=== PATIENT | male | born 1935 | race Caucasian/White ===

== ENCOUNTER → 2017-11-15 09:34 | Outpatient (CLI) | payer MEDICARE, OTHER, SELFPAY ==
[2017-11-15 11:20] LABS: AST(SGOT) 17 U/L (15-37); Alanine Aminotransfer ALT/SGPT 19 U/L (16-61); Albumin, Serum 3.8 g/dL (3.2-5.0); Alkaline Phosphatase 92 U/L (45-117); Bilirubin, Direct 0.09 mg/dL (0.00-0.30); Cholesterol 230 mg/dL (200); Globulin 4.2 g/dL (2.2-4.2); High Density Lipoprotein 32 mg/dL; Triglycerides 219 mg/dL; Very Low Density Lipoprotein 44 mg/dL (5-40)
== END ==
PROVIDERS: Internal Medicine Cardiovascular Disease; Family Provider Internal Medicine; PCP Internal Medicine
DX: E78.5 Hyperlipidemia, unspecified (principal); Z79.899 Other long term (current) drug therapy
CPT/HCPCS: 36415; 80061; 80076

== ENCOUNTER → 2018-01-17 09:25 | Outpatient (CLI) | payer MEDICARE, OTHER, SELFPAY ==
[2018-01-17 10:46] LABS: AST(SGOT) 16 U/L (15-37); Alanine Aminotransfer ALT/SGPT 20 U/L (16-61); Albumin, Serum 3.4 g/dL (3.2-5.0); Alkaline Phosphatase 83 U/L (45-117); Bilirubin, Direct 0.11 mg/dL (0.00-0.30); Cholesterol 197 mg/dL (200); Globulin 3.7 g/dL (2.2-4.2); High Density Lipoprotein 26 mg/dL; Protein, Total 7.1 g/dL (6.4-8.2); Triglycerides 246 mg/dL; Very Low Density Lipoprotein 49 mg/dL (5-40)
== END ==
PROVIDERS: Nurse Practitioner Family; Family Provider Internal Medicine; PCP Internal Medicine; Visit Provider Internal Medicine Cardiovascular Disease
DX: E78.5 Hyperlipidemia, unspecified (principal); Z79.899 Other long term (current) drug therapy
CPT/HCPCS: 36415; 80061; 80076

== ENCOUNTER → 2018-07-04 12:15 | Outpatient (CLI) | payer MEDICARE, OTHER, SELFPAY ==
--- NOTE | 2018-07-04 12:17 | CDU_ITS ---
Reason For Study: Bilateral carotid bruit Rt. Velocities/BP Lt. Velocities/BP Prox CCA 79.2/9.97 cm/sec. Prox CCA 87.4/12.9 cm/sec. Mid CCA 75.6/12.3 cm/sec. Mid CCA 90.3/15.2 cm/sec. Dist CCA 69.2/13.5 cm/sec. Dist CCA 86.2/15.8 cm/sec. Bulb 299/40.9 cm/sec. Prox ICA 79.2/15.2 cm/sec. Prox ICA 158/18.3 cm/sec. Mid ICA 85.6/21.7 cm/sec. Mid ICA 124/19.6 cm/sec. Dist ICA 99.1/24.6 cm/sec. Dist ICA 82.1/21.1 cm/sec. Lt. ICA/CCA = 1.13. Rt. ICA/CCA = 2.09. Prox ECA 70.4/7.04 cm/sec. Prox ECA 125/7.86 cm/sec. Lt. Vert. 49.5/10.2 cm/sec. Rt. Vert. 34.3/14.3 cm/sec. Right Extracranial There is intimal thickening but no significant atherosclerotic plaque noted in the right common carotid artery. There is heterogeneous, irregular atherosclerotic plaque noted in the right internal carotid artery. There is intimal thickening but no significant atherosclerotic plaque noted in the right external carotid artery. Antegrade flow is noted in the right vertebral artery. There is heterogeneous, irregular atherosclerotic plaque noted in the right bulb. Left Extracranial There is heterogeneous, smooth atherosclerotic plaque noted in the left common carotid artery. There is heterogeneous, irregular atherosclerotic plaque noted in the left internal carotid artery. There is intimal thickening but no significant atherosclerotic plaque noted in the left external carotid artery. Antegrade flow is noted in the left vertebral artery. Procedure Carotid Duplex [id number]. Exam performed in department. Interpretation Summary Moderate (50-69%) stenosis right extracranial internal carotid. Mild (<50%) stenosis left extracranial internal carotid. Flow within the vertebral arteries is antegrade bilaterally. Ordering Physician: Kareen Stearns Referring Physician: Marcus Espana M.D. Performed By: Enriqueta Go RVT and Student
== END ==
PROVIDERS: Family Provider Internal Medicine; PCP Internal Medicine; Referring Provider Physician Assistant Medical; Visit Provider Physician Assistant Medical
DX: R09.89 Other specified symptoms and signs involving the circulatory and respiratory systems (principal)
CPT/HCPCS: 93880

== ENCOUNTER → 2019-02-09 | Outpatient (CLI) | payer MEDICARE, OTHER, SELFPAY ==
[2019-01-19 14:15] VITALS: BMI 24.7
[2019-02-09 10:21] LABS: AST(SGOT) 20 U/L (15-37); Alanine Aminotransfer ALT/SGPT 20 U/L (16-61); Albumin, Serum 3.7 g/dL (3.2-5.0); Alkaline Phosphatase 87 U/L (45-117); Bilirubin, Direct 0.14 mg/dL (0.00-0.30); Cholesterol 209 mg/dL (200); Globulin 4.1 g/dL (2.2-4.2); High Density Lipoprotein 29 mg/dL; Protein, Total 7.8 g/dL (6.4-8.2); Triglycerides 302 mg/dL; Very Low Density Lipoprotein 60 mg/dL (5-40)
== END | disposition home or self-care (01) ==
LOC: LAB 09:40
PROVIDERS: Family Provider Internal Medicine; PCP Internal Medicine; Referring Provider Internal Medicine Cardiovascular Disease; Visit Provider Internal Medicine Cardiovascular Disease
DX: E78.00 Pure hypercholesterolemia, unspecified (principal)
CPT/HCPCS: 36415; 80061; 80076

== ENCOUNTER 2019-06-03 16:54 | Emergency (ER) | payer MEDICARE, OTHER, SELFPAY ==
[2019-01-19 14:15] VITALS: BMI 24.7
[2019-06-03 16:55] VITALS: BP 134/98; PULSE 77; RESP 16; TEMP 36.6; O2SAT 97; BMI 24.5
--- NOTE | 2019-06-03 17:09 | RAD_ITS ---
STUDY: X-RAY - UNILATERAL RIBS ( RIGHT ) WITH CHEST REASON FOR EXAM: Male, 83 years old. Posterior and axillary rib pain after falling. TECHNIQUE - RIBS: 4 view(s) of the ribs. TECHNIQUE - CHEST: 1 view COMPARISON: None. FINDINGS - RIBS: Normal visualized ribs without a demonstrated fracture. FINDINGS - CHEST: The lungs are clear and expanded. Numerous scattered calcified granuloma. Normal size heart. Status post prior midline sternotomy. Normal visualized pulmonary arteries. There is atherosclerotic calcification of the aortic arch with tortuosity. There is no demonstrated abnormality of the visualized soft tissue structures of the upper abdomen. RAD/Ribs Uni Min 3V w/PA Chest IMPRESSION: RIBS: Normal x-ray examination of the ribs. CHEST: No acute cardiopulmonary findings. Negative for pneumothorax, pleural effusion or major consolidation. Status post prior midline sternotomy. Stigmata of old granulomatous disease. Electronically Signed: Rabia Meza MD at 17:35 EDT , Service support ,
--- NOTE | 2019-06-03 17:10 | ED.VISSUMM ---
- ER Visit Summary Date of Service: 06/03/19 Chief Complaint: Fall History of Present Illness: The patient is a 83 M presents with a fall that occurred earlier today. Patient states he missed a step and fell on his right side. Patient states the pain started approximately 3 hours after the fall. Patient states the pain is over the right lower rib area. Patient states the pain is sharp. Patient states pain is worse with movement. Patient denies any anesthesias or weakness. Patient states he did hit his head but denies any loss of consciousness. Patient denies any paresthesias or weakness. Physical Examination: Vital signs are stable. Patient is afebrile. Patient is in no acute distress. Oral mucosa is pink and moist. Neck is supple. Trachea is midline. There is no JVD noted. Heart was regular rate and rhythm. Lungs are clear and equal bilaterally. There is reproducible tenderness over the posterior right lower ribs. There is no edema or ecchymosis. There is no bony crepitance or step-off. Abdomen is soft. Bowel sounds are normal. There is no tenderness. Cranial nerves II through XII are intact. There are no focal motor or sensory deficits noted. Test Results: X-rays of the right ribs were obtained. There is no acute fracture. There is no effusion. There is no acute cardiopulmonary process. These were interpreted by the radiologist and myself. Emergency Department Course and Treatment: Patient was instructed to use ice to his right ribs. Patient was instructed to take 10-15 deep breaths every hour while awake to prevent atelectasis and pneumonia. Patient was instructed to use Tylenol or ibuprofen as needed for pain. Patient was instructed to follow-up with his primary care physician in 5 to 7 days. Patient understood and was agreeable with the plan. All questions were answered. Disposition: Discharge home Impression: Right chest wall contusion This note was generated with [employer] dictation software. It may contain incorrect words, spelling, and punctuation that were not noted in review of the chart prior to signing ED Disposition - Plan for ED Patient: Disposition: Home or Assisted Living Diagnosis: Chest wall contusion Instructions: Fall Prevention, Chest Wall Contusion Referrals: Marcus Espana MD [Primary Care Provider] - 5-7 Days Additional Instructions: Take 10-15 deep breaths every hour while you are awake to prevent pneumonia.
== END 2019-06-03 17:56 | disposition home or self-care (01) ==
PROVIDERS: Emergency Provider Emergency Medicine; Family Provider Internal Medicine; PCP Internal Medicine
DX: S20.211A Contusion of right front wall of thorax, initial encounter (principal); W17.89XA Other fall from one level to another, initial encounter; Y93.01 Activity, walking, marching and hiking; Y92.89 Other specified places as the place of occurrence of the external cause; Y99.8 Other external cause status; I25.10 Atherosclerotic heart disease of native coronary artery without angina pectoris; J44.9 Chronic obstructive pulmonary disease, unspecified; E78.00 Pure hypercholesterolemia, unspecified; Z72.0 Tobacco use; Z79.51 Long term (current) use of inhaled steroids; Z79.899 Other long term (current) drug therapy; Z79.82 Long term (current) use of aspirin
CPT/HCPCS: 71101; 99282

== ENCOUNTER → 2019-07-17 | Outpatient (CLI) | payer MEDICARE, OTHER, SELFPAY ==
--- NOTE | 2019-07-17 14:00 | RAD_ITS ---
STUDY: X-RAY CHEST REASON FOR EXAM: Male, 83 years old. Left arm swelling, history of smoking TECHNIQUE: Two view of the chest were performed COMPARISON: None. FINDINGS: There is no pneumothorax, pulmonary edema, pneumonia or pleural effusions. There are multiple well defined small, less than 5 cm, dense bilateral pulmonary nodules probably representing granulomata and dense hilar nodules presumably representing calcified lymph nodes. Sternotomy wires are in place and coronary artery bypass clips. Cardiac size is normal. There is likely tortuosity of the aorta in the lower descending thoracic segment with acute angulation. Exact aortic size cannot be discerned on plain films. Osseous structures are unremarkable. RAD/Chest PA and Lateral IMPRESSION: 1. No acute cardiorespiratory disease. [ 2. Presumed pulmonary and hilar granulomatous dystrophic calcifications. 3. Prior coronary bypass. ] Electronically Signed: You Carroll, at 18:33 EST Tel , Service support ,
== END | disposition home or self-care (01) ==
LOC: MTRAD 13:59
PROVIDERS: Family Provider Family Medicine; PCP Family Medicine; Referring Provider Family Medicine; Visit Provider Family Medicine
DX: M79.89 Other specified soft tissue disorders (principal); F17.200 Nicotine dependence, unspecified, uncomplicated
CPT/HCPCS: 71046

== ENCOUNTER → 2019-07-19 | Outpatient (CLI) | payer MEDICARE, OTHER, SELFPAY ==
--- NOTE | 2019-07-19 13:53 | VDUE_ITS ---
Reason For Study: EDEMA Right Proximal Left Proximal Right subclavian vein is spontaneous, widely Left jugular vein is spontaneous, widely patent, phasic, with no intraluminal patent, phasic, with no intraluminal echogenicity noted. echogenicity noted. Left subclavian vein is spontaneous, widely patent, phasic, with no intraluminal echogenicity noted. Left Arm Left axillary vein is spontaneous, patent, phasic, competent, compressible and demonstrates augmentation. Left brachial vein is compressible. Left cephalic vein is compressible. Left basilic vein is compressible. Left Lower Arm Left radial vein is compressible. Left ulnar vein is compressible. Interpretation Summary No evidence for acute deep venous thrombosis[left] upper extremity with patent and compressible cephalic and basilic veins. Patent, compressible right subclavian vein Ordering Physician: Nathan Suresh Referring Physician: Nathan Suresh Performed By: Milagro Espinoza, ALCIDES, RVT ?
== END | disposition home or self-care (01) ==
LOC: CVS 13:50
PROVIDERS: Family Provider Family Medicine; PCP Family Medicine; Referring Provider Family Medicine; Visit Provider Family Medicine
DX: M79.89 Other specified soft tissue disorders (principal)
CPT/HCPCS: 93971

== ENCOUNTER → 2019-07-20 | Outpatient (CLI) | payer MEDICARE, OTHER, SELFPAY ==
[2019-07-20 14:20] VITALS: BMI 24.5
[2019-07-20 17:28] LABS: AST(SGOT) 14 U/L (15-37); Alanine Aminotransfer ALT/SGPT 23 U/L (16-61); Albumin, Serum 4.1 g/dL (3.2-5.0); Alkaline Phosphatase 99 U/L (45-117); Bilirubin, Direct 0.07 mg/dL (0.00-0.30); Cholesterol 204 mg/dL (200); Globulin 4.3 g/dL (2.2-4.2); High Density Lipoprotein 31 mg/dL; Protein, Total 8.4 g/dL (6.4-8.2); Triglycerides 336 mg/dL; Very Low Density Lipoprotein 67 mg/dL (5-40)
== END | disposition home or self-care (01) ==
LOC: LAB 15:25
PROVIDERS: Family Provider Family Medicine; PCP Family Medicine; Referring Provider Physician Assistant Medical; Visit Provider Physician Assistant Medical
DX: E78.00 Pure hypercholesterolemia, unspecified (principal)
CPT/HCPCS: 36415; 80061; 80076

== ENCOUNTER 2019-08-07 20:36 | Inpatient (IN) | payer MEDICARE, OTHER, SELFPAY ==
[2019-07-20 14:20] VITALS: BMI 24.5
[2019-08-07 20:37] VITALS: BP 155/77; PULSE 76; RESP 18; TEMP 36.3; O2SAT 98; BMI 25.7
--- NOTE | 2019-08-07 20:42 | ED.RN ---
RN CALLED FOR EKG, PULLED OLD EKGS FOR
[2019-08-07 21:09] VITALS: BP 124/93; PULSE 71; RESP 19; O2SAT 99
--- NOTE | 2019-08-07 21:14 | EKG12_ITS ---
Test Reason : CP Blood Pressure : / mmHG Vent. Rate : 071 BPM Atrial Rate : 071 BPM P-R Int : 164 ms QRS Dur : 098 ms QT Int : 370 ms P-R-T Axes : 046 054 156 degrees QTc Int : 402 ms Normal sinus rhythm Possible Left atrial enlargement ST & T wave abnormality, consider anterolateral ischemia Abnormal ECG Confirmed by DOUGLAS JERRY, SEN ([id number]), writer editor CORRINE GIL ([id number]) on 08/09/2019 11:18:40 AM Referred By: Sen Cole Confirmed By:SEN COLE MD
[2019-08-07 21:16] VITALS: O2SAT 97
--- NOTE | 2019-08-07 21:21 | RAD_ITS ---
STUDY: X-RAY CHEST REASON FOR EXAM: Male, 83 years old. Chest pain x3 days TECHNIQUE: Single AP portable view of the chest. COMPARISON: 07/17/2019 FINDINGS: The lungs are clear and expanded. There is no demonstrated pleural abnormality. Sternal cerclage wires are present from a prior sternotomy. Mild cardiomegaly. Normal mediastinum and queta. Normal visualized pulmonary arteries. Normal visualized aortic arch and descending thoracic aorta. Stable calcified granulomas throughout the lungs Normal visualized thoracic spine. Normal visualized ribs, clavicles, and shoulders. There is no demonstrated abnormality of the visualized soft tissue structures of the upper abdomen. RAD/Chest 1 View (Portable) IMPRESSION: No acute findings Electronically Signed: Beck Munoz DO at 21:44 EST Tel , Service support ,
[2019-08-07 21:30] LABS: Absolute Lymphocyte Count 2.41 X10^3/uL (0.83-4.51); Absolute Neutrophil Count 5.2 X10^3/uL (2.0-7.7); Basophil# 0.03 X10^3/uL; Basophil% 0.3 % (0-1); Eosinophil# 0.31 X10^3/uL; Eosinophils% 3.6 % (0-5); Hematocrit 40.8 % (40-54); Hemoglobin 14.2 g/dL (13.0-16.5); Lymphocyte # 2.41 X10^3/ul (4.0); Mean Corp Hgb Conc 34.8 g/dL (32-36); Mean Corpuscular Hgb 33.9 pg (27.0-32.0); Mean Corpuscular Volume 97.4 fL (80-94); Mean Platelet Vol. 10.1 fl (6.2-12.0); Monocyte# 0.65 X10^3/uL; Monocyte% 7.5 % (0-10); NRBC Flagged by Analyzer 0 % (0-5); Neutrophil % 60.4 % (47-70); Platelet Count 172 K/mm3 (150-450); RBC Distribution Width CV 12.1 % (11.6-14.6); RBC Distribution Width SD 43.5 fl (35.1-43.9); Red Blood Count 4.19 M/mm3 (4.6-6.2); White Blood Count 8.6 K/mm3 (4.4-11.0)
[2019-08-07] MEDS: Aspirin 81 MG TAB.CHEW 162 MG PO (21:35)
[2019-08-07] MEDS: 0.9% Normal Saline 1,000 ML 150 ML IV (21:36)
[2019-08-07 21:53] LABS: Anion Gap 8 (5-15); BUN 27 mg/dL (7-18); BUN/Creat Ratio 15.2 RATIO (10-20); Calcium,Total 8.8 mg/dL (8.5-10.1); Chloride 105 mmol/L (98-107); Creatinine, Serum 1.78 mg/dL (0.70-1.30); EST Glomerular Filtration Rate 39 mL/min (>60); Est Glom Filt Rate - Afr Amer 47 mL/min (>60); Estimated Creatinine Clearance 27.88 ml/min; Glucose 138 mg/dL (74-106); Potassium 4.2 mmol/L (3.5-5.1); Sodium Level 138 mmol/L (136-145)
--- NOTE | 2019-08-07 22:16 | ED.DCSUM_ITS ---
- ER Visit Summary Date of Service: 08/07/19 Chief Complaint: [Chest pain] History of Present Illness: The patient is a 83 M [presents to the emergency department with complaint of chest pain that started 3 or 4 days ago. Patient had intermittent discomfort. Patient states that typically worse with activity or exertion. Patient describes kind of aching in the left side of his chest without any radiation. Patient did feel short of breath with it. Patient took 2 of his nitro at home that he states were and did not have much resolution in his pain today however his son lent him 1 of his nitroglycerin tablets and his pain mostly resolved and at this time patient has no discomfort. She has history of COPD, peripheral vascular disease, hypertension, coronary artery disease. Patient has history of three-vessel CABG. Patient has a stent in his left leg. Patient denies recent travel or surgery. He denies any fever.] Physical Examination: [HEENT-PERRLA, EOMI. Cranial nerves II through XII grossly intact. TMs clear. Mucous membranes moist. No adenopathy. Cardiovascular-regular rate and rhythm without murmur or ectopy Lungs-clear to auscultation, chest wall stable without crepitus or subcu emphysema Abdomen-normoactive bowel sounds, soft, nontender, no rebound or rigidity, no peritoneal signs. Extremities-intact ?4, normal range of motion, normal pulses, atraumatic] Test Results: [EKG obtained on arrival showed a sinus rhythm with a ventricular rate of [address] changes noted. CBC with differential shows a white count of 8.6, hemoglobin 14, hematocrit 41, platelets 172. Chemistries unremarkable. BUN was 27 creatinine 1.78. Troponin was less than 0.015. Chest x-ray showed nothing acute.] Emergency Department Course and Treatment: [On arrival to the emergency department patient received baby aspirin. Placed on a personnel monitor.] Treatment Plan: [Admit for further work-up and evaluation of his chest pain.] Disposition: [Admit] Impression: [Chest pain-rule out acute coronary syndrome] This note was generated with [employer] dictation software. It may contain incorrect words, spelling, and punctuation that were not noted in review of the chart prior to signing ED Disposition - Plan for ED Patient: Referrals: Nathan Suresh MD [Primary Care Provider] -
--- NOTE | 2019-08-07 22:18 | HP.PCM_ITS ---
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 Comment: CABG X3: CONDON to LAD, SVG to DX, and SVG to RCA 1983 (4) Essential (primary) hypertension Status: Chronic (5) H/O coronary artery bypass surgery Status: Chronic Comment: CABG X3: CONDON to LAD, SVG to DX, and SVG to RCA 1983 (6) Hyperlipidemia Status: Chronic Qualifiers: Hyperlipidemia type: pure hypercholesterolemia Qualified Code(s): E78.00 - Pure hypercholesterolemia, unspecified (7) Lipoprotein deficiencies Status: Chronic (8) Peripheral vascular disease Status: Chronic (9) Tobacco abuse Status: Chronic History of Present Illness Date of Admission: 08/08/19 Chief Complaint: left upper quadrant pain The patient is a 83 year old M with a significant history of CAD status post triple vessel CABG; PAD status post stent who presented to emergency department with left upper quadrant abdominal pain that started on the same day of presentation. Associated with symptoms is nausea; and lightheadedness.. Further patient reports left arm pain which has worsened in the last 3 to 4 days. In the past he has been evaluated with x-ray and ultrasound of his left. These images were unremarkable. Also he reports left shoulder pain and left upper back pain. He reports that his symptoms are reminiscent of his previous chest pain. At home he took nitroglycerin x2. This nitroglycerin did not really help his pain because apparently the nitroglycerin was old and it might have . However his son gave him 1 of his (son's) nitroglycerin and it helped with his patient's chest pain. His chest pain worsens when he bend over. Past Medical History Past Medical History (Chronic Problems): Chronic Problems (Last Reviewed 08/08/19 @ 02:47 by Amando Castaneda MD) Atherosclerosis of coronary artery bypass graft of [place] heart with angina pectoris (Chronic) CABG X3: CONDON to LAD, SVG to DX, and SVG to RCA 1983 H/O coronary artery bypass surgery (Chronic 1983) CABG X3: CONDON to LAD, SVG to DX, and SVG to RCA 1983 Essential (primary) hypertension (Chronic) Lipoprotein deficiencies (Chronic) AAA (abdominal aortic aneurysm) (Chronic) Tobacco abuse (Chronic) Hyperlipidemia (Chronic) Peripheral vascular disease (Chronic) Medical History: Medical History (Last Reviewed 08/08/19 @ 07:13 by Amando Castaneda MD) Essential (primary) hypertension (Chronic) I10 Lipoprotein deficiencies (Chronic) E78.6 AAA (abdominal aortic aneurysm) (Chronic) I71.4 Tobacco abuse (Chronic) Z72.0 Hyperlipidemia (Chronic) E78.5 Peripheral vascular disease (Chronic) I73.9 Carotid artery stenosis I65.29 right Carotid bruit R09.89 Hypothyroidism E03.9 Stage 1 mild COPD by GOLD classification J44.9 MCGINNIS (dyspnea on exertion) (Resolved) R06.09 Chest pain R07.9 Family history of sudden cardiac Z82.41 Allergies atorvastatin calcium [From Lipitor] Allergy (Verified 08/07/19 21:14) Other celecoxib [From Celebrex] Allergy (Verified 08/07/19 21:14) Unknown lincomycin HCl [From Lincocin] Allergy (Verified 08/07/19 21:14) Unknown rosuvastatin calcium [From Crestor] Allergy (Verified 08/07/19 21:14) Other budesonide [From Symbicort] Adverse Reaction (Verified 08/07/19 21:14) headache, nausea formoterol [From Symbicort] Adverse Reaction (Verified 08/07/19 21:14) headache, nausea Home Medications: Ambulatory Orders Medication Instructions Recorded ALPRAZolam [Xanax] 0.5 mg PO BID PRN PRN 04/20/14 Albuterol Inhaler [Ventolin Hfa] 2 puff INHALATION Q4H PRN PRN 04/20/14 Aspirin [Aspirin, Baby] 162 mg PO DAILY@0800 04/20/14 Nortriptyline HCl [Pamelor] 25 mg PO QHS 04/20/14 Omeprazole [Prilosec] 20 mg PO DAILY 04/20/14 Nitroglycerin (INPATIENT USE) 0.4 mg SUBLINGUAL Q5M PRN 05/03/14 [Nitrostat] amlodipine 5 mg tablet 5 mg PO QDAY 11/17/17 levothyroxine 25 mcg tablet 25 mcg PO .COMPLEX tab 12/24/17 metoprolol tartrate 25 mg tablet 25 mg PO BID tab 06/23/18 ranolazine ER 500 mg 500 mg PO BID #180 tab 05/19/19 tablet,extended release,12 hr isosorbide mononitrate ER 60 mg 60 mg PO DAILY #90 tab 07/19/19 tablet,extended release 24 hr pravastatin 80 mg tablet 40 mg PO QHS tab 07/20/19 Co Q-10 1 tab PO DAILY 08/07/19 Surgical History: Surgical History (Last Reviewed 08/08/19 @ 07:13 by Amando Castaneda MD) H/O coronary artery bypass surgery (Chronic) Onset Date: 1983 Z95.1 CABG X3: CONDON to LAD, SVG to DX, and SVG to RCA 1983 History of left heart catheterization Onset Date: 2010 Z98.890 In 2010 he had a heart catheterization which demonstrated a totally occluded RCA, circumflex artery with proximal 60-70% stenosis, LAD was complex with severe disease involving the diagonal branch. SVG to the RCA was totally occluded. CONDON to the LAD was patent and the diagonal appears to be occluded. Surgical History: coronary bypass surgery Psychiatric History: Anxiety Smoking Status: Current every day smoker Tobacco Use: Cigarettes - *Family History Paternal Family History: Family History (Last Reviewed 08/08/19 @ 07:13 by Amando Castaneda MD) Brother Aortic aneurysm CAD (coronary artery disease) Father CAD (coronary artery disease) Mother CAD (coronary artery disease) Sister CAD (coronary artery disease) CVA (cerebral vascular accident) Other Family history of sudden cardiac Review of Systems Constitutional: Denies: Chills, Fever, Weight Change HEENT: Denies: Head Aches, Sinus Congestion, Sinus Drainage Cardiovascular: Reports: Chest Pain. Denies: Palpitations Respiratory: Reports: Shortness of Breath. Denies: Cough, Sputum production Gastrointestinal: Denies: Abdominal Pain, Nausea, Vomiting Genitourinary: Denies: Dysuria Musculoskeletal: Reports: Arm Pain, Back Pain, Shoulder Pain. Denies: Joint Pain, Joint Tenderness Skin: Denies: Rash, Wounds Neurological: Denies: Numbness, Tingling, Focal weakness Psychiatric: Reports: Anxiety, Depression. Denies: Homicidal Ideations, Suicidal Ideations Hematologic/ Lymphatic: Denies: Easy Bruising, Easy Bleeding VTE Information - Inpt Only VTE Present on Admission: No VTE Mechan Device Prophylaxis: SCD's VTE Pharm Prophylaxis ordered?: No Patient Problems: Active and Suspected Problems (Last Reviewed 08/08/19 @ 02:47 by Amando calix MD) Anginal equivalent (Acute) - Physical Exam Vitals/I&O's: Vital Signs Temp Pulse Resp BP Pulse Ox 97.3 F L 71 19 H 124/93 H 97 08/07/19 20:37 08/07/19 21:09 08/07/19 21:09 08/07/19 21:09 08/07/19 21:16 Oxygen Delivery Method Room Air Weight: 72.2 kg Body Mass Index (BMI) 25.7 General: Alert, Oriented x3, Cooperative HEENT: Atraumatic, PERRLA, EOMI, Normocephalic Neck: Supple, No JVD, Negative Carotid Bruits Lungs: Clear to auscultation, Normal air movement, No rhonchi, No wheeze, No rales Cardiovascular: Regular rate, Normal S1, Normal S2, No murmurs Abdomen: Bowel Sounds Present, Soft, Non Tender Extremities: No edema, Capillary Refill Less than 3 Seconds Skin: No rashes, No breakdown Musculoskeletal: No Tenderness to Palpation of Joints or Extremities Neurological: Cranial nerves II-XII grossly intact Psych/Mental Status: Normal Affect, Appropriate Laboratory Results 08/07/19 21:22: WBC 8.6, RBC 4.19 L, Hgb 14.2, Hct 40.8, MCV 97.4 H, MCH 33.9 H, MCHC 34.8, RDW Std Deviation 43.5, RDW Coeff of Gustavo 12.1, Plt Count 172, MPV 10.1, Immature Gran % (Auto) 0.200, Neut % (Auto) 60.4, Lymph % (Auto) 28.0, [place] % (Auto) 7.5, Eos % (Auto) 3.6, Baso % (Auto) 0.3, Absolute Neuts (auto) 5 .2, Absolute Lymphs (auto) 2.41, Nucleated RBC % 0 08/07/19 21:22: Sodium 138, Potassium 4.2, Chloride 105, Carbon Dioxide 25.0, Anion Gap 8, BUN 27 H, Creatinine 1.78 H, Estim Creat Clear Calc 27.88, Est GFR (MDRD) Af Amer 47 L, Est GFR (MDRD) Non-Af 39 L, BUN/Creatinine Ratio 15.2, Glucose 138 H, Calcium 8.8, Troponin I < 0.015 Current Medications Sodium Chloride () 1,000 mls @ 150 mls/hr IV .Q6H40M [facility] Last Admin: 08/07/19 21:36 Dose: 150 mls/hr Documented by: Assessment/Plan All Active Problems (Last Reviewed 08/08/19 @ 02:47 by Amando Castaneda MD) Anginal equivalent (Acute) MCGINNIS (dyspnea on exertion) (Resolved) The patient is a 83 year old M with a significant history of CAD status post triple vessel CABG; PAD status post stent who presented to emergency department with left upper quadrant abdominal pain; nausea; and lightheadedness consistent with angina equivalent. Anginal equivalent His heart score is a 6; moderate score (moderately suspicious history; nonspecific repolarization disturbance; age more than 65 years; >= 3 risk factors or history of atherosclerotic disease). We will consult cardiology for further management. Place on a monitored bed at PCU CXR independently reviewed confirms no acute cardiopulmonary process. EKG independently reviewed confirms nonspecific abnormalities; unchanged from previous. Alistair is on aspirin 162 mg at home; continued. ASA 81 mg p.o. daily Involved and ranolazine continued. PRN nitroglycerin ordered. Metoprolol continued. Statin: Home pravastatin continued Serial cardiac enzymes Stat EKG as needed for chest pain Hypertension On presentation his blood pressure was not within goal Metoprolol and Imdur continued Trend blood pressure and adjust blood pressure medications. Chronic Kidney stage III On presentation his creatinine is stable Tobacco abuse counseled Declined nicotine patch. DVT prophylaxis SCD while planning for cardiac work up for chest pain Code Visit OBSV E&M: [id number] Initial observation care L3
[2019-08-07 22:28] VITALS: BP 150/79; PULSE 66; RESP 14; O2SAT 96
[2019-08-07 23:24] VITALS: BP 154/74; PULSE 71; RESP 20; O2SAT 94
[2019-08-08] VITALS (14 sets, daily range): BP systolic 111–155; BP diastolic 53–72; PULSE 61–78; RESP 16–18; TEMP 36.4–36.9; O2SAT 91–97; BMI 24.3
--- NOTE | 2019-08-08 00:02 | EKG12_ITS ---
Test Reason : CP ADMIT Blood Pressure : / mmHG Vent. Rate : 068 BPM Atrial Rate : 068 BPM P-R Int : 146 ms QRS Dur : 090 ms QT Int : 432 ms P-R-T Axes : 064 046 051 degrees QTc Int : 459 ms Normal sinus rhythm ST & T wave abnormality, consider anterior ischemia Abnormal ECG When compared with ECG of 07-AUG-2019 20:43, MANUAL COMPARISON REQUIRED, DATA IS UNCONFIRMED Confirmed by MAMIE DENISE ([id number]), news editor ELLIE MCWILLIAMS ([id number]) on 08/11/2019 11:58:38 AM Referred By: Sen Antonio Confirmed By:MAMIE DENISE
[2019-08-08] MEDS: 0.9% Normal Saline 1,000 ML 50 ML IV (01:11)
[2019-08-08] MEDS: Levothyroxine 25 MCG TABLET PO (05:52)
[2019-08-08] MEDS: Aspirin 81 MG TAB.CHEW 162 MG PO (07:24)
[2019-08-08 07:37] LABS: Absolute Lymphocyte Count 2.61 X10^3/uL (0.83-4.51); Absolute Neutrophil Count 5.1 X10^3/uL (2.0-7.7); Basophil# 0.04 X10^3/uL; Basophil% 0.5 % (0-1); Eosinophil# 0.33 X10^3/uL; Eosinophils% 3.7 % (0-5); Hematocrit 39.8 % (40-54); Hemoglobin 13.5 g/dL (13.0-16.5); Lymphocyte # 2.61 X10^3/ul (4.0); Lymphocyte % 29.6 % (19-41); Mean Corp Hgb Conc 33.9 g/dL (32-36); Mean Corpuscular Hgb 33.2 pg (27.0-32.0); Mean Corpuscular Volume 97.8 fL (80-94); Mean Platelet Vol. 10.2 fl (6.2-12.0); Monocyte# 0.77 X10^3/uL; Monocyte% 8.7 % (0-10); NRBC Flagged by Analyzer 0 % (0-5); Neutrophil # 5.07 X10^3/uL (2.7-7.7); Neutrophil % 57.4 % (47-70); Platelet Count 166 K/mm3 (150-450); RBC Distribution Width CV 12.2 % (11.6-14.6); RBC Distribution Width SD 43.8 fl (35.1-43.9); Red Blood Count 4.07 M/mm3 (4.6-6.2); White Blood Count 8.8 K/mm3 (4.4-11.0)
[2019-08-08 07:55] LABS: International Normalized Ratio 1.1; Prothrombin Time (Protime)PT. 13.8 SECONDS (11.7-14.9)
[2019-08-08 07:56] LABS: Partial Thromboplast Time 33.3 Seconds (24.1-36.2)
[2019-08-08 07:59] LABS: Anion Gap 6 (5-15); BUN 22 mg/dL (7-18); BUN/Creat Ratio 13.8 RATIO (10-20); Calcium,Total 8.6 mg/dL (8.5-10.1); Chloride 110 mmol/L (98-107); Creatinine, Serum 1.59 mg/dL (0.70-1.30); EST Glomerular Filtration Rate 44 mL/min (>60); Est Glom Filt Rate - Afr Amer 54 mL/min (>60); Estimated Creatinine Clearance 32.33 ml/min; Glucose 109 mg/dL (74-106); Potassium 3.8 mmol/L (3.5-5.1); Sodium Level 141 mmol/L (136-145)
--- NOTE | 2019-08-08 08:24 | ECHOCS_ITS ---
Reason For Study: S/P CABG Procedure This was a 2D Doppler, Color Flow transthoracic echocardiogram. The study was technically difficult. Contrast injection was performed. Exam performed in department. Left Ventricle Normal LV size. The estimated ejection fraction is 60 %. Mild segmental systolic dysfunction (see wall motion). Stage 1 diastolic dysfunction. Infero-Basal: Akinetic. Right Ventricle Normal RV size. Normal systolic function. Atria Normal left atrium. Normal right atrium. Mitral Valve Normal mitral valve. Trivial eccentric mitral valve insufficiency. Tricuspid Valve Normal tricuspid valve. Mild (1+) tricuspid valve insufficiency. Pulmonary artery systolic pressure is 44 mmHg. Aortic Valve Trisinus/trileaflet aortic valve. Mild (1+) eccentric aortic valve insufficiency. Pulmonic Valve The pulmonic valve is not well visualized. Great Vessels Normal aortic root. The pulmonary artery is normal size. Normal inferior vena cava. Pericardium/Pleural No pericardial effusion. Medication Diluted definity 4ml given slow IV push to enhance endocardial definition. MMode/2D Measurements & Calculations LVIDd: 5.2 cm IVSd: 0.99 cm Ao root diam: 3.5 cm LVIDs: 4.3 cm LVPWd: 0.82 cm LA dimension: 4.0 cm RVDd: 3.8 cm FS: 18.1 % LAV(MOD-bp): 51.9 ml LA A4 area: 18.7 cm2 RA A4 area: 16.6 cm2 LAV(MOD-bp) Indexed: 28.7 ml/m2 LAV(MOD-sp2): 51.4 ml LAV(MOD-sp4): 50.8 ml Time Measurements MV dec time: 0.16 sec Doppler Measurements & Calculations MV E max avel: 76.0 cm/sec Lat Peak E' Avel: 9.8 cm/sec Med Peak E' Avel: 5.4 cm/sec MV A max avel: 117.0 cm/sec E/E' lat: 7.8 E/E' med: 14.2 MV E/A: 0.65 MV V2 max: 124.2 cm/sec MV P1/2t max avel: 93.4 cm/sec Ao V2 max: 139.1 cm/sec MV max P.2 mmHg MV P1/2t: 107.0 msec Ao max P.7 mmHg MV V2 mean: 70.3 cm/sec MV dec slope: 255.8 cm/sec2 MV mean P.3 mmHg MV V2 VTI: 29.8 cm MVA(P1/2t): 2.1 cm2 AI max avel: 402.2 cm/sec LV V1 max: 98.4 cm/sec PA V2 max: 84.7 cm/sec AI max P.7 mmHg LV V1 max P.9 mmHg AI dec slope: 378.1 cm/sec2 AI P1/2t: 311.5 msec TR max avel: 312.2 cm/sec TR max P.0 mmHg Interpretation Summary Normal LV size. The estimated ejection fraction is 60 %. Mild segmental systolic dysfunction (see wall motion). Stage 1 diastolic dysfunction. Mild (1+) eccentric aortic valve insufficiency. Ordering Physician: Sen Antonio Referring Physician: Nathan Suresh Performed By: Chava Molina RCS
--- NOTE | 2019-08-08 08:33 | CON.PCM_ITS ---
Reason for Consult Date of Consultation: 08/08/19 Reason for Consultation: Left-sided abdominal discomfort and chest pain History of Present Illness: The patient is a 83 year old M with a previous medical history significant for coronary artery disease status post coronary bypass surgery 1983 with a left internal mammary artery to the left anterior descending artery, saphenous vein graft to the diagonal branch and saphenous vein graft to the posterior descending artery. He also has carotid disease. He presented to the emergency room with a complaint of left-sided abdominal pain and occasional radiation to the left shoulder. He says that this has been going on for a few days. In the emergency room he was admitted because of his previous cardiac history. He currently is pain-free he has had no dizziness or diaphoresis no near syncope or syncope is been compliant with his medications but he has not been compliant with his social habits he continues to smoke. He does have a history of hypertension and hyperlipidemia and peripheral vascular disease. [] Past Medical History Allergies/Adverse Reactions: Allergies atorvastatin calcium [From Lipitor] Allergy (Verified 08/07/19 21:14) Other celecoxib [From Celebrex] Allergy (Verified 08/07/19 21:14) Unknown lincomycin HCl [From Lincocin] Allergy (Verified 08/07/19 21:14) Unknown rosuvastatin calcium [From Crestor] Allergy (Verified 08/07/19 21:14) Other budesonide [From Symbicort] Adverse Reaction (Verified 08/07/19 21:14) headache, nausea formoterol [From Symbicort] Adverse Reaction (Verified 08/07/19 21:14) headache, nausea Home Medications: Ambulatory Orders Medication Instructions Recorded ALPRAZolam [Xanax] 0.5 mg PO BID PRN PRN 04/20/14 Albuterol Inhaler [Ventolin Hfa] 2 puff INHALATION Q4H PRN PRN 04/20/14 Aspirin [Aspirin, Baby] 162 mg PO DAILY@0800 04/20/14 Nortriptyline HCl [Pamelor] 25 mg PO QHS 04/20/14 Omeprazole [Prilosec] 20 mg PO DAILY 04/20/14 Nitroglycerin (INPATIENT USE) 0.4 mg SUBLINGUAL Q5M PRN 05/03/14 [Nitrostat] amlodipine 5 mg tablet 5 mg PO QDAY 11/17/17 levothyroxine 25 mcg tablet 25 mcg PO .COMPLEX tab 12/24/17 metoprolol tartrate 25 mg tablet 25 mg PO BID tab 06/23/18 ranolazine ER 500 mg 500 mg PO BID #180 tab 05/19/19 tablet,extended release,12 hr isosorbide mononitrate ER 60 mg 60 mg PO DAILY #90 tab 07/19/19 tablet,extended release 24 hr pravastatin 80 mg tablet 40 mg PO QHS tab 07/20/19 Co Q-10 1 tab PO DAILY 08/07/19 Past Medical History (Chronic Problems): Chronic Problems (Last Reviewed 08/08/19 @ 07:13 by Amando Castaneda MD) Atherosclerosis of coronary artery bypass graft of [place] heart with angina pectoris (Chronic) CABG X3: CONDON to LAD, SVG to DX, and SVG to RCA 1983 H/O coronary artery bypass surgery (Chronic 1983) CABG X3: CONDON to LAD, SVG to DX, and SVG to RCA 1983 Essential (primary) hypertension (Chronic) Lipoprotein deficiencies (Chronic) AAA (abdominal aortic aneurysm) (Chronic) Tobacco abuse (Chronic) Hyperlipidemia (Chronic) Peripheral vascular disease (Chronic) Surgical History: coronary bypass surgery Psychiatric History: Anxiety - *Family History Paternal Family History: Family History (Last Reviewed 08/08/19 @ 07:13 by Amando Castaneda MD) Brother Aortic aneurysm CAD (coronary artery disease) Father CAD (coronary artery disease) Mother CAD (coronary artery disease) Sister CAD (coronary artery disease) CVA (cerebral vascular accident) Other Family history of sudden cardiac History Items: Unknown Smoking Status: Current every day smoker Tobacco Use: Cigarettes Alcohol: None Drugs: None Review of Systems - Review of Systems General: Denies: Fever, Night Sweats, Fatigue HEENT: Denies: Vision Change Cardiovascular: Reports: Chest Discomfort. Denies: Shortness of Breath, Orthopnea, PND, Peripheral Edema, Palpitations, Lightheadedness, Dizziness, Near Syncope, Syncope Respiratory: Denies: Cough, Sputum Production, Hemoptysis Gastrointestinal: Reports: Abdominal Discomfort. Denies: Hematemesis, H ematochezia, Melena Genitourinary: Denies: Dysuria, Hematuria Skin: Denies: Rash Neurological: Denies: Dizziness Psychiatric: Denies: Anxiety Endocrine: Denies: Heat Intolerance Hematologic/ Lymphatic: Denies: Lymph Node Enlargement Objective: Vital Signs Temp Pulse Resp BP Pulse Ox 98.2 F 66 16 152/63 H 91 08/08/19 05:55 08/08/19 06:47 08/08/19 05:55 08/08/19 05:55 08/08/19 08:00 Oxygen Delivery Method Room Air Weight: 154 lb 15.759 oz Body Mass Index (BMI) 24.3 Intake and Output for Last 24 Hours 08/06/19 08/07/19 08/08/19 23:59 23:59 23:59 Intake Total 565 / 565 Balance 565 / 565 08/07/19 21:22: WBC 8.6, RBC 4.19 L, Hgb 14.2, Hct 40.8, MCV 97.4 H, MCH 33.9 H, MCHC 34.8, Plt Count 172, MPV 10.1, Immature Gran % (Auto) 0.200, Neut % (Auto) 60.4, Lymph % (Auto) 28.0, [place] % (Auto) 7.5, Eos % (Auto) 3.6, Baso % (Auto) 0.3, Absolute Neuts (auto) 5.2, Nucleated RBC % 0 08/07/19 21:22: Sodium 138, Potassium 4.2, Chloride 105, Carbon Dioxide 25.0, Anion Gap 8, BUN 27 H, Creatinine 1.78 H, Est GFR (MDRD) Af Amer 47 L, Est GFR (MDRD) Non-Af 39 L, BUN/Creatinine Ratio 15.2, Glucose 138 H, Calcium 8.8, Troponin I < 0.015 08/08/19 00:40: Troponin I < 0.015 08/08/19 03:40: Troponin I < 0.015 08/08/19 07:25: WBC 8.8, RBC 4.07 L, Hgb 13.5, Hct 39.8 L, MCV 97.8 H, MCH 33.2 H, MCHC 33.9, Plt Count 166, MPV 10.2, Immature Gran % (Auto) 0.100, Neut % (Auto) 57.4, Lymph % (Auto) 29.6, [place] % (Auto) 8.7, Eos % (Auto) 3.7, Baso % (Auto) 0.5, Absolute Neuts (auto) 5.1, Nucleated RBC % 0 08/08/19 07:25: PT 13.8, INR 1.1, APTT 33.3 08/08/19 07:25: Sodium 141, Potassium 3.8, Chloride 110 H, Carbon Dioxide 25.0, Anion Gap 6, BUN 22 H, Creatinine 1.59 H, Est GFR (MDRD) Af Amer 54 L, Est GFR (MDRD) Non-Af 44 L, BUN/Creatinine Ratio 13.8, Glucose 109 H, Calcium 8.6 Rhythm: EKG: ECHO: Stress Test: Cardiac Cath: PCI: CT Surgery: Holter monitor: EPS: PPM: CXR: Chest CT Scan: Assessment/Plan 1. Chest pain * Patient presents with atypical chest findings but a known history of coronary artery disease and old bypass graft. * My recommendation at this particular time would be for him to undergo a pharmacologic myocardial perfusion stress test and depending on those findings further recommendations will be made. * In the meantime I would recommend that we maximize his medical therapy by increasing his beta-mirna, increasing his calcium channel mirna, and adding his nitrates. * He will also continue on his current dose of statin. * 2. Hypertension * His blood pressure appears to be elevated and we will continue maximizing his medical therapy. * 3. Peripheral vascular disease * We will continue with aggressive risk factor modification * 4. Hyperlipidemia * We will continue with aggressive risk factor modification
[2019-08-08] MEDS: amLODIPine 5 MG Tablet PO (08:41)
[2019-08-08] MEDS: Isosorbide Mononitrate 60 MG Tablet PO (12:03)
[2019-08-08] MEDS: Pantoprazole Sodium 20 MG Tablet PO (12:03)
[2019-08-08] MEDS: Ranolazine 500 MG Tablet PO ×2 (12:03→21:07)
[2019-08-08] MEDS: Metoprolol Tartrate 50 MG Tablet PO ×2 (12:07→21:07)
[2019-08-08] MEDS: 0.9% Saline Lock 10 ML Syringe IV (12:07)
--- NOTE | 2019-08-08 12:24 | STRESSREP ---
Stress Test Report Pharmacologic myocardial perfusion stress test. 83-year-old male with a history of chest pain. Stress protocol: Resting EKG demonstrates normal sinus rhythm with a rate of 70 bpm normal intervals are noted. Resting blood pressures 142/70 mmHg. T wave inversion is noted in lead V2 through V4. 0.4 mg of regadenoson was infused per usual protocol followed by rapid intravenous saline flush injection continuous EKG monitoring was performed. The patient maintained sinus rhythm throughout the recording. There appeared to be accentuation of the T wave inversions as well as downsloping ST depression noted in lead V2 through V6 during adenosine infusion. The above is suggestive of ischemia. The maximum heart rate was 88 bpm which was 64% maximum predicted heart rate the maximum workload was 1 metabolic equivalent. The resting blood pressure was 130/68 mmHg. Myocardial perfusion protocol. 12.0 mCi of technetium 99m sestamibi was injected at rest. 0.4 mg of regadenoson was infused per usual protocol peak infusion 36.0 mCi of technetium 99m sestamibi was injected stress images were obtained stress and rest images are reconstructed in comparing the short axis vertical and horizontal long axis. Gated images were also obtained PACS Perfusion SPECT analysis: Review of the stress images demonstrate normal cardiac silhouette size. The septum anterior wall and lateral wall appear to be well perfused. There is a defect noted involving the basal to mid inferior wall on the stress and resting images. The distal inferior septal area on the stress images also has a small defect which appears to normalize on resting. The above is suggestive of a distal inferoseptal towards apical ischemic zone. Previous basal inferior infarct is noted. Gated SPECT analysis: The gated ejection fraction is noted to be 65%. Conclusion: Abnormal pharmacologic myocardial perfusion stress test with EKG changes suggestive of abnormal flow reserve. Distal inferior apical ischemia. Basal inferior infarct
--- NOTE | 2019-08-08 14:23 | PN_ITS ---
<Prabha James - Last Filed: 08/08/19 14:34> Patient Problems: Active and Suspected Problems (Last Reviewed 08/08/19 @ 07:13 by Amando Castaneda MD) Anginal equivalent (Acute) Subjective: Patient seen and examined. Denies further chest pain. Stress test reported to be abnormal. Plan for heart cath in a.m. - Physical Exam Vitals/I&O's: Vital Signs Temp Pulse Resp BP Pulse Ox 97.9 F 78 16 124/58 H 96 08/08/19 11:55 08/08/19 12:07 08/08/19 11:55 08/08/19 12:07 08/08/19 11:55 Oxygen Delivery Method Room Air Weight: 159 lb 2.78 oz Body Mass Index (BMI) 24.3 Intake and Output for Last 24 Hours 08/06/19 08/07/19 08/08/19 23:59 23:59 23:59 Intake Total 950.83 / 950.83 Balance 950.83 / 950.83 General: Alert, Oriented x3, Cooperative HEENT: Atraumatic, PERRLA, EOMI, Normocephalic Neck: Supple, No JVD, Negative Carotid Bruits Lungs: Clear to auscultation, Normal air movement Cardiovascular: Regular rate, No murmurs Abdomen: Bowel Sounds Present, Soft, Non Tender, Non-Distended Extremities: No clubbing, No cyanosis, No edema, Capillary Refill Less than 3 Seconds Skin: No rashes, No breakdown Musculoskeletal: No Tenderness to Palpation of Joints or Extremities Neurological: Cranial nerves II-XII grossly intact, Neuro grossly intact Psych/Mental Status: Normal Affect, Appropriate Laboratory Results 08/07/19 21:22: WBC 8.6, RBC 4.19 L, Hgb 14.2, Hct 40.8, MCV 97.4 H, MCH 33.9 H, MCHC 34.8, RDW Std Deviation 43.5, RDW Coeff of Gustavo 12.1, Plt Count 172, MPV 10.1, Immature Gran % (Auto) 0.200, Neut % (Auto) 60.4, Lymph % (Auto) 28.0, [place] % (Auto) 7.5, Eos % (Auto) 3.6, Baso % (Auto) 0.3, Absolute Neuts (auto) 5.2, Absolute Lymphs (auto) 2.41, Nucleated RBC % 0 08/07/19 21:22: Sodium 138, Potassium 4.2, Chloride 105, Carbon Dioxide 25.0, Anion Gap 8, BUN 27 H, Creatinine 1.78 H, Estim Creat Clear Calc 27.88, Est GFR (MDRD) Af Amer 47 L, Est GFR (MDRD) Non-Af 39 L, BUN/Creatinine Ratio 15.2, Glucose 138 H, Calcium 8.8, Troponin I < 0.015 08/08/19 00:40: Troponin I < 0.015 08/08/19 03:40: Troponin I < 0.015 08/08/19 07:25: WBC 8.8, RBC 4.07 L, Hgb 13.5, Hct 39.8 L, MCV 97.8 H, MCH 33.2 H, MCHC 33.9, RDW Std Deviation 43.8, RDW Coeff of Gustavo 12.2, Plt Count 166, MPV 10.2, Immature Gran % (Auto) 0.100, Neut % (Auto) 57.4, Lymph % (Auto) 29.6, [place] % (Auto) 8.7, Eos % (Auto) 3.7, Baso % (Auto) 0.5, Absolute Neuts (auto) 5.1, Absolute Lymphs (auto) 2.61, Nucleated RBC % 0 08/08/19 07:25: PT 13.8, INR 1.1, APTT 33.3 08/08/19 07:25: Sodium 141, Potassium 3.8, Chloride 110 H, Carbon Dioxide 25.0, Anion Gap 6, BUN 22 H, Creatinine 1.59 H, Estim Creat Clear Calc 32.33, Est GFR (MDRD) Af Amer 54 L, Est GFR (MDRD) Non-Af 44 L, BUN/Creatinine Ratio 13.8, Glucose 109 H, Calcium 8.6 Current Medications Acetaminophen (Tylenol) 650 mg PO Q6H PRN PRN PRN Reason: Pain Score 1-3/Temp > 100.7 F Albuterol Sulfate (Ventolin Aerosols) 2.5 mg INHALATION Q2H PRN PRN PRN Reason: sob/wheezing Alprazolam (Xanax) 0.5 mg PO BID PRN PRN PRN Reason: ANXIETY Amlodipine Besylate (Norvasc) 10 mg PO DAILY [facility] Aspirin (Aspirin, Baby) 162 mg PO DAILY@0800 [facility] Last Admin: 08/08/19 07:24 Dose: 162 mg Documented by: Aspirin (Aspirin, Baby) 81 mg PO X1 ONE Stop: 08/08/19 14:03 Aspirin (Aspirin, Baby) 81 mg PO DAILY@0800 [facility] Clopidogrel Bisulfate (Plavix) 75 mg PO DAILY [facility] Dextrose (D50w Syringe) 0 gm IV X1 PRN; Protocol PRN Reason: Hypoglycemia Glucagon () 1 mg IM .X1 PRN PRN Reason: Hypoglycemia Isosorbide Mononitrate (Imdur) 60 mg PO DAILY [facility] Last Admin: 08/08/19 12:03 Dose: 60 mg Documented by: Levothyroxine Sodium (Synthroid) 25 mcg PO MoTuWeThFrSa@0600 [facility] Last Admin: 08/08/19 05:52 Dose: 25 mcg Documented by: Levothyroxine Sodium (Synthroid) 50 mcg PO Banerjee@0600 [facility] Metoprolol Tartrate (Lopressor (Beta Akila)) 50 mg PO BID [facility] Last Admin: 08/08/19 12:07 Dose: 50 mg Documented by: Nitroglycerin (Nitrostat) 0.4 mg SUBLINGUAL Q5M PRN PRN Reason: CARDIAC/CHEST PAIN Nortriptyline HCl (Pamelor) 25 mg PO QHS [facility] Ondansetron HCl (Zofran) 4 mg IV Q8H PRN PRN PRN Reason: NAUSEA/VOMITING Pantoprazole Sodium (Protonix) 20 mg PO DAILY [facility] Last Admin: 08/08/19 12:03 Dose: 20 mg Documented by: Pravastatin Sodium (Pravachol) 40 mg PO QHS [facility] Ranolazine (Ranexa) 500 mg PO BID [facility] Last Admin: 08/08/19 12:03 Dose: 500 mg Documented by: Sodium Chloride () 10 - 40 ml IV UD PRN PRN Reason: SALINE FLUSH Last Admin: 08/08/19 12:07 Dose: 10 ml Documented by: Medical Necessity - Tobacco Use Smoking Status: Current every day smoker Tobacco Use: Cigarettes Assessment/Plan All Active Problems (Last Reviewed 08/08/19 @ 07:13 by Amando Castaneda MD) Anginal equivalent (Acute) MCGINNIS (dyspnea on exertion) (Resolved) 1. Chest pain, abnormal stress test-cardiology following. Stress test demonstrated distal inferior apical ischemia. Plan for heart cath in a.m. Continue aspirin, statin, Plavix, beta-akila. 2. CAD with history of triple-vessel CABG-continue aspirin, statin, beta- akila, isosorbide, Ranexa. Follows with Dr. Antonio. 3. PAD status post stent-continue aspirin, statin. 4. Hypertension-stable, continue amlodipine, isosorbide, metoprolol regimen. 5. Hyperlipidemia-continue statin. 6. Chronic kidney disease stage III- at baseline. 7. Tobacco dependence-encouraged cessation. DVT prophylaxis- SCDs This patient was seen by DEJA Hinkle under the supervision of Dr. Adrian. <Hayley Anguiano - Last Filed: 08/08/19 17:22> - Physical Exam Vitals/I&O's: Vital Signs Temp Pulse Resp BP Pulse Ox 98.5 F 63 16 123/53 H 94 08/08/19 15:14 08/08/19 15:14 08/08/19 15:14 08/08/19 15:14 08/08/19 15:14 Oxygen Delivery Method Room Air Weight: 72.2 kg Body Mass Index (BMI) 24.3 Intake and Output for Last 24 Hours 08/06/19 08/07/19 08/08/19 23:59 23:59 23:59 Intake Total 950.83 / 950.83 Balance 950.83 / 950.83 Laboratory Results 08/07/19 21:22: WBC 8.6, RBC 4.19 L, Hgb 14.2, Hct 40.8, MCV 97.4 H, MCH 33.9 H, MCHC 34.8, RDW Std Deviation 43.5, RDW Coeff of Gustavo 12.1, Plt Count 172, MPV 10.1, Immature Gran % (Auto) 0.200, Neut % (Auto) 60.4, Lymph % (Auto) 28.0, [place] % (Auto) 7.5, Eos % (Auto) 3.6, Baso % (Auto) 0.3, Absolute Neuts (auto) 5.2, Absolute Lymphs (auto) 2.41, Nucleated RBC % 0 08/07/19 21:22: Sodium 138, Potassium 4.2, Chloride 105, Carbon Dioxide 25.0, Anion Gap 8, BUN 27 H, Creatinine 1.78 H, Estim Creat Clear Calc 27.88, Est GFR (MDRD) Af Amer 47 L, Est GFR (MDRD) Non-Af 39 L, BUN/Creatinine Ratio 15.2, Glucose 138 H, Calcium 8.8, Troponin I < 0.015 08/08/19 00:40: Troponin I < 0.015 08/08/19 03:40: Troponin I < 0.015 08/08/19 07:25: WBC 8.8, RBC 4.07 L, Hgb 13.5, Hct 39.8 L, MCV 97.8 H, MCH 33.2 H, MCHC 33.9, RDW Std Deviation 43.8, RDW Coeff of Gustavo 12.2, Plt Count 166, MPV 10.2, Immature Gran % (Auto) 0.100, Neut % (Auto) 57.4, Lymph % (Auto) 29.6, [place] % (Auto) 8.7, Eos % (Auto) 3.7, Baso % (Auto) 0.5, Absolute Neuts (auto) 5.1, Absolute Lymphs (auto) 2.61, Nucleated RBC % 0 08/08/19 07:25: PT 13.8, INR 1.1, APTT 33.3 08/08/19 07:25: Sodium 141, Potassium 3.8, Chloride 110 H, Carbon Dioxide 25.0, Anion Gap 6, BUN 22 H, Creatinine 1.59 H, Estim Creat Clear Calc 32.33, Est GFR (MDRD) Af Amer 54 L, Est GFR (MDRD) Non-Af 44 L, BUN/Creatinine Ratio 13.8, Glucose 109 H, Calcium 8.6 Current Medications Acetaminophen (Tylenol) 650 mg PO Q6H PRN PRN PRN Reason: Pain Score 1-3/Temp > 100.7 F Albuterol Sulfate (Ventolin Aerosols) 2.5 mg INHALATION Q2H PRN PRN PRN Reason: sob/wheezing Alprazolam (Xanax) 0.5 mg PO BID PRN PRN PRN Reason: ANXIETY Amlodipine Besylate (Norvasc) 10 mg PO DAILY [facility] Aspirin (Aspirin, Baby) 81 mg PO DAILY@0800 [facility] Clopidogrel Bisulfate (Plavix) 75 mg PO DAILY [facility] Dextrose (D50w Syringe) 0 gm IV X1 PRN; Protocol PRN Reason: Hypoglycemia Glucagon () 1 mg IM .X1 PRN PRN Reason: Hypoglycemia Isosorbide Mononitrate (Imdur) 60 mg PO DAILY [facility] Last Admin: 08/08/19 12:03 Dose: 60 mg Documented by: Levothyroxine Sodium (Synthroid) 25 mcg PO MoTuWeThFrSa@0600 [facility] Last Admin: 08/08/19 05:52 Dose: 25 mcg Documented by: Levothyroxine Sodium (Synthroid) 50 mcg PO Banerjee@0600 [facility] Metoprolol Tartrate (Lopressor (Beta Akila)) 50 mg PO BID [facility] Last Admin: 08/08/19 12:07 Dose: 50 mg Documented by: Nitroglycerin (Nitrostat) 0.4 mg SUBLINGUAL Q5M PRN PRN Reason: CARDIAC/CHEST PAIN Nortriptyline HCl (Pamelor) 25 mg PO QHS [facility] Ondansetron HCl (Zofran) 4 mg IV Q8H PRN PRN PRN Reason: NAUSEA/VOMITING Pantoprazole Sodium (Protonix) 20 mg PO DAILY [facility] Last Admin: 08/08/19 12:03 Dose: 20 mg Documented by: Pravastatin Sodium (Pravachol) 40 mg PO QHS [facility] Ranolazine (Ranexa) 500 mg PO BID [facility] Last Admin: 08/08/19 12:03 Dose: 500 mg Documented by: Sodium Chloride () 10 - 40 ml IV UD PRN PRN Reason: SALINE FLUSH Last Admin: 08/08/19 12:07 Dose: 10 ml Documented by: Assessment/Plan This patient was seen in conjunction with Prabha James NP. I have independently interviewed and examined the patient and reviewed pertinent historical, laboratory, and other data. Please refer to her note for patient's presentation, findings, and recommendations. Patient was seen and examined. He denied any chest pain. He had a stress test that showed distal in inferior apical ischemia. Cardiology has been consulted, cardiac cath in a.m. No acute events overnight. Vitals were reviewed -stable Physical Exam: Gen: Comfortable, not pale, not jaundiced, alert oriented x3 CVS:HS I +II, regular, no murmurs RESP: CTA GI: BS present and normal, nontender, no palpable organs EXT:No edema Labs reviewed: ASSESSMENT: 1. Chest pain, atypical, abnormal stress test 2. CAD status post CABG 3. PAD status post stent 4. Hypertension 5. Hyperlipidemia 6. CKD stage III 7. Nicotine dependence 8. Hypothyroidism Meds reviewed Plan: Continue on aspirin, statin, Plavix, beta-akila Follow-up with cardiology recommendations in a.m. Code Visit Inpatient E&M: 04846 Subs Hosp L2
[2019-08-08] MEDS: Clopidogrel Bisulfate 300 MG Tablet PO (15:22)
[2019-08-08] MEDS: Nortriptyline 25 MG Capsule PO (21:06)
[2019-08-08] MEDS: Pravastatin 40 MG Tablet PO (21:06)
[2019-08-08] MEDS: MELATONIN 3 MG TABLET PO (21:10)
[2019-08-09] VITALS (15 sets, daily range): BP systolic 105–123; BP diastolic 47–58; PULSE 54–62; RESP 16–18; TEMP 36.7–36.8; O2SAT 91–98
--- NOTE | 2019-08-09 05:55 | EKG12_ITS ---
Test Reason : AM EKG Blood Pressure : / mmHG Vent. Rate : 059 BPM Atrial Rate : 059 BPM P-R Int : 150 ms QRS Dur : 092 ms QT Int : 452 ms P-R-T Axes : 035 054 096 degrees QTc Int : 447 ms Sinus bradycardia with occasional Premature ventricular complexes T wave abnormality, consider anterolateral ischemia Abnormal ECG Confirmed by MAMIE DENISE ([id number]), graphic editor ELLIE MCWILLIAMS ([id number]) on 08/11/2019 11:59:49 AM Referred By: DEJUAN Confirmed By:MAMIE DENISE
[2019-08-09] MEDS: Levothyroxine 25 MCG TABLET PO (06:12)
[2019-08-09] MEDS: Isosorbide Mononitrate 60 MG Tablet PO (06:12)
[2019-08-09] MEDS: Aspirin 81 MG TAB.CHEW PO (06:12)
--- NOTE | 2019-08-09 06:12 | PCM.PN.HOSP ---
Patient Problems: Active and Suspected Problems (Last Reviewed 08/08/19 @ 07:13 by Amando Castaneda MD) Anginal equivalent (Acute) Vitals/I&O's: Vital Signs Temp Pulse Resp BP Pulse Ox 98.0 F 62 16 114/58 L 94 08/09/19 06:10 08/09/19 06:10 08/09/19 06:10 08/09/19 06:10 08/09/19 06:10 Oxygen Flow Rate (L/min) 2 Oxygen Delivery Method Room Air Weight: 72.2 kg Body Mass Index (BMI) 24.3 Intake and Output for Last 24 Hours 08/07/19 08/08/19 08/09/19 23:59 23:59 23:59 Intake Total / Balance / Laboratory Results 08/08/19 07:25: WBC 8.8, RBC 4.07 L, Hgb 13.5, Hct 39.8 L, MCV 97.8 H, MCH 33.2 H, MCHC 33.9, RDW Std Deviation 43.8, RDW Coeff of Gustavo 12.2, Plt Count 166, MPV 10.2, Immature Gran % (Auto) 0.100, Neut % (Auto) 57.4, Lymph % (Auto) 29.6, [place] % (Auto) 8.7, Eos % (Auto) 3.7, Baso % (Auto) 0.5, Absolute Neuts (auto) 5.1, Absolute Lymphs (auto) 2.61, Nucleated RBC % 0 08/08/19 07:25: PT 13.8, INR 1.1, APTT 33.3 08/08/19 07:25: Sodium 141, Potassium 3.8, Chloride 110 H, Carbon Dioxide 25.0, Anion Gap 6, BUN 22 H, Creatinine 1.59 H, Estim Creat Clear Calc 32.33, Est GFR (MDRD) Af Amer 54 L, Est GFR (MDRD) Non-Af 44 L, BUN/Creatinine Ratio 13.8, Glucose 109 H, Calcium 8.6 Current Medications Acetaminophen (Tylenol) 650 mg PO Q6H PRN PRN PRN Reason: Pain Score 1-3/Temp > 100.7 F Albuterol Sulfate (Ventolin Aerosols) 2.5 mg INHALATION Q2H PRN PRN PRN Reason: sob/wheezing Alprazolam (Xanax) 0.5 mg PO BID PRN PRN PRN Reason: ANXIETY Amlodipine Besylate (Norvasc) 10 mg PO DAILY [facility] Aspirin (Aspirin, Baby) 81 mg PO DAILY@0800 [facility] Clopidogrel Bisulfate (Plavix) 75 mg PO DAILY [facility] Dextrose (D50w Syringe) 0 gm IV X1 PRN; Protocol PRN Reason: Hypoglycemia Glucagon () 1 mg IM .X1 PRN PRN Reason: Hypoglycemia Isosorbide Mononitrate (Imdur) 60 mg PO DAILY [facility] Last Admin: 08/08/19 12:03 Dose: 60 mg Documented by: Levothyroxine Sodium (Synthroid) 25 mcg PO MoTuWeThFrSa@0600 [facility] Last Admin: 08/08/19 05:52 Dose: 25 mcg Documented by: Levothyroxine Sodium (Synthroid) 50 mcg PO Banerjee@0600 [facility] Melatonin (Melatonin) 3 mg PO QHS PRN PRN Reason: SLEEP Last Admin: 08/08/19 21:10 Dose: 3 mg Documented by: Metoprolol Tartrate (Lopressor (Beta Akila)) 50 mg PO BID [facility] Last Admin: 08/08/19 21:07 Dose: 50 mg Documented by: Nitroglycerin (Nitrostat) 0.4 mg SUBLINGUAL Q5M PRN PRN Reason: CARDIAC/CHEST PAIN Nortriptyline HCl (Pamelor) 25 mg PO QHS [facility] Last Admin: 08/08/19 21:06 Dose: 25 mg Documented by: Ondansetron HCl (Zofran) 4 mg IV Q8H PRN PRN PRN Reason: NAUSEA/VOMITING Pantoprazole Sodium (Protonix) 20 mg PO DAILY [facility] Last Admin: 08/08/19 12:03 Dose: 20 mg Documented by: Pravastatin Sodium (Pravachol) 40 mg PO QHS [facility] Last Admin: 08/08/19 21:06 Dose: 40 mg Documented by: Ranolazine (Ranexa) 500 mg PO BID [facility] Last Admin: 08/08/19 21:07 Dose: 500 mg Documented by: Sodium Chloride () 10 - 40 ml IV UD PRN PRN Reason: SALINE FLUSH Last Admin: 08/08/19 12:07 Dose: 10 ml Documented by: STROKE Vital Signs/Narrative: Vital Signs Temp Pulse Resp BP Pulse Ox 08/09/19 06:10 98.0 F 62 16 114/58 L 94 08/09/19 02:59 54 L 08/09/19 02:28 97 08/09/19 02:25 98.1 F 60 18 107/56 L 96 Medical Necessity - Tobacco Use Smoking Status: Current every day smoker Tobacco Use: Cigarettes Assessment/Plan All Active Problems (Last Reviewed 08/08/19 @ 07:13 by Amando Castaneda MD) Anginal equivalent (Acute) MCGINNIS (dyspnea on exertion) (Resolved)
[2019-08-09] MEDS: Metoprolol Tartrate 50 MG Tablet PO (06:13)
[2019-08-09] MEDS: Clopidogrel Bisulfate 75 MG Tablet PO (06:13)
[2019-08-09] MEDS: amLODIPine 10 MG Tablet PO (06:13)
[2019-08-09] MEDS: Pantoprazole Sodium 20 MG Tablet PO (06:13)
[2019-08-09] MEDS: Ranolazine 500 MG Tablet PO (06:14)
[2019-08-09] MEDS: 0.9% Saline Lock 10 ML Syringe IV (06:15)
--- NOTE | 2019-08-09 09:09 | PN.CARD_ITS ---
Subjectve: Patient seen and evaluated. Underwent cardiac catheterization this morning. Objective: Vital Signs Temp Pulse Resp BP Pulse Ox 98.0 F 58 L 16 114/58 L 96 08/09/19 06:10 08/09/19 06:45 08/09/19 06:10 08/09/19 06:13 08/09/19 07:51 Oxygen Flow Rate (L/min) 2 Oxygen Delivery Method Room Air Weight: 159 lb 2.78 oz Body Mass Index (BMI) 24.3 Intake and Output for Last 24 Hours 08/07/19 08/08/19 08/09/19 23:59 23:59 23:59 Intake Total 2044. / 2044. Balance / General: Awake, Alert, Oriented x 3 HEENT: PERRL, EOMI, Sclera Non Icteric Neck: Supple, Good ROM, No Lymph Node Enlargement Lungs: Clear to auscultation Cardiovascular: Regular Rhythm, Normal S1, Normal S2, No Murmurs, No Rubs, No Gallops Vascular: No Carotid Bruits, Normal Femoral Pulses, Normal Radial Pulses, Normal Dorsalis Pedal Pulse, Normal Posterior Tibial Pulses Abdomen: Bowel Sounds Present, Soft, Non Tender, No HSM, No Organomegaly Extremities: No Cyanosis, No Clubbing, No edema Musculoskeletal: No Erythema Skin: No Rashes Lymphatic: No Lymph Node Enlargement Neurological: No Focal Motor or Sensory Deficit Rhythm: EKG: ECHO: Stress Test: Cardiac Cath: PCI: CT Surgery: Holter monitor: EPS: PPM: CXR: Chest CT Scan: Medical Necessity - Tobacco Use Smoking Status: Current every day smoker Tobacco Use: Cigarettes Assessment/Plan 1. Chest pain * Patient presents with atypical chest findings but a known history of coronary artery disease and old bypass graft. * His cardiac catheterization demonstrated the following: Left main coronary artery with distal calcification and a complex plaque with approximately 50% distal stenosis, Left anterior descending artery with proximal high-grade 90% stenosis and then mid LAD is totally occluded Left circumflex with calcified plaque and complex 80% proximal stenosis. Right coronary artery was previously noted to be totally occluded. Saphenous vein graft to right coronary artery was previously known to be totally occluded. Left internal mammary artery to the left anterior descending artery was noted to be patent. Left to right distal collaterals filling the distal right coronary artery. Left ventriculogram demonstrates basal inferior akinetic zone with hypokinesis of the inferior wall. Based on the stress test demonstrating evidence of distal inferior apical ischemia with a basal inferior infarct at zone I would recommend that we continue medical therapy. He also has a very tortuous and mildly aneurysmal aorta. 2. Hypertension * His blood pressure appears to be elevated and we will continue maximizing his medical therapy. * 3. Peripheral vascular disease * We will continue with aggressive risk factor modification * 4. Hyperlipidemia * We will continue with aggressive risk factor modification
--- NOTE | 2019-08-09 09:24 | CL.D_ITS ---
Patient Name: LUIS ALFREDO PRICE Study Date: 08/09/2019 Performing: Sen Antonio MD Ht: 66.92 inches 170 cm : 1935 Wt: 158.73 lbs 72 kg Age: 83 Gender: male BSA: 1.83 PROCEDURE(S) PERFORMED LO72-CQV/COR/LV/CABG CLINICAL PROFILE AND INDICATIONS Indications: Suspected CAD Heart Failure: None Stress/Imaging Date: 08/08/2019Stress Test with SPECT MPI: Positive Intermediate Risk CAD Presentations: Stable angina. CONCLUSIONS Coronary artery disease involving a totally occluded left anterior descending artery, mid left circum flex artery occlusion and a total right coronary artery occlusion. Homocollaterals are noted in the circumflex artery distribution, a CONDON is patent to the left anterior descending artery, preserved ej ection fraction is noted with basal inferior akinesis present. RECOMMENDATIONS Medical therapy DESCRIPTION OF PROCEDURE The patient arrived to the procedure lab. The risks and benefits of the procedure as well as a full d escription of our services here and current unavailability of surgical backup were fully explained to the patient and/or their significant other prior to the catheterization. The Timeout was completed, verifying the correct patient and procedure. The patient's procedural site was prepped and draped in the usual fashion. Local anesthetic was given subcutaneously to right groin region with Lidocaine 2%. Using a modified Seldinger technique, arterial access was obtained via the right femoral artery, a 5 Fr sheath was inserted. Left Coronary Artery selective angiography was performed in multiple views u sing a 5 Fr. JL4 catheter. Left internal mammary artery graft to the LAD selective angiography was pe rformed in multiple views using a 4 Fr. JR4 catheter. Left Ventriculography was performed in CURTIS proj ection using a 5 Fr. Pigtail catheter. LV to AO pullback pressures were then recorded.The arterial sheath was pulled and manual compression applied until hemostasis is achieved. CORONARY ANGIOGRAPHY DOMINANCE: Right Dominant LEFT HEART ASSESSMENT Left Ventricular Ejection Fraction: by LV Gram 55 % Inferior Basal Akinesis Depressed Left Ventricular systolic function LEFT MAIN: Moderate calcification LEFT ANTERIOR DESCENDING ARTERY: MID LAD: is occluded CIRCUMFLEX ARTERY: PROX CIRC: High-grade proximal circumflex artery occlusion after the first obtuse marginal branch. T here appeared to be homocollaterals between the proximal and mid to distal circumflex artery with col laterals to the distal right coronary artery. RIGHT CORONARY ARTERY: Previously totally occluded GRAFTS: CONDON graft to the Mid LAD is patent Saphenous Vein graft to the RCA is totally occluded COMPLICATIONS No Complications PROCEDURE MEDICATIONS Fentanyl 50 mcg IV Versed 1 mg IV Oxygen: 2 L/min via nasal cannula IV Bolus: .9 NaCl ml total 08/09/2019 08:43:45 SUMMARY OF HEMODYNAMIC DATA Time AIR REST ECG 08:28:01 AO 94/37 (57) SA 08:45:23 AO 97/49 (69) 08:54:39 LV 122/10, 18 09:03:03 LV 111/9, 18 09:03:48 LVp 116/7, 16 09:03:55 AOp 117/43 (70) 09:04:00 Signed By Sen Antonio MD On 08/09/2019 09:23:59 Sen Antonio MD
--- NOTE | 2019-08-09 10:43 | CDU_ITS ---
Reason For Study: syncope Rt. Velocities/BP Lt. Velocities/BP Prox CCA 78.6/10.8 cm/sec. Prox CCA 104.7/21.2 cm/sec. Mid CCA 64.3/10.8 cm/sec. Mid CCA 66.6/13.9 cm/sec. Dist CCA 83.9/12.1 cm/sec. Dist CCA 59.3/12.6 cm/sec. Prox ICA 330.7/79.6 cm/sec. Prox ICA 92.4/31.1 cm/sec. Mid ICA 210.6/29.3 cm/sec. Mid ICA 98.6/36.0 cm/sec. Dist ICA 143.2/37.0 cm/sec. Dist ICA 104.7/36.0 cm/sec. Rt. ICA/CCA = 5.1. Lt. ICA/CCA = 1.6. Prox ECA 112.6 cm/sec. Prox ECA 63.0 cm/sec. Rt. Vert. 53.2/18.8 cm/sec. Lt. Vert. 58.1/13.9 cm/sec. Right Extracranial There is homogeneous, smooth atherosclerotic plaque noted in the right common carotid artery. There is heterogeneous, irregular atherosclerotic plaque noted in the right internal carotid artery. There is homogeneous, smooth atherosclerotic plaque noted in the right external carotid artery. Antegrade flow is noted in the right vertebral artery. Left Extracranial There is heterogeneous, irregular atherosclerotic plaque noted in the left common carotid artery. There is heterogeneous, irregular atherosclerotic plaque noted in the left internal carotid artery. There is intimal thickening but no significant atherosclerotic plaque noted in the left external carotid artery. Antegrade flow is noted in the left vertebral artery. Procedure Carotid Duplex [id number]. The exam was diagnostic. Prelim called to Annie at Dr. Tovar's office. Exam performed portable in patient room. Interpretation Summary Heterogenous irregular absent chronic plaque at the proximal right internal carotid artery. >70% stenosis right internal carotid <50% stenosis right external carotid Irregular plague proximal left internal carotid <50% stenosis left external carotid Patent, antegrade, <50% stenosis bilateral vertebrals Refer to the previous examination of 07/04/18 where very abnormal velocities on the right were noted at that time. Ordering Physician: Hayley Anguiano Performed By: Dennis Fernando RVT
--- NOTE | 2019-08-09 10:45 | DCINST_ITS ---
- Discharge Diagnoses Current Active Problems: Current Active and Chronic Problems (Last Reviewed 08/08/19 @ 07:13 by Amando Castaneda MD) Anginal equivalent (Acute) Reason(s) for Visit for Discharge Instructions: Chest pain You will use the following diet at home:: Cardiac Your food should be the consistency of: Regular Your liquids should be the consistency of: Regular/Thin Discharge Activity: Return to Normal Activity Additional Instructions: Continue to take all your medications as prescribed. Continue to follow a low-fat low-salt diet. Continue to remain active. Follow- up with Dr. Antonio in 2 weeks. Allergies/Adverse Reactions: Allergies atorvastatin calcium [From Lipitor] Allergy (Verified 08/07/19 21:14) Other celecoxib [From Celebrex] Allergy (Verified 08/07/19 21:14) Unknown lincomycin HCl [From Lincocin] Allergy (Verified 08/07/19 21:14) Unknown rosuvastatin calcium [From Crestor] Allergy (Verified 08/07/19 21:14) Other budesonide [From Symbicort] Adverse Reaction (Verified 08/07/19 21:14) headache, nausea formoterol [From Symbicort] Adverse Reaction (Verified 08/07/19 21:14) headache, nausea Medications to take at Discharge ALPRAZolam [Xanax] 0.5 mg PO BID PRN PRN 04/20/14 Albuterol Inhaler [Ventolin Hfa] 2 puff INHALATION Q4H PRN PRN 04/20/14 Aspirin [Aspirin, Baby] 162 mg PO DAILY@0800 04/20/14 Nortriptyline HCl [Pamelor] 25 mg PO QHS 04/20/14 Omeprazole [Prilosec] 20 mg PO DAILY 04/20/14 Nitroglycerin (INPATIENT USE) [Nitrostat] 0.4 mg SUBLINGUAL Q5M PRN 05/03/14 levothyroxine 25 mcg tablet 25 mcg PO .COMPLEX tab 12/24/17 ranolazine ER 500 mg tablet,extended release,12 hr 500 mg PO BID #180 tab 05/19/19 isosorbide mononitrate ER 60 mg tablet,extended release 24 hr 60 mg PO DAILY #90 tab 07/19/19 pravastatin 80 mg tablet 40 mg PO QHS tab 07/20/19 Co Q-10 1 tab PO DAILY 08/07/19 Acetaminophen [Tylenol Tablet] 650 mg PO Q6H PRN PRN tab 08/09/19 Amlodipine [Norvasc] 10 mg PO DAILY #30 tab 08/09/19 Clopidogrel Bisulfate [Plavix] 75 mg PO DAILY #30 tab 08/09/19 Metoprolol Tartrate [Lopressor (beta mirna)] 50 mg PO BID #60 tab 08/09/19 The following prescriptions were given: Metoprolol Tartrate [Lopressor (beta mirna)] 50 mg PO BID #60 tab Transmission Status: Received by [facility]30 Amlodipine [Norvasc] 10 mg PO DAILY #30 tab Transmission Status: Received by [facility] #30 Clopidogrel Bisulfate [Plavix] 75 mg PO DAILY #30 tab Transmission Status: Received by [facility]30 Primary Care Physician: Nathan Suresh MD [Primary Care Provider] - Please follow up with your Primary Care Physician in: within 1-2 weeks of discharge Test Results: Test results from this visit will be discussed in further detail at your follow- up appointment, if applicable. Please Follow Up With: Sen Antonio MD When: in 2 weeks Proposed Discharge Date: 08/09/19
--- NOTE | 2019-08-09 10:55 | CASEMGMT ---
RN [facility] CM to room to meet with patient for initial transition planning/care coordination assessment. RHONDA MELCHOR introduced self and role at [facility]. Pt voices understanding and consents to assessment at this time. Pt resting in bed in no distress at this time. Pt is A/O at this time and answers all questions appropriately. Care providers, pharmacy, and demographics verified/updated at this time. PCP: Kerwin Specialists: Marisela--lens marker Preferred Pharmacy: [facility] Insurance: [facility], [facility] Prescription Benefit: Yes Living Will/HPOA: Has both LW and HCPOA, who is his daughter, Jonna LNOK: Son, Marcus. Daughter, Jonna Living Arrangements: Lives with his son, Marcus. States is independent w/ADL's and he does home mgmt tasks and manages his own meds. States his son is able to help if needed. Transportation: Pt states drives self and states no transportation concerns at this time. Son also drives DME: States has the following DME: rails/grab bars, nebulizer, cane. Has a walker available but does not use. Pt states no need for further DME at this time. HHC/SNF: No history of either. Denies needs and no needs identified. Pt wishes to return home and states has no concerns with going home at time of discharge. CM to follow for any discharge planning/needs. Pt voices no further concerns/needs at this time. Advised pt to ask for CM if any further questions/concerns/needs arise. Voices understanding. Pt Plan: Home Plan: Home Kae MARES RN, CM
--- NOTE | 2019-08-09 11:04 | PCM.DC.SUM ---
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) CABG X3: CONDON to LAD, SVG to DX, and SVG to RCA 1983 H/O coronary artery bypass surgery (Chronic 1983) CABG X3: CONDON to LAD, SVG to DX, and SVG to RCA 1983 Essential (primary) hypertension (Chronic) Lipoprotein deficiencies (Chronic) AAA (abdominal aortic aneurysm) (Chronic) Tobacco abuse (Chronic) Hyperlipidemia (Chronic) Peripheral vascular disease (Chronic) Hospital Course and Treatment Imaging Results: Clinical Impression(s) from Imaging Studies Chest X-Ray 08/07/19 21:21 IMPRESSION: No acute findings Electronically Signed: Beck Munoz DO at 21:44 EST Tel , Service support , None Operations: None Procedures: None Summary of Care Provided: The patient is a 83 year old M with past medical history of CAD status post CABG, PAD status post stents, hypertension, hyperlipidemia who presented with left upper abdominal pain which radiated to the left arm. Patient had said that his chest pain was similar to when he had his previous chest pain. Admitting EKG showed no acute ST-T changes. Troponins were negative. Patient underwent nuclear stress test which showed distal inferior apical ischemia, basal inferior infarct. He subsequently was seen by cardiology underwent cardiac cath on 08/09/19. Findings showed a totally occluded LAD, mid left circumflex artery, totally occluded right coronary artery. Collaterals were noted in the left circumflex artery distribution. CONDON was patent to the LAD. Medical therapy was recommended. He will follow-up with his primary care doctor and cardiology in the outpatient. He was strongly advised to quit smoking. Patient Problems: Active and Suspected Problems (Last Reviewed 08/08/19 @ 07:13 by Amando Castaneda MD) Anginal equivalent (Acute) Subjective: On the day of discharge, patient was seen and examined. He denied any new complaints. No acute events overnight. Objective: Physical exam: General: Alert, Oriented x3, Cooperative HEENT: Atraumatic, PERRLA, EOMI, Normocephalic Neck: Supple, No JVD, Negative Carotid Bruits Lungs: Clear to auscultation, Normal air movement Cardiovascular: Regular rate, No murmurs Abdomen: Bowel Sounds Present, Soft, Non Tender, Non-Distended Extremities: No clubbing, No cyanosis, No edema, Capillary Refill Less than 3 Seconds Skin: No rashes, No breakdown Musculoskeletal: No Tenderness to Palpation of Joints or Extremities Neurological: Cranial nerves II-XII grossly intact, Neuro grossly intact Psych/Mental Status: Normal Affect, Appropriate - Physical Exam Vitals/I&O's: Vital Signs Temp Pulse Resp BP Pulse Ox 98.0 F 62 18 123/50 H 91 08/09/19 10:45 08/09/19 10:45 08/09/19 10:45 08/09/19 10:45 08/09/19 10:45 Oxygen Flow Rate (L/min) 2 Oxygen Delivery Method Room Air Weight: 72.2 kg Body Mass Index (BMI) 24.3 Intake and Output for Last 24 Hours 08/07/19 08/08/19 08/09/19 23:59 23:59 23:59 Intake Total 5.00 / 5.00 Balance 2044. / 2044.00 Current Medications Acetaminophen (Tylenol) 650 mg PO Q6H PRN PRN PRN Reason: Pain Score 1-3/Temp > 100.7 F Albuterol Sulfate (Ventolin Aerosols) 2.5 mg INHALATION Q2H PRN PRN PRN Reason: sob/wheezing Alprazolam (Xanax) 0.5 mg PO BID PRN PRN PRN Reason: ANXIETY Amlodipine Besylate (Norvasc) 10 mg PO DAILY [facility] Last Admin: 08/09/19 06:13 Dose: 10 mg Documented by: Aspirin (Aspirin, Baby) 81 mg PO DAILY@0800 [facility] Last Admin: 08/09/19 06:12 Dose: 81 mg Documented by: Clopidogrel Bisulfate (Plavix) 75 mg PO DAILY [facility] Last Admin: 08/09/19 06:13 Dose: 75 mg Documented by: Dextrose (D50w Syringe) 0 gm IV X1 PRN; Protocol PRN Reason: Hypoglycemia Glucagon () 1 mg IM .X1 PRN PRN Reason: Hypoglycemia Heparin Sodium (Beef Lung) (Heparin 500 Unit/5 Ml (100/Ml)) 500 unit IV UD PRN PRN Reason: HEPARIN FLUSH Isosorbide Mononitrate (Imdur) 60 mg PO DAILY [facility] Last Admin: 08/09/19 06:12 Dose: 60 mg Documented by: Labetalol HCl (Trandate) 5 mg IV X1 PRN PRN Reason: SBP > 160 prior to sheath pull Stop: 08/11/19 09:12 Levothyroxine Sodium (Synthroid) 25 mcg PO MoTuWeThFrSa@0600 [facility] Last Admin: 08/09/19 06:12 Dose: 25 mcg Documented by: Levothyroxine Sodium (Synthroid) 50 mcg PO Banerjee@0600 [facility] Melatonin (Melatonin) 3 mg PO QHS PRN PRN Reason: SLEEP Last Admin: 08/08/19 21:10 Dose: 3 mg Documented by: Metoprolol Tartrate (Lopressor (Beta Akila)) 50 mg PO BID [facility] Last Admin: 08/09/19 06:13 Dose: 50 mg Documented by: Nitroglycerin (Nitrostat) 0.4 mg SUBLINGUAL Q5M PRN PRN Reason: CARDIAC/CHEST PAIN Nortriptyline HCl (Pamelor) 25 mg PO QHS [facility] Last Admin: 08/08/19 21:06 Dose: 25 mg Documented by: Ondansetron HCl (Zofran) 4 mg IV Q8H PRN PRN PRN Reason: NAUSEA/VOMITING Pantoprazole Sodium (Protonix) 20 mg PO DAILY [facility] Last Admin: 08/09/19 06:13 Dose: 20 mg Documented by: Pravastatin Sodium (Pravachol) 40 mg PO QHS [facility] Last Admin: 08/08/19 21:06 Dose: 40 mg Documented by: Ranolazine (Ranexa) 500 mg PO BID [facility] Last Admin: 08/09/19 06:14 Dose: 500 mg Documented by: Sodium Chloride () 10 - 40 ml IV UD PRN PRN Reason: SALINE FLUSH Last Admin: 08/09/19 06:15 Dose: 10 ml Documented by: Discharge Diet: Low fat/ Low Cholesterol, 2000 mg Sodium Diet Discharge Activity: Return to Normal Activity Home Medications: Medications to take at Discharge ALPRAZolam [Xanax] 0.5 mg PO BID PRN PRN 04/20/14 Albuterol Inhaler [Ventolin Hfa] 2 puff INHALATION Q4H PRN PRN 04/20/14 Aspirin [Aspirin, Baby] 162 mg PO DAILY@0800 04/20/14 Nortriptyline HCl [Pamelor] 25 mg PO QHS 04/20/14 Omeprazole [Prilosec] 20 mg PO DAILY 04/20/14 Nitroglycerin (INPATIENT USE) [Nitrostat] 0.4 mg SUBLINGUAL Q5M PRN 05/03/14 levothyroxine 25 mcg tablet 25 mcg PO .COMPLEX tab 12/24/17 ranolazine ER 500 mg tablet,extended release,12 hr 500 mg PO BID #180 tab 05/19/19 isosorbide mononitrate ER 60 mg tablet,extended release 24 hr 60 mg PO DAILY #90 tab 07/19/19 pravastatin 80 mg tablet 40 mg PO QHS tab 07/20/19 Co Q-10 1 tab PO DAILY 08/07/19 Acetaminophen [Tylenol Tablet] 650 mg PO Q6H PRN PRN tab 08/09/19 Amlodipine [Norvasc] 10 mg PO DAILY #30 tab 08/09/19 Clopidogrel Bisulfate [Plavix] 75 mg PO DAILY #30 tab 08/09/19 Metoprolol Tartrate [Lopressor (beta akila)] 50 mg PO BID #60 tab 08/09/19 Following Prescrptions Were Given to Patient: Metoprolol Tartrate [Lopressor (beta akila)] 50 mg PO BID #60 tab Transmission Status: Received by [facility]30 Amlodipine [Norvasc] 10 mg PO DAILY #30 tab Transmission Status: Received by [facility] [place] #30 Clopidogrel Bisulfate [Plavix] 75 mg PO DAILY #30 tab Transmission Status: Received by [facility] [place] #[facility] Primary Care Physician: Nathan Suresh MD [Primary Care Provider] - Please follow up with your Primary Care Physician in: within 1-2 weeks of discharge Please Follow Up With: Sen Antonio MD When: in 2 weeks Disposition: Home Minutes spent on discharge:: 40 Patient Condition:: Stable Medical Necessity - Tobacco Use Smoking Status: Current every day smoker Tobacco Use: Cigarettes Meaningful Use Info Meaningful Use Diagnoses (Choose all that apply): None applicable Code Visit Inpatient E&M: 35113 Subs Hosp L2
--- NOTE | 2019-08-09 14:09 | NURSING ---
This RN walked pt in the cook, no signs or symptoms of hematoma, bleeding or any complications to right groin
--- NOTE | 2019-08-11 14:08 | CASEMGMT ---
RHONDA CM DC PHONE CALL DC DATE: 08/09/19 DC Disposition: Home Diagnosis on Discharge: Chest pain LACE/STRATA: 06/15 Attempted call, no answer and message set up with name identifier. Tres MARES RN ACM
== END 2019-08-09 15:11 | disposition home or self-care (01) | DRG 287 ==
LOC: ED 21:36 → PCU 23:19
PROVIDERS: Admitting Provider Hospitalist; Emergency Provider Emergency Medicine; Family Provider Family Medicine; PCP Family Medicine; Visit Provider Internal Medicine
DX: I25.118 Atherosclerotic heart disease of native coronary artery with other forms of angina pectoris (principal); R94.39 Abnormal result of other cardiovascular function study; I25.708 Atherosclerosis of coronary artery bypass graft(s), unspecified, with other forms of angina pectoris; J44.9 Chronic obstructive pulmonary disease, unspecified; I73.9 Peripheral vascular disease, unspecified; Z95.1 Presence of aortocoronary bypass graft; I71.4 Abdominal aortic aneurysm, without rupture; E78.5 Hyperlipidemia, unspecified; E78.6 Lipoprotein deficiency; E03.9 Hypothyroidism, unspecified; I65.21 Occlusion and stenosis of right carotid artery; Z79.51 Long term (current) use of inhaled steroids; Z79.82 Long term (current) use of aspirin; Z79.899 Other long term (current) drug therapy; F41.9 Anxiety disorder, unspecified; F17.210 Nicotine dependence, cigarettes, uncomplicated; N18.3 Chronic kidney disease, stage 3 (moderate); I12.9 Hypertensive chronic kidney disease with stage 1 through stage 4 chronic kidney disease, or unspecified chronic kidney disease
CPT/HCPCS: 36415; 71045; 78452; 80048; 84484; 85025; 85610; 85730; 93005; 93017; 93306; 93459; 93880; 97802; 99152; 99153; 99285; 99406; A9500; J7030; J7040; Q9957; Q9967; A4216; C1769; C8929; J2785

== ENCOUNTER 2019-09-15 21:45 | Inpatient (IN) | payer MEDICARE, OTHER, SELFPAY ==
[2019-09-05 08:43] VITALS: BMI 24.5
[2019-09-15 21:49] VITALS: BP 126/61; PULSE 74; RESP 18; TEMP 36.6; O2SAT 95; BMI 25.0
--- NOTE | 2019-09-15 21:59 | EKG12_ITS ---
Test Reason : CP Blood Pressure : / mmHG Vent. Rate : 071 BPM Atrial Rate : 071 BPM P-R Int : 154 ms QRS Dur : 098 ms QT Int : 410 ms P-R-T Axes : 059 048 130 degrees QTc Int : 445 ms Normal sinus rhythm ST & T wave abnormality, consider anterolateral ischemia Abnormal ECG Confirmed by DOUGLAS JERRY, MONALISA ([id number]), mapping editor ASHLEY BROWER ([id number]) on 09/18/2019 1:01:21 PM Referred By: Confirmed By:MONALISA COLE MD
--- NOTE | 2019-09-15 22:40 | RAD_ITS ---
STUDY: X-RAY CHEST REASON FOR EXAM: Male, 83 years old. SOB WITH DIZZINESS TECHNIQUE: PA and lateral chest. COMPARISON: 08/07/2019. FINDINGS: No pleural effusion. No vascular congestion or acute pulmonary inflammatory change. Multiple calcified granulomata bilaterally. Normal size heart. Sternotomy wires and surgical clips compatible with prior CABG. Normal mediastinum and queta. Atherosclerotic calcification of the aorta. Soft tissues and bony structures are unremarkable. RAD/Chest PA and Lateral IMPRESSION: 1. No acute findings. 2. Old granulomatous disease. Electronically Signed: Tianna Ko MD at 23:18 EST Tel , Service support ,
[2019-09-15 22:50] LABS: Absolute Lymphocyte Count 2.07 X10^3/uL (0.83-4.51); Absolute Neutrophil Count 8.1 X10^3/uL (2.0-7.7); Basophil# 0.06 X10^3/uL; Basophil% 0.5 % (0-1); Eosinophil# 0.58 X10^3/uL; Eosinophils% 4.9 % (0-5); Hematocrit 38.1 % (40-54); Hemoglobin 12.8 g/dL (13.0-16.5); Lymphocyte # 2.07 X10^3/ul (4.0); Lymphocyte % 17.6 % (19-41); Mean Corp Hgb Conc 33.6 g/dL (32-36); Mean Corpuscular Hgb 32.6 pg (27.0-32.0); Mean Corpuscular Volume 96.9 fL (80-94); Mean Platelet Vol. 10.5 fl (6.2-12.0); Monocyte# 0.95 X10^3/uL; Monocyte% 8.1 % (0-10); NRBC Flagged by Analyzer 0 % (0-5); Neutrophil # 8.09 X10^3/uL (2.7-7.7); Neutrophil % 68.6 % (47-70); Platelet Count 188 K/mm3 (150-450); RBC Distribution Width CV 12.7 % (11.6-14.6); Red Blood Count 3.93 M/mm3 (4.6-6.2); White Blood Count 11.8 K/mm3 (4.4-11.0)
[2019-09-15 22:59] LABS: International Normalized Ratio 1.1; Prothrombin Time (Protime)PT. 13.5 SECONDS (11.7-14.9)
[2019-09-15 23:00] LABS: Partial Thromboplast Time 33.7 Seconds (24.1-36.2)
[2019-09-15 23:05] LABS: Anion Gap 7 (5-15); BUN 37 mg/dL (7-18); BUN/Creat Ratio 15.2 RATIO (10-20); Calcium,Total 8.8 mg/dL (8.5-10.1); Chloride 110 mmol/L (98-107); Creatinine, Serum 2.43 mg/dL (0.70-1.30); EST Glomerular Filtration Rate 27 mL/min (>60); Est Glom Filt Rate - Afr Amer 33 mL/min (>60); Estimated Creatinine Clearance 21.16 ml/min; Glucose 153 mg/dL (74-106); Sodium Level 140 mmol/L (136-145)
[2019-09-16] VITALS (16 sets, daily range): BP systolic 126–153; BP diastolic 61–76; PULSE 61–77; RESP 15–31; TEMP 36–36.8; O2SAT 85–95; BMI 24.7
--- NOTE | 2019-09-16 00:10 | PCM.HP.STD ---
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 Comment: CABG X3: CONDON to LAD, SVG to DX, and SVG to RCA 1983 (5) H/O coronary artery bypass surgery Status: Chronic Comment: CABG X3: CONDON to LAD, SVG to DX, and SVG to RCA 1983 (6) Essential (primary) hypertension Status: Chronic (7) Lipoprotein deficiencies Status: Chronic (8) AAA (abdominal aortic aneurysm) Status: Chronic (9) Tobacco abuse Status: Chronic (10) Hyperlipidemia Status: Chronic Qualifiers: Hyperlipidemia type: pure hypercholesterolemia Qualified Code(s): E78.00 - Pure hypercholesterolemia, unspecified (11) Peripheral vascular disease Status: Chronic History of Present Illness Date of Admission: 09/16/19 Chief Complaint: Vertigo The patient is a 83 year old M with a significant history of hypertension; hypothyroidism; COPD and tobacco abuse who presents at the emergency department with a Vertigo on the same day of presentation. Because of his vertigo he could not stand up and walk. He denies any nausea or vomiting. Reportedly he was treated for URI about 3 weeks ago. At the emergency department his creatinine was found to be severely elevated at 2.43. Past Medical History Past Medical History (Chronic Problems): Chronic Problems (Last Reviewed 09/05/19 @ 11:38 by Sen Antonio MD) Atherosclerosis of coronary artery bypass graft of [place] heart with angina pectoris (Chronic) CABG X3: CONDON to LAD, SVG to DX, and SVG to RCA 1983 H/O coronary artery bypass surgery (Chronic 1983) CABG X3: CONDON to LAD, SVG to DX, and SVG to RCA 1983 Essential (primary) hypertension (Chronic) Lipoprotein deficiencies (Chronic) AAA (abdominal aortic aneurysm) (Chronic) Tobacco abuse (Chronic) Hyperlipidemia (Chronic) Peripheral vascular disease (Chronic) Medical History: Medical History (Last Reviewed 09/16/19 @ 08:20 by Amando Castaneda MD) Essential (primary) hypertension (Chronic) I10 Lipoprotein deficiencies (Chronic) E78.6 AAA (abdominal aortic aneurysm) (Chronic) I71.4 Tobacco abuse (Chronic) Z72.0 Hyperlipidemia (Chronic) E78.5 Peripheral vascular disease (Chronic) I73.9 Carotid artery stenosis I65.29 right Carotid bruit R09.89 Hypothyroidism E03.9 Stage 1 mild COPD by GOLD classification J44.9 MCGINNIS (dyspnea on exertion) (Resolved) R06.09 Chest pain R07.9 Family history of sudden cardiac Z82.41 Allergies atorvastatin calcium [From Lipitor] Allergy (Verified 09/15/19 21:52) Other celecoxib [From Celebrex] Allergy (Verified 09/15/19 21:52) Unknown lincomycin HCl [From Lincocin] Allergy (Verified 09/15/19 21:52) Unknown rosuvastatin calcium [From Crestor] Allergy (Verified 09/15/19 21:52) Other budesonide [From Symbicort] Adverse Reaction (Verified 09/15/19 21:52) headache, nausea formoterol [From Symbicort] Adverse Reaction (Verified 09/15/19 21:52) headache, nausea Home Medications: Ambulatory Orders Medication Instructions Recorded ALPRAZolam [Xanax] 0.5 mg PO BID PRN PRN 04/20/14 Albuterol Inhaler [Ventolin Hfa] 2 puff INHALATION Q4H PRN PRN 04/20/14 Aspirin [Aspirin, Baby] 162 mg PO DAILY@0800 04/20/14 Nortriptyline HCl [Pamelor] 25 mg PO QHS 04/20/14 Omeprazole [Prilosec] 20 mg PO DAILY 04/20/14 levothyroxine 25 mcg tablet 25 mcg PO .COMPLEX tab 12/24/17 pravastatin 80 mg tablet 40 mg PO QHS tab 07/20/19 Co Q-10 1 tab PO DAILY 08/07/19 Acetaminophen [Tylenol Tablet] 650 mg PO Q6H PRN PRN tab 08/09/19 nitroglycerin 0.4 mg sublingual 0.4 mg SUBLINGUAL Q5M PRN #30 tab 09/05/19 tablet Amlodipine Besylate [Norvasc] 10 mg PO DAILY 09/16/19 Clopidogrel Bisulfate [Clopidogrel] 75 mg PO DAILY 09/16/19 Isosorbide Mononitrate [Isosorbide 60 mg PO DAILY 09/16/19 Mononitrate ER] Metoprolol Tartrate [Lopressor 50 mg PO BID 09/16/19 (beta mirna)] Ranolazine [Ranolazine ER] 500 mg PO BID 09/16/19 Surgical History: Surgical History (Last Reviewed 09/16/19 @ 08:17 by Amando Castaneda MD) H/O coronary artery bypass surgery (Chronic) Onset Date: 1983 Z95.1 CABG X3: CONDON to LAD, SVG to DX, and SVG to RCA 1983 History of left heart catheterization Onset Date: 08/09/19 Z98.890 2010 Surgical History: coronary bypass surgery Psychiatric History: Anxiety Smoking Status: Current every day smoker Tobacco Use: Cigarettes - *Family History Paternal Family History: Family History (Last Reviewed 09/16/19 @ 08:17 by Amando Castaneda MD) Brother Aortic aneurysm CAD (coronary artery disease) Father CAD (coronary artery disease) Mother CAD (coronary artery disease) Sister CAD (coronary artery disease) CVA (cerebral vascular accident) Other Family history of sudden cardiac History Items: Unknown Review of Systems Constitutional: Denies: Chills, Fever, Weight Change HEENT: Denies: Head Aches, Sinus Congestion, Sinus Drainage Cardiovascular: Denies: Chest Pain, Palpitations Respiratory: Denies: Cough, Shortness of breath at rest, Sputum production Gastrointestinal: Denies: Abdominal Pain, Nausea, Vomiting Genitourinary: Denies: Dysuria Musculoskeletal: Denies: Joint Pain, Joint Tenderness Skin: Denies: Rash, Wounds Neurological: Denies: Numbness, Tingling, Focal weakness Psychiatric: Reports: Anxiety. Denies: Depression, Homicidal Ideations, Suicidal Ideations Hematologic/ Lymphatic: Denies: Easy Bruising, Easy Bleeding VTE Information - Inpt Only VTE Present on Admission: No VTE Mechan Device Prophylaxis: None VTE Pharm Prophylaxis ordered?: Yes Patient Problems: Active and Suspected Problems (Last Reviewed 09/05/19 @ 11:38 by Sen Antonio MD) OSEAS (acute kidney injury) (Acute) Vertigo (Acute) - Physical Exam Vitals/I&O's: Vital Signs Temp Pulse Resp BP Pulse Ox 97.8 F 74 18 126/61 H 95 09/15/19 21:49 09/15/19 21:49 09/15/19 21:49 09/15/19 21:49 09/15/19 21:49 Oxygen Delivery Method Room Air Weight: 72.575 kg Body Mass Index (BMI) 25.0 General: Alert, Oriented x3, Cooperative HEENT: Atraumatic, PERRLA, EOMI, Normocephalic Neck: Supple, No JVD, Negative Carotid Bruits Lungs: Clear to auscultation, Normal air movement Cardiovascular: Regular rate, Normal S1, Normal S2, No murmurs Abdomen: Bowel Sounds Present, Soft, Non Tender Extremities: No edema, Capillary Refill Less than 3 Seconds Skin: No rashes, No breakdown Musculoskeletal: No Tenderness to Palpation of Joints or Extremities Neurological: Cranial nerves II-XII grossly intact, - - Kinsey-Hallpike maneuver was negative. Psych/Mental Status: Normal Affect, Appropriate Laboratory Results 09/15/19 22:37: WBC 11.8 H, RBC 3.93 L, Hgb 12.8 L, Hct 38.1 L, MCV 96.9 H, MCH 32.6 H, MCHC 33.6, RDW Std Deviation 45.0 H, RDW Coeff of Gustavo 12.7, Plt Count 188, MPV 10.5, Immature Gran % (Auto) 0.300, Neut % (Auto) 68.6, Lymph % (Auto) 17.6 L, [place] % (Auto) 8.1, Eos % (Auto) 4.9, Baso % (Auto) 0.5, Absolute Neuts (auto) 8.1 H, Absolute Lymphs (auto) 2.07, Nucleated RBC % 0 09/15/19 22:37: PT 13.5, INR 1.1, APTT 33.7 09/15/19 22:37: Sodium 140, Potassium 5.0, Chloride 110 H, Carbon Dioxide 23.0, Anion Gap 7, BUN 37 H, Creatinine 2.43 H, Estim Creat Clear Calc 21.16, Est GFR (MDRD) Af Amer 33 L, Est GFR (MDRD) Non-Af 27 L, BUN/Creatinine Ratio 15.2, Glucose 153 H, Calcium 8.8 Current Medications Sodium Chloride () 1,000 mls @ 50 mls/hr IV .Q20H [facility] Sodium Chloride () 1,000 mls @ 999 mls/hr IV .Q1H1M ONE Stop: 09/16/19 00:47 Sodium Chloride () 1,000 mls @ 100 mls/hr IV .Q10H [facility] Assessment/Plan All Active Problems (Last Reviewed 09/05/19 @ 11:38 by Sen Antonio MD) OSEAS (acute kidney injury) (Acute) Vertigo (Acute) MCGINNIS (dyspnea on exertion) (Resolved) The patient is a 83 year old M with a significant history of hypertension; hypothyroidism; COPD and tobacco abuse who presents at the emergency department with a Vertigo and also has severe elevated creatinine above his baseline consistent with OSEAS Vertigo CT of the head without contrast was ordered. However patient refused because had cancer found from CT. Schedule meclizine 3 times daily PRN Patient recent diagnosis of URI is concerning for peripheral vertigo. If stable consider outpatient referral for vestibular rehab/ENT. OSEAS on chronic kidney disease stage IIIB Baseline creatinine of 1.8 Creatinine on admission was 2.43 Urine electrolytes ordered Ultrasound of bladder and kidneys ordered Hypertension On presentation blood pressure was acceptable in regard to his age Imdur; metoprolol and amlodipine continued Trend blood pressure and adjust blood pressure medications. CAD status post CABG Aspirin, Plavix; Imdur; metoprolol; pravastatin with CoQ10 continued. Ranolazine continued Anxiety disorder Xanax continued Hypothyroidism Synthroid continued Tobacco abuse Counseled Declined nicotine patch. DVT prophylaxis Subcutaneous Lovenox ordered Code Visit OBSV E&M: 45783 Initial observation care L2
[2019-09-16] MEDS: 0.9% Normal Saline 1,000 ML 999 ML IV (00:18)
--- NOTE | 2019-09-16 00:18 | ED.VIS.GEN ---
History of Present Illness Chief Complaint: General Illness Narrative: Patient presenting for evaluation secondary to lightheadedness. Patient had a recent hospital admission in July for a cardiac work-up. Patient states that he was feeling fine, no recent illnesses, and then today in the afternoon and evening he had an onset of lightheadedness on standing. He reports that this was a lightheadedness and not a vertiginous type feeling and was worse with standing with ambulating and caused him to need to hold onto things when he was walking around. He denies ever having any chest pain or palpitations associated with this. Again he denies any recent nausea vomiting diarrhea dysuria change in urinary habits fevers or any other associated symptoms. Review of systems otherwise negative. Past Medical History - Allergies and Home Meds Allergies/Adverse Reactions: Allergies atorvastatin calcium [From Lipitor] Allergy (Verified 09/15/19 21:52) Other celecoxib [From Celebrex] Allergy (Verified 09/15/19 21:52) Unknown lincomycin HCl [From Lincocin] Allergy (Verified 09/15/19 21:52) Unknown rosuvastatin calcium [From Crestor] Allergy (Verified 09/15/19 21:52) Other budesonide [From Symbicort] Adverse Reaction (Verified 09/15/19 21:52) headache, nausea formoterol [From Symbicort] Adverse Reaction (Verified 09/15/19 21:52) headache, nausea Past Medical History: - - Hypertension, hyperlipidemia, recent cardiac stenting Surgical History: coronary bypass surgery Smoking Status: Current every day smoker - Family History Paternal Family History: Family History (Last Reviewed 09/05/19 @ 11:38 by Sen Antonio MD) Brother Aortic aneurysm CAD (coronary artery disease) Father CAD (coronary artery disease) Mother CAD (coronary artery disease) Sister CAD (coronary artery disease) CVA (cerebral vascular accident) Other Family history of sudden cardiac Family History: Reports: Unknown Review of Systems All systems negative except as indicated General: Reports: - - Lightheadedness Eyes: Denies: Visual changes - bilaterally, Diplopia ENT: Denies: Rhinorrhea, Sore throat Cardiovascular: Denies: Chest pain, Palpitations Respiratory: Denies: Dyspnea, Cough, Dyspnea on exertion Gastrointestinal: Denies: Abdominal pain, Nausea, Vomiting, Diarrhea, Melena, Hematochezia Genitourinary: Denies: Dysuria, Hematuria, Frequency Musculoskeletal: Denies: Back pain, Extremity Pain Skin: Denies: Rash, Wounds Neurological: Denies: Headache, Weakness, Numbness Physical Exam Vital Signs/Narrative: Vital Signs Temp Pulse Resp BP Pulse Ox 09/15/19 21:49 97.8 F 74 18 126/61 H 95 Inital Vital Signs reviewed: Yes General: Well nourished, Well developed, No Acute Distress Head: Normocephalic, Atraumatic Eyes: Perrl, EOMI ENT: Moist mucous membranes, No rhinorrhea Neck: Supple, Nontender Cardiovascular: Regular rate, Regular rhythm, No murmurs Respiratory: No distress, CTA bilaterally, Chest nontender Abdomen: Soft, Nontender, Nondistended, Normal bowel sounds Back: Nontender, Normal Inspection Extremities: Nontender, No edema Skin: Normal color, No rash Neurological: Alert, Oriented x3, Cranial nerves II-XII grossly intact, Normal Strength, Normal Sensation Psychological: Normal affect, Normal Mood Diagnostic/Tx/Re-eval Chest X-Ray - ED: 2 View, Read by ED Physician, Read by Radiologist, No Acute Disease - EKG Initial EKG Interpretation: - - Sinus rhythm of [address] depression and T wave inversions anteriorly which are consistent from prior EKG in July of last year. No evidence of acute ischemic changes. - Medical Decision Making Patient presented secondary to lightheadedness. His EKG shows no acute changes. CBC does demonstrate evidence of a mild leukocytosis at 11.8. Kidney function was found to be decreased as the patient's creatinine went from 1.5-2.4. Patient was given some fluid resuscitation. I believe that likely is the cause of the patient's symptomatology at this point. Patient will be admitted for lightheadedness and acute kidney injury. ED Disposition - Plan for ED Patient: Disposition: Acute Care Hospital [facility] Diagnosis: OSEAS (acute kidney injury)
[2019-09-16] MEDS: 0.9% Normal Saline 1,000 ML 100 ML IV ×3 (01:14→08:25)
--- NOTE | 2019-09-16 04:20 | NURSING ---
ADMISSION COMPLETED. REVIEWED ORDERS AND TESTING WITH PATIENT. PATIENT DOES NOT WANT TO HAVE THE CT HEAD TEST. PT REPORTS HE IS GOING TO BE 84 YRS OLD THIS MONTH AND DOES NOT WANT TO KNOW IF THERE IS ANYTHING WRONG. ALSO REPORTS THAT HIS HAD A CT OF THE HEAD AND WAS DIAGNOSED WITH BRAIN CA. DR SILVER AND CT NOTIFIED.
[2019-09-16 06:55] LABS: Absolute Lymphocyte Count 2.36 X10^3/uL (0.83-4.51); Absolute Neutrophil Count 5.8 X10^3/uL (2.0-7.7); Basophil# 0.04 X10^3/uL; Basophil% 0.4 % (0-1); Eosinophil# 0.47 X10^3/uL; Eosinophils% 4.9 % (0-5); Hematocrit 36.2 % (40-54); Lymphocyte # 2.36 X10^3/ul (4.0); Lymphocyte % 24.8 % (19-41); Mean Corp Hgb Conc 33.1 g/dL (32-36); Mean Corpuscular Hgb 32.3 pg (27.0-32.0); Mean Corpuscular Volume 97.3 fL (80-94); Mean Platelet Vol. 10.6 fl (6.2-12.0); Monocyte# 0.83 X10^3/uL; Monocyte% 8.7 % (0-10); NRBC Flagged by Analyzer 0 % (0-5); Platelet Count 159 K/mm3 (150-450); RBC Distribution Width SD 46.3 fl (35.1-43.9); Red Blood Count 3.72 M/mm3 (4.6-6.2); White Blood Count 9.5 K/mm3 (4.4-11.0)
[2019-09-16 07:42] LABS: Anion Gap 6 (5-15); BUN 32 mg/dL (7-18); BUN/Creat Ratio 15.1 RATIO (10-20); Calcium,Total 8.1 mg/dL (8.5-10.1); Chloride 113 mmol/L (98-107); Creatinine, Serum 2.12 mg/dL (0.70-1.30); EST Glomerular Filtration Rate 32 mL/min (>60); Est Glom Filt Rate - Afr Amer 38 mL/min (>60); Estimated Creatinine Clearance 24.25 ml/min; Glucose 109 mg/dL (74-106); Sodium Level 142 mmol/L (136-145)
[2019-09-16] MEDS: Ranolazine 500 MG Tablet PO ×2 (10:34→21:02)
[2019-09-16] MEDS: Clopidogrel Bisulfate 75 MG Tablet PO (10:35)
[2019-09-16] MEDS: Metoprolol Tartrate 50 MG Tablet PO ×2 (10:35→21:02)
[2019-09-16] MEDS: Pantoprazole Sodium 20 MG Tablet PO (10:35)
[2019-09-16] MEDS: amLODIPine 10 MG Tablet PO (10:35)
[2019-09-16] MEDS: Enoxaparin 30 MG/0.3 ML Syringe SC (10:36)
[2019-09-16] MEDS: Isosorbide Mononitrate 60 MG Tablet PO (10:37)
[2019-09-16] MEDS: Aspirin 81 MG TAB.CHEW 162 MG PO (10:41)
[2019-09-16 14:31] LABS: Urine Sodium 82 mmol/L (Not Establ.)
[2019-09-16] MEDS: 0.9% Normal Saline 1,000 ML 125 ML IV (17:16)
--- NOTE | 2019-09-16 19:08 | PCM.HOSP.N ---
Hospitalist Note Patient was seen and examined today, I talked briefly with his daughter who was in the room at the time of my examination. Patient's creatinine has improved today with fluid administration, he is not feeling dizzy and he does not want to undergo a CT of the head. I have increased patient's fluids slightly, he has required low-flow oxygen throughout the day due to a slightly low pulse ox. Labs will be repeated tomorrow and I will reevaluate the patient tomorrow.
[2019-09-16] MEDS: Nortriptyline 25 MG Capsule PO (21:02)
[2019-09-16] MEDS: Pravastatin 40 MG Tablet PO (21:02)
--- NOTE | 2019-09-16 23:10 | RAD_ITS ---
STUDY: X-RAY CHEST REASON FOR EXAM: Male, 83 years old. SOB TECHNIQUE: Single frontal view of the chest. COMPARISON: September 15, 2019 FINDINGS: Sternotomy wires and mediastinal clips. Bilateral scattered granulomata. Lungs otherwise clear. There is no demonstrated pleural abnormality. Normal size heart. Normal mediastinum and queta. Normal visualized pulmonary arteries. Normal visualized aortic arch and descending thoracic aorta. Normal visualized thoracic spine. Normal visualized ribs, clavicles, and shoulders. There is no demonstrated abnormality of the visualized soft tissue structures of the upper abdomen. RAD/Chest 1 View (Portable) IMPRESSION: No acute disease Electronically Signed: Pacheco Zapien MD at 0:02 EST , Service support ,
--- NOTE | 2019-09-16 23:10 | EKG12_ITS ---
Test Reason : DYSRHYTHMIA Blood Pressure : / mmHG Vent. Rate : 075 BPM Atrial Rate : 075 BPM P-R Int : 134 ms QRS Dur : 090 ms QT Int : 450 ms P-R-T Axes : -19 033 093 degrees QTc Int : 502 ms Normal sinus rhythm Low voltage QRS (limb leads) Nonspecific ST and T wave abnormality Abnormal ECG Confirmed by ISAÍAS JERRY, AMANDA ([id number]), restaurant expeditor ELLIE MCWILLIAMS ([id number]) on 09/20/2019 11:39:09 AM Referred By: DEJUAN Confirmed By:AMANDA METZ MD
[2019-09-16] MEDS: Albuterol 2.5 MG/3 ML VIAL.NEB. INHALATION (23:14)
--- NOTE | 2019-09-16 23:34 | PCM.PN.BLA ---
Progress Note Nurse reports that patient has respiratory distress and crackles at bases. Patient is being treated for OESAS with IVF. IVF stopped. Stat CXR ordered. Patient was examined at bed side lung sounds are decreased. Advised nurse to give breathing treatment. Chest Xray appeared to me as some mild opacity bilaterally. Will give Lasix 20mg IVP x 1. Check BMP in am. STROKE Vital Signs/Narrative: Vital Signs Temp Pulse Resp BP Pulse Ox 09/16/19 22:55 98.3 F 77 26 H 142/64 H 94 09/16/19 21:02 68 140/72 H 09/16/19 21:00 98.2 F 68 17 140/72 H 93 09/16/19 19:47 98.1 F 69 20 H 136/76 H 92
[2019-09-17] VITALS (11 sets, daily range): BP systolic 124–137; BP diastolic 56–75; PULSE 65–74; RESP 18–24; TEMP 36.8–37; O2SAT 84–96
[2019-09-17] MEDS: 0.9% Saline Lock 10 ML Syringe IV (00:11)
[2019-09-17] MEDS: Furosemide 20 MG/2 ML VIAL IV (00:11)
[2019-09-17] MEDS: Levothyroxine 50 MCG Tablet PO (05:06)
[2019-09-17 06:42] LABS: Anion Gap 7 (5-15); BUN 26 mg/dL (7-18); BUN/Creat Ratio 13.3 RATIO (10-20); Calcium,Total 7.8 mg/dL (8.5-10.1); Chloride 113 mmol/L (98-107); Creatinine, Serum 1.96 mg/dL (0.70-1.30); EST Glomerular Filtration Rate 35 mL/min (>60); Est Glom Filt Rate - Afr Amer 42 mL/min (>60); Estimated Creatinine Clearance 26.23 ml/min; Glucose 117 mg/dL (74-106); Potassium 3.9 mmol/L (3.5-5.1); Sodium Level 142 mmol/L (136-145)
[2019-09-17] MEDS: Enoxaparin 30 MG/0.3 ML Syringe SC (09:48)
[2019-09-17] MEDS: Aspirin 81 MG TAB.CHEW 162 MG PO (09:49)
[2019-09-17] MEDS: Metoprolol Tartrate 50 MG Tablet PO ×2 (09:49→21:09)
[2019-09-17] MEDS: amLODIPine 10 MG Tablet PO (09:49)
[2019-09-17] MEDS: Isosorbide Mononitrate 60 MG Tablet PO (09:49)
[2019-09-17] MEDS: Clopidogrel Bisulfate 75 MG Tablet PO (09:49)
[2019-09-17] MEDS: Ranolazine 500 MG Tablet PO ×2 (09:49→21:09)
[2019-09-17] MEDS: Pantoprazole Sodium 20 MG Tablet PO (09:49)
[2019-09-17] MEDS: ALPRAZolam 0.5 MG Tablet PO (09:49)
--- NOTE | 2019-09-17 17:35 | PN_ITS ---
Patient Problems: Active and Suspected Problems (Last Reviewed 09/16/19 @ 08:20 by Amando Castaneda MD) OSEAS (acute kidney injury) (Acute) Vertigo (Acute) Subjective: Patient was seen and examined today, I was unable to wean him from O2 today. Patient currently smokes at home. Patient's creatinine today was 1.96, I have elected to keep the patient off fluids for now. Pulse ox will be monitored. - Physical Exam Vitals/I&O's: Vital Signs Temp Pulse Resp BP Pulse Ox 98.5 F 65 18 131/58 H 95 09/17/19 15:45 09/17/19 15:45 09/17/19 15:45 09/17/19 15:45 09/17/19 15:45 Oxygen Flow Rate (L/min) [ 3 AMBULATION with Oxygen] Oxygen Flow Rate (L/min) 2.5 Oxygen Delivery Method Nasal Cannula Weight: 71.5 kg Body Mass Index (BMI) 24.7 Finger Stick Blood Glucose 153 Intake and Output for Last 24 Hours 09/15/19 09/16/19 09/17/19 23:59 23:59 23:59 Intake Total 4405.84 / 4405.84 600 / 600 Output Total 150 / 150 1200 / 1200 Balance 4255.84 / 4255.84 -600 / -600 General: Alert, Oriented x3, Cooperative, No apparent distress, Well developed HEENT: Atraumatic, PERRLA, EOMI, Normocephalic Oral: Moist Mucosa Neck: Supple, Trachea Midline, Thyroid Normal Size and Texture Lungs: Clear to auscultation, Diminished Cardiovascular: Regular rate, Regular Rhythm, Normal S1, Normal S2, No murmurs, PMI Normal, No rub noted Abdomen: Bowel Sounds Present, Soft, Non Tender, Non-Distended Extremities: No clubbing, No cyanosis, No edema, Capillary Refill Less than 3 Seconds Skin: No rashes, No breakdown Musculoskeletal: No Tenderness to Palpation of Joints or Extremities Neurological: Cranial nerves II-XII grossly intact, Neuro grossly intact, Sensory exam intact to light touch and pain Psych/Mental Status: Normal Affect, Appropriate, Alert and oriented to time, place, person, mood and affect Microbiology Past 72 Hours 09/16/19 00:30 Mucosa - Nasopharyngeal Influenza Types A,B Direct FA (BENITO) - Final Laboratory Results 09/17/19 05:25: Sodium 142, Potassium 3.9, Chloride 113 H, Carbon Dioxide 22.0, Anion Gap 7, BUN 26 H, Creatinine 1.96 H, Estim Creat Clear Calc 26.23, Est GFR (MDRD) Af Amer 42 L, Est GFR (MDRD) Non-Af 35 L, BUN/Creatinine Ratio 13.3, Glucose 117 H, Calcium 7.8 L Current Medications Albuterol Sulfate (Ventolin Aerosols) 2.5 mg INHALATION Q2H PRN PRN PRN Reason: sob/wheezing Last Admin: 09/16/19 23:14 Dose: 2.5 mg Documented by: Alprazolam (Xanax) 0.5 mg PO BID PRN PRN PRN Reason: ANXIETY Last Admin: 09/17/19 09:49 Dose: 0.5 mg Documented by: Amlodipine Besylate (Norvasc) 10 mg PO DAILY [facility] Last Admin: 09/17/19 09:49 Dose: 10 mg Documented by: Aspirin (Aspirin, Baby) 162 mg PO DAILY@0800 [facility] Last Admin: 09/17/19 09:49 Dose: 162 mg Documented by: Clopidogrel Bisulfate (Plavix) 75 mg PO DAILY [facility] Last Admin: 09/17/19 09:49 Dose: 75 mg Documented by: Enoxaparin Sodium (Lovenox) 30 mg SC DAILY [facility] Last Admin: 09/17/19 09:48 Dose: 30 mg Documented by: Glucagon () 1 mg IM .X1 PRN PRN Reason: Hypoglycemia Isosorbide Mononitrate (Imdur) 60 mg PO DAILY [facility] Last Admin: 09/17/19 09:49 Dose: 60 mg Documented by: Levothyroxine Sodium (Synthroid) 25 mcg PO MoTuWeThFrSa@0600 [facility] Levothyroxine Sodium (Synthroid) 50 mcg PO Banerjee@0600 [facility] Last Admin: 09/17/19 05:06 Dose: 50 mcg Documented by: Meclizine HCl (Antivert) 12.5 mg PO TID PRN PRN PRN Reason: Vertigo Melatonin (Melatonin) 3 mg PO QHS PRN PRN PRN Reason: INSOMNIA Metoprolol Tartrate (Lopressor (Beta Akila)) 50 mg PO BID [facility] Last Admin: 09/17/19 09:49 Dose: 50 mg Documented by: Non-Formulary Medication (Co Q-10) 1 tab PO DAILY [facility] Last Admin: 09/17/19 09:50 Dose: Not Given Documented by: Nortriptyline HCl (Pamelor) 25 mg PO QHS [facility] Last Admin: 09/16/19 21:02 Dose: 25 mg Documented by: Ondansetron HCl (Zofran) 4 mg IV Q8H PRN PRN PRN Reason: NAUSEA/VOMITING Pantoprazole Sodium (Protonix) 20 mg PO DAILY [facility] Last Admin: 09/17/19 09:49 Dose: 20 mg Documented by: Pravastatin Sodium (Pravachol) 40 mg PO QHS [facility] Last Admin: 09/16/19 21:02 Dose: 40 mg Documented by: Ranolazine (Ranexa) 500 mg PO BID [facility] Last Admin: 09/17/19 09:49 Dose: 500 mg Documented by: Sodium Chloride () 10 - 40 ml IV UD PRN PRN Reason: SALINE FLUSH Last Admin: 09/17/19 00:11 Dose: 10 ml Documented by: Medical Necessity - Tobacco Use Smoking Status: Current every day smoker Tobacco Use: Cigarettes Assessment/Plan All Active Problems (Last Reviewed 09/16/19 @ 08:20 by Amando Castaneda MD) OSEAS (acute kidney injury) (Acute) Vertigo (Acute) MCGINNIS (dyspnea on exertion) (Resolved) #1 acute kidney injury-patient's creatinine has improved during his hospitalization, repeat BMP tomorrow #2 hypoxia-I think this is probably related to underlying undiagnosed COPD, I will order a VQ scan tomorrow-patient's creatinine is high and I would rather not risk doing a CTA of the chest. Wean oxygen if possible #3 essential hypertension #4 coronary artery disease #5 hyperlipidemia #6 chronic kidney disease stage III-patient's creatinine has been elevated for quite some time, it is probable he has chronic kidney disease stage III Code Visit Inpatient E&M: 02451 Subs Hosp L2
[2019-09-17] MEDS: Pravastatin 40 MG Tablet PO (21:09)
[2019-09-17] MEDS: Nortriptyline 25 MG Capsule PO (21:09)
[2019-09-18] VITALS (9 sets, daily range): BP systolic 120–141; BP diastolic 51–96; PULSE 63–73; RESP 18–20; TEMP 36.7–36.8; O2SAT 86–96
[2019-09-18] MEDS: Levothyroxine 25 MCG TABLET PO (05:11)
--- NOTE | 2019-09-18 05:55 | NM_ITS ---
CLINICAL: Male, 83 years old. EXACERBATION OF SHORTNESS OF BREATH -- SMOKER NUCLEAR VENTILATION/PERFUSION - LUNG TECHNIQUE: The patient was administered 5.6 mCi of Tc MAA followed by a perfusion lung scan. The patient was administered 50 mCi of Tc DTPA aerosol followed by a ventilation lung scan. Comparison made to prior chest radiograph dated . COMPARISON STUDIES : Comparison is made with prior chest radiograph dated September 16, 2019. FINDINGS: The pulmonary perfusion study demonstrates uniform perfusion throughout both lung hoover. There are no demonstrated segmental or subsegmental perfusion defects The ventilation study demonstrates focal areas of the central clumping of the radiopharmaceutical suggestive of airway disease. NM/Quant Lung Vent/Perf Scan IMPRESSION: Low probability of pulmonary embolism. Findings suggestive of airway disease. Electronically Signed: Dillon Lopez, at 10:29 EST , Service support ,
[2019-09-18 06:11] LABS: Anion Gap 5 (5-15); BUN 30 mg/dL (7-18); BUN/Creat Ratio 13.7 RATIO (10-20); Calcium,Total 7.9 mg/dL (8.5-10.1); Chloride 111 mmol/L (98-107); Creatinine, Serum 2.19 mg/dL (0.70-1.30); EST Glomerular Filtration Rate 31 mL/min (>60); Est Glom Filt Rate - Afr Amer 37 mL/min (>60); Estimated Creatinine Clearance 23.48 ml/min; Glucose 106 mg/dL (74-106); Sodium Level 140 mmol/L (136-145)
[2019-09-18] MEDS: Metoprolol Tartrate 50 MG Tablet PO ×2 (08:53→21:20)
[2019-09-18] MEDS: Pantoprazole Sodium 20 MG Tablet PO (08:53)
[2019-09-18] MEDS: amLODIPine 10 MG Tablet PO (08:53)
[2019-09-18] MEDS: Isosorbide Mononitrate 60 MG Tablet PO (08:54)
[2019-09-18] MEDS: Ranolazine 500 MG Tablet PO ×2 (08:54→21:20)
[2019-09-18] MEDS: Enoxaparin 30 MG/0.3 ML Syringe SC (08:54)
[2019-09-18] MEDS: Clopidogrel Bisulfate 75 MG Tablet PO (08:54)
[2019-09-18] MEDS: Aspirin 81 MG TAB.CHEW 162 MG PO (08:57)
--- NOTE | 2019-09-18 09:22 | NURSING ---
This RN called and spoke with Christian in Pharmacy in regards to Co Q 10 medication order. Per Christian, order needs to be discontinued per policy.
--- NOTE | 2019-09-18 11:18 | CASEMGMT ---
RHONDA MELCHOR assessment: Face to Face with patient for initial transition planning/care coordination assessment. RHONDA MELCHOR introduced self and role at [facility], pt voices understanding and consents to assessment at this time. Pt is sitting up in bed in no distress at this time. Pt is A/Ox4 at this time and answers all questions appropriately at this time. Care providers, pharmacy, and demographics verified/updated at this time. Presentation: C/o weakness, cough, increased SOB, and dizziness. Pt had a heart cath one month ago via Dr. Antonio Admitting dx: OSEAS PCP: Kerwin Specialists: chang Antonio Pharmacy: [facility] Insurance: [facility] A/B, [facility] Prescription Benefit: Yes Living Will/HPOA: Pt states has LW/HPOA and is aware that they are on file at [facility] at this time. Pt states that his daughter, Jonna, is HPOA. LNOK: Jonna Lovett, daughter/HPOA; Marcus Goldberg, son Living Arrangements: Pt states lives with son in mobile home with a 'few' steps in and states no concerns at home at this time. Pt states is normally independent with ADL's. Pt states that son has 'been sick for the last 3 years' and not able to assist pt with much at their home. Transportation: Pt states drives self and states no transportation concerns at this time. DME/HHC: Pt states has the following DME: cane, walker, grab bars, and nebulizer. Pt states no need for any further DME at this time but pt does qualify for home oxygen at this time. CM to follow for home oxygen need. Pt states no preference for DME company at this time. Pt states no hx of HHC or SNF in the past. Pt states no concerns with going home at time of discharge. Pt is retired. Pt states smokes 1/2pk/day and does not drink ETOH. Pt states no further concerns/needs at this time. CM to follow for further home oxygen testing, PT/OT recommendations, and any further discharge planning/needs. Advised pt to ask for CM if any further questions/concerns/needs arise, voices understanding. Pt Goal: Home Plan: Home, pending further home oxygen testing. [place]en RHONDA MELCHOR
--- NOTE | 2019-09-18 11:54 | PCM.PN.HOSP ---
Patient Problems: Active and Suspected Problems (Last Reviewed 09/16/19 @ 08:20 by Amando Castaneda MD) OSEAS (acute kidney injury) (Acute) Vertigo (Acute) Subjective: Patient seen and examined. He was admitted through the ED on 09/16/2019 with a complaint of vertigo leading to him being unable to stand and walk. He had been treated for an upper respiratory infection about 3 weeks prior to admission. On admission creatinine was elevated at 2.43. He was admitted and managed for vertigo and OSEAS on CKD. Seen and examined. He remains on oxygen about 2-1/2 L. He denies any chest pain, shortness of breath, palpitations or dizziness, chest pain, diarrhea vomiting. Review of systems otherwise negative. Labs and vitals reviewed. Vitals/I&O's: Vital Signs Temp Pulse Resp BP Pulse Ox 98.2 F 73 20 H 141/70 H 86 09/18/19 08:45 09/18/19 08:53 09/18/19 08:45 09/18/19 08:45 09/18/19 10:47 Oxygen Flow Rate (L/min) [ 2 AMBULATION with Oxygen] Oxygen Flow Rate (L/min) 2.5 Oxygen Delivery Method Nasal Cannula Weight: 157 lb 10.088 oz Body Mass Index (BMI) 24.7 Finger Stick Blood Glucose 153 Intake and Output for Last 24 Hours 09/16/19 09/17/19 09/18/19 23:59 23:59 23:59 Intake Total 4405.84 / 4405.84 1340 / 1340 250 / 250 Output Total 150 / 150 1400 / 1400 Balance 4255.84 / 4255.84 -60 / -60 250 / 250 General: Alert, Oriented x3, Cooperative, Disoriented HEENT: Atraumatic, PERRLA, EOMI, Normocephalic Oral: Dry Mucosa Neck: Supple, No JVD, Negative Carotid Bruits Lungs: Clear to auscultation, Normal air movement, No rhonchi, No wheeze, No rales, - - on 2.5L of oxygen Cardiovascular: Regular rate, Regular Rhythm, Normal S1, Normal S2, No murmurs Abdomen: Bowel Sounds Present, Soft, Non Tender, Non-Distended, No Hepato-splenomegaly Extremities: No clubbing, No cyanosis, No edema, Capillary Refill Less than 3 Seconds Skin: No rashes, No breakdown Musculoskeletal: No Tenderness to Palpation of Joints or Extremities Lymphatic: No Cervical, Supraclavicular, or Inguinal Adenopathy Neurological: Cranial nerves II-XII grossly intact, Neuro grossly intact, Motor Exam 5/5 strength throughout Psych/Mental Status: Normal Affect, Appropriate Microbiology Past 72 Hours 09/16/19 00:30 Mucosa - Nasopharyngeal Influenza Types A,B Direct FA ([facility]) - Final Laboratory Results 09/18/19 05:20: Sodium 140, Potassium 4.0, Chloride 111 H, Carbon Dioxide 24.0, Anion Gap 5, BUN 30 H, Creatinine 2.19 H, Estim Creat Clear Calc 23.48, Est GFR (MDRD) Af Amer 37 L, Est GFR (MDRD) Non-Af 31 L, BUN/Creatinine Ratio 13.7, Glucose 106, Calcium 7.9 L Diagnostic Data Chest X-Ray 09/16/19 23:10 IMPRESSION: No acute disease Electronically Signed: Pacheco Zapien MD at 0:02 EST , Service support , Lung Scan-VQ MO 09/18/19 05:55 IMPRESSION: Low probability of pulmonary embolism. Findings suggestive of airway disease. Electronically Signed: Dillon Lopez at 10:29 EST , Service support , Current Medications Albuterol Sulfate (Ventolin Aerosols) 2.5 mg INHALATION Q2H PRN PRN PRN Reason: sob/wheezing Last Admin: 09/16/19 23:14 Dose: 2.5 mg Documented by: Alprazolam (Xanax) 0.5 mg PO BID PRN PRN PRN Reason: ANXIETY Last Admin: 09/17/19 09:49 Dose: 0.5 mg Documented by: Amlodipine Besylate (Norvasc) 10 mg PO DAILY COUNT INCLUDES [facility] Last Admin: 09/18/19 08:53 Dose: 10 mg Documented by: Aspirin (Aspirin, Baby) 162 mg PO DAILY@0800 COUNT INCLUDES THE [facility] Last Admin: 09/18/19 08:57 Dose: 162 mg Documented by: Clopidogrel Bisulfate (Plavix) 75 mg PO DAILY COUNT INCLUDES THE [facility] Last Admin: 09/18/19 08:54 Dose: 75 mg Documented by: Enoxaparin Sodium (Lovenox) 30 mg SC DAILY COUNT INCLUDES THE [facility] Last Admin: 09/18/19 08:54 Dose: 30 mg Documented by: Glucagon () 1 mg IM .X1 PRN PRN Reason: Hypoglycemia Isosorbide Mononitrate (Imdur) 60 mg PO DAILY COUNT INCLUDES THE [facility] Last Admin: 09/18/19 08:54 Dose: 60 mg Documented by: Levothyroxine Sodium (Synthroid) 25 mcg PO MoTuWeThFrSa@0600 COUNT INCLUDES THE [facility] Last Admin: 09/18/19 05:11 Dose: 25 mcg Documented by: Levothyroxine Sodium (Synthroid) 50 mcg PO Banerjee@0600 COUNT INCLUDES THE [facility] Last Admin: 09/17/19 05:06 Dose: 50 mcg Documented by: Meclizine HCl (Antivert) 12.5 mg PO TID PRN PRN PRN Reason: Vertigo Melatonin (Melatonin) 3 mg PO QHS PRN PRN PRN Reason: INSOMNIA Metoprolol Tartrate (Lopressor (Beta Akila)) 50 mg PO BID COUNT INCLUDES THE [facility] Last Admin: 09/18/19 08:53 Dose: 50 mg Documented by: Nortriptyline HCl (Pamelor) 25 mg PO QHS COUNT INCLUDES THE [facility] Last Admin: 09/17/19 21:09 Dose: 25 mg Documented by: Ondansetron HCl (Zofran) 4 mg IV Q8H PRN PRN PRN Reason: NAUSEA/VOMITING Pantoprazole Sodium (Protonix) 20 mg PO DAILY COUNT INCLUDES THE [facility] Last Admin: 09/18/19 08:53 Dose: 20 mg Documented by: Pravastatin Sodium (Pravachol) 40 mg PO QHS COUNT INCLUDES THE [facility] Last Admin: 09/17/19 21:09 Dose: 40 mg Documented by: Ranolazine (Ranexa) 500 mg PO BID COUNT INCLUDES THE [facility] Last Admin: 09/18/19 08:54 Dose: 500 mg Documented by: Sodium Chloride () 10 - 40 ml IV UD PRN PRN Reason: SALINE FLUSH Last Admin: 09/17/19 00:11 Dose: 10 ml Documented by: STROKE Vital Signs/Narrative: Vital Signs Temp Pulse Resp BP Pulse Ox Pulse Ox Pulse Ox 09/18/19 10:47 90 86 09/18/19 08:53 73 09/18/19 08:45 98.2 F 73 20 H 141/70 H 94 Medical Necessity - Tobacco Use Smoking Status: Current every day smoker Tobacco Use: Cigarettes Assessment/Plan All Active Problems (Last Reviewed 09/16/19 @ 08:20 by Amando Castaneda MD) OSEAS (acute kidney injury) (Acute) Vertigo (Acute) MCGINNIS (dyspnea on exertion) (Resolved) 1. Oseas on CKD 3 baseline Cr is ~ 1.8-1.9 from 2013; Cr in was 1.78 Cr on admission was 2.43, and is now down to 2.19 patient is not on fluids per discussion with patient's nurse, patient refused to do renal USG will continue to monitor Cr. to follow up with neurology on outpatient basis 2. Acute hypoxic respiratory insufficiency Patient has an extensive smoking history and likely has undiagnosed COPD. Chest x-ray on admission showed no acute findings and showed old granulomatous disease. on 2.5L of oxygen will require home oxygen as his sats dropped to 86% at rest on room air. continue breathing treatments will get Chest CT without contrast to better delineate lungs as he remains persistently hypoxic. VQ scan done today showed low probability of PE and showed findings suggestive of airway disease 3. Benign essential hypertension Well controlled. On amlodipine and metoprolol. 4.. Hypothyroidism: On Synthroid. 5. CAD: On Imdur and statin as well as Ranexa and aspirin and Plavix. DVT prophylaxis: Lovenox renally dosed. Code Visit Inpatient E&M: 96549 Subs Hosp L3
--- NOTE | 2019-09-18 12:22 | CT_ITS ---
STUDY: CT CHEST WITHOUT CONTRAST REASON FOR EXAM: Male, 83 years old. Persistent shortness of breath. RADIATION DOSAGE (If Supplied By Facility): CTDIvol = ( 10.16 ) mGy, DLP = ( 311.77 ) mGycm TECHNIQUE: Transaxial imaging was performed without the administration of intravenous contrast material. Multiplanar coronal and sagittal images were reformatted. Individualized dose optimization techniques were used for this CT. COMPARISON: Chest, September 16, 2019. FINDINGS: There are small bilateral pleural effusions. There are fibrotic changes posteriorly in the right upper lobe as well as dependent changes at both lung bases. There is scattered calcified granulomata throughout both lungs. Sternal cerclage wires and vascular clips are present from a prior sternotomy and coronary artery bypass graft procedure (CABG). The heart is normal in size. There are calcified and noncalcified mediastinal lymph nodes. Calcified lymph nodes are seen in both queta. Normal unenhanced pulmonary arteries. There is atherosclerotic tortuosity of the thoracic aorta. There are multi-level degenerative changes of the thoracic spine. There are calcified granulomata within the spleen and liver. Question small hiatal hernia. CT/Chest without Contrast IMPRESSION: 1. Bilateral pleural effusions with atelectasis. 2. Old granulomatous disease. 3. Fibrotic changes in the posterior right upper lobe. 4. Tortuous atherosclerotic thoracic aorta. 5. Evidence of CABG procedure. Electronically Signed: Yehuda Conway DO at 22:53 EST Tel [phone], Service support ,
--- NOTE | 2019-09-18 15:17 | CASEMGMT ---
Patient has a Healthcare POA and a Healthcare LW on file at [facility]. Jenn ROBLES MSW
[2019-09-18] MEDS: Nortriptyline 25 MG Capsule PO (21:20)
[2019-09-18] MEDS: Pravastatin 40 MG Tablet PO (21:20)
[2019-09-19 02:06] VITALS: BP 119/59; PULSE 69; RESP 20; TEMP 36.8; O2SAT 93
[2019-09-19] MEDS: Levothyroxine 25 MCG TABLET PO (05:07)
[2019-09-19 06:42] LABS: BUN 32 mg/dL (7-18); BUN/Creat Ratio 15.1 RATIO (10-20); Calcium,Total 8.5 mg/dL (8.5-10.1); Chloride 115 mmol/L (98-107); Creatinine, Serum 2.12 mg/dL (0.70-1.30); EST Glomerular Filtration Rate 32 mL/min (>60); Est Glom Filt Rate - Afr Amer 38 mL/min (>60); Estimated Creatinine Clearance 24.25 ml/min; Glucose 107 mg/dL (74-106); Potassium 3.8 mmol/L (3.5-5.1); Sodium Level 143 mmol/L (136-145)
[2019-09-19 06:43] LABS: Anion Gap 4 (5-15)
[2019-09-19 08:00] VITALS: O2SAT 90
[2019-09-19 08:40] VITALS: BP 130/57; PULSE 70; RESP 20; TEMP 36.6; O2SAT 92
[2019-09-19 08:41] VITALS: PULSE 69
[2019-09-19] MEDS: Metoprolol Tartrate 50 MG Tablet PO (08:41)
[2019-09-19] MEDS: Aspirin 81 MG TAB.CHEW 162 MG PO (08:41)
[2019-09-19] MEDS: Clopidogrel Bisulfate 75 MG Tablet PO (08:41)
[2019-09-19] MEDS: Pantoprazole Sodium 20 MG Tablet PO (08:41)
[2019-09-19] MEDS: amLODIPine 10 MG Tablet PO (08:41)
[2019-09-19] MEDS: Enoxaparin 30 MG/0.3 ML Syringe SC (08:42)
[2019-09-19] MEDS: Isosorbide Mononitrate 60 MG Tablet PO (08:42)
[2019-09-19] MEDS: Ranolazine 500 MG Tablet PO (08:42)
[2019-09-19 09:40] VITALS: O2SAT 86; O2SAT 89
--- NOTE | 2019-09-19 10:56 | DCINST_ITS ---
- Discharge Diagnoses Current Active Problems: Current Active and Chronic Problems (Last Reviewed 09/16/19 @ 08:20 by Amando Castaneda MD) OSEAS (acute kidney injury) (Acute) Vertigo (Acute) You will use the following diet at home:: Cardiac Your food should be the consistency of: Regular Discharge Activity: Return to Normal Activity Weight Bearing Status: Weight bearing as tolerated Call your doctor if you observe: Fever of 101 or Higher, Shortness of breath, Dizziness, Swelling in the ankles Instructions: Exercising with Chronic Lung Disease: Using the Dyspnea Scale, What Is COPD?, Care for COPD, COPD: Using Inhalers Additional Instructions: use oxygen for shortness of breath as needed. Allergies/Adverse Reactions: Allergies atorvastatin calcium [From Lipitor] Allergy (Verified 09/15/19 21:52) Other celecoxib [From Celebrex] Allergy (Verified 09/15/19 21:52) Unknown lincomycin HCl [From Lincocin] Allergy (Verified 09/15/19 21:52) Unknown rosuvastatin calcium [From Crestor] Allergy (Verified 09/15/19 21:52) Other budesonide [From Symbicort] Adverse Reaction (Verified 09/15/19 21:52) headache, nausea formoterol [From Symbicort] Adverse Reaction (Verified 09/15/19 21:52) headache, nausea Medications to take at Discharge ALPRAZolam [Xanax] 0.5 mg PO BID PRN PRN 04/20/14 Albuterol Inhaler [Ventolin Hfa] 2 puff INHALATION Q4H PRN PRN 04/20/14 Aspirin [Aspirin, Baby] 162 mg PO DAILY@0800 04/20/14 Nortriptyline HCl [Pamelor] 25 mg PO QHS 04/20/14 Omeprazole [Prilosec] 20 mg PO DAILY 04/20/14 levothyroxine 25 mcg tablet 25 mcg PO .COMPLEX tab 12/24/17 pravastatin 80 mg tablet 40 mg PO QHS tab 07/20/19 Co Q-10 1 tab PO DAILY 08/07/19 Acetaminophen [Tylenol Tablet] 650 mg PO Q6H PRN PRN tab 08/09/19 nitroglycerin 0.4 mg sublingual tablet 0.4 mg SUBLINGUAL Q5M PRN #30 tab 09/05/19 Amlodipine Besylate [Norvasc] 10 mg PO DAILY 09/16/19 Clopidogrel Bisulfate [Clopidogrel] 75 mg PO DAILY 09/16/19 Isosorbide Mononitrate [Isosorbide Mononitrate ER] 60 mg PO DAILY 09/16/19 Metoprolol Tartrate [Lopressor (beta mirna)] 50 mg PO BID 09/16/19 Ranolazine [Ranolazine ER] 500 mg PO BID 09/16/19 Primary Care Physician: Nathan Suresh MD [Primary Care Provider] - Please follow up with your Primary Care Physician in: one week Test Results: Test results from this visit will be discussed in further detail at your follow- up appointment, if applicable. Please Follow Up With: Immanuel Bruner MD When: 1-2 weeks Proposed Discharge Date: 09/19/19
--- NOTE | 2019-09-19 10:56 | CASEMGMT ---
Pt qualifies for home oxygen at this time and after being provided with list of local DME companies, pt still stated no preference. Referral faxed to [facility] at this time and call to Betty at [facility] to notify of referral, voices understanding. Kayla ELLIS CM
--- NOTE | 2019-09-19 10:58 | DS.PCM_ITS ---
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) CABG X3: CONDON to LAD, SVG to DX, and SVG to RCA 1983 H/O coronary artery bypass surgery (Chronic 1983) CABG X3: CONDON to LAD, SVG to DX, and SVG to RCA 1983 Essential (primary) hypertension (Chronic) Lipoprotein deficiencies (Chronic) AAA (abdominal aortic aneurysm) (Chronic) Tobacco abuse (Chronic) Hyperlipidemia (Chronic) Peripheral vascular disease (Chronic) Hospital Course and Treatment Imaging Results: Diagnostic Data Chest X-Ray 09/16/19 23:10 IMPRESSION: No acute disease Electronically Signed: Pacheco Zapien MD at 0:02 EST , Service support , Lung Scan-VQ NM 09/18/19 05:55 IMPRESSION: Low probability of pulmonary embolism. Findings suggestive of airway disease. Electronically Signed: Dillon Lopez, at 10:29 EST , Service support , Chest CT 09/18/19 12:22 IMPRESSION: 1. Bilateral pleural effusions with atelectasis. 2. Old granulomatous disease. 3. Fibrotic changes in the posterior right upper lobe. 4. Tortuous atherosclerotic thoracic aorta. 5. Evidence of CABG procedure. Electronically Signed: Yehuda Conway DO at 22:53 EST Tel [phone], Service support , Operations: None Summary of Care Provided: The patient is a 83 year old M with a past medical history as listed. He was admitted through the ED on 09/16/2019 with a complaint of dizziness and vertigo which started the day of presentation. He could not stand and walk without feeling dizzy. He denied any nausea or vomiting. He had been treated for an upper respiratory infection about 3 weeks prior to presentation. Admission in the ED, he was found to have elevated creatinine of 2.43 with a baseline of around 1.8. He was admitted and managed for vertigo and OSEAS on CKD stage III. CT of the head without contrast was ordered but patient refused it. He was started on meclizine. He was started on IV fluids to hydrate on account of OSEAS on CKD. Patient also started requiring oxygen during admission on account of hypoxia. IV fluids were subsequently stopped once creatinine trended down close to baseline. VQ scan done showed low probability of PE and findings suggestive of airway disease. Chest CT without contrast showed small bilateral pleural effusion with atelectasis and old granulomatous disease with fibrotic changes in the posterior upper right lobe and tortuous atherosclerotic thoracic aorta. Patient still required 2 L of oxygen during this admission. Upon further questioning, it turns out he had been diagnosed with COPD but had not been compliant with his medication because he said he did not think it helped him. He had been following up with pulmonology but defaulted as he said he did not think it was beneficial. Patient remained stable and creatinine went back close to his baseline. Patient however required about 3 L of oxygen upon discharge as saturation dropped to 86% whilst on room air at rest. He was discharged home on 09/19/2019 with home oxygen. He was counseled to follow-up with pulmonology and his primary care doctor. Patient seen and examined prior to discharge. Dizziness had resolved and patient was ambulating without difficulty. Review of systems otherwise negative. Labs and vitals reviewed. Home medication reviewed and reconciled. o/e: Vital Signs Height 5 ft 7 in Weight: 157 lb 10.088 oz Weight in Pounds 157.6 lbs Pulse Ox [AMBULATION with 89 Oxygen] Pulse Ox [At REST on Room Air] 86 Pulse Ox 92 Temperature 97.9 F Pulse Rate 69 Respiratory Rate 20 Blood Pressure 130/57 Blood Pressure Position Semi-Fowlers [] General: Alert, Oriented x3, Cooperative, Disoriented HEENT: Atraumatic, PERRLA, EOMI, Normocephalic Oral: Dry Mucosa Neck: Supple, No JVD, Negative Carotid Bruits Lungs: Clear to auscultation, Normal air movement, No rhonchi, No wheeze, No rales, - -2L of oxygen Cardiovascular: Regular rate, Regular Rhythm, Normal S1, Normal S2, No murmurs Abdomen: Bowel Sounds Present, Soft, Non Tender, Non-Distended, No Hepato- splenomegaly Extremities: No clubbing, No cyanosis, No edema, Capillary Refill Less than 3 Seconds Skin: No rashes, No breakdown Musculoskeletal: No Tenderness to Palpation of Joints or Extremities Lymphatic: No Cervical, Supraclavicular, or Inguinal Adenopathy Neurological: Cranial nerves II-XII grossly intact, Neuro grossly intact, Motor Exam 5/5 strength throughout Psych/Mental Status: Normal Affect, Appropriate Plan as discussed above is for discharge home today with home oxygen and follow- up with primary care doctor and pulmonology. - Physical Exam Vitals/I&O's: Vital Signs Temp Pulse Resp BP Pulse Ox 97.9 F 69 20 H 130/57 H 86 09/19/19 08:40 09/19/19 08:41 09/19/19 08:40 09/19/19 08:40 09/19/19 09:40 Oxygen Flow Rate (L/min) [ 3 AMBULATION with Oxygen] Oxygen Flow Rate (L/min) 2 Oxygen Delivery Method Nasal Cannula Weight: 157 lb 10.088 oz Body Mass Index (BMI) 24.7 Finger Stick Blood Glucose 153 Intake and Output for Last 24 Hours 09/17/19 09/18/19 09/19/19 23:59 23:59 23:59 Intake Total 1340 / 1340 730 / 730 Output Total 1400 / 1400 450 / 450 Balance -60 / -60 730 / 730 -450 / -450 Laboratory Results 09/19/19 05:55: Sodium 143, Potassium 3.8, Chloride 115 H, Carbon Dioxide 24.0, Anion Gap 4 L, BUN 32 H, Creatinine 2.12 H, Estim Creat Clear Calc 24.25, Est GFR (MDRD) Af Amer 38 L, Est GFR (MDRD) Non-Af 32 L, BUN/Creatinine Ratio 15.1, Glucose 107 H, Calcium 8.5 Current Medications Albuterol Sulfate (Ventolin Aerosols) 2.5 mg INHALATION Q2H PRN PRN PRN Reason: sob/wheezing Last Admin: 09/16/19 23:14 Dose: 2.5 mg Documented by: Alprazolam (Xanax) 0.5 mg PO BID PRN PRN PRN Reason: ANXIETY Last Admin: 09/17/19 09:49 Dose: 0.5 mg Documented by: Amlodipine Besylate (Norvasc) 10 mg PO DAILY [facility] Last Admin: 09/19/19 08:41 Dose: 10 mg Documented by: Aspirin (Aspirin, Baby) 162 mg PO DAILY@0800 [facility] Last Admin: 09/19/19 08:41 Dose: 162 mg Documented by: Clopidogrel Bisulfate (Plavix) 75 mg PO DAILY [facility] Last Admin: 09/19/19 08:41 Dose: 75 mg Documented by: Enoxaparin Sodium (Lovenox) 30 mg SC DAILY [facility] Last Admin: 09/19/19 08:42 Dose: 30 mg Documented by: Glucagon () 1 mg IM .X1 PRN PRN Reason: Hypoglycemia Isosorbide Mononitrate (Imdur) 60 mg PO DAILY [facility] Last Admin: 09/19/19 08:42 Dose: 60 mg Documented by: Levothyroxine Sodium (Synthroid) 25 mcg PO MoTuWeThFrSa@0600 [facility] Last Admin: 09/19/19 05:07 Dose: 25 mcg Documented by: Levothyroxine Sodium (Synthroid) 50 mcg PO Banerjee@0600 [facility] Last Admin: 09/17/19 05:06 Dose: 50 mcg Documented by: Meclizine HCl (Antivert) 12.5 mg PO TID PRN PRN PRN Reason: Vertigo Melatonin (Melatonin) 3 mg PO QHS PRN PRN PRN Reason: INSOMNIA Metoprolol Tartrate (Lopressor (Beta Akila)) 50 mg PO BID [facility] Last Admin: 09/19/19 08:41 Dose: 50 mg Documented by: Nortriptyline HCl (Pamelor) 25 mg PO QHS [facility] Last Admin: 09/18/19 21:20 Dose: 25 mg Documented by: Ondansetron HCl (Zofran) 4 mg IV Q8H PRN PRN PRN Reason: NAUSEA/VOMITING Pantoprazole Sodium (Protonix) 20 mg PO DAILY [facility] Last Admin: 09/19/19 08:41 Dose: 20 mg Documented by: Pravastatin Sodium (Pravachol) 40 mg PO QHS [facility] Last Admin: 09/18/19 21:20 Dose: 40 mg Documented by: Ranolazine (Ranexa) 500 mg PO BID [facility] Last Admin: 09/19/19 08:42 Dose: 500 mg Documented by: Sodium Chloride () 10 - 40 ml IV UD PRN PRN Reason: SALINE FLUSH Last Admin: 09/17/19 00:11 Dose: 10 ml Documented by: Discharge Diet: Low fat/ Low Cholesterol Discharge Activity: Return to Normal Activity Weight Bearing Status: Weight bearing as tolerated Call your doctor if you observe: Fever of 101 or Higher, Shortness of breath, Dizziness, Swelling in the ankles Home Medications: Medications to take at Discharge ALPRAZolam [Xanax] 0.5 mg PO BID PRN PRN 04/20/14 Albuterol Inhaler [Ventolin Hfa] 2 puff INHALATION Q4H PRN PRN 04/20/14 Aspirin [Aspirin, Baby] 162 mg PO DAILY@0800 04/20/14 Nortriptyline HCl [Pamelor] 25 mg PO QHS 04/20/14 Omeprazole [Prilosec] 20 mg PO DAILY 04/20/14 levothyroxine 25 mcg tablet 25 mcg PO .COMPLEX tab 12/24/17 pravastatin 80 mg tablet 40 mg PO QHS tab 07/20/19 Co Q-10 1 tab PO DAILY 08/07/19 Acetaminophen [Tylenol Tablet] 650 mg PO Q6H PRN PRN tab 08/09/19 nitroglycerin 0.4 mg sublingual tablet 0.4 mg SUBLINGUAL Q5M PRN #30 tab 09/05/19 Amlodipine Besylate [Norvasc] 10 mg PO DAILY 09/16/19 Clopidogrel Bisulfate [Clopidogrel] 75 mg PO DAILY 09/16/19 Isosorbide Mononitrate [Isosorbide Mononitrate ER] 60 mg PO DAILY 09/16/19 Metoprolol Tartrate [Lopressor (beta akila)] 50 mg PO BID 09/16/19 Ranolazine [Ranolazine ER] 500 mg PO BID 09/16/19 Primary Care Physician: Nathan Suresh MD [Primary Care Provider] - Please follow up with your Primary Care Physician in: one week Please Follow Up With: Immanuel Bruner MD When: 1-2 weeks Patient Instructions: What Is COPD?, Care for COPD, COPD: Using Inhalers, Exercising with Chronic Lung Disease: Using the Dyspnea Scale Disposition: Home Minutes spent on discharge:: 45 Patient Condition:: Stable Medical Necessity - Tobacco Use Smoking Status: Current every day smoker Tobacco Use: Cigarettes Meaningful Use Info Meaningful Use Diagnoses (Choose all that apply): None applicable Code Visit Inpatient E&M: 36730 Disch Hosp
--- NOTE | 2019-09-19 11:38 | PHA.DC.MR ---
Pharmacy Service has performed discharge medication reconciliation for this patient. Home Medications ALPRAZolam [Xanax] 0.5 mg PO BID PRN PRN 04/20/14 Albuterol Inhaler [Ventolin Hfa] 2 puff INHALATION Q4H PRN PRN 04/20/14 Aspirin [Aspirin, Baby] 162 mg PO DAILY@0800 04/20/14 Nortriptyline HCl [Pamelor] 25 mg PO QHS 04/20/14 Omeprazole [Prilosec] 20 mg PO DAILY 04/20/14 levothyroxine 25 mcg tablet 25 mcg PO .COMPLEX tab 12/24/17 pravastatin 80 mg tablet 40 mg PO QHS tab 07/20/19 Co Q-10 1 tab PO DAILY 08/07/19 Acetaminophen [Tylenol Tablet] 650 mg PO Q6H PRN PRN tab 08/09/19 nitroglycerin 0.4 mg sublingual tablet 0.4 mg SUBLINGUAL Q5M PRN #30 tab 09/05/19 Amlodipine Besylate [Norvasc] 10 mg PO DAILY 09/16/19 Clopidogrel Bisulfate [Clopidogrel] 75 mg PO DAILY 09/16/19 Isosorbide Mononitrate [Isosorbide Mononitrate ER] 60 mg PO DAILY 09/16/19 Metoprolol Tartrate [Lopressor (beta mirna)] 50 mg PO BID 09/16/19 Ranolazine [Ranolazine ER] 500 mg PO BID 09/16/19 The patient's discharge medication list was reviewed for discrepancies and discrepancies were resolved.
--- NOTE | 2019-09-20 15:33 | CASEMGMT ---
RN CM Discharge F/U Phone Call LACMichael: 13 Strata: 4 Discharge date: 09/19/19 Call date: 09/20/19 Call time: 1533 Attempted to reach pt without success at this time, pt's son did answer while this RN CM was leaving message and stated that pt was sleeping at this time. Per son, pt 'is looking a lot better.' Son is aware that pt can call this RN CM back if/when able, voices understanding. SStaten RN CM Admission dx: OSEAS
== END 2019-09-19 12:20 | disposition home or self-care (01) | DRG 149 ==
LOC: ED 23:45 → PCU 09-16 01:21
PROVIDERS: Admitting Provider Hospitalist; Emergency Provider Emergency Medicine; Family Provider Family Medicine; PCP Family Medicine; Visit Provider Student in an Organized Health Care Education/Training Program
DX: R42 Dizziness and giddiness (principal); N17.9 Acute kidney failure, unspecified; I25.810 Atherosclerosis of coronary artery bypass graft(s) without angina pectoris; R09.02 Hypoxemia; R06.89 Other abnormalities of breathing; Z95.5 Presence of coronary angioplasty implant and graft; I12.9 Hypertensive chronic kidney disease with stage 1 through stage 4 chronic kidney disease, or unspecified chronic kidney disease; N18.3 Chronic kidney disease, stage 3 (moderate); E78.5 Hyperlipidemia, unspecified; E78.6 Lipoprotein deficiency; I71.4 Abdominal aortic aneurysm, without rupture; I73.9 Peripheral vascular disease, unspecified; J44.9 Chronic obstructive pulmonary disease, unspecified; E03.9 Hypothyroidism, unspecified; Z79.51 Long term (current) use of inhaled steroids; Z79.899 Other long term (current) drug therapy; Z79.82 Long term (current) use of aspirin; F41.9 Anxiety disorder, unspecified; F17.210 Nicotine dependence, cigarettes, uncomplicated; I25.2 Old myocardial infarction; Z91.14 Patient's other noncompliance with medication regimen
CPT/HCPCS: 36415; 71045; 71046; 71250; 78598; 80048; 82570; 84300; 85025; 85610; 85730; 87804; 93005; 94640; 94760; 97116; 97161; 97165; 97530; 97535; 99285; 99406; A9540; A9567; J7030; A4216; J1940

== ENCOUNTER → 2019-09-26 14:13 | Outpatient (CLI) | payer MEDICARE, OTHER, SELFPAY ==
[2019-09-16 00:50] VITALS: BMI 24.7
[2019-09-26 18:45] LABS: Anion Gap 8 (5-15); BUN 35 mg/dL (7-18); BUN/Creat Ratio 14.4 RATIO (10-20); Calcium,Total 9.1 mg/dL (8.5-10.1); Chloride 108 mmol/L (98-107); Creatinine, Serum 2.43 mg/dL (0.70-1.30); EST Glomerular Filtration Rate 27 mL/min (>60); Est Glom Filt Rate - Afr Amer 33 mL/min (>60); Glucose 124 mg/dL (74-106); Potassium 4.5 mmol/L (3.5-5.1); Sodium Level 136 mmol/L (136-145)
== END ==
PROVIDERS: Family Provider Family Medicine; PCP Family Medicine; Visit Provider Family Medicine
DX: N17.9 Acute kidney failure, unspecified (principal)
CPT/HCPCS: 36415; 80048

== ENCOUNTER → 2019-10-02 11:03 | Outpatient (CLI) | payer MEDICARE, OTHER, SELFPAY ==
[2019-09-16 00:50] VITALS: BMI 24.7
[2019-10-02 11:49] LABS: BNP,B-Type NATRIURETIC PEPTIDE 254.7 pg/mL (0-100)
== END ==
PROVIDERS: PCP Family Medicine; Referring Provider Internal Medicine Critical Care Medicine; Visit Provider Internal Medicine Critical Care Medicine
DX: I50.30 Unspecified diastolic (congestive) heart failure (principal)
CPT/HCPCS: 36415; 83880

== ENCOUNTER → 2019-10-03 13:46 | Outpatient (CLI) | payer MEDICARE, OTHER, SELFPAY ==
[2019-09-16 00:50] VITALS: BMI 24.7
[2019-10-03 16:01] LABS: Anion Gap 6 (5-15); BUN 38 mg/dL (7-18); BUN/Creat Ratio 16.2 RATIO (10-20); Calcium,Total 8.6 mg/dL (8.5-10.1); Chloride 109 mmol/L (98-107); Creatinine, Serum 2.34 mg/dL (0.70-1.30); EST Glomerular Filtration Rate 28 mL/min (>60); Est Glom Filt Rate - Afr Amer 34 mL/min (>60); Glucose 144 mg/dL (74-106); Potassium 3.9 mmol/L (3.5-5.1); Sodium Level 138 mmol/L (136-145)
== END ==
PROVIDERS: PCP Family Medicine; Visit Provider Family Medicine
DX: N17.9 Acute kidney failure, unspecified (principal)
CPT/HCPCS: 36415; 80048

== ENCOUNTER → 2019-10-11 14:40 | Outpatient (CLI) | payer MEDICARE, OTHER, SELFPAY ==
[2019-09-16 00:50] VITALS: BMI 24.7
--- NOTE | 2019-10-11 14:43 | US_ITS ---
STUDY: RENAL ULTRASOUND - COMPLETE REASON FOR EXAM: Male, 84 years old. OBSTRUCTIVE HYDRO TECHNIQUE: Ultrasound evaluation of the kidneys was performed with real-time and static sanchez-scale imaging. COMPARISON: None. FINDINGS: RIGHT KIDNEY: Normal location of the right kidney, which is normal in size. The right kidney measures 8.1 x 4.0 x 4.7 cm. There is a normal cortex of the right kidney. The renal cortex measures 1.6 cm. There is a 2.6 x 2.4 x 2.2 cm cyst. There are no right renal calculi. There is no right hydronephrosis. DISTAL RIGHT URETER: There is non-visualization of the distal right ureter. There is no demonstrated right ureterovesical junction calculus. There is a visualized right ureteral jet. LEFT KIDNEY: Normal location of the left kidney, which is normal in size. The left kidney measures 9.2 x 4.9 x 5.8 cm. There is a normal cortex of the left kidney. The renal cortex measures 2 cm. 3 renal cysts measuring 5.3 cm, 1.1 cm and 1.2 cm.. There are no left renal calculi. There is no left hydronephrosis. DISTAL LEFT URETER: There is non-visualization of the distal left ureter. There is no demonstrated left ureterovesical junction calculus. There is a visualized left ureteral jet. BLADDER: The distended urinary bladder has a volume of 257 ml. The empty urinary bladder has a volume of 101 ml. There is a normal wall thickness of the distended urinary bladder at 4 mm. There is no demonstrated mass within the urinary bladder. There are no demonstrated bladder calculi. PROSTATE: Prostatic enlargement US/Kidney and Bladder IMPRESSION: Prostatic enlargement. Bilateral renal cysts. No hydronephrosis and no renal calculi Electronically Signed: Brian Tracy MD at 7:43 EST Tel , Service support ,
== END ==
PROVIDERS: PCP Family Medicine; Referring Provider Family Medicine; Visit Provider Family Medicine
DX: N40.0 Benign prostatic hyperplasia without lower urinary tract symptoms (principal); N17.9 Acute kidney failure, unspecified
CPT/HCPCS: 76770

== ENCOUNTER → 2019-11-02 13:18 | Outpatient (CLI) | payer MEDICARE, OTHER, SELFPAY ==
[2019-09-16 00:50] VITALS: BMI 24.7
--- NOTE | 2019-11-02 15:00 | PFTCOMP_ITS ---
COMPLETE PULMONARY FUNCTION TEST INTERPRETATION Brief HPI: Patient is an 84 year old male, currently under the care of Dr. Flores, who presents to [facility] for complete pulmonary function tests secondary to diagnosis of COPD. Respiratory therapist reports good effort and reproducible results. Interpretation: Forced expiration spirometry shows a mild large airways obstructive ventilatory defect with an FEV1 of 73% predicted. There is a significant bronchodilator response in FVC by strict ATS criteria. Spirograms are of good quality and plateau slowly, indicating slowly emptying areas of the lungs. The respiratory flow volume loop shows decreased expiratory flow rates at all lung volumes consistent with airway obstruction. Lung volumes by body plethysmography show a normal total lung capacity at 5.82 L, 104% predicted. All other lung volumes are within normal limits. Diffusion capacity by carbon monoxide is decreased at 17% predicted. The airway resistance is normal. Compared to previous pulmonary function tests from 07/30/2017, a significant decrease in FVC, FEV1 and DLCO by 24%, 17% and 67% respectively. Impression: Partially reversible mild large airways obstructive ventilatory defect with a disproportionate reduction in diffusion capacity and worsening compared to 2017.
== END ==
PROVIDERS: PCP Family Medicine; Referring Provider Internal Medicine Critical Care Medicine; Visit Provider Internal Medicine Critical Care Medicine
DX: J44.9 Chronic obstructive pulmonary disease, unspecified (principal)
CPT/HCPCS: 94060; 94726; 94729

== ENCOUNTER 2019-11-08 03:40 | Inpatient (IN) | payer MEDICARE, OTHER, SELFPAY ==
[2019-09-16 00:50] VITALS: BMI 24.7
[2019-11-08] VITALS (21 sets, daily range): BP systolic 104–156; BP diastolic 47–97; PULSE 66–84; RESP 12–32; TEMP 36.4–37.1; O2SAT 78–100; BMI 25.4; BMI 24.5; BMI 24.6
--- NOTE | 2019-11-08 03:48 | RAD_ITS ---
STUDY: X-RAY CHEST REASON FOR EXAM: Male, 84 years old. RESPIRATORY DISTRESS TECHNIQUE: Single AP portable view of the chest. COMPARISON: 09/16/2019. FINDINGS: There is interstitial prominence with dense infiltration in the lower lung hoover. There are small bilateral pleural effusions. Findings are likely represent acute CHF with pulmonary edema. Pneumonia is not excluded. There are calcified granulomas overlying the lung hoover. There is mild cardiac enlargement. There are sternotomy wires and surgical clips suggesting previous CABG. Normal mediastinum and queta. Normal visualized pulmonary arteries. There is atherosclerotic calcification of the aortic arch with tortuosity. Normal visualized thoracic spine. Normal visualized ribs, clavicles, and shoulders. There is no demonstrated abnormality of the visualized soft tissue structures of the upper abdomen. RAD/Chest 1 View (Portable) IMPRESSION: Cardiomegaly with CHF, pulmonary edema, and small bilateral pleural effusions. Overlying pneumonia cannot be excluded. Old granulomatous disease. Electronically Signed: Rodolfo Akins MD at 5:10 EST , Service support ,
--- NOTE | 2019-11-08 03:48 | EKG12_ITS ---
Test Reason : SOB Blood Pressure : / mmHG Vent. Rate : 071 BPM Atrial Rate : 071 BPM P-R Int : 098 ms QRS Dur : 108 ms QT Int : 436 ms P-R-T Axes : 010 043 067 degrees QTc Int : 473 ms Sinus rhythm with short MN T wave abnormality, consider lateral ischemia Abnormal ECG Confirmed by MAMIE DENISE ([id number]), editor farm journal CORRINE GIL ([id number]) on 11/08/2019 2:55:18 PM Referred By: KYARA Confirmed By:MAMIE DENISE
[2019-11-08 03:56] LABS: Absolute Lymphocyte Count 1.07 X10^3/uL (0.83-4.51); Absolute Neutrophil Count 8.5 X10^3/uL (2.0-7.7); Basophil# 0.06 X10^3/uL; Basophil% 0.5 % (0-1); Eosinophil# 0.81 X10^3/uL; Eosinophils% 7.1 % (0-5); Hematocrit 34.6 % (40-54); Hemoglobin 11.4 g/dL (13.0-16.5); Lymphocyte # 1.07 X10^3/ul (4.0); Lymphocyte % 9.4 % (19-41); Mean Corp Hgb Conc 32.9 g/dL (32-36); Mean Corpuscular Volume 97.2 fL (80-94); Monocyte# 0.88 X10^3/uL; Monocyte% 7.7 % (0-10); NRBC Flagged by Analyzer 0 % (0-5); Neutrophil # 8.54 X10^3/uL (2.7-7.7); Neutrophil % 74.9 % (47-70); Platelet Count 161 K/mm3 (150-450); RBC Distribution Width CV 13.4 % (11.6-14.6); RBC Distribution Width SD 48.4 fl (35.1-43.9); Red Blood Count 3.56 M/mm3 (4.6-6.2); White Blood Count 11.4 K/mm3 (4.4-11.0)
[2019-11-08] MEDS: Ipratropium/Albuterol Sulfate 3 ML AMPUL.NEB INHALATION ×5 (04:01→22:25)
[2019-11-08] MEDS: Albuterol 2.5 MG/3 ML VIAL.NEB. INHALATION (04:01)
[2019-11-08] MEDS: MethylPREDNISolone 125 MG/2 ML Vial IV (04:11)
[2019-11-08 04:16] LABS: Anion Gap 8 (5-15); BUN 43 mg/dL (7-18); BUN/Creat Ratio 14.5 RATIO (10-20); Calcium,Total 8.6 mg/dL (8.5-10.1); Chloride 108 mmol/L (98-107); Creatinine, Serum 2.96 mg/dL (0.70-1.30); EST Glomerular Filtration Rate 22 mL/min (>60); Est Glom Filt Rate - Afr Amer 26 mL/min (>60); Estimated Creatinine Clearance 17.06 ml/min; Glucose 136 mg/dL (74-106); Lactic Acid 1.9 mmol/L (0.4-1.9); Potassium 4.5 mmol/L (3.5-5.1); Sodium Level 139 mmol/L (136-145)
--- NOTE | 2019-11-08 04:26 | ED.VIS.DYS ---
History of Present Illness Chief Complaint: Shortness of Breath Informant: Patient, EMS Narrative: Patient presenting for evaluation secondary to shortness of breath. Patient has an underlying history of COPD, is chronically on 2 L nasal cannula and continues to use tobacco. Patient also has a history of coronary artery disease, hypertension, hyperlipidemia. Patient was admitted to the hospital back in July, had an abnormal stress test that resulted in a heart catheterization. This showed multivessel disease with patent left anterior descending CONDON bypass graft. Patient had ejection fraction of 55% at that time. Patient apparently over the course of the last couple of days has been having increasing shortness of breath. He was noted to have exertional dyspnea yesterday with even small amounts of exertion, and today he was noted to have a pulse ox in the 80s despite turning his baseline 2 L of oxygen up to 6 L. EMS arrived, gave the patient a breathing treatment, the patient was still short of breath so he was placed on CPAP and was brought to the emergency department. Patient does endorse that he has been having some lower extremity swelling recently. He denies that he is been having any sort of chest pain. He denies any fevers, cough, body aches. No nausea or vomiting. Patient is not on any sort of diuretics, but has had some recent titration of his blood pressure medications. Review of systems otherwise negative. Past Medical History - Allergies and Home Meds Allergies/Adverse Reactions: Allergies atorvastatin calcium [From Lipitor] Allergy (Verified 11/08/19 03:48) Other celecoxib [From Celebrex] Allergy (Verified 11/08/19 03:48) Unknown lincomycin HCl [From Lincocin] Allergy (Verified 11/08/19 03:48) Unknown rosuvastatin calcium [From Crestor] Allergy (Verified 11/08/19 03:48) Other budesonide [From Symbicort] Adverse Reaction (Verified 11/08/19 03:48) headache, nausea formoterol [From Symbicort] Adverse Reaction (Verified 11/08/19 03:48) headache, nausea Primary Care Physician: Nathan Suresh MD [Primary Care Provider] - Past Medical History: - - COPD, coronary artery disease, high a blood pressure, hyperlipidemia Surgical History: coronary bypass surgery Lives: Spouse/ Significant Other Smoking Status: Current every day smoker - Family History Paternal Family History: Family History (Last Reviewed 10/02/19 @ 10:02 by Prabha Alejandra) Brother Aortic aneurysm CAD (coronary artery disease) Father CAD (coronary artery disease) Mother CAD (coronary artery disease) Sister CAD (coronary artery disease) CVA (cerebral vascular accident) Other Family history of sudden cardiac Family History: Reports: Unknown Review of Systems All systems negative except as indicated General: Denies: Chills, Fever, Sweats Eyes: Denies: Visual changes - bilaterally, Diplopia ENT: Denies: Rhinorrhea, Sore throat Cardiovascular: Denies: Chest pain, Palpitations Respiratory: Reports: Dyspnea Gastrointestinal: Denies: Abdominal pain, Nausea, Vomiting, Diarrhea, Melena, Hematochezia Genitourinary: Denies: Dysuria, Hematuria, Frequency Musculoskeletal: Reports: Swelling Skin: Denies: Rash, Wounds Neurological: Denies: Headache, Weakness, Numbness Physical Exam Vital Signs/Narrative: Vital Signs Temp Pulse Resp BP Pulse Ox 11/08/19 04:04 70 18 98 11/08/19 04:02 70 18 11/08/19 03:45 98.2 F 74 21 H 156/67 H 99 11/08/19 03:40 98.2 F 77 32 H 121/92 H 100 Inital Vital Signs reviewed: Yes General: Well nourished, Well developed, Acute Distress - Mild secondary to mild respiratory distress Head: Normocephalic, Atraumatic Eyes: Perrl, EOMI ENT: Moist mucous membranes, No rhinorrhea Neck: Supple, Nontender, No JVD Cardiovascular: Regular rate, Regular rhythm, No murmurs, - - 2+ radial pulses bilaterally symmetric Respiratory: - - Patient had improved work of breathing on CPAP and BiPAP. He has very poor air movement throughout the lung hoover with minimal wheezes. No evidence of retractions on respiratory support Abdomen: Soft, Nontender, Nondistended, Normal bowel sounds Extremities: Nontender, Edema - Trace bilateral lower extremity Skin: Normal color, No rash Neurological: Alert, Oriented x3, Cranial nerves II-XII grossly intact, Normal Strength, Normal Sensation Psychological: Normal affect, Normal Mood Diagnostic/Tx/Re-eval Chest X-Ray - ED: 1 View, Read by ED Physician, Read by Radiologist, CHF - EKG Initial EKG Interpretation: - - Sinus rhythm at 71 with a shortened TN interval of 98. Lateral T wave changes are noted which were present on prior EKG and appears unchanged. No evidence of acute ischemia or arrhythmia. - Medical Decision Making Patient presented secondary to respiratory distress. Patient was immediately placed on BiPAP in the emergency department. Patient as he had poor air movement and also has a history of COPD was given breathing treatments. He was also given Solu-Medrol. CBC and chemistry were indicative of worsening kidney function with a creatinine of 2.9. Troponin was found to be negative. Chest x-ray very clearly shows evidence of CHF. EKG showed chronic ischemic changes nothing new. Due to the patient's worsening renal function, judicious use of diuretics was performed. I believe the patient requires admission at this point. I discussed this with the hospitalist. Critical care time (excluding procedures): 30-74 minutes ED Disposition - Plan for ED Patient: Disposition: Acute Care Hospital [facility] Diagnosis: Acute exacerbation of CHF (congestive heart failure), Respiratory failure
[2019-11-08] MEDS: Furosemide 20 MG/2 ML VIAL IV (05:33)
--- NOTE | 2019-11-08 05:38 | HP.PCM_ITS ---
History of Present Illness Date of Admission: 11/08/19 Chief Complaint: shortness of breath The patient is a 84 year old M with a past medical history as outlined was admitted through the ED on 11/08/2019 with a complaint of shortness of breath. Shortness of breath had been ongoing for a few days but worsened on the day of admission. Since he got really short of breath so his oxygen level had to be increased to 3 from 2 which is his baseline. He had also noticed swelling in his lower extremities. He denied any orthopnea but admitted to [facility]. He denied any chest pain or palpitations, dizziness, nausea vomiting or diarrhea. Shortness of breath worsened so he decided to come into the ED. In the ED, was found to be saturating at 78% on room air. Blood pressure was 110/97 pulse rate was 71. Chemistry was significant for creatinine of 2.96. Initial troponin was negative. CBC showed hemoglobin of 11.4 with WBC of 11.4. BNP was pending. Chest x-ray showed cardiomegaly with CHF, pulmonary edema and small bilateral pleural effusions with overlying pneumonia which cannot be excluded. EKG showed lateral T wave inversions which were present in previous EKGs. He has been admitted to be managed for acute on chronic hypoxic respiratory failure due to acute on chronic heart failure. 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) CABG X3: CONDON to LAD, SVG to DX, and SVG to RCA 1983 H/O coronary artery bypass surgery (Chronic 1983) CABG X3: CONDON to LAD, SVG to DX, and SVG to RCA 1983 Essential (primary) hypertension (Chronic) Lipoprotein deficiencies (Chronic) AAA (abdominal aortic aneurysm) (Chronic) Tobacco abuse (Chronic) Hyperlipidemia (Chronic) Peripheral vascular disease (Chronic) Medical History: Medical History (Last Reviewed 10/02/19 @ 10:02 by Prabha Alejandra) Family history of sudden cardiac (Inactive) Z82.41 Chest pain (Inactive) R07.9 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) J44.9 Carotid bruit (Chronic) R09.89 Hypothyroidism (Chronic) E03.9 Carotid artery stenosis (Chronic) I65.29 right Essential (primary) hypertension (Chronic) I10 Lipoprotein deficiencies (Chronic) E78.6 AAA (abdominal aortic aneurysm) (Chronic) I71.4 Tobacco abuse (Chronic) Z72.0 Hyperlipidemia (Chronic) E78.5 Peripheral vascular disease (Chronic) I73.9 MCGINNIS (dyspnea on exertion) (Resolved) R06.09 Allergies atorvastatin calcium [From Lipitor] Allergy (Verified 11/08/19 03:48) Other celecoxib [From Celebrex] Allergy (Verified 11/08/19 03:48) Unknown lincomycin HCl [From Lincocin] Allergy (Verified 11/08/19 03:48) Unknown rosuvastatin calcium [From Crestor] Allergy (Verified 11/08/19 03:48) Other budesonide [From Symbicort] Adverse Reaction (Verified 11/08/19 03:48) headache, nausea formoterol [From Symbicort] Adverse Reaction (Verified 11/08/19 03:48) headache, nausea Home Medications: Ambulatory Orders Medication Instructions Recorded ALPRAZolam [Xanax] 0.5 mg PO BID PRN PRN 04/20/14 Albuterol Inhaler [Ventolin Hfa] 2 puff INHALATION Q4H PRN PRN 04/20/14 Aspirin [Aspirin, Baby] 162 mg PO DAILY@0800 04/20/14 Nortriptyline HCl [Pamelor] 25 mg PO QHS 04/20/14 Omeprazole [Prilosec] 20 mg PO DAILY 04/20/14 levothyroxine 25 mcg tablet 25 mcg PO .COMPLEX tab 12/24/17 pravastatin 80 mg tablet 40 mg PO QHS tab 07/20/19 Co Q-10 1 tab PO DAILY 08/07/19 Acetaminophen [Tylenol Tablet] 650 mg PO Q6H PRN PRN tab 08/09/19 nitroglycerin 0.4 mg sublingual 0.4 mg SUBLINGUAL Q5M PRN #30 tab 09/05/19 tablet Amlodipine Besylate [Norvasc] 10 mg PO DAILY 09/16/19 Clopidogrel Bisulfate [Clopidogrel] 75 mg PO DAILY 09/16/19 Isosorbide Mononitrate [Isosorbide 60 mg PO DAILY 09/16/19 Mononitrate ER] Metoprolol Tartrate [Lopressor 50 mg PO BID 09/16/19 (beta mirna)] Ranolazine [Ranolazine ER] 500 mg PO BID 09/16/19 Surgical History: Surgical History (Last Reviewed 10/02/19 @ 10:02 by Prabha Alejandra) History of left heart catheterization (Resolved) Onset Date: 08/09/19 Z98.890 2010 H/O coronary artery bypass surgery (Chronic) Onset Date: 1983 Z95.1 CABG X3: CONDON to LAD, SVG to DX, and SVG to RCA 1983 Surgical History: coronary bypass surgery Psychiatric History: Anxiety Lives: Spouse/ Significant Other Smoking Status: Current every day smoker Tobacco Use: Non-smoker Alcohol: None Drugs: None - *Family History Paternal Family History: Family History (Last Reviewed 10/02/19 @ 10:02 by Prabha Alejandra) Brother Aortic aneurysm CAD (coronary artery disease) Father CAD (coronary artery disease) Mother CAD (coronary artery disease) Sister CAD (coronary artery disease) CVA (cerebral vascular accident) Other Family history of sudden cardiac History Items: Unknown Review of Systems Constitutional: Denies: Chills, Fever, Malaise, Weakness, Weight Change Eyes: Denies: Blurred vision HEENT: Denies: Head Aches, Sinus Congestion, Sinus Drainage Cardiovascular: Reports: Edema, Paroxysmal Noc. Dyspnea. Denies: Chest Pain, Chest Pressure, Chest Tightness, Heaviness, Orthopnea, Palpitations, Syncope Respiratory: Reports: Shortness of Breath, Shortness of breath at rest. Denies: Cough, Sputum production, Wheezing Gastrointestinal: Denies: Abdominal Pain, Nausea, Vomiting Genitourinary: Denies: Dysuria Musculoskeletal: Denies: Joint Pain, Joint Tenderness Skin: Denies: Rash, Wounds Neurological: Denies: Numbness, Tingling, Focal weakness Psychiatric: Denies: Anxiety, Depression, Homicidal Ideations, Suicidal I deations Hematologic/ Lymphatic: Denies: Easy Bruising, Easy Bleeding VTE Information - Inpt Only VTE Present on Admission: No VTE Pharm Prophylaxis ordered?: Yes Patient Problems: Active and Suspected Problems (Last Reviewed 10/02/19 @ 10:02 by Prabha Alejandra) Respiratory failure (Acute) - Physical Exam Vitals/I&O's: Vital Signs Temp Pulse Resp BP Pulse Ox 97.6 F L 71 17 110/97 H 97 11/08/19 04:56 11/08/19 05:33 11/08/19 05:33 11/08/19 05:33 11/08/19 05:33 Oxygen Delivery Method CPAP Weight: 162 lb 7.691 oz Body Mass Index (BMI) 25.4 Finger Stick Blood Glucose 153 General: Alert, Oriented x3, Cooperative, No apparent distress HEENT: Atraumatic, PERRLA, EOMI, Normocephalic Oral: Dry Mucosa Neck: Supple, No JVD, Negative Carotid Bruits Lungs: - - decreased breath sounds in mid and lower lung hoover. Coarse crackles in mid and lower lung hoover. On BIPAP Cardiovascular: Regular rate, Regular Rhythm, Normal S1, Normal S2, No murmurs Abdomen: Bowel Sounds Present, Soft, Non Tender, Non-Distended, No Hepato- splenomegaly Extremities: No clubbing, No cyanosis, Edema - mild 1+ bipedal pitting edema Skin: No rashes, No breakdown Musculoskeletal: No Tenderness to Palpation of Joints or Extremities Lymphatic: No Cervical, Supraclavicular, or Inguinal Adenopathy Neurological: Cranial nerves II-XII grossly intact, Neuro grossly intact, Motor Exam 5/5 strength throughout Psych/Mental Status: Normal Affect, Appropriate, Alert and oriented to time, place, person, mood and affect Microbiology Past 72 Hours 11/08/19 03:55 Mucosa - Nasopharyngeal Influenza Types A,B Direct FA (BENITO) - Final Laboratory Results 11/08/19 03:45: WBC 11.4 H, RBC 3.56 L, Hgb 11.4 L, Hct 34.6 L, MCV 97.2 H, MCH 32.0, MCHC 32.9, RDW Std Deviation 48.4 H, RDW Coeff of Gustavo 13.4, Plt Count 161, MPV 10.0, Immature Gran % (Auto) 0.400, Neut % (Auto) 74.9 H, Lymph % (Auto) 9.4 L, Granite % (Auto) 7.7, Eos % (Auto) 7.1 H, Baso % (Auto) 0.5, Absolute Neuts (auto) 8.5 H, Absolute Lymphs (auto) 1.07, Nucleated RBC % 0 11/08/19 03:45: Sodium 139, Potassium 4.5, Chloride 108 H, Carbon Dioxide 23.0, Anion Gap 8, BUN 43 H, Creatinine 2.96 H, Estim Creat Clear Calc 17.06, Est GFR (MDRD) Af Amer 26 L, Est GFR (MDRD) Non-Af 22 L, BUN/Creatinine Ratio 14.5, Glucose 136 H, Calcium 8.6, Troponin I < 0.015 11/08/19 03:45: Lactic Acid 1.9 11/08/19 03:45: B-Natriuretic Peptide Pending Diagnostic Data Chest X-Ray 11/08/19 03:48 IMPRESSION: Cardiomegaly with CHF, pulmonary edema, and small bilateral pleural effusions. Overlying pneumonia cannot be excluded. Old granulomatous disease. Electronically Signed: Rodolfo Akins MD at 5:10 EST , Service support , Assessment/Plan All Active Problems (Last Reviewed 10/02/19 @ 10:02 by Prabha Alejandra) Respiratory failure (Acute) OSEAS (acute kidney injury) (Acute) Vertigo (Acute) History of left heart catheterization (Resolved 08/09/19) MCGINNIS (dyspnea on exertion) (Resolved) 84 y/o male admitted with a complaint of shortness of breath 1. Acute on chronic hypoxic respiratory failure due to acute on chronic HFpEF * was saturating at78% on room air when he was admitted to the ED * now on BIPAP and saturating at 97% * BNP is pending; initial troponin is negative. * will cycle troponin * continue BIPAP, adn to wean off BIPAP as tolerated. * IV lasix 40mg bid * intake and output strictly; fluid restriction to 1500cc daily * 2D echo(08/07/19): EF of 60%, with stage 1 diastolic dysfunction and mild segmental hypokinesia. Will repeat 2D echo as patient says he has never been told he has any heart failure. * breathing treatment with bronchodilators * if patient remains on BIPAPm and is unable to be weaned off, will consult pulmo * 2.Acute on chronic HFpEF: as under 1 3. COPD: not in exacerbation. shortness of breath is more due to acute on chronic heart failure 4. OSEAS on CKD * Cr is 2.96, baseline is ! 2.1 * cannot hydrate due to heart failure * will check urine electrolytes and FeUrea * had renal USG on 10/11/2019: bilatreal renal cysts and no hydronephrosis or renal calculi * 5. CAD s/p CABG and stents * On aspirin and Plavix as well as statin ranolazine also on Imdur * 6. Hypertension: On amlodipine and metoprolol. 7. Hypothyroidism: On Synthroid 8. Hyperlipidemia: On pravastatin. DVT prophylaxis: Lovenox, renally dosed CODE STATUS: DNR CCA * Patient and daughter counseled extensively about different types of CODE STATUS including full code, DNR CCA and DNR CCA. Patient elects to be DNRCCA. He confirmed understanding that DNRCCA meant no intubation and CPR, * Total [id number] time 17 minutes. Code Visit Inpatient E&M: 96959 Init Hosp L3 Procedures: 23272 Advncd Care Plan 30 Min
--- NOTE | 2019-11-08 06:06 | ECHOCS_ITS ---
Reason For Study: DYSPNEA/SOB Procedure This was a 2D Doppler, Color Flow transthoracic echocardiogram. The study was technically difficult. Exam performed portable in ICU/CCU. Left Ventricle Normal size and thickness. The estimated ejection fraction is 60 %. Stage 2 diastolic dysfunction. No regional wall motion abnormalities noted. Right Ventricle Normal size and thickness. Normal systolic function. Atria Normal left atrium. Normal right atrium. Normal atrial septum. Mitral Valve The mitral valve is structurally normal. No prolapse or stenosis seen. Tricuspid Valve Normal tricuspid valve. Unable to estimate RV systolic pressure due to insufficient tricuspid regurgitant envelope. Aortic Valve Trisinus/trileaflet aortic valve. Mild diffuse aortic valve thickening. Trivial aortic valve insufficiency. Pulmonic Valve Normal pulmonic valve. Great Vessels Normal aortic root. Normal arch. Normal inferior vena cava. Inferior vena cava collapse with sniff. Pericardium/Pleural No pericardial effusion. Medication Diluted definity 3ml given slow IV push to enhance endocardial definition. MMode/2D Measurements & Calculations RVDd: 3.5 cm Ao root diam: 3.3 cm LAV(MOD-bp): 50.1 ml LAV(MOD-bp) Indexed: 27.1 ml/m2 LAV(MOD-sp2): 48.4 ml LAV(MOD-sp4): 49.8 ml SV(MOD-sp4): 42.5 ml SV(sp4-el): 43.9 ml LVAd ap4: 23.6 cm2 EDV(MOD-sp4): 70.1 ml EDV(sp4-el): 72.5 ml LVAs ap4: 13.8 cm2 ESV(MOD-sp4): 27.6 ml ESV(sp4-el): 28.6 ml EF(MOD-sp4): 60.6 % EF(sp4-el): 60.6 % LA dimension(2D): 3.7 cm LA A4 area: 18.0 cm2 RA A4 area: 13.3 cm2 Time Measurements MV dec time: 0.27 sec Doppler Measurements & Calculations MV E max avel: 98.6 cm/sec Lat Peak E' Avel: 11.0 cm/sec Med Peak E' Avel: 5.8 cm/sec MV A max avel: 87.3 cm/sec E/E' lat: 9.0 E/E' med: 16.9 MV E/A: 1.1 Ao V2 max: 135.6 cm/sec AI max avel: 325.4 cm/sec LV V1 max: 100.9 cm/sec Ao max P.4 mmHg AI max P.3 mmHg LV V1 max P.1 mmHg AI dec slope: 277.3 cm/sec2 AI P1/2t: 343.6 msec PA V2 max: 91.3 cm/sec Interpretation Summary The estimated ejection fraction is 60 %. Stage 2 diastolic dysfunction. Unable to estimate RV systolic pressure due to insufficient tricuspid regurgitant envelope. Trivial aortic valve insufficiency. Compared to echo report dated 08/08/2019, no appreciable changes noted. The study was technically difficult. Contrast injection was performed. Ordering Physician: July Washington Referring Physician: MADELYN GILLESPIE Performed By: Zoe Martinez RDCS
--- NOTE | 2019-11-08 07:07 | PCM.PN.BLA ---
Progress Note Patient is an 84-year-old gentleman admitted with progressive shortness of breath and assessment of acute on chronic hypoxic respiratory failure made. Patient placed on noninvasive ventilation BiPAP admitted to the intensive care unit GENERAL: cooperative HEENT: Atraumatic; EYES; Anicteric, Normal Conjunctiva NECK; supple, normal thyroid, RESPIRATORY: Diminished to auscultation CARDIOVASCULAR: Regular S1 S2, GI: soft, normoactive bowel sounds, : No Renal angle tenderness; EXTREMITIES: Bipedal edema MUSCULOSKELETAL: no muscle waisting NEURO: Awake; no lateralizing signs. SKIN: No Rash PSYCH; Flat affect 1. Acute on chronic hypoxic respiratory failure due to CHF exacerbation ?Admitted to the intensive care unit managed on noninvasive ventilation BiPAP 2. Acute on chronic congestive heart failure with preserved ejection fraction Patient being managed with noninvasive ventilation as stated above in addition to Lasix fluid restriction strict input and output. 2D echo repeated for EF assessment 3. Chronic hypoxic respiratory failure secondary to COPD ?Currently not in exacerbation 4. Coronary artery disease ?With previous CABG and subsequent stent placement patient is on recommended medications including dual antiplatelet therapy with aspirin and Plavix 5. Hypertension ~ blood pressure controlled, home medications continued with dose adjustment as needed 6. Acute on chronic kidney disease ?Suspected to be secondary to hypoperfusion from congestive heart failure do expect improvement with diuresis 7. Chronic kidney disease stage III with baseline creatinine of 2.1 8. Dyslipidemia ~patient is on statin therapy, continued at home dose 9. Hypothyroidism ~patient is on levothyroxine home dose continued 10. DVT prophylaxis ?Lovenox dose adjusted for kidney function STROKE Vital Signs/Narrative: Vital Signs Temp Pulse Resp BP Pulse Ox 11/08/19 06:47 68 11/08/19 05:33 71 17 110/97 H 97 11/08/19 04:56 97.6 F L 67 18 136/61 H 99 11/08/19 04:04 70 18 98 11/08/19 04:02 70 18 11/08/19 03:45 98.2 F 74 21 H 156/67 H 99 11/08/19 03:40 98.2 F 77 32 H 121/92 H 100
--- NOTE | 2019-11-08 07:31 | PCM.CONS.PUL ---
Reason for Consult Date of Consultation: 11/08/19 Reason for Consultation: COPD exacerbation History of Present Illness: The patient is an 84-year-old male, with a history as outlined below, who presented to the emergency department on November 08 with complaints of progressive dyspnea. The patient did have evidence of rather mild obstructive lung disease on pulmonary function studies in 2016. Repeat pulmonary function studies just completed on November 02 again demonstrated a partially reversible mild large airways obstructive ventilatory defect with disproportionate reduction in diffusing capacity. I last saw him in the pulmonary medicine clinic on October 02, at which time, I recommended that he be placed on Bevespi. The patient has a baseline 2 L/min supplemental oxygen requirement at all times. On presentation to the emergency department the patient was noted to be afebrile and hemodynamically stable. He was, nevertheless, tachypneic and hypoxemic, saturating 78% on room air. Laboratory evaluation revealed a mildly elevated white blood cell count of 11,000. Chemistry profile was notable for acute on chronic kidney disease. Troponin was negative. Plain film chest x-ray revealed bilateral interstitial prominence with obscured costophrenic angles bilaterally. The patient was started on bronchodilators, steroids and Lasix. He was subsequently admitted to the progressive care unit for further management. Past Medical History Past Medical History (Chronic Problems): Chronic Problems (Last Reviewed 10/02/19 @ 10:02 by Prabha Alejandra) Acute exacerbation of CHF (congestive heart failure) (Chronic) 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) Carotid bruit (Chronic) Hypothyroidism (Chronic) Carotid artery stenosis (Chronic) right Atherosclerosis of coronary artery bypass graft of [place] heart with angina pectoris (Chronic) CABG X3: CONDON to LAD, SVG to DX, and SVG to RCA 1983 H/O coronary artery bypass surgery (Chronic 1983) CABG X3: CONDON to LAD, SVG to DX, and SVG to RCA 1983 Essential (primary) hypertension (Chronic) Lipoprotein deficiencies (Chronic) AAA (abdominal aortic aneurysm) (Chronic) Tobacco abuse (Chronic) Hyperlipidemia (Chronic) Peripheral vascular disease (Chronic) Medical History: Medical History (Last Reviewed 10/02/19 @ 10:02 by Prabha Alejandra) Family history of sudden cardiac (Inactive) Z82.41 Chest pain (Inactive) R07.9 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) J44.9 Carotid bruit (Chronic) R09.89 Hypothyroidism (Chronic) E03.9 Carotid artery stenosis (Chronic) I65.29 right Essential (primary) hypertension (Chronic) I10 Lipoprotein deficiencies (Chronic) E78.6 AAA (abdominal aortic aneurysm) (Chronic) I71.4 Tobacco abuse (Chronic) Z72.0 Hyperlipidemia (Chronic) E78.5 Peripheral vascular disease (Chronic) I73.9 MCGINNIS (dyspnea on exertion) (Resolved) R06.09 Allergies atorvastatin calcium [From Lipitor] Allergy (Verified 11/08/19 03:48) Other celecoxib [From Celebrex] Allergy (Verified 11/08/19 03:48) Unknown lincomycin HCl [From Lincocin] Allergy (Verified 11/08/19 03:48) Unknown rosuvastatin calcium [From Crestor] Allergy (Verified 11/08/19 03:48) Other budesonide [From Symbicort] Adverse Reaction (Verified 11/08/19 03:48) headache, nausea formoterol [From Symbicort] Adverse Reaction (Verified 11/08/19 03:48) headache, nausea Home Medications: Ambulatory Orders Medication Instructions Recorded ALPRAZolam [Xanax] 0.5 mg PO BID PRN PRN 04/20/14 Albuterol Inhaler [Ventolin Hfa] 2 puff INHALATION Q4H PRN PRN 04/20/14 Aspirin [Aspirin, Baby] 162 mg PO DAILY@0800 04/20/14 Nortriptyline HCl [Pamelor] 25 mg PO QHS 04/20/14 Omeprazole [Prilosec] 20 mg PO DAILY 04/20/14 levothyroxine 25 mcg tablet 25 mcg PO .COMPLEX tab 12/24/17 pravastatin 80 mg tablet 40 mg PO QHS tab 07/20/19 Co Q-10 1 tab PO DAILY 08/07/19 Acetaminophen [Tylenol Tablet] 650 mg PO Q6H PRN PRN tab 08/09/19 nitroglycerin 0.4 mg sublingual 0.4 mg SUBLINGUAL Q5M PRN #30 tab 09/05/19 tablet Amlodipine Besylate [Norvasc] 10 mg PO DAILY 09/16/19 Clopidogrel Bisulfate [Clopidogrel] 75 mg PO DAILY 09/16/19 Isosorbide Mononitrate [Isosorbide 60 mg PO DAILY 09/16/19 Mononitrate ER] Metoprolol Tartrate [Lopressor 50 mg PO BID 09/16/19 (beta akila)] Ranolazine [Ranolazine ER] 500 mg PO BID 09/16/19 Surgical History: Surgical History (Last Reviewed 10/02/19 @ 10:02 by Prabha Alejandra) History of left heart catheterization (Resolved) Onset Date: 08/09/19 Z98.890 2010 H/O coronary artery bypass surgery (Chronic) Onset Date: 1983 Z95.1 CABG X3: CONDON to LAD, SVG to DX, and SVG to RCA 1983 Surgical History: coronary bypass surgery Psychiatric History: Anxiety Lives: Spouse/ Significant Other Smoking Status: Former smoker Tobacco Use: Non-smoker Alcohol: None Drugs: None - *Family History Paternal Family History: Family History (Last Reviewed 10/02/19 @ 10:02 by Prabha Alejandra) Brother Aortic aneurysm CAD (coronary artery disease) Father CAD (coronary artery disease) Mother CAD (coronary artery disease) Sister CAD (coronary artery disease) CVA (cerebral vascular accident) Other Family history of sudden cardiac History Items: Unknown Review of Systems Constitutional: Denies: Chills, Fever, Weight Change HEENT: Denies: Head Aches, Sinus Congestion, Sinus Drainage Cardiovascular: Denies: Chest Pain, Palpitations Respiratory: Reports: Cough, Shortness of Breath Gastrointestinal: Denies: Abdominal Pain, Nausea, Vomiting Genitourinary: Denies: Dysuria Musculoskeletal: Denies: Joint Pain, Joint Tenderness Skin: Denies: Rash, Wounds Neurological: Denies: Numbness, Tingling, Focal weakness Psychiatric: Denies: Anxiety, Depression, Homicidal Ideations, Suicidal Ideations Hematologic/ Lymphatic: Denies: Easy Bruising, Easy Bleeding Patient Problems: Active and Suspected Problems (Last Reviewed 10/02/19 @ 10:02 by Prabha Alejandra) Respiratory failure (Acute) Objective: The patient's most recent lab work, culture data and imaging studies have all been personally reviewed. - Physical Exam Vitals/I&O's: Vital Signs Temp Pulse Resp BP Pulse Ox 97.6 F L 68 24 H 110/97 H 98 11/08/19 04:56 11/08/19 06:47 11/08/19 06:45 11/08/19 05:33 11/08/19 06:45 Oxygen Delivery Method Bi-pap Weight: 156 lb 11.979 oz Body Mass Index (BMI) 24.5 Finger Stick Blood Glucose 153 General: Alert, Cooperative, No apparent distress, - - BiPAP mask in place HEENT: Atraumatic, PERRLA, Normocephalic Oral: No Gingival or Mucosal Lesions/ Ulcerations Neck: Supple, No Nodes, Trachea Midline Lungs: Diminished, Rales Cardiovascular: Regular rate, Regular Rhythm, Normal S1, Normal S2 Abdomen: Bowel Sounds Present, Soft, Non Tender Extremities: No clubbing, No cyanosis, Edema Skin: No breakdown Musculoskeletal: No Tenderness to Palpation of Joints or Extremities Lymphatic: No Cervical, Supraclavicular, or Inguinal Adenopathy Neurological: Neuro grossly intact Psych/Mental Status: Flat Affect Labs (Last 48 Hours) 11/08/19 11/08/19 11/08/19 03:45 03:45 03:45 WBC 11.4 H RBC 3.56 L Hgb 11.4 L Hct 34.6 L MCV 97.2 H MCH 32.0 MCHC 32.9 RDW Std Deviation 48.4 H RDW Coeff of Gustavo 13.4 Plt Count 161 MPV 10.0 Immature Gran % (Auto) 0.400 Neut % (Auto) 74.9 H Lymph % (Auto) 9.4 L [place] % (Auto) 7.7 Eos % (Auto) 7.1 H Baso % (Auto) 0.5 Absolute Neuts (auto) 8.5 H Absolute Lymphs (auto) 1.07 Nucleated RBC % 0 Sodium 139 Potassium 4.5 Chloride 108 H Carbon Dioxide 23.0 Anion Gap 8 BUN 43 H Creatinine 2.96 H Estim Creat Clear Calc 17.06 Est GFR (MDRD) Af Amer 26 L Est GFR (MDRD) Non-Af 22 L BUN/Creatinine Ratio 14.5 Glucose 136 H Lactic Acid 1.9 Calcium 8.6 Troponin I < 0.015 B-Natriuretic Peptide 11/08/19 03:45 WBC RBC Hgb Hct MCV MCH MCHC RDW Std Deviation RDW Coeff of Gustavo Plt Count MPV Immature Gran % (Auto) Neut % (Auto) Lymph % (Auto) [place] % (Auto) Eos % (Auto) Baso % (Auto) Absolute Neuts (auto) Absolute Lymphs (auto) Nucleated RBC % Sodium Potassium Chloride Carbon Dioxide Anion Gap BUN Creatinine Estim Creat Clear Calc Est GFR (MDRD) Af Amer Est GFR (MDRD) Non-Af BUN/Creatinine Ratio Glucose Lactic Acid Calcium Troponin I B-Natriuretic Peptide Pending Microbiology 11/08/19 03:55 Mucosa - Nasopharyngeal Influenza Types A,B Direct FA ([facility]) - Final Clinical Impression(s) from Imaging Studies Chest X-Ray 11/08/19 03:48 IMPRESSION: Cardiomegaly with CHF, pulmonary edema, and small bilateral pleural effusions. Overlying pneumonia cannot be excluded. Old granulomatous disease. Electronically Signed: Rodolfo Akins MD at 5:10 EST , Service support , Current Medications Acetaminophen (Tylenol) 650 mg PO Q6H PRN PRN PRN Reason: Pain Score 1-3/Temp > 100.7 F Albuterol Sulfate (Ventolin Aerosols) 2.5 mg INHALATION Q4H PRN PRN PRN Reason: SHORTNESS OF BREATH Alprazolam (Xanax) 0.5 mg PO BID PRN PRN PRN Reason: ANXIETY Amlodipine Besylate (Norvasc) 10 mg PO DAILY COUNT INCLUDES THE [facility] Aspirin (Aspirin, Baby) 162 mg PO DAILY@0800 COUNT INCLUDES THE [facility] Clopidogrel Bisulfate (Plavix) 75 mg PO DAILY MESSI Enoxaparin Sodium (Lovenox) 30 mg SC DAILY MESSI Furosemide (Lasix) 40 mg IV BIDLX MESSI Glucagon () 1 mg IM .X1 PRN PRN Reason: Hypoglycemia Sodium Chloride () 250 mls @ 15 mls/hr IV .[id number] PRN PRN Reason: Saline Flush Sodium Chloride () 250 mls @ 15 mls/hr IV .[id number] PRN PRN Reason: Additional IVPB Infusion Dextrose (Dextrose 10%-Water) 250 mls @ 999 mls/hr IV .Q16M PRN; Protocol PRN Reason: HYPOGLYCEMIA Isosorbide Mononitrate (Imdur) 60 mg PO DAILY COUNT INCLUDES THE [facility] Levothyroxine Sodium (Synthroid) 25 mcg PO MoTuWeThFrSa@0600 MESSI Levothyroxine Sodium (Synthroid) 50 mcg PO Banerjee@0600 COUNT INCLUDES THE [facility] Metoprolol Tartrate (Lopressor (Beta Akila)) 50 mg PO BID MESSI Nitroglycerin (Nitrostat) 0.4 mg SUBLINGUAL Q5M PRN PRN Reason: CHEST Nortriptyline HCl (Pamelor) 25 mg PO QHS MESSI Ondansetron HCl (Zofran) 4 mg IV Q8H PRN PRN PRN Reason: NAUSEA/VOMITING Pantoprazole Sodium (Protonix) 20 mg PO DAILY MESSI Pravastatin Sodium (Pravachol) 40 mg PO QHS MESSI Ranolazine (Ranexa) 500 mg PO BID MESSI Sodium Chloride () 10 - 40 ml IV UD PRN PRN Reason: SALINE FLUSH Assessment/Plan All Active Problems (Last Reviewed 10/02/19 @ 10:02 by Prabha Alejandra) Respiratory failure (Acute) OSEAS (acute kidney injury) (Acute) Vertigo (Acute) History of left heart catheterization (Resolved 08/09/19) MCGINNIS (dyspnea on exertion) (Resolved) RECOMMENDATIONS: 1. Continue scheduled Lasix regimen. 2. Wean patient from BiPAP therapy as tolerated. Goal to maintain oxygen saturation at or above 90%. 3. Continue scheduled bronchodilators and IV steroids. We will also plan to continue empiric antimicrobials, pending infectious work-up as well. 4. Continue appropriate DVT prophylaxis. IMPRESSIONS: 1. Acute on chronic hypoxemic respiratory failure Appears to be secondary to decompensated heart failure. However, we will also plan to continue the patient on empiric antimicrobials, pending infectious work-up as well. Scheduled bronchodilators will be continued along with IV steroids. The patient will be weaned from BiPAP therapy as tolerated by respiratory status. Wean FiO2 to maintain oxygen saturations at or above 90%. Continue scheduled Lasix regimen. 2. Acute on chronic kidney disease Suspect secondary to decompensated heart failure state. Anticipate improvement with diuresis. 3. Coronary artery disease/hypertension/hyperlipidemia/hypothyroidism Complicates care, management, recovery and prognosis. Continue home medications as indicated. This note was generated with [employer] dictation software. It may contain incorrect words, spelling, and punctuation that were not noted in checking the note before signing. Code Visit Inpatient E&M: 81811 In Hosp L3
[2019-11-08 08:28] LABS: BNP,B-Type NATRIURETIC PEPTIDE 541.2 pg/mL (0-100)
[2019-11-08] MEDS: Aspirin 81 MG TAB.CHEW 162 MG PO (08:51)
[2019-11-08] MEDS: Isosorbide Mononitrate 60 MG Tablet PO (08:52)
[2019-11-08] MEDS: Furosemide 40 MG/4 ML Vial IV ×2 (08:52→17:33)
[2019-11-08] MEDS: Enoxaparin 30 MG/0.3 ML Syringe SC (08:52)
[2019-11-08] MEDS: Clopidogrel Bisulfate 75 MG Tablet PO (08:52)
[2019-11-08] MEDS: Ranolazine 500 MG Tablet PO ×2 (08:52→22:26)
[2019-11-08] MEDS: Metoprolol Tartrate 50 MG Tablet PO ×2 (08:52→22:26)
[2019-11-08] MEDS: amLODIPine 10 MG Tablet PO (08:53)
[2019-11-08] MEDS: Pantoprazole Sodium 20 MG Tablet PO (08:53)
[2019-11-08] MEDS: levoFLOXacin IV 500 MG/100 ML BAG 100 MG IV (10:10)
--- NOTE | 2019-11-08 11:45 | CASEMGMT ---
Addendum entered by Elder Lopez 11/08/19 16:42: 1445: bAdirahman Macdonald @ [facility], Carmen Renteria, [employer], had ordered an overnight pulse ox to be completed on 2 L/M as an out-pt prior to pt's admission to [facility]. Per Renae, pt recently had one done on RA, but Carmen wanted another one done with the 2 L/M. Pt remains on BIPAP. CM to follow if this will be needed prior to discharge or as an out-pt. Original Note: RN CM ENVELOPE MAKER CM to room to meet with patient for initial transition planning/care coordination assessment. RN CM introduced self and role at [facility]. Pt voices understanding and consents to assessment at this time. Pt sitting up in recliner chair w/BIPAP mask in place. Dtr, Jonna/MONICA, @ bedside and pt asked for RN JILL to talk with her d/t he is having difficulty hearing over the BIPAP machine. Care providers, pharmacy, and demographics verified w/dtr at this time. PCP: Dr Nathan Suresh Specialists: Dr Antonio--tearer, Dr Flores--central processing tech. Preferred Pharmacy: [facility]. Insurance: [facility] Prescription Benefit: Yes Living Will/HPOA: Has both LW and Healthcare MONICA, who is his daughter, Jonna. Records of both are on file @ [facility] LNOK: daughter/POA, Jonna. 2 sons. Living Arrangements: Lives with his son in mobile home w/3 steps to enter. Independent with ADL's. Dtr states pt has had a decline overall and with ambulation the past 2 weeks. [facility] pt has been doing his own laundry, but she buys his groceries and helps with cleaning and some meals. Transportation: Pt was driving up until about 2 weeks ago. Dtr has been providing transportation. DME: States has the following DME: cane, rails/grab bars, O2 @ 2L/M through [employer]. Has concentrator and portability. Dtr states she will bring portable tank in so pt has to transfer home with @ D/C. Has a walker and nebulizer. Dtr states pt is out of medication for the nebulizer. RHONDA Howe, aware and to notify MD . Dtr states pt could use a shower chair and marine firer. She was made aware these are not covered items under [facility] and made aware these could be purchased @ local Drug stores or [employer]. HHC/SNF: No history of either. Pt/daughter wish for pt to return home. Dtr states feels HHC would be helpful/beneficial and pt agrees. Given list of local C agencies and dtr states her 1st choice is [facility]. Pt also agreeable. Daughter requesting Palliative Care referral. SVETLANA Mallory, made aware. CM to follow for home oxygen needs and any further discharge planning/needs. Pt voices no further concerns/needs at this time. Advised pt to ask for CM if any further questions/concerns/needs arise. Voices understanding. PLAN: Home w/[facility]. Follow for increased Home O2 needs. Will need ambulatory pulse ox prior to discharge. CCN referral for after pt discharged from [facility] SVETLANA c/s for Palliative referral Kae MARES RN CM
--- NOTE | 2019-11-08 16:29 | CASEMGMT ---
Social Work: Reason for referral: Patient/family requesting Palliative Care referral. Met with patient, patient's daughter and granddaughter. Patient's daughter is requesting a palliative care consult be made to [facility]. Patient agreeable to referral and gave permission to give [facility] contact information for daughter Kavita. Daughter aware that Palliative Care sales service representative will contact her to set up meeting to discuss services. SW to stay available for additional needs. TC to [facility]. Referral made and Clinicals faxed. Intake will contact daughter to schedule appointment. SIERRA Villavicencio
[2019-11-08 17:21] LABS: Urine Sodium 67 mmol/L (Not Establ.)
[2019-11-08] MEDS: Nortriptyline 25 MG Capsule PO (22:25)
[2019-11-08] MEDS: Pravastatin 40 MG Tablet PO (22:26)
[2019-11-08] MEDS: ALPRAZolam 0.5 MG Tablet PO (22:28)
[2019-11-09] VITALS (21 sets, daily range): BP systolic 114–122; BP diastolic 55–95; PULSE 75–92; RESP 12–28; TEMP 36.6–36.9; O2SAT 90–98
[2019-11-09] MEDS: Ipratropium/Albuterol Sulfate 3 ML AMPUL.NEB INHALATION ×5 (03:27→23:22)
--- NOTE | 2019-11-09 04:13 | CPS ---
Pt.'s FiO2 titrated from 30% - 24% to help maintain pt.'s SpO2 88% - 92%
[2019-11-09] MEDS: 0.9% Saline Lock 10 ML Syringe IV ×4 (05:17→21:58)
[2019-11-09] MEDS: Levothyroxine 25 MCG TABLET PO (05:29)
[2019-11-09 05:36] LABS: Absolute Neutrophil Count 7.9 X10^3/uL (2.0-7.7); Hematocrit 30.7 % (40-54); Hemoglobin 10.3 g/dL (13.0-16.5); Lymphocyte % 9.9 % (19-41); Mean Corp Hgb Conc 33.6 g/dL (32-36); Mean Corpuscular Hgb 32.3 pg (27.0-32.0); Mean Corpuscular Volume 96.2 fL (80-94); Mean Platelet Vol. 10.3 fl (6.2-12.0); Monocyte# 0.31 X10^3/uL; Monocyte% 3.4 % (0-10); NRBC Flagged by Analyzer 0 % (0-5); Neutrophil # 7.88 X10^3/uL (2.7-7.7); Neutrophil % 86.3 % (47-70); Platelet Count 154 K/mm3 (150-450); RBC Distribution Width SD 49.4 fl (35.1-43.9); Red Blood Count 3.19 M/mm3 (4.6-6.2); White Blood Count 9.1 K/mm3 (4.4-11.0)
[2019-11-09 05:57] LABS: Anion Gap 9 (5-15); BUN 53 mg/dL (7-18); BUN/Creat Ratio 16.3 RATIO (10-20); Calcium,Total 8.6 mg/dL (8.5-10.1); Chloride 106 mmol/L (98-107); Creatinine, Serum 3.25 mg/dL (0.70-1.30); EST Glomerular Filtration Rate 19 mL/min (>60); Est Glom Filt Rate - Afr Amer 23 mL/min (>60); Estimated Creatinine Clearance 15.54 ml/min; Glucose 163 mg/dL (74-106); Potassium 3.6 mmol/L (3.5-5.1); Sodium Level 138 mmol/L (136-145)
--- NOTE | 2019-11-09 06:48 | PN_ITS ---
Subjective: The patient was seen and examined at the bedside this morning. Events from the last 24 hours have been reviewed. The patient is currently afebrile, hemodynamically stable and maintaining appropriate oxygen saturations on Airvo. The patient has been on and off of BIPAP over the course of the last 24 hours. Attempts at diuresis has been limited by worsening renal function. The patient does appear more labored this morning from a breathing perspective. He remains short of breath, but states that he has been unable to produce any sputum. Objective: The patient's most recent lab work, culture data and imaging studies have all been personally reviewed. Sputum Gram stain revealed 3+ gram-positive cocci. General: Alert, Cooperative, - - Breathing is more labored this morning. HEENT: Atraumatic, Normocephalic Oral: Dry Mucosa Neck: Supple, No Nodes, Trachea Midline Lungs: Diminished, Short of Breath, Tachypneic, - - Increased AP diameter. +Prolonged expiratory phase Cardiovascular: Regular rate, Regular Rhythm, Normal S1, Normal S2, No murmurs Abdomen: Bowel Sounds Present, Soft, Non Tender Extremities: No clubbing, No cyanosis Skin: No breakdown Musculoskeletal: No Tenderness to Palpation of Joints or Extremities Lymphatic: No Cervical, Supraclavicular, or Inguinal Adenopathy Neurological: Cranial nerves II-XII grossly intact, Neuro grossly intact Psych/Mental Status: Normal Affect, Appropriate Vital Signs Temp Pulse Resp BP Pulse Ox 97.9 F 78 18 122/56 H 93 11/09/19 02:00 11/09/19 04:00 11/09/19 03:27 11/09/19 02:00 11/09/19 03:27 Oxygen Flow Rate (L/min) 6 Oxygen Delivery Method Bi-pap Weight: 155 lb 6.814 oz Body Mass Index (BMI) 24.5 Finger Stick Blood Glucose 153 Intake and Output for Last 24 Hours 11/07/19 11/08/19 11/09/19 23:59 23:59 23:59 Intake Total 802.5 / 802.5 60 / 60 Output Total 775 / 775 Balance 27.5 / 27.5 60 / 60 Labs (Last 48 Hours) 11/08/19 11/08/19 11/08/19 03:45 03:45 03:45 WBC 11.4 H RBC 3.56 L Hgb 11.4 L Hct 34.6 L MCV 97.2 H MCH 32.0 MCHC 32.9 RDW Std Deviation 48.4 H RDW Coeff of Gustavo 13.4 Plt Count 161 MPV 10.0 Immature Gran % (Auto) 0.400 Neut % (Auto) 74.9 H Lymph % (Auto) 9.4 L [place] % (Auto) 7.7 Eos % (Auto) 7.1 H Baso % (Auto) 0.5 Absolute Neuts (auto) 8.5 H Absolute Lymphs (auto) 1.07 Nucleated RBC % 0 Sodium 139 Potassium 4.5 Chloride 108 H Carbon Dioxide 23.0 Anion Gap 8 BUN 43 H Creatinine 2.96 H Estim Creat Clear Calc 17.06 Est GFR (MDRD) Af Amer 26 L Est GFR (MDRD) Non-Af 22 L BUN/Creatinine Ratio 14.5 Glucose 136 H Lactic Acid 1.9 Calcium 8.6 Troponin I < 0.015 B-Natriuretic Peptide Ur Random Sodium Urine Creatinine 11/08/19 11/08/19 11/08/19 03:45 08:50 08:50 WBC RBC Hgb Hct MCV MCH MCHC RDW Std Deviation RDW Coeff of Gustavo Plt Count MPV Immature Gran % (Auto) Neut % (Auto) Lymph % (Auto) [place] % (Auto) Eos % (Auto) Baso % (Auto) Absolute Neuts (auto) Absolute Lymphs (auto) Nucleated RBC % Sodium Potassium Chloride Carbon Dioxide Anion Gap BUN Creatinine Estim Creat Clear Calc Est GFR (MDRD) Af Amer Est GFR (MDRD) Non-Af BUN/Creatinine Ratio Glucose Lactic Acid Calcium Troponin I 0.019 < 0.015 B-Natriuretic Peptide 541.2 H Ur Random Sodium Urine Creatinine 11/08/19 11/08/19 11/08/19 11:30 17:05 17:05 WBC RBC Hgb Hct MCV MCH MCHC RDW Std Deviation RDW Coeff of Gustavo Plt Count MPV Immature Gran % (Auto) Neut % (Auto) Lymph % (Auto) [place] % (Auto) Eos % (Auto) Baso % (Auto) Absolute Neuts (auto) Absolute Lymphs (auto) Nucleated RBC % Sodium Potassium Chloride Carbon Dioxide Anion Gap BUN Creatinine Estim Creat Clear Calc Est GFR (MDRD) Af Amer Est GFR (MDRD) Non-Af BUN/Creatinine Ratio Glucose Lactic Acid Calcium Troponin I < 0.015 B-Natriuretic Peptide Ur Random Sodium 67 Urine Creatinine 51.70 11/09/19 11/09/19 05:25 05:25 WBC 9.1 RBC 3.19 L Hgb 10.3 L Hct 30.7 L MCV 96.2 H MCH 32.3 H MCHC 33.6 RDW Std Deviation 49.4 H RDW Coeff of Gustavo 14.0 Plt Count 154 MPV 10.3 Immature Gran % (Auto) 0.400 Neut % (Auto) 86.3 H Lymph % (Auto) 9.9 L [place] % (Auto) 3.4 Eos % (Auto) 0.0 Baso % (Auto) 0.0 Absolute Neuts (auto) 7.9 H Absolute Lymphs (auto) 0.90 Nucleated RBC % 0 Sodium 138 Potassium 3.6 Chloride 106 Carbon Dioxide 23.0 Anion Gap 9 BUN 53 H Creatinine 3.25 H Estim Creat Clear Calc 15.54 Est GFR (MDRD) Af Amer 23 L Est GFR (MDRD) Non-Af 19 L BUN/Creatinine Ratio 16.3 Glucose 163 H Lactic Acid Calcium 8.6 Troponin I B-Natriuretic Peptide Ur Random Sodium Urine Creatinine Microbiology 11/08/19 08:55 Sputum, Expectorated/Coughed Gram Stain - Final 11/08/19 03:55 Mucosa - Nasopharyngeal Influenza Types A,B Direct FA ([facility]) - Final Clinical Impression(s) from Imaging Studies Chest X-Ray 11/08/19 03:48 IMPRESSION: Cardiomegaly with CHF, pulmonary edema, and small bilateral pleural effusions. Overlying pneumonia cannot be excluded. Old granulomatous disease. Electronically Signed: Rodolfo Akins MD at 5:10 EST , Service support , Medical Necessity - Tobacco Use Smoking Status: Former smoker Tobacco Use: Non-smoker Assessment/Plan All Active Problems (Last Reviewed 10/02/19 @ 10:02 by Prabha Alejandra) Respiratory failure (Acute) OSEAS (acute kidney injury) (Acute) Vertigo (Acute) History of left heart catheterization (Resolved 08/09/19) MCGINNIS (dyspnea on exertion) (Resolved) RECOMMENDATIONS: 1. Broaden antibiotics, given tenuous respiratory status. 2. Obtain nephrology consultation given worsening renal function. 3. Continue empiric antimicrobials, bronchodilators and steroids. 4. Wean FiO2 to maintain oxygen saturations at or above 90%. 5. Continue appropriate DVT prophylaxis. 6. Hold Lasix for now. 7. Obtain repeat CXR this morning. IMPRESSIONS: 1. Acute on chronic hypoxemic respiratory failure Possibly multifactorial with decompensated CHF and possible pulmonary infectious process contributing. The patient was initially diuresed, but developed worsening renal insufficiency. Therefore, lasix has been discontinued. The patient will be continued on broadened antibiotics, bronchodilators and steroid s. Wean FIO2 to maintain oxygen saturations at or above 90%. The patient will be weaned from BiPAP therapy as tolerated by respiratory status. 2. Acute on chronic kidney disease Suspect secondary to decompensated heart failure state. However, renal function worsened with diuresis. Therefore, diuretics will be discontinued. Will obtain nephrology consultation and renal ultrasound. 3. Coronary artery disease/hypertension/hyperlipidemia/hypothyroidism Complicates care, management, recovery and prognosis. Continue home medications as indicated. This note was generated with [employer] dictation software. It may contain incorrect words, spelling, and punctuation that were not noted in checking the note before signing. Code Visit Inpatient E&M: 93260 Subs Hosp L3
--- NOTE | 2019-11-09 06:50 | US_ITS ---
STUDY: RENAL ULTRASOUND - COMPLETE REASON FOR EXAM: Male, 84 years old. OSEAS TECHNIQUE: Ultrasound evaluation of the kidneys was performed with real-time and static sanchez-scale imaging. COMPARISON: 10/11/2019. FINDINGS: Exam limited by patient condition and bowel gas. RIGHT KIDNEY: Normal location, with moderate renal atrophy. The right kidney measures 8.2 x 4.2 x 4.3 cm. There is a normal cortex of the right kidney. The renal cortex measures 1.2 cm. There is a 2.8 cm mid renal cyst. There are no right renal calculi. There is no right hydronephrosis. DISTAL RIGHT URETER: There is non-visualization of the distal right ureter. There is no demonstrated right ureterovesical junction calculus. There is a visualized right ureteral jet. LEFT KIDNEY: Normal location, with moderate renal atrophy. The left kidney measures 9.1 x 5.1 x 5.3 cm. There is diffuse thinning of the renal cortex. The renal cortex measures 0.8 cm. Multiple renal cysts are seen measuring as much as 5.4 cm There are no left renal calculi. There is no left hydronephrosis. DISTAL LEFT URETER: There is non-visualization of the distal left ureter. There is no demonstrated left ureterovesical junction calculus. There is a visualized left ureteral jet. BLADDER: The distended urinary bladder has a volume of 376 ml. There is a normal wall thickness of the distended urinary bladder. There is no demonstrated mass within the urinary bladder. There are no demonstrated bladder calculi. Enlarged prostate is seen indenting the undersurface of the bladder. US/Kidney and Bladder IMPRESSION: No gross acute abnormality. Bilateral renal atrophy which was also present previously. No hydronephrosis. Stable prostate enlargement. Electronically Signed: Krzysztof Daniels MD at 21:07 EST , Service support ,
--- NOTE | 2019-11-09 06:51 | RAD_ITS ---
EXAM DESCRIPTION: PORTABLE AP CHEST CLINICAL HISTORY: 84 years Male, RESPIRATORY FAILURE, HEART FAILURE, SOB RESPIRATORY FAILURE, HEART FAILURE, SOB COMPARISON: Previous portable chest obtained on 11/08/2019 FINDINGS: 75 and surgical clips from previous coronary artery bypass grafts are noted in place. The rest of the thorax is intact.The heart and mediastinum appear to be within normal limits. The lungs appear to be well areated without evidence of pneumonic consolidation. A small right lung base pleural effusion is identified. The vertebral basilar pleural effusions have improved when compared with the previous chest study. RAD/Chest 1 View (Portable) IMPRESSION: Status post CABG with a small right lung base pleural effusion which has improved.. Electronically Signed: Fede Weaver, at 11:31 EST Tel , Service support ,
--- NOTE | 2019-11-09 07:23 | PCM.PN.HOSP ---
Patient Problems: Active and Suspected Problems (Last Reviewed 10/02/19 @ 10:02 by Prabha Alejandra) Respiratory failure (Acute) Reason for Visit: acute respiratory failure Subjective: Seen in the ICU still remains significantly dyspneic at rest. Kidney function has since worsened. Case was discussed with Dr. Flores decision was made to consult nephrology. Objective: GENERAL: cooperative HEENT: Atraumatic; EYES; Anicteric, Normal Conjunctiva NECK; supple, normal thyroid, RESPIRATORY: Diminished to auscultation CARDIOVASCULAR: Regular S1 S2, GI: soft, normoactive bowel sounds, : No Renal angle tenderness; EXTREMITIES: Bipedal edema MUSCULOSKELETAL: no muscle waisting NEURO: Awake; no lateralizing signs. SKIN: No Rash PSYCH; Flat affect Vitals/I&O's: Vital Signs Temp Pulse Resp BP Pulse Ox 97.9 F 78 18 122/56 H 93 11/09/19 02:00 11/09/19 04:00 11/09/19 03:27 11/09/19 02:00 11/09/19 03:27 Oxygen Flow Rate (L/min) 6 Oxygen Delivery Method Bi-pap Weight: 70.5 kg Body Mass Index (BMI) 24.5 Finger Stick Blood Glucose 153 Intake and Output for Last 24 Hours 11/07/19 11/08/19 11/09/19 23:59 23:59 23:59 Intake Total 802.5 / 802.5 60 / 60 Output Total 775 / 775 Balance 27.5 / 27.5 60 / 60 Microbiology Past 72 Hours 11/08/19 08:55 Sputum, Expectorated/Coughed Gram Stain - Final 11/08/19 03:55 Mucosa - Nasopharyngeal Influenza Types A,B Direct FA ([facility]) - Final Laboratory Results 11/08/19 03:45: B-Natriuretic Peptide 541.2 H 11/08/19 08:50: Troponin I 0.019 11/08/19 08:50: Troponin I < 0.015 11/08/19 11:30: Troponin I < 0.015 11/08/19 17:05: Urine Creatinine 51.70 11/08/19 17:05: Ur Random Sodium 67 11/09/19 05:25: WBC 9.1, RBC 3.19 L, Hgb 10.3 L, Hct 30.7 L, MCV 96.2 H, MCH 32.3 H, MCHC 33.6, RDW Std Deviation 49.4 H, RDW Coeff of Gustavo 14.0, Plt Count 154, MPV 10.3, Immature Gran % (Auto) 0.400, Neut % (Auto) 86.3 H, Lymph % (Auto) 9.9 L, [place] % (Auto) 3.4, Eos % (Auto) 0.0, Baso % (Auto) 0.0, Absolute Neuts (auto) 7.9 H, Absolute Lymphs (auto) 0.90, Nucleated RBC % 0 11/09/19 05:25: Sodium 138, Potassium 3.6, Chloride 106, Carbon Dioxide 23.0, Anion Gap 9, BUN 53 H, Creatinine 3.25 H, Estim Creat Clear Calc 15.54, Est GFR (MDRD) Af Amer 23 L, Est GFR (MDRD) Non-Af 19 L, BUN/Creatinine Ratio 16.3, Glucose 163 H, Calcium 8.6 Current Medications Acetaminophen (Tylenol) 650 mg PO Q6H PRN PRN PRN Reason: Pain Score 1-3/Temp > 100.7 F Albuterol Sulfate (Ventolin Aerosols) 2.5 mg INHALATION Q4H PRN PRN PRN Reason: SHORTNESS OF BREATH Albuterol/Ipratropium (Duoneb) 3 ml INHALATION Q4H.RT [facility] Last Admin: 11/09/19 06:25 Dose: 3 ml Documented by: Alprazolam (Xanax) 0.5 mg PO BID PRN PRN PRN Reason: ANXIETY Last Admin: 11/08/19 22:28 Dose: 0.5 mg Documented by: Amlodipine Besylate (Norvasc) 10 mg PO DAILY [facility] Last Admin: 11/08/19 08:53 Dose: 10 mg Documented by: Aspirin (Aspirin, Baby) 162 mg PO DAILY@0800 [facility] Last Admin: 11/08/19 08:51 Dose: 162 mg Documented by: Clopidogrel Bisulfate (Plavix) 75 mg PO DAILY [facility] Last Admin: 11/08/19 08:52 Dose: 75 mg Documented by: Enoxaparin Sodium (Lovenox) 30 mg SC DAILY [facility] Last Admin: 11/08/19 08:52 Dose: 30 mg Documented by: Furosemide (Lasix) 40 mg IV BIDLX [facility] Last Admin: 11/08/19 17:33 Dose: 40 mg Documented by: Glucagon () 1 mg IM .X1 PRN PRN Reason: Hypoglycemia Sodium Chloride () 250 mls @ 15 mls/hr IV .[id number] PRN PRN Reason: Saline Flush Last Infusion: 11/08/19 19:00 Dose: 0 mls/hr Documented by: Sodium Chloride () 250 mls @ 15 mls/hr IV .[id number] PRN PRN Reason: Additional IVPB Infusion Dextrose (Dextrose 10%-Water) 250 mls @ 999 mls/hr IV .Q16M PRN; Protocol PRN Reason: HYPOGLYCEMIA Levofloxacin (Levaquin Iv) 250 mg in 50 mls @ 50 mls/hr IV Q48 [facility] Isosorbide Mononitrate (Imdur) 60 mg PO DAILY [facility] Last Admin: 11/08/19 08:52 Dose: 60 mg Documented by: Levothyroxine Sodium (Synthroid) 25 mcg PO MoTuWeThFrSa@0600 [facility] Last Admin: 11/09/19 05:29 Dose: 25 mcg Documented by: Levothyroxine Sodium (Synthroid) 50 mcg PO Banerjee@0600 [facility] Methylprednisolone (Solu-Medrol) 40 mg IV Q6 [facility] Last Admin: 11/09/19 05:18 Dose: 40 mg Documented by: Metoprolol Tartrate (Lopressor (Beta Akila)) 50 mg PO BID [facility] Last Admin: 11/08/19 22:26 Dose: 50 mg Documented by: Nitroglycerin (Nitrostat) 0.4 mg SUBLINGUAL Q5M PRN PRN Reason: CHEST Nortriptyline HCl (Pamelor) 25 mg PO QHS [facility] Last Admin: 11/08/19 22:25 Dose: 25 mg Documented by: Ondansetron HCl (Zofran) 4 mg IV Q8H PRN PRN PRN Reason: NAUSEA/VOMITING Pantoprazole Sodium (Protonix) 20 mg PO DAILY [facility] Last Admin: 11/08/19 08:53 Dose: 20 mg Documented by: Pravastatin Sodium (Pravachol) 40 mg PO QHS [facility] Last Admin: 11/08/19 22:26 Dose: 40 mg Documented by: Ranolazine (Ranexa) 500 mg PO BID [facility] Last Admin: 11/08/19 22:26 Dose: 500 mg Documented by: Sodium Chloride () 10 - 40 ml IV UD PRN PRN Reason: SALINE FLUSH Last Admin: 11/09/19 05:17 Dose: 30 ml Documented by: STROKE Vital Signs/Narrative: Vital Signs Pulse Resp Pulse Ox 11/09/19 04:00 78 11/09/19 03:27 82 16 93 Medical Necessity - Tobacco Use Smoking Status: Former smoker Tobacco Use: Non-smoker Assessment/Plan All Active Problems (Last Reviewed 10/02/19 @ 10:02 by Prabha Alejandra) Respiratory failure (Acute) OSEAS (acute kidney injury) (Acute) Vertigo (Acute) History of left heart catheterization (Resolved 08/09/19) MCGINNIS (dyspnea on exertion) (Resolved) Patient is an 84-year-old gentleman admitted with progressive shortness of breath and assessment of acute on chronic hypoxic respiratory failure made. Patient placed on noninvasive ventilation BiPAP admitted to the intensive care unit 1. Acute on chronic hypoxic respiratory failure due to CHF exacerbation ?Admitted to the intensive care unit managed on noninvasive ventilation BiPAP -11/09/2019; patient breathing still remains significantly labored remains on noninvasive ventilation. Bronchodilator treatment and steroid added to patient's therapy by Dr. Flores with intensive care unit. Case discussed with him. 2. Acute on chronic congestive heart failure with preserved ejection fraction Patient being managed with noninvasive ventilation as stated above in addition to Lasix fluid restriction strict input and output. -11/09/2019; 2D echo obtained on 08/07/2019 demonstrated EF of 60%.No significant urine output despite patient being on Lasix. With kidney function worsening consult was placed to nephrology. 3. Chronic hypoxic respiratory failure secondary to COPD ?Currently not in exacerbation 4. Coronary artery disease ?With previous CABG and subsequent stent placement patient is on recommended medications including dual antiplatelet therapy with aspirin and Plavix 5. Hypertension ~ blood pressure controlled, home medications continued with dose adjustment as needed 6. Acute on chronic kidney disease ?Suspected to be secondary to hypoperfusion from congestive heart failure do expect improvement with diuresis ?11/09/2019 patient kidney function did worsen with diuresis consult subsequently placed to nephrology 7. Chronic kidney disease stage III with baseline creatinine of 2.1 8. Dyslipidemia ~patient is on statin therapy, continued at home dose 9. Hypothyroidism ~patient is on levothyroxine home dose continued 10. DVT prophylaxis ?Lovenox dose adjusted for kidney function Code Visit Inpatient E&M: 91146 Subs Hosp L3
[2019-11-09] MEDS: Aspirin 81 MG TAB.CHEW 162 MG PO (08:47)
[2019-11-09] MEDS: Metoprolol Tartrate 50 MG Tablet PO ×2 (08:48→22:02)
[2019-11-09] MEDS: amLODIPine 10 MG Tablet PO (08:48)
[2019-11-09] MEDS: Enoxaparin 30 MG/0.3 ML Syringe SC (08:48)
[2019-11-09] MEDS: Isosorbide Mononitrate 60 MG Tablet PO (08:48)
[2019-11-09] MEDS: Pantoprazole Sodium 20 MG Tablet PO (08:49)
[2019-11-09] MEDS: Clopidogrel Bisulfate 75 MG Tablet PO (08:49)
[2019-11-09] MEDS: Ranolazine 500 MG Tablet PO ×2 (08:50→22:03)
--- NOTE | 2019-11-09 12:53 | PCM.CONS.R ---
Problem List (1) OSEAS (acute kidney injury) Status: Acute Consultation - Renal 11/09/19 PCP/ Referring MD: Requesting physician: Dr Flores Primary care physician: Nathan Suresh MD Reason for Consultation:: OSEAS - History of Present Illness History of Present Illness: The patient is a 84 year old M admitted to the hospital with complaints of shortness of breath. Nephrology consulted for acute renal failure. This is actually his third admission in the last 3 months with somewhat similar issues. In July he presented with shortness of breath, had a positive stress test. Coronary angiogram showed graft to LAD patent, occluded right coronary artery with graft occluded, complex 80% lesion in circumflex artery. He was advised to continue medical treatment. Most recent echocardiogram showed 60% ejection fraction, grade 2 diastolic dysfunction. He was treated with diuretics. Came back in September with dizziness, vertigo, shortness of breath. Had a CT chest which showed apical posterior fibrosis, some effusions. VQ scan was low probability for PE. With respect to kidney function, baseline creatinine seems to be around 2. He has CKD for at least 5 to 6 years now. Overnight he was given IV Lasix. Creatinine has now increased to 3.2. Urine output documented is about 700 cc yesterday. He is still fairly short of breath, requiring high flow nasal cannula. Prior to admission he was on 2 L nasal cannula. - Allergies Allergies: Allergies atorvastatin calcium [From Lipitor] Allergy (Verified 11/08/19 03:48) Other celecoxib [From Celebrex] Allergy (Verified 11/08/19 03:48) Unknown lincomycin HCl [From Lincocin] Allergy (Verified 11/08/19 03:48) Unknown rosuvastatin calcium [From Crestor] Allergy (Verified 11/08/19 03:48) Other budesonide [From Symbicort] Adverse Reaction (Verified 11/08/19 03:48) headache, nausea formoterol [From Symbicort] Adverse Reaction (Verified 11/08/19 03:48) headache, nausea - Current Medications Current Medications: Current Medications Acetaminophen (Tylenol) 650 mg PO Q6H PRN PRN PRN Reason: Pain Score 1-3/Temp > 100.7 F Albuterol Sulfate (Ventolin Aerosols) 2.5 mg INHALATION Q4H PRN PRN PRN Reason: SHORTNESS OF BREATH Albuterol/Ipratropium (Duoneb) 3 ml INHALATION Q4H.RT [facility] Last Admin: 11/09/19 11:30 Dose: 3 ml Documented by: Alprazolam (Xanax) 0.5 mg PO BID PRN PRN PRN Reason: ANXIETY Last Admin: 11/08/19 22:28 Dose: 0.5 mg Documented by: Amlodipine Besylate (Norvasc) 10 mg PO DAILY [facility] Last Admin: 11/09/19 08:48 Dose: 10 mg Documented by: Aspirin (Aspirin, Baby) 162 mg PO DAILY@0800 [facility] Last Admin: 11/09/19 08:47 Dose: 162 mg Documented by: Clopidogrel Bisulfate (Plavix) 75 mg PO DAILY [facility] Last Admin: 11/09/19 08:49 Dose: 75 mg Documented by: Enoxaparin Sodium (Lovenox) 30 mg SC DAILY [facility] Last Admin: 11/09/19 08:48 Dose: 30 mg Documented by: Glucagon () 1 mg IM .X1 PRN PRN Reason: Hypoglycemia Sodium Chloride () 250 mls @ 15 mls/hr IV .[id number] PRN PRN Reason: Saline Flush Last Infusion: 11/08/19 19:00 Dose: 0 mls/hr Documented by: Sodium Chloride () 250 mls @ 15 mls/hr IV .[id number] PRN PRN Reason: Additional IVPB Infusion Dextrose (Dextrose 10%-Water) 250 mls @ 999 mls/hr IV .Q16M PRN; Protocol PRN Reason: HYPOGLYCEMIA Vancomycin IV Pharmacy to Dose (1 ea/ Sodium Chloride) 500 mls @ 250 mls/hr IV X1 PRN; Protocol PRN Reason: Rx to Dose Piperacillin Sod/Tazobactam (Sod 3.375 gm/ Sodium Chloride) 50 mls @ 12.5 mls/hr IV Q12 [facility] Last Admin: 11/09/19 10:07 Dose: 12.5 mls/hr Documented by: Isosorbide Mononitrate (Imdur) 60 mg PO DAILY [facility] Last Admin: 11/09/19 08:48 Dose: 60 mg Documented by: Levothyroxine Sodium (Synthroid) 25 mcg PO MoTuWeThFrSa@0600 [facility] Last Admin: 11/09/19 05:29 Dose: 25 mcg Documented by: Levothyroxine Sodium (Synthroid) 50 mcg PO Banerjee@0600 [facility] Methylprednisolone (Solu-Medrol) 40 mg IV Q6 [facility] Last Admin: 11/09/19 12:16 Dose: 40 mg Documented by: Metoprolol Tartrate (Lopressor (Beta Akila)) 50 mg PO BID [facility] Last Admin: 11/09/19 08:48 Dose: 50 mg Documented by: Nitroglycerin (Nitrostat) 0.4 mg SUBLINGUAL Q5M PRN PRN Reason: CHEST Nortriptyline HCl (Pamelor) 25 mg PO QHS [facility] Last Admin: 11/08/19 22:25 Dose: 25 mg Documented by: Ondansetron HCl (Zofran) 4 mg IV Q8H PRN PRN PRN Reason: NAUSEA/VOMITING Pantoprazole Sodium (Protonix) 20 mg PO DAILY [facility] Last Admin: 11/09/19 08:49 Dose: 20 mg Documented by: Pravastatin Sodium (Pravachol) 40 mg PO QHS [facility] Last Admin: 11/08/19 22:26 Dose: 40 mg Documented by: Ranolazine (Ranexa) 500 mg PO BID [facility] Last Admin: 11/09/19 08:50 Dose: 500 mg Documented by: Sodium Chloride () 10 - 40 ml IV UD PRN PRN Reason: SALINE FLUSH Last Admin: 11/09/19 12:16 Dose: 20 ml Documented by: - Past Medical History Past Medical History (Chronic Problems): Chronic Problems (Last Reviewed 10/02/19 @ 10:02 by Prabha Alejandra) Acute exacerbation of CHF (congestive heart failure) (Chronic) 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) Carotid bruit (Chronic) Hypothyroidism (Chronic) Carotid artery stenosis (Chronic) right 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) CABG X3: CONDON to LAD, SVG to DX, and SVG to RCA 1983 H/O coronary artery bypass surgery (Chronic 1983) CABG X3: CONDON to LAD, SVG to DX, and SVG to RCA 1983 Essential (primary) hypertension (Chronic) Lipoprotein deficiencies (Chronic) AAA (abdominal aortic aneurysm) (Chronic) Tobacco abuse (Chronic) Hyperlipidemia (Chronic) Peripheral vascular disease (Chronic) - Past Surgical History Surgical History: coronary bypass surgery - Social History Smoking Status: Former smoker Alcohol: None Drugs: None - Family History Paternal Family History: Family History (Last Reviewed 10/02/19 @ 10:02 by Prabha Alejandra) Brother Aortic aneurysm CAD (coronary artery disease) Father CAD (coronary artery disease) Mother CAD (coronary artery disease) Sister CAD (coronary artery disease) CVA (cerebral vascular accident) Other Family history of sudden cardiac History Items: Unknown Review of Systems Constitutional: Denies: Chills, Fever, Weight Change HEENT: Denies: Head Aches, Sinus Congestion, Sinus Drainage Cardiovascular: Denies: Chest Pain, Palpitations Respiratory: Reports: Shortness of Breath, Shortness of breath at rest. Denies: Cough, Sputum production Gastrointestinal: Denies: Abdominal Pain, Nausea, Vomiting Genitourinary: Denies: Dysuria Musculoskeletal: Denies: Joint Pain, Joint Tenderness Skin: Denies: Rash, Wounds Neurological: Denies: Numbness, Tingling, Focal weakness Psychiatric: Denies: Anxiety, Depression, Homicidal Ideations, Suicidal Ideations Hematologic/ Lymphatic: Denies: Easy Bruising, Easy Bleeding Patient Problems: Active and Suspected Problems (Last Reviewed 10/02/19 @ 10:02 by Prabha Alejandra) Respiratory failure (Acute) - Physical Exam Vitals/I&O's: Vital Signs Temp Pulse Resp BP Pulse Ox 98.4 F 83 25 H 122/59 H 94 11/09/19 08:00 11/09/19 11:30 11/09/19 11:30 11/09/19 08:48 11/09/19 11:30 Oxygen Flow Rate (L/min) 6 Oxygen Delivery Method Nasal Cannula Weight: 70.5 kg Body Mass Index (BMI) 24.5 Finger Stick Blood Glucose 153 Intake and Output for Last 24 Hours 11/07/19 11/08/19 11/09/19 23:59 23:59 23:59 Intake Total 802.5 / 802.5 180 / 180 Output Total 775 / 775 750 / 750 Balance 27.5 / .5 -570 / -570 General: Alert, Oriented x3, Cooperative HEENT: Atraumatic, PERRLA, EOMI, Normocephalic Neck: Supple, No JVD, Negative Carotid Bruits Lungs: Clear to auscultation, Normal air movement Cardiovascular: Regular rate, No murmurs Abdomen: Bowel Sounds Present, Soft, Non Tender Extremities: No edema, Capillary Refill Less than 3 Seconds Skin: No rashes, No breakdown Musculoskeletal: No Tenderness to Palpation of Joints or Extremities Neurological: Cranial nerves II-XII grossly intact Psych/Mental Status: Normal Affect, Appropriate Microbiology Past 72 Hours 11/09/19 09:30 Mucosa - Nasopharyngeal Respiratory Panel (PCR) - Final Rhinovirus 11/08/19 08:55 Sputum, Expectorated/Coughed Gram Stain - Final 11/08/19 08:55 Sputum, Expectorated/Coughed Respiratory Culture - Preliminary Gram negative chiki 11/08/19 03:55 Mucosa - Nasopharyngeal Influenza Types A,B Direct FA (BENITO) - Final Laboratory Results 11/08/19 08:50: Troponin I < 0.015 11/08/19 17:05: Urine Creatinine 51.70 11/08/19 17:05: Ur Random Sodium 67 11/09/19 05:25: WBC 9.1, RBC 3.19 L, Hgb 10.3 L, Hct 30.7 L, MCV 96.2 H, MCH 32.3 H, MCHC 33.6, RDW Std Deviation 49.4 H, RDW Coeff of Gustavo 14.0, Plt Count 154, MPV 10.3, Immature Gran % (Auto) 0.400, Neut % (Auto) 86.3 H, Lymph % (Auto) 9.9 L, Charlotte % (Auto) 3.4, Eos % (Auto) 0.0, Baso % (Auto) 0.0, Absolute Neuts (auto) 7.9 H, Absolute Lymphs (auto) 0.90, Nucleated RBC % 0 11/09/19 05:25: Sodium 138, Potassium 3.6, Chloride 106, Carbon Dioxide 23.0, Anion Gap 9, BUN 53 H, Creatinine 3.25 H, Estim Creat Clear Calc 15.54, Est GFR (MDRD) Af Amer 23 L, Est GFR (MDRD) Non-Af 19 L, BUN/Creatinine Ratio 16.3, Glucose 163 H, Calcium 8.6 11/09/19 09:00: MRSA (PCR) Pending Current Medications Acetaminophen (Tylenol) 650 mg PO Q6H PRN PRN PRN Reason: Pain Score 1-3/Temp > 100.7 F Albuterol Sulfate (Ventolin Aerosols) 2.5 mg INHALATION Q4H PRN PRN PRN Reason: SHORTNESS OF BREATH Albuterol/Ipratropium (Duoneb) 3 ml INHALATION Q4H.RT [facility] Last Admin: 11/09/19 11:30 Dose: 3 ml Documented by: Alprazolam (Xanax) 0.5 mg PO BID PRN PRN PRN Reason: ANXIETY Last Admin: 11/08/19 22:28 Dose: 0.5 mg Documented by: Amlodipine Besylate (Norvasc) 10 mg PO DAILY [facility] Last Admin: 11/09/19 08:48 Dose: 10 mg Documented by: Aspirin (Aspirin, Baby) 162 mg PO DAILY@0800 [facility] Last Admin: 11/09/19 08:47 Dose: 162 mg Documented by: Clopidogrel Bisulfate (Plavix) 75 mg PO DAILY [facility] Last Admin: 11/09/19 08:49 Dose: 75 mg Documented by: Enoxaparin Sodium (Lovenox) 30 mg SC DAILY [facility] Last Admin: 11/09/19 08:48 Dose: 30 mg Documented by: Glucagon () 1 mg IM .X1 PRN PRN Reason: Hypoglycemia Sodium Chloride () 250 mls @ 15 mls/hr IV .[id number] PRN PRN Reason: Saline Flush Last Infusion: 11/08/19 19:00 Dose: 0 mls/hr Documented by: Sodium Chloride () 250 mls @ 15 mls/hr IV .[id number] PRN PRN Reason: Additional IVPB Infusion Dextrose (Dextrose 10%-Water) 250 mls @ 999 mls/hr IV .Q16M PRN; Protocol PRN Reason: HYPOGLYCEMIA Vancomycin IV Pharmacy to Dose (1 ea/ Sodium Chloride) 500 mls @ 250 mls/hr IV X1 PRN; Protocol PRN Reason: Rx to Dose Piperacillin Sod/Tazobactam (Sod 3.375 gm/ Sodium Chloride) 50 mls @ 12.5 mls/hr IV Q12 [facility] Last Admin: 11/09/19 10:07 Dose: 12.5 mls/hr Documented by: Isosorbide Mononitrate (Imdur) 60 mg PO DAILY [facility] Last Admin: 11/09/19 08:48 Dose: 60 mg Documented by: Levothyroxine Sodium (Synthroid) 25 mcg PO MoTuWeThFrSa@0600 [facility] Last Admin: 11/09/19 05:29 Dose: 25 mcg Documented by: Levothyroxine Sodium (Synthroid) 50 mcg PO Banerjee@0600 [facility] Methylprednisolone (Solu-Medrol) 40 mg IV Q6 [facility] Last Admin: 11/09/19 12:16 Dose: 40 mg Documented by: Metoprolol Tartrate (Lopressor (Beta Akila)) 50 mg PO BID [facility] Last Admin: 11/09/19 08:48 Dose: 50 mg Documented by: Nitroglycerin (Nitrostat) 0.4 mg SUBLINGUAL Q5M PRN PRN Reason: CHEST Nortriptyline HCl (Pamelor) 25 mg PO QHS [facility] Last Admin: 11/08/19 22:25 Dose: 25 mg Documented by: Ondansetron HCl (Zofran) 4 mg IV Q8H PRN PRN PRN Reason: NAUSEA/VOMITING Pantoprazole Sodium (Protonix) 20 mg PO DAILY [facility] Last Admin: 11/09/19 08:49 Dose: 20 mg Documented by: Pravastatin Sodium (Pravachol) 40 mg PO QHS [facility] Last Admin: 11/08/19 22:26 Dose: 40 mg Documented by: Ranolazine (Ranexa) 500 mg PO BID [facility] Last Admin: 11/09/19 08:50 Dose: 500 mg Documented by: Sodium Chloride () 10 - 40 ml IV UD PRN PRN Reason: SALINE FLUSH Last Admin: 11/09/19 12:16 Dose: 20 ml Documented by: Assessment/Plan All Active Problems (Last Reviewed 10/02/19 @ 10:02 by Prabha Alejandra) Respiratory failure (Acute) OSEAS (acute kidney injury) (Acute) Vertigo (Acute) History of left heart catheterization (Resolved 08/09/19) MCGINNIS (dyspnea on exertion) (Resolved) Acute renal failure Chronic kidney disease Congestive heart failure Reviewed old records. Renal ultrasound at the time of last admission 2 months ago did not show any hydronephrosis. He does have a big prostate. Postvoid residual was documented at 100 cc. We will check a bladder scan postvoid today Send a urine analysis Currently does not have significant signs of volume overload. Discussed with Dr. Flores. Shortness of breath is more likely related to COPD and possibly pneumonia which is being treated. Hold Lasix for today
[2019-11-09 13:43] LABS: D-Dimer Quantitative (DVT/PE) 1.47 FEU/ug/m (0.27-0.49)
--- NOTE | 2019-11-09 13:46 | NM_ITS ---
CLINICAL: 84 year old male with history of shortness of breath and elevation of the d-dimer. VENTILATION-PERFUSION LUNG SCINTIGRAPHY COMPARISON: Palin film chest radiograph 11/09/2019 FINDINGS: The patient was administered 48.5 mCi 99m Tc DTPA aerosol. The aerosol ventilation study demonstrates heterogeneous ventilation identified throughout the bilateral lung hoover without corresponding radiographic changes defined on plain film chest x-ray dated 11/09/2019. Central clumping of the aerosol is noted in the bilateral hemithorax. Following the intravenous administration of 4.9 mCi of 99m Tc MAA the pulmonary perfusion study reveals uniform perfusion throughout both lung hoover. There are no segmental or subsegmental perfusion defects identified. There are no ventilation-perfusion mismatches observed. NM/Lung Scan Vent/Perf IMPRESSION: 1. NORMAL 99m Tc MAA pulmonary perfusion imaging examination, according to PIOPED II interpretive criteria. (Sotsman et al, Radiology 246: 941, 2008 Sopatricai et al, J Nucl Med 49: 1741, 2008). 2. Central clumping of the aerosol may be secondary to obstructive airway mechanics and or clinical tachypnea. Electronically Signed: Leno Campbell DO at 16:48 EST Tel , Service support ,
--- NOTE | 2019-11-09 14:00 | VDLE_ITS ---
Reason For Study: Elevated D-dimer RIGHT LEFT GSV is normal. GSV previously harvested. CFV is compressible, spontaneous, competent CFV is compressible, spontaneous, competent, and demonstrates pulsatile venous flow. and demonstrates pulsatile venous flow. FV is compressible, spontaneous, competent FV is compressible, spontaneous, competent and demonstrates pulsatile venous flow. and demonstrates pulsatile venous flow. POP V is compressible, spontaneous, competent POP V is compressible, spontaneous, competent and demonstrates pulsatile venous flow. and demonstrates pulsatile venous flow. T/P Trunk is compressible. T/P Trunk is compressible. PTV is compressible. PTV is compressible. RT PerV is compressible. LT PerV is compressible. Procedure Exam performed in department. A preliminary report was called and/or faxed to [facility]. Interpretation Summary No evidence for acute deep venous thrombosis bilateral lower extremities Patent and compressible right great saphenous vein Surgically harvested left great saphenous vein Pulsatile venous flow noted bilaterally consistent with proximal venous hypertension. Clinical correlation indicated. Ordering Physician: Isaiah Palomares Referring Physician: Nathan Suresh Performed By: Susannah Zarate RVT
[2019-11-09 14:05] LABS: M R Staph aureus DNA By PCR Negative (Negative); Probe Check PASS; Specimen Processing Control PASS
--- NOTE | 2019-11-09 19:40 | NURSING ---
Telephone report received from Paz Clemons RN. This RN notified her that pt okay to come to PCU.
[2019-11-09] MEDS: Nortriptyline 25 MG Capsule PO (22:03)
[2019-11-09] MEDS: Pravastatin 40 MG Tablet PO (22:03)
[2019-11-09 23:08] LABS: Bacteria 0 SEEN /hpf (None Seen); Mucous, Urine 0 SEEN /hpf (<or=2+); Red Blood Cells-Urine 0 SEEN /hpf (0-5); White Blood Cells 0 SEEN /hpf (0-5)
[2019-11-09 23:11] LABS: Color, Urine Yellow (Yellow); Glucose, Dipstick Normal (Normal); Ketone-Dipstick Negative (Negative); Leukocyte Esterase-Dipstick Negative /ul (Negative); Nitrite-Dipstick Negative (Negative); Occult Blood-Urine Negative /ul (Negative); Protein-Dipstick Negative (Negative); Specific Gravity, Urine 1.015 (1.002-1.030); Urine Bilirubin Dipstick Negative (Negative); Urine Clarity Sl. Cloudy (Clear); Urine Urobilinogen Normal (Normal)
[2019-11-09 23:17] LABS: Squamous Epithelial Cells - UA 0-5 SEEN /hpf (0-5)
[2019-11-10] VITALS (20 sets, daily range): BP systolic 113–125; BP diastolic 57–63; PULSE 63–80; RESP 16–22; TEMP 36–36.3; O2SAT 91–100
[2019-11-10] MEDS: 0.9% Saline Lock 10 ML Syringe IV ×5 (00:19→21:11)
[2019-11-10] MEDS: Ipratropium/Albuterol Sulfate 3 ML AMPUL.NEB INHALATION ×5 (03:02→19:24)
[2019-11-10] MEDS: Levothyroxine 25 MCG TABLET PO (05:47)
--- NOTE | 2019-11-10 06:51 | NURSING ---
This RN spoke with patient about straight cathing him. Discussed with patient that he has 7/10 of a liter of urine in his bladder and that leaving it there could cause infection and issues with his kidneys. Pt refusing straight cath.
[2019-11-10] MEDS: Clopidogrel Bisulfate 75 MG Tablet PO (09:12)
[2019-11-10] MEDS: Metoprolol Tartrate 50 MG Tablet PO ×2 (09:12→21:10)
[2019-11-10] MEDS: Pantoprazole Sodium 20 MG Tablet PO (09:12)
[2019-11-10] MEDS: Ranolazine 500 MG Tablet PO ×2 (09:12→21:10)
[2019-11-10] MEDS: Isosorbide Mononitrate 60 MG Tablet PO (09:12)
[2019-11-10] MEDS: amLODIPine 10 MG Tablet PO (09:12)
[2019-11-10] MEDS: Aspirin 81 MG TAB.CHEW 162 MG PO (09:13)
[2019-11-10] MEDS: Enoxaparin 30 MG/0.3 ML Syringe SC (09:13)
--- NOTE | 2019-11-10 10:39 | PN_ITS ---
Patient Problems: Active and Suspected Problems (Last Reviewed 10/02/19 @ 10:02 by Prabha Alejandra) Respiratory failure (Acute) Reason for Visit: Follow-up acute hypoxic respiratory failure Subjective: Patient seen, still remains significantly dyspneic at rest. Viral panel came back positive for rhinovirus. Sputum cultures positive for Serratia. Objective: GENERAL: cooperative HEENT: Atraumatic; EYES; Anicteric, Normal Conjunctiva NECK; supple, normal thyroid, RESPIRATORY: Diminished to auscultation CARDIOVASCULAR: Regular S1 S2, GI: soft, normoactive bowel sounds, : No Renal angle tenderness; EXTREMITIES: Bipedal edema MUSCULOSKELETAL: no muscle waisting NEURO: Awake; no lateralizing signs. SKIN: No Rash PSYCH; Flat affect Vitals/I&O's: Vital Signs Temp Pulse Resp BP Pulse Ox 97.1 F L 74 16 113/57 L 97 11/10/19 02:15 11/10/19 09:12 11/10/19 07:29 11/10/19 02:15 11/10/19 09:20 Oxygen Flow Rate (L/min) 2 Oxygen Delivery Method Bi-pap Weight: 70.1 kg Body Mass Index (BMI) 24.5 Finger Stick Blood Glucose 153 Intake and Output for Last 24 Hours 11/08/19 11/09/19 11/10/19 23:59 23:59 23:59 Intake Total 802.5 / 802.5 1135.25 / 1135.25 230 / 230 Output Total 775 / 775 750 / 750 Balance 27.5 / 27.5 385.25 / 385.25 230 / 230 Microbiology Past 72 Hours 11/08/19 04:19 Blood Culture (Wb) #2 - Right Hand Blood Culture - Preliminary No growth in 48 hours. 11/08/19 03:45 Blood Culture (Wb) - Anticubital Right Blood Culture - Preliminary No growth in 48 hours. 11/08/19 08:55 Sputum, Expectorated/Coughed Gram Stain - Final 11/08/19 08:55 Sputum, Expectorated/Coughed Respiratory Culture - Final Serratia marcescens 11/09/19 09:30 Mucosa - Nasopharyngeal Respiratory Panel (PCR) - Final Rhinovirus 11/08/19 03:55 Mucosa - Nasopharyngeal Influenza Types A,B Direct FA (BENITO) - Final Laboratory Results 11/09/19 09:00: MRSA (PCR) Negative 11/09/19 13:11: D-Dimer Quant (PE/DVT) 1.47 H* 11/09/19 22:33: Urine Color Yellow, Urine Clarity Sl. Cloudy, Urine pH 5.0, Ur Specific [place] 1.015, Urine Protein Negative, Urine Glucose (UA) Normal, Urine Ketones Negative, Urine Occult Blood Negative, Urine Nitrite Negative, Urine Bi lirubin Negative, Urine Urobilinogen Normal, Ur Leukocyte Esterase Negative, Urine RBC 0 SEEN, Urine WBC 0 SEEN, Ur Squamous Epith Cells 0-5 SEEN, Urine Bacteria 0 SEEN, Urine Mucus 0 SEEN Current Medications Acetaminophen (Tylenol) 650 mg PO Q6H PRN PRN PRN Reason: Pain Score 1-3/Temp > 100.7 F Albuterol Sulfate (Ventolin Aerosols) 2.5 mg INHALATION Q4H PRN PRN PRN Reason: SHORTNESS OF BREATH Albuterol/Ipratropium (Duoneb) 3 ml INHALATION Q4H.RT [facility] Last Admin: 11/10/19 07:29 Dose: 3 ml Documented by: Alprazolam (Xanax) 0.5 mg PO BID PRN PRN PRN Reason: ANXIETY Last Admin: 11/08/19 22:28 Dose: 0.5 mg Documented by: Amlodipine Besylate (Norvasc) 10 mg PO DAILY [facility] Last Admin: 11/10/19 09:12 Dose: 10 mg Documented by: Aspirin (Aspirin, Baby) 162 mg PO DAILY@0800 [facility] Last Admin: 11/10/19 09:13 Dose: 162 mg Documented by: Clopidogrel Bisulfate (Plavix) 75 mg PO DAILY [facility] Last Admin: 11/10/19 09:12 Dose: 75 mg Documented by: Enoxaparin Sodium (Lovenox) 30 mg SC DAILY [facility] Last Admin: 11/10/19 09:13 Dose: 30 mg Documented by: Glucagon () 1 mg IM .X1 PRN PRN Reason: Hypoglycemia Sodium Chloride () 250 mls @ 15 mls/hr IV .[id number] PRN PRN Reason: Saline Flush Last Infusion: 11/10/19 02:30 Dose: 12.5 mls/hr Documented by: Sodium Chloride () 250 mls @ 15 mls/hr IV .[id number] PRN PRN Reason: Additional IVPB Infusion Dextrose (Dextrose 10%-Water) 250 mls @ 999 mls/hr IV .Q16M PRN; Protocol PRN Reason: HYPOGLYCEMIA Vancomycin IV Pharmacy to Dose (1 ea/ Sodium Chloride) 500 mls @ 250 mls/hr IV X1 PRN; Protocol PRN Reason: Rx to Dose Piperacillin Sod/Tazobactam (Sod 3.375 gm/ Sodium Chloride) 50 mls @ 12.5 mls/hr IV Q12 [facility] Last Admin: 11/10/19 09:22 Dose: 12.5 mls/hr Documented by: Isosorbide Mononitrate (Imdur) 60 mg PO DAILY [facility] Last Admin: 11/10/19 09:12 Dose: 60 mg Documented by: Levothyroxine Sodium (Synthroid) 25 mcg PO MoTuWeThFrSa@0600 [facility] Last Admin: 11/10/19 05:47 Dose: 25 mcg Documented by: Levothyroxine Sodium (Synthroid) 50 mcg PO Banerjee@0600 [facility] Methylprednisolone (Solu-Medrol) 40 mg IV Q6 [facility] Last Admin: 11/10/19 05:47 Dose: 40 mg Documented by: Metoprolol Tartrate (Lopressor (Beta Akila)) 50 mg PO BID [facility] Last Admin: 11/10/19 09:12 Dose: 50 mg Documented by: Nitroglycerin (Nitrostat) 0.4 mg SUBLINGUAL Q5M PRN PRN Reason: CHEST Nortriptyline HCl (Pamelor) 25 mg PO QHS [facility] Last Admin: 11/09/19 22:03 Dose: 25 mg Documented by: Ondansetron HCl (Zofran) 4 mg IV Q8H PRN PRN PRN Reason: NAUSEA/VOMITING Pantoprazole Sodium (Protonix) 20 mg PO DAILY [facility] Last Admin: 11/10/19 09:12 Dose: 20 mg Documented by: Pravastatin Sodium (Pravachol) 40 mg PO QHS [facility] Last Admin: 11/09/19 22:03 Dose: 40 mg Documented by: Ranolazine (Ranexa) 500 mg PO BID [facility] Last Admin: 11/10/19 09:12 Dose: 500 mg Documented by: Sodium Chloride () 10 - 40 ml IV UD PRN PRN Reason: SALINE FLUSH Last Admin: 11/10/19 09:22 Dose: 10 ml Documented by: STROKE Vital Signs/Narrative: Vital Signs Pulse Resp Pulse Ox 11/10/19 09:20 97 11/10/19 09:12 74 11/10/19 07:29 80 16 93 11/10/19 07:00 70 Medical Necessity - Tobacco Use Smoking Status: Former smoker Tobacco Use: Non-smoker Assessment/Plan All Active Problems (Last Reviewed 10/02/19 @ 10:02 by Prabha Alejandra) Respiratory failure (Acute) OSEAS (acute kidney injury) (Acute) Vertigo (Acute) History of left heart catheterization (Resolved 08/09/19) MCGINNIS (dyspnea on exertion) (Resolved) Patient is an 84-year-old gentleman admitted with progressive shortness of breath and assessment of acute on chronic hypoxic respiratory failure made. Patient placed on noninvasive ventilation BiPAP admitted to the intensive care unit 1. Acute on chronic hypoxic respiratory failure due to CHF exacerbation ?Admitted to the intensive care unit managed on noninvasive ventilation BiPAP -11/09/2019; patient breathing still remains significantly labored remains on noninvasive ventilation. Bronchodilator treatment and steroid added to patient's therapy by Dr. Flores with intensive care unit. Case discussed with him. -2820: Patient still remains significantly dyspneic at rest on noninvasive ventilation. Acute viral respiratory panel came back positive for rhinovirus. Sputum cultures positive for Serratia. 2. Acute on chronic congestive heart failure with preserved ejection fraction Patient being managed with noninvasive ventilation as stated above in addition to Lasix fluid restriction strict input and output. -11/09/2019; 2D echo obtained on 08/07/2019 demonstrated EF of 60%.No significant urine output despite patient being on Lasix. With kidney function worsening consult was placed to nephrology. 3. Acute rhinovirus infection with superimposed gram-negative pneumonia (Serratia) ?11/10/2019. Patient treated symptomatically as described above in addition to broad-spectrum antibiotic therapy. 4. Coronary artery disease ?With previous CABG and subsequent stent placement patient is on recommended medications including dual antiplatelet therapy with aspirin and Plavix 5. Hypertension ~ blood pressure controlled, home medications continued with dose adjustment as needed 6. Acute on chronic kidney disease ?Suspected to be secondary to hypoperfusion from congestive heart failure do expect improvement with diuresis ?11/09/2019 patient kidney function did worsen with diuresis consult subsequently placed to nephrology 7. Chronic kidney disease stage III with baseline creatinine of 2.1 8. Dyslipidemia ~patient is on statin therapy, continued at home dose 9. Hypothyroidism ~patient is on levothyroxine home dose continued 10. Chronic hypoxic respiratory failure secondary to COPD ?Currently not in exacerbation 11. DVT prophylaxis ?Lovenox dose adjusted for kidney function Active Medications Acetaminophen (Tylenol) 650 mg PO Q6H PRN PRN PRN Reason: Pain Score 1-3/Temp > 100.7 F Albuterol Sulfate (Ventolin Aerosols) 2.5 mg INHALATION Q4H PRN PRN PRN Reason: SHORTNESS OF BREATH Albuterol/Ipratropium (Duoneb) 3 ml INHALATION Q4H.RT [facility] Last Admin: 11/10/19 07:29 Dose: 3 ml Documented by: Alprazolam (Xanax) 0.5 mg PO BID PRN PRN PRN Reason: ANXIETY Last Admin: 11/08/19 22:28 Dose: 0.5 mg Documented by: Amlodipine Besylate (Norvasc) 10 mg PO DAILY [facility] Last Admin: 11/10/19 09:12 Dose: 10 mg Documented by: Aspirin (Aspirin, Baby) 162 mg PO DAILY@0800 [facility] Last Admin: 11/10/19 09:13 Dose: 162 mg Documented by: Clopidogrel Bisulfate (Plavix) 75 mg PO DAILY [facility] Last Admin: 11/10/19 09:12 Dose: 75 mg Documented by: Enoxaparin Sodium (Lovenox) 30 mg SC DAILY [facility] Last Admin: 11/10/19 09:13 Dose: 30 mg Documented by: Glucagon () 1 mg IM .X1 PRN PRN Reason: Hypoglycemia Sodium Chloride () 250 mls @ 15 mls/hr IV .[id number] PRN PRN Reason: Saline Flush Last Infusion: 11/10/19 02:30 Dose: 12.5 mls/hr Documented by: Sodium Chloride () 250 mls @ 15 mls/hr IV .[id number] PRN PRN Reason: Additional IVPB Infusion Dextrose (Dextrose 10%-Water) 250 mls @ 999 mls/hr IV .Q16M PRN; Protocol PRN Reason: HYPOGLYCEMIA Vancomycin IV Pharmacy to Dose (1 ea/ Sodium Chloride) 500 mls @ 250 mls/hr IV X1 PRN; Protocol PRN Reason: Rx to Dose Piperacillin Sod/Tazobactam (Sod 3.375 gm/ Sodium Chloride) 50 mls @ 12.5 mls/hr IV Q12 [facility] Last Admin: 11/10/19 09:22 Dose: 12.5 mls/hr Documented by: Isosorbide Mononitrate (Imdur) 60 mg PO DAILY [facility] Last Admin: 11/10/19 09:12 Dose: 60 mg Documented by: Levothyroxine Sodium (Synthroid) 25 mcg PO MoTuWeThFrSa@0600 [facility] Last Admin: 11/10/19 05:47 Dose: 25 mcg Documented by: Levothyroxine Sodium (Synthroid) 50 mcg PO Banerjee@0600 [facility] Methylprednisolone (Solu-Medrol) 40 mg IV Q6 [facility] Last Admin: 11/10/19 05:47 Dose: 40 mg Documented by: Metoprolol Tartrate (Lopressor (Beta Akila)) 50 mg PO BID [facility] Last Admin: 11/10/19 09:12 Dose: 50 mg Documented by: Nitroglycerin (Nitrostat) 0.4 mg SUBLINGUAL Q5M PRN PRN Reason: CHEST Nortriptyline HCl (Pamelor) 25 mg PO QHS [facility] Last Admin: 11/09/19 22:03 Dose: 25 mg Documented by: Ondansetron HCl (Zofran) 4 mg IV Q8H PRN PRN PRN Reason: NAUSEA/VOMITING Pantoprazole Sodium (Protonix) 20 mg PO DAILY [facility] Last Admin: 11/10/19 09:12 Dose: 20 mg Documented by: Pravastatin Sodium (Pravachol) 40 mg PO QHS [facility] Last Admin: 11/09/19 22:03 Dose: 40 mg Documented by: Ranolazine (Ranexa) 500 mg PO BID [facility] Last Admin: 11/10/19 09:12 Dose: 500 mg Documented by: Sodium Chloride () 10 - 40 ml IV UD PRN PRN Reason: SALINE FLUSH Last Admin: 11/10/19 09:22 Dose: 10 ml Documented by: Code Visit Inpatient E&M: [id number] Subs Hosp L2
--- NOTE | 2019-11-10 12:09 | CPS ---
FiO2 decreased to 38% on Heated High Flow Therapy. Patient tolerating well. RN aware.
--- NOTE | 2019-11-10 12:33 | PN_ITS ---
Patient Problems: Active and Suspected Problems (Last Reviewed 10/02/19 @ 10:02 by Prabha Alejandra) Respiratory failure (Acute) Subjective: The patient was seen and examined at the bedside this morning. Events from the last 24 hours have been reviewed. The patient is currently afebrile, hemodynamically stable and maintaining appropriate oxygen saturations on Airvo. Objective: The patient's most recent lab work, culture data and imaging studies have all been personally reviewed. Surface echocardiogram revealed normal LV size and thickness with an ejection fraction of 60% and stage II diastolic dysfunction. Lower extremity Dopplers were negative for the presence of a DVT. VQ scan showed no evidence for embolic disease. Respiratory viral panel was positive for rhinovirus. Sputum culture was positive for Serratia marcescens, which was pansensitive. - Physical Exam Vitals/I&O's: Vital Signs Temp Pulse Resp BP Pulse Ox 97.4 F L 65 16 118/63 100 11/10/19 08:15 11/10/19 11:07 11/10/19 11:07 11/10/19 08:15 11/10/19 12:09 Oxygen Flow Rate (L/min) 13 Oxygen Delivery Method Nasal Cannula Weight: 154 lb 8.705 oz Body Mass Index (BMI) 24.5 Finger Stick Blood Glucose 153 Intake and Output for Last 24 Hours 11/08/19 11/09/19 11/10/19 23:59 23:59 23:59 Intake Total 802.5 / 802.5 1135.25 / 1135.25 230 / 230 Output Total 775 / 775 750 / 750 Balance 27.5 / 27.5 385.25 / 385.25 230 / 230 General: Alert, No apparent distress HEENT: Atraumatic, Normocephalic Oral: No Gingival or Mucosal Lesions/ Ulcerations Neck: Supple, No Nodes, Trachea Midline Lungs: No rhonchi, No wheeze, No rales, Diminished Cardiovascular: Regular rate, Regular Rhythm, Normal S1, Normal S2, No murmurs Abdomen: Bowel Sounds Present, Soft, Non Tender Extremities: No clubbing, No cyanosis Skin: No breakdown Musculoskeletal: No Tenderness to Palpation of Joints or Extremities Lymphatic: No Cervical, Supraclavicular, or Inguinal Adenopathy Neurological: Cranial nerves II-XII grossly intact, Neuro grossly intact Psych/Mental Status: Normal Affect, Appropriate Labs (Last 48 Hours) 11/08/19 11/08/19 11/08/19 08:50 17:05 17:05 WBC RBC Hgb Hct MCV MCH MCHC RDW Std Deviation RDW Coeff of Gustavo Plt Count MPV Immature Gran % (Auto) Neut % (Auto) Lymph % (Auto) Frontier % (Auto) Eos % (Auto) Baso % (Auto) Absolute Neuts (auto) Absolute Lymphs (auto) Nucleated RBC % D-Dimer Quant (PE/DVT) Sodium Potassium Chloride Carbon Dioxide Anion Gap BUN Creatinine Estim Creat Clear Calc Est GFR (MDRD) Af Amer Est GFR (MDRD) Non-Af BUN/Creatinine Ratio Glucose Calcium Troponin I < 0.015 Urine Color Urine Clarity Urine pH Ur Specific [place] Urine Protein Urine Glucose (UA) Urine Ketones Urine Occult Blood Urine Nitrite Urine Bilirubin Urine Urobilinogen Ur Leukocyte Esterase Urine RBC Urine WBC Ur Squamous Epith Cells Urine Bacteria Urine Mucus Ur Random Sodium 67 Urine Creatinine 51.70 MRSA (PCR) 11/09/19 11/09/19 11/09/19 05:25 05:25 09:00 WBC 9.1 RBC 3.19 L Hgb 10.3 L Hct 30.7 L MCV 96.2 H MCH 32.3 H MCHC 33.6 RDW Std Deviation 49.4 H RDW Coeff of Gustavo 14.0 Plt Count 154 MPV 10.3 Immature Gran % (Auto) 0.400 Neut % (Auto) 86.3 H Lymph % (Auto) 9.9 L Frontier % (Auto) 3.4 Eos % (Auto) 0.0 Baso % (Auto) 0.0 Absolute Neuts (auto) 7.9 H Absolute Lymphs (auto) 0.90 Nucleated RBC % 0 D-Dimer Quant (PE/DVT) Sodium 138 Potassium 3.6 Chloride 106 Carbon Dioxide 23.0 Anion Gap 9 BUN 53 H Creatinine 3.25 H Estim Creat Clear Calc 15.54 Est GFR (MDRD) Af Amer 23 L Est GFR (MDRD) Non-Af 19 L BUN/Creatinine Ratio 16.3 Glucose 163 H Calcium 8.6 Troponin I Urine Color Urine Clarity Urine pH Ur Specific [place] Urine Protein Urine Glucose (UA) Urine Ketones Urine Occult Blood Urine Nitrite Urine Bilirubin Urine Urobilinogen Ur Leukocyte Esterase Urine RBC Urine WBC Ur Squamous Epith Cells Urine Bacteria Urine Mucus Ur Random Sodium Urine Creatinine MRSA (PCR) Negative 11/09/19 11/09/19 13:11 22:33 WBC RBC Hgb Hct MCV MCH MCHC RDW Std Deviation RDW Coeff of Gustavo Plt Count MPV Immature Gran % (Auto) Neut % (Auto) Lymph % (Auto) Frontier % (Auto) Eos % (Auto) Baso % (Auto) Absolute Neuts (auto) Absolute Lymphs (auto) Nucleated RBC % D-Dimer Quant (PE/DVT) 1.47 H* Sodium Potassium Chloride Carbon Dioxide Anion Gap BUN Creatinine Estim Creat Clear Calc Est GFR (MDRD) Af Amer Est GFR (MDRD) Non-Af BUN/Creatinine Ratio Glucose Calcium Troponin I Urine Color Yellow Urine Clarity Sl. Cloudy Urine pH 5.0 Ur Specific [place] 1.015 Urine Protein Negative Urine Glucose (UA) Normal Urine Ketones Negative Urine Occult Blood Negative Urine Nitrite Negative Urine Bilirubin Negative Urine Urobilinogen Normal Ur Leukocyte Esterase Negative Urine RBC 0 SEEN Urine WBC 0 SEEN Ur Squamous Epith Cells 0-5 SEEN Urine Bacteria 0 SEEN Urine Mucus 0 SEEN Ur Random Sodium Urine Creatinine MRSA (PCR) Microbiology 11/08/19 04:19 Blood Culture (Wb) #2 - Right Hand Blood Culture - Preliminary No growth in 48 hours. 11/08/19 03:45 Blood Culture (Wb) - Anticubital Right Blood Culture - Preliminary No growth in 48 hours. 11/08/19 08:55 Sputum, Expectorated/Coughed Gram Stain - Final 11/08/19 08:55 Sputum, Expectorated/Coughed Respiratory Culture - Final Serratia marcescens 11/09/19 09:30 Mucosa - Nasopharyngeal Respiratory Panel (PCR) - Final Rhinovirus Clinical Impression(s) from Imaging Studies Chest X-Ray 11/08/19 03:48 IMPRESSION: Cardiomegaly with CHF, pulmonary edema, and small bilateral pleural effusions. Overlying pneumonia cannot be excluded. Old granulomatous disease. Electronically Signed: Rodolfo Akins MD at 5:10 EST , Service support , Renal Ultrasound 11/09/19 06:50 IMPRESSION: No gross acute abnormality. Bilateral renal atrophy which was also present previously. No hydronephrosis. Stable prostate enlargement. Electronically Signed: Krzysztof Daniels MD at 21:07 EST , Service support , Chest X-Ray 11/09/19 06:51 IMPRESSION: Status post CABG with a small right lung base pleural effusion which has improved.. Electronically Signed: Fede Weaver at 11:31 EST Tel , Service support , Lung Scan-VQ NM 11/09/19 13:46 IMPRESSION: 1. NORMAL 99m Tc MAA pulmonary perfusion imaging examination, according to PIOPED II interpretive criteria. (Sotsman et al, Radiology 246: 941, 2008 Sotstuyet et al, J Nucl Med 49: 1741, 2008). 2. Central clumping of the aerosol may be secondary to obstructive airway mechanics and or clinical tachypnea. Electronically Signed: Leno Campbell DO at 16:48 EST Tel , Service support , Current Medications Acetaminophen (Tylenol) 650 mg PO Q6H PRN PRN PRN Reason: Pain Score 1-3/Temp > 100.7 F Albuterol Sulfate (Ventolin Aerosols) 2.5 mg INHALATION Q4H PRN PRN PRN Reason: SHORTNESS OF BREATH Albuterol/Ipratropium (Duoneb) 3 ml INHALATION Q4H.RT [facility] Last Admin: 11/10/19 11:18 Dose: 3 ml Documented by: Alprazolam (Xanax) 0.5 mg PO BID PRN PRN PRN Reason: ANXIETY Last Admin: 11/08/19 22:28 Dose: 0.5 mg Documented by: Amlodipine Besylate (Norvasc) 10 mg PO DAILY [facility] Last Admin: 11/10/19 09:12 Dose: 10 mg Documented by: Aspirin (Aspirin, Baby) 162 mg PO DAILY@0800 [facility] Last Admin: 11/10/19 09:13 Dose: 162 mg Documented by: Clopidogrel Bisulfate (Plavix) 75 mg PO DAILY [facility] Last Admin: 11/10/19 09:12 Dose: 75 mg Documented by: Enoxaparin Sodium (Lovenox) 30 mg SC DAILY [facility] Last Admin: 11/10/19 09:13 Dose: 30 mg Documented by: Glucagon () 1 mg IM .X1 PRN PRN Reason: Hypoglycemia Sodium Chloride () 250 mls @ 15 mls/hr IV .[id number] PRN PRN Reason: Saline Flush Last Infusion: 11/10/19 02:30 Dose: 12.5 mls/hr Documented by: Sodium Chloride () 250 mls @ 15 mls/hr IV .[id number] PRN PRN Reason: Additional IVPB Infusion Dextrose (Dextrose 10%-Water) 250 mls @ 999 mls/hr IV .Q16M PRN; Protocol PRN Reason: HYPOGLYCEMIA Vancomycin IV Pharmacy to Dose (1 ea/ Sodium Chloride) 500 mls @ 250 mls/hr IV X1 PRN; Protocol PRN Reason: Rx to Dose Piperacillin Sod/Tazobactam (Sod 3.375 gm/ Sodium Chloride) 50 mls @ 12.5 mls/hr IV Q12 [facility] Last Admin: 11/10/19 09:22 Dose: 12.5 mls/hr Documented by: Isosorbide Mononitrate (Imdur) 60 mg PO DAILY [facility] Last Admin: 11/10/19 09:12 Dose: 60 mg Documented by: Levothyroxine Sodium (Synthroid) 25 mcg PO MoTuWeThFrSa@0600 [facility] Last Admin: 11/10/19 05:47 Dose: 25 mcg Documented by: Levothyroxine Sodium (Synthroid) 50 mcg PO Banerjee@0600 [facility] Methylprednisolone (Solu-Medrol) 40 mg IV Q6 [facility] Last Admin: 11/10/19 05:47 Dose: 40 mg Documented by: Metoprolol Tartrate (Lopressor (Beta Akila)) 50 mg PO BID [facility] Last Admin: 11/10/19 09:12 Dose: 50 mg Documented by: Nitroglycerin (Nitrostat) 0.4 mg SUBLINGUAL Q5M PRN PRN Reason: CHEST Nortriptyline HCl (Pamelor) 25 mg PO QHS [facility] Last Admin: 11/09/19 22:03 Dose: 25 mg Documented by: Ondansetron HCl (Zofran) 4 mg IV Q8H PRN PRN PRN Reason: NAUSEA/VOMITING Pantoprazole Sodium (Protonix) 20 mg PO DAILY [facility] Last Admin: 11/10/19 09:12 Dose: 20 mg Documented by: Pravastatin Sodium (Pravachol) 40 mg PO QHS [facility] Last Admin: 11/09/19 22:03 Dose: 40 mg Documented by: Ranolazine (Ranexa) 500 mg PO BID [facility] Last Admin: 11/10/19 09:12 Dose: 500 mg Documented by: Sodium Chloride () 10 - 40 ml IV UD PRN PRN Reason: SALINE FLUSH Last Admin: 11/10/19 09:22 Dose: 10 ml Documented by: Medical Necessity - Tobacco Use Smoking Status: Former smoker Tobacco Use: Non-smoker Assessment/Plan All Active Problems (Last Reviewed 10/02/19 @ 10:02 by Prabha Alejandra) Respiratory failure (Acute) OSEAS (acute kidney injury) (Acute) Vertigo (Acute) History of left heart catheterization (Resolved 08/09/19) MCGINNIS (dyspnea on exertion) (Resolved) RECOMMENDATIONS: 1. Continue antibiotics. Okay to discontinue vancomycin. 2. Obtain repeat BMP. 3. Continue patient on Airvo and wean FiO2 to maintain oxygen saturations at or above 90%. 4. Continue bronchodilators and steroids. 5. Continue appropriate DVT prophylaxis. IMPRESSIONS: 1. Acute on chronic hypoxemic respiratory failure Likely multifactorial with decompensated CHF, pneumonia and viral upper respiratory infection contributing. The patient is positive for rhinovirus and grew Serratia marcescens from sputum culture. Therefore, I would recommend that he be continued on antibiotics, with plans to complete a 7-day treatment course. Continue scheduled bronchodilators and IV steroids as ordered. Wean FiO2 to maintain oxygen saturations at or above 90%. 2. Acute on chronic kidney disease Suspect secondary to decompensated heart failure state. However, renal function worsened with diuresis. Therefore, diuretics were discontinued. Nephrology is following. Recommend rechecking BMP today. 3. Coronary artery disease/hypertension/hyperlipidemia/hypothyroidism Complicates care, management, recovery and prognosis. Continue home medications as indicated. This note was generated with [employer] software. It may contain incorrect words, spelling, and punctuation that were not noted in checking the note before signing. Code Visit Inpatient E&M: [id number] Subs Hosp L2
[2019-11-10 13:29] LABS: Anion Gap 8 (5-15); BUN 71 mg/dL (7-18); BUN/Creat Ratio 22.3 RATIO (10-20); Calcium,Total 8.4 mg/dL (8.5-10.1); Chloride 110 mmol/L (98-107); Creatinine, Serum 3.18 mg/dL (0.70-1.30); EST Glomerular Filtration Rate 20 mL/min (>60); Est Glom Filt Rate - Afr Amer 24 mL/min (>60); Estimated Creatinine Clearance 15.88 ml/min; Glucose 141 mg/dL (74-106); Sodium Level 139 mmol/L (136-145)
--- NOTE | 2019-11-10 14:10 | CPS ---
Patient found on nasal cannula at 6lpm, patient placed back on heated high flow therapy per daughter's request.
--- NOTE | 2019-11-10 14:10 | CPS ---
Patient found on 6lpm high flow nasal cannula, patient denied SOB. Patient placed back on heated humidified high flow therapy via nasal pillows, per daughter's request.
--- NOTE | 2019-11-10 14:18 | CASEMGMT ---
SVETLANA received a call from Annie at [facility] and she said that they will be meeting with patient and his daughter tomorrow Wednesday at 10am. Jenn ROBLES MSW
--- NOTE | 2019-11-10 14:35 | PCM.PN.REN ---
Patient Problems: Active and Suspected Problems (Last Reviewed 10/02/19 @ 10:02 by Prabha Alejandra) Respiratory failure (Acute) Subjective: no new complaints - Physical Exam Vitals/I&O's: Vital Signs Temp Pulse Resp BP Pulse Ox 97.4 F L 65 16 118/63 100 11/10/19 08:15 11/10/19 11:07 11/10/19 11:07 11/10/19 08:15 11/10/19 12:09 Oxygen Flow Rate (L/min) 13 Oxygen Delivery Method Nasal Cannula Weight: 70.1 kg Body Mass Index (BMI) 24.5 Finger Stick Blood Glucose 153 Intake and Output for Last 24 Hours 11/08/19 11/09/19 11/10/19 23:59 23:59 23:59 Intake Total 802.5 / 802.5 1135.25 / 1135.25 600 / 600 Output Total 775 / 775 750 / 750 Balance 27.5 / 27.5 385.25 / 385.25 600 / 600 General: Alert, Oriented x3, Cooperative HEENT: Atraumatic, PERRLA, EOMI, Normocephalic Neck: Supple, No JVD, Negative Carotid Bruits Lungs: Clear to auscultation, Normal air movement Cardiovascular: Regular rate, No murmurs Abdomen: Bowel Sounds Present, Soft, Non Tender Extremities: No edema, Capillary Refill Less than 3 Seconds Skin: No rashes, No breakdown Musculoskeletal: No Tenderness to Palpation of Joints or Extremities Neurological: Cranial nerves II-XII grossly intact Psych/Mental Status: Normal Affect, Appropriate Microbiology Past 72 Hours 11/08/19 04:19 Blood Culture (Wb) #2 - Right Hand Blood Culture - Preliminary No growth in 48 hours. 11/08/19 03:45 Blood Culture (Wb) - Anticubital Right Blood Culture - Preliminary No growth in 48 hours. 11/08/19 08:55 Sputum, Expectorated/Coughed Gram Stain - Final 11/08/19 08:55 Sputum, Expectorated/Coughed Respiratory Culture - Final Serratia marcescens 11/09/19 09:30 Mucosa - Nasopharyngeal Respiratory Panel (PCR) - Final Rhinovirus 11/08/19 03:55 Mucosa - Nasopharyngeal Influenza Types A,B Direct FA (BENITO) - Final Laboratory Results 11/09/19 22:33: Urine Color Yellow, Urine Clarity Sl. Cloudy, Urine pH 5.0, Ur Specific [place] 1.015, Urine Protein Negative, Urine Glucose (UA) Normal, Urine Ketones Negative, Urine Occult Blood Negative, Urine Nitrite Negative, Urine Bilirubin Negative, Urine Urobilinogen Normal, Ur Leukocyte Esterase Negative, Urine RBC 0 SEEN, Urine WBC 0 SEEN, Ur Squamous Epith Cells 0-5 SEEN, Urine Bacteria 0 SEEN, Urine Mucus 0 SEEN 11/10/19 12:50: Sodium 139, Potassium 4.0, Chloride 110 H, Carbon Dioxide 21.0, Anion Gap 8, BUN 71 H, Creatinine 3.18 H, Estim Creat Clear Calc 15.88, Est GFR (MDRD) Af Amer 24 L, Est GFR (MDRD) Non-Af 20 L, BUN/Creatinine Ratio 22.3 H, Glucose 141 H, Calcium 8.4 L Current Medications Acetaminophen (Tylenol) 650 mg PO Q6H PRN PRN PRN Reason: Pain Score 1-3/Temp > 100.7 F Albuterol Sulfate (Ventolin Aerosols) 2.5 mg INHALATION Q4H PRN PRN PRN Reason: SHORTNESS OF BREATH Albuterol/Ipratropium (Duoneb) 3 ml INHALATION Q4H.RT [facility] Last Admin: 11/10/19 11:18 Dose: 3 ml Documented by: Alprazolam (Xanax) 0.5 mg PO BID PRN PRN PRN Reason: ANXIETY Last Admin: 11/08/19 22:28 Dose: 0.5 mg Documented by: Amlodipine Besylate (Norvasc) 10 mg PO DAILY [facility] Last Admin: 11/10/19 09:12 Dose: 10 mg Documented by: Aspirin (Aspirin, Baby) 162 mg PO DAILY@0800 [facility] Last Admin: 11/10/19 09:13 Dose: 162 mg Documented by: Clopidogrel Bisulfate (Plavix) 75 mg PO DAILY [facility] Last Admin: 11/10/19 09:12 Dose: 75 mg Documented by: Enoxaparin Sodium (Lovenox) 30 mg SC DAILY [facility] Last Admin: 11/10/19 09:13 Dose: 30 mg Documented by: Glucagon () 1 mg IM .X1 PRN PRN Reason: Hypoglycemia Sodium Chloride () 250 mls @ 15 mls/hr IV .[id number] PRN PRN Reason: Saline Flush Last Infusion: 11/10/19 02:30 Dose: 12.5 mls/hr Documented by: Sodium Chloride () 250 mls @ 15 mls/hr IV .[id number] PRN PRN Reason: Additional IVPB Infusion Dextrose (Dextrose 10%-Water) 250 mls @ 999 mls/hr IV .Q16M PRN; Protocol PRN Reason: HYPOGLYCEMIA Piperacillin Sod/Tazobactam (Sod 3.375 gm/ Sodium Chloride) 50 mls @ 12.5 mls/hr IV Q12 [facility] Last Admin: 11/10/19 09:22 Dose: 12.5 mls/hr Documented by: Isosorbide Mononitrate (Imdur) 60 mg PO DAILY [facility] Last Admin: 11/10/19 09:12 Dose: 60 mg Documented by: Levothyroxine Sodium (Synthroid) 25 mcg PO MoTuWeThFrSa@0600 [facility] Last Admin: 11/10/19 05:47 Dose: 25 mcg Documented by: Levothyroxine Sodium (Synthroid) 50 mcg PO Banerjee@0600 [facility] Methylprednisolone (Solu-Medrol) 40 mg IV Q6 [facility] Last Admin: 11/10/19 13:29 Dose: 40 mg Documented by: Metoprolol Tartrate (Lopressor (Beta Akila)) 50 mg PO BID [facility] Last Admin: 11/10/19 09:12 Dose: 50 mg Documented by: Nitroglycerin (Nitrostat) 0.4 mg SUBLINGUAL Q5M PRN PRN Reason: CHEST Nortriptyline HCl (Pamelor) 25 mg PO QHS [facility] Last Admin: 11/09/19 22:03 Dose: 25 mg Documented by: Ondansetron HCl (Zofran) 4 mg IV Q8H PRN PRN PRN Reason: NAUSEA/VOMITING Pantoprazole Sodium (Protonix) 20 mg PO DAILY [facility] Last Admin: 11/10/19 09:12 Dose: 20 mg Documented by: Pravastatin Sodium (Pravachol) 40 mg PO QHS [facility] Last Admin: 11/09/19 22:03 Dose: 40 mg Documented by: Ranolazine (Ranexa) 500 mg PO BID [facility] Last Admin: 11/10/19 09:12 Dose: 500 mg Documented by: Sodium Chloride () 10 - 40 ml IV UD PRN PRN Reason: SALINE FLUSH Last Admin: 11/10/19 09:22 Dose: 10 ml Documented by: Medical Necessity - Tobacco Use Smoking Status: Former smoker Tobacco Use: Non-smoker Assessment/Plan All Active Problems (Last Reviewed 10/02/19 @ 10:02 by Prabha Alejandra) Respiratory failure (Acute) OSEAS (acute kidney injury) (Acute) Vertigo (Acute) History of left heart catheterization (Resolved 08/09/19) MCGINNIS (dyspnea on exertion) (Resolved) Acute renal failure Chronic kidney disease Congestive heart failure Reviewed old records. Renal ultrasound at the time of last admission 2 months ago did not show any hydronephrosis. He does have a big prostate. Postvoid residual was documented at 100 cc. post void residual was high yesterday at 700 cc. it seems he refused straight cath. repeat post void scan now. UA is fairly benign cr is slightly better
[2019-11-10] MEDS: Pravastatin 40 MG Tablet PO (21:10)
[2019-11-10] MEDS: Nortriptyline 25 MG Capsule PO (21:10)
[2019-11-11] VITALS (24 sets, daily range): BP systolic 110–132; BP diastolic 54–68; PULSE 61–81; RESP 18–22; TEMP 36.1–36.6; O2SAT 92–100
[2019-11-11] MEDS: Ipratropium/Albuterol Sulfate 3 ML AMPUL.NEB INHALATION ×5 (00:08→23:01)
--- NOTE | 2019-11-11 00:45 | CPS ---
pt refusing bipap this evening, pt is on Airvo 38% 45L 34*tolerating very well
[2019-11-11] MEDS: Levothyroxine 25 MCG TABLET PO (05:38)
[2019-11-11] MEDS: Aspirin 81 MG TAB.CHEW 162 MG PO (08:38)
--- NOTE | 2019-11-11 08:44 | PCM.PN.PUL ---
Patient Problems: Active and Suspected Problems (Last Reviewed 10/02/19 @ 10:02 by Prabha Alejandra) Respiratory failure (Acute) Subjective: The patient was seen and examined at the bedside this morning. Events from the last 24 hours have been reviewed. The patient is currently afebrile, hemodynamically stable and maintaining appropriate oxygen saturations on nasal cannula. Objective: The patient's most recent lab work, culture data and imaging studies have all been personally reviewed. Respiratory viral panel was positive for rhinovirus. Sputum culture was positive for Serratia marcescens. - Physical Exam Vitals/I&O's: Vital Signs Temp Pulse Resp BP Pulse Ox 97.6 F L 70 22 H 118/64 98 11/11/19 08:23 11/11/19 08:23 11/11/19 08:23 11/11/19 08:23 11/11/19 08:23 Oxygen Flow Rate (L/min) 7 Oxygen Delivery Method Nasal Cannula Weight: 154 lb 5.177 oz Body Mass Index (BMI) 24.5 Finger Stick Blood Glucose 153 Intake and Output for Last 24 Hours 11/09/19 11/10/19 11/11/19 23:59 23:59 23:59 Intake Total 1135.25 / 1135.25 888.25 / 1288.25 770 / 770 Output Total 750 / 750 800 / 1125 625 / 625 Balance 385.25 / 385.25 88.25 / 163.25 145 / 145 General: Alert, Cooperative HEENT: Atraumatic, PERRLA, Normocephalic Oral: No Gingival or Mucosal Lesions/ Ulcerations Neck: Supple, No Nodes, Trachea Midline Lungs: Diminished Cardiovascular: Regular rate, Regular Rhythm, Normal S1, Normal S2 Abdomen: Bowel Sounds Present, Soft, Non Tender Extremities: No clubbing, No cyanosis, No edema Skin: No breakdown Musculoskeletal: No Tenderness to Palpation of Joints or Extremities, No Muscle Wasting Lymphatic: No Cervical, Supraclavicular, or Inguinal Adenopathy Neurological: Neuro grossly intact Psych/Mental Status: Normal Affect, Appropriate Labs (Last 48 Hours) 11/09/19 11/09/19 11/09/19 09:00 13:11 22:33 D-Dimer Quant (PE/DVT) 1.47 H* Sodium Potassium Chloride Carbon Dioxide Anion Gap BUN Creatinine Estim Creat Clear Calc Est GFR (MDRD) Af Amer Est GFR (MDRD) Non-Af BUN/Creatinine Ratio Glucose Calcium Urine Color Yellow Urine Clarity Sl. Cloudy Urine pH 5.0 Ur Specific [place] 1.015 Urine Protein Negative Urine Glucose (UA) Normal Urine Ketones Negative Urine Occult Blood Negative Urine Nitrite Negative Urine Bilirubin Negative Urine Urobilinogen Normal Ur Leukocyte Esterase Negative Urine RBC 0 SEEN Urine WBC 0 SEEN Ur Squamous Epith Cells 0-5 SEEN Urine Bacteria 0 SEEN Urine Mucus 0 SEEN MRSA (PCR) Negative 11/10/19 12:50 D-Dimer Quant (PE/DVT) Sodium 139 Potassium 4.0 Chloride 110 H Carbon Dioxide 21.0 Anion Gap 8 BUN 71 H Creatinine 3.18 H Estim Creat Clear Calc 15.88 Est GFR (MDRD) Af Amer 24 L Est GFR (MDRD) Non-Af 20 L BUN/Creatinine Ratio 22.3 H Glucose 141 H Calcium 8.4 L Urine Color Urine Clarity Urine pH Ur Specific [place] Urine Protein Urine Glucose (UA) Urine Ketones Urine Occult Blood Urine Nitrite Urine Bilirubin Urine Urobilinogen Ur Leukocyte Esterase Urine RBC Urine WBC Ur Squamous Epith Cells Urine Bacteria Urine Mucus MRSA (PCR) Microbiology 11/08/19 04:19 Blood Culture (Wb) #2 - Right Hand Blood Culture - Preliminary No growth in 48 hours. 11/08/19 03:45 Blood Culture (Wb) - Anticubital Right Blood Culture - Preliminary No growth in 48 hours. 11/08/19 08:55 Sputum, Expectorated/Coughed Gram Stain - Final 11/08/19 08:55 Sputum, Expectorated/Coughed Respiratory Culture - Final Serratia marcescens 11/09/19 09:30 Mucosa - Nasopharyngeal Respiratory Panel (PCR) - Final Rhinovirus Clinical Impression(s) from Imaging Studies Chest X-Ray 11/08/19 03:48 IMPRESSION: Cardiomegaly with CHF, pulmonary edema, and small bilateral pleural effusions. Overlying pneumonia cannot be excluded. Old granulomatous disease. Electronically Signed: Rodolfo Akins MD at 5:10 EST , Service support , Renal Ultrasound 11/09/19 06:50 IMPRESSION: No gross acute abnormality. Bilateral renal atrophy which was also present previously. No hydronephrosis. Stable prostate enlargement. Electronically Signed: Krzysztof Daniels MD at 21:07 EST , Service support , Chest X-Ray 11/09/19 06:51 IMPRESSION: Status post CABG with a small right lung base pleural effusion which has improved.. Electronically Signed: Fede Weaver, at 11:31 EST Tel , Service support , Lung Scan-VQ NM 11/09/19 13:46 IMPRESSION: 1. NORMAL 99m Tc MAA pulmonary perfusion imaging examination, according to PIOPED II interpretive criteria. (Sotsman et al, Radiology 246: 941, 2008 Sopatricia et al, J Nucl Med 49: 1741, 2008). 2. Central clumping of the aerosol may be secondary to obstructive airway mechanics and or clinical tachypnea. Electronically Signed: Leno Campbell DO at 16:48 EST Tel , Service support , Current Medications Acetaminophen (Tylenol) 650 mg PO Q6H PRN PRN PRN Reason: Pain Score 1-3/Temp > 100.7 F Albuterol Sulfate (Ventolin Aerosols) 2.5 mg INHALATION Q4H PRN PRN PRN Reason: SHORTNESS OF BREATH Albuterol/Ipratropium (Duoneb) 3 ml INHALATION Q4H.RT [facility] Last Admin: 11/11/19 07:43 Dose: 3 ml Documented by: Alprazolam (Xanax) 0.5 mg PO BID PRN PRN PRN Reason: ANXIETY Last Admin: 11/08/19 22:28 Dose: 0.5 mg Documented by: Amlodipine Besylate (Norvasc) 10 mg PO DAILY [facility] Last Admin: 11/10/19 09:12 Dose: 10 mg Documented by: Aspirin (Aspirin, Baby) 162 mg PO DAILY@0800 [facility] Last Admin: 11/11/19 08:38 Dose: 162 mg Documented by: Clopidogrel Bisulfate (Plavix) 75 mg PO DAILY [facility] Last Admin: 11/10/19 09:12 Dose: 75 mg Documented by: Enoxaparin Sodium (Lovenox) 30 mg SC DAILY [facility] Last Admin: 11/10/19 09:13 Dose: 30 mg Documented by: Glucagon () 1 mg IM .X1 PRN PRN Reason: Hypoglycemia Sodium Chloride () 250 mls @ 15 mls/hr IV .[id number] PRN PRN Reason: Saline Flush Last Infusion: 11/11/19 01:14 Dose: 15 mls/hr Documented by: Sodium Chloride () 250 mls @ 15 mls/hr IV .[id number] PRN PRN Reason: Additional IVPB Infusion Dextrose (Dextrose 10%-Water) 250 mls @ 999 mls/hr IV .Q16M PRN; Protocol PRN Reason: HYPOGLYCEMIA Piperacillin Sod/Tazobactam (Sod 3.375 gm/ Sodium Chloride) 50 mls @ 12.5 mls/hr IV Q12 [facility] Last Infusion: 11/11/19 01:10 Dose: Infused Documented by: Isosorbide Mononitrate (Imdur) 60 mg PO DAILY [facility] Last Admin: 11/10/19 09:12 Dose: 60 mg Documented by: Levothyroxine Sodium (Synthroid) 25 mcg PO MoTuWeThFrSa@0600 [facility] Last Admin: 11/11/19 05:38 Dose: 25 mcg Documented by: Levothyroxine Sodium (Synthroid) 50 mcg PO Banerjee@0600 [facility] Methylprednisolone (Solu-Medrol) 40 mg IV Q6 [facility] Last Admin: 11/11/19 05:38 Dose: 40 mg Documented by: Metoprolol Tartrate (Lopressor (Beta Akila)) 50 mg PO BID [facility] Last Admin: 11/10/19 21:10 Dose: 50 mg Documented by: Nitroglycerin (Nitrostat) 0.4 mg SUBLINGUAL Q5M PRN PRN Reason: CHEST Nortriptyline HCl (Pamelor) 25 mg PO QHS [facility] Last Admin: 11/10/19 21:10 Dose: 25 mg Documented by: Ondansetron HCl (Zofran) 4 mg IV Q8H PRN PRN PRN Reason: NAUSEA/VOMITING Pantoprazole Sodium (Protonix) 20 mg PO DAILY [facility] Last Admin: 11/10/19 09:12 Dose: 20 mg Documented by: Pravastatin Sodium (Pravachol) 40 mg PO QHS [facility] Last Admin: 11/10/19 21:10 Dose: 40 mg Documented by: Ranolazine (Ranexa) 500 mg PO BID [facility] Last Admin: 11/10/19 21:10 Dose: 500 mg Documented by: Sodium Chloride () 10 - 40 ml IV UD PRN PRN Reason: SALINE FLUSH Last Admin: 11/10/19 21:11 Dose: 10 ml Documented by: Medical Necessity - Tobacco Use Smoking Status: Former smoker Tobacco Use: Non-smoker Assessment/Plan All Active Problems (Last Reviewed 10/02/19 @ 10:02 by Prabha Alejandra) Respiratory failure (Acute) OSEAS (acute kidney injury) (Acute) Vertigo (Acute) History of left heart catheterization (Resolved 08/09/19) MCGINNIS (dyspnea on exertion) (Resolved) RECOMMENDATIONS: 1. Continue antibiotics, bronchodilators and steroids. 2. Transition patient from Airvo to supplemental oxygen via nasal cannula and wean to maintain saturations at or above 90%. 3. Continue appropriate DVT prophylaxis. 4. Encourage incentive spirometer use and mobilize patient as tolerated. IMPRESSIONS: 1. Acute on chronic hypoxemic respiratory failure Likely multifactorial with decompensated CHF, pneumonia and viral upper respiratory infection contributing. The patient is positive for rhinovirus and grew Serratia marcescens from sputum culture. Therefore, I would recommend that he be continued on antibiotics, with plans to complete a 7-day treatment course. Continue scheduled bronchodilators and IV steroids as ordered. Wean FiO2 to maintain oxygen saturations at or above 90%. 2. Acute on chronic kidney disease Suspect secondary to decompensated heart failure state. However, renal function worsened with diuresis. Therefore, diuretics were discontinued. Nephrology is following. 3. Coronary artery disease/hypertension/hyperlipidemia/hypothyroidism Complicates care, management, recovery and prognosis. Continue home medications as indicated. This note was generated with [employer] dictation software. It may contain incorrect words, spelling, and punctuation that were not noted in checking the note before signing. Code Visit Inpatient E&M: 15468 Subs Hosp L2
[2019-11-11] MEDS: Metoprolol Tartrate 50 MG Tablet PO ×2 (09:02→22:19)
[2019-11-11] MEDS: Isosorbide Mononitrate 60 MG Tablet PO (09:02)
[2019-11-11] MEDS: Ranolazine 500 MG Tablet PO ×2 (09:03→22:19)
[2019-11-11] MEDS: amLODIPine 10 MG Tablet PO (09:03)
[2019-11-11] MEDS: Clopidogrel Bisulfate 75 MG Tablet PO (09:03)
[2019-11-11] MEDS: Pantoprazole Sodium 20 MG Tablet PO (09:04)
[2019-11-11] MEDS: Enoxaparin 30 MG/0.3 ML Syringe SC (09:11)
--- NOTE | 2019-11-11 10:07 | PCM.PN.REN ---
Patient Problems: Active and Suspected Problems (Last Reviewed 10/02/19 @ 10:02 by Prabha Alejandra) Respiratory failure (Acute) Subjective: Following for OSEAS on CKD. Pt denies CP, nausea, or diarrhea. SOB is stable, not worse. No edema. - Physical Exam Vitals/I&O's: Vital Signs Temp Pulse Resp BP Pulse Ox 97.6 F L 70 22 H 118/64 98 11/11/19 08:23 11/11/19 09:02 11/11/19 08:47 11/11/19 09:02 11/11/19 08:23 Oxygen Flow Rate (L/min) 7 Oxygen Delivery Method Nasal Cannula Weight: 70 kg Body Mass Index (BMI) 24.5 Finger Stick Blood Glucose 153 Intake and Output for Last 24 Hours 11/09/19 11/10/19 11/11/19 23:59 23:59 23:59 Intake Total 1135.25 / 1135.25 888.25 / 1288.25 770 / 770 Output Total 750 / 750 800 / 1125 625 / 625 Balance 385.25 / 385.25 88.25 / 163.25 145 / 145 General: Alert, - - hard of hearing HEENT: Atraumatic, Normocephalic Oral: Moist Mucosa Neck: Supple Lungs: Clear to auscultation - on anterior auscultation Cardiovascular: Normal S1, Normal S2, No murmurs Abdomen: Bowel Sounds Present, Soft, Non Tender Extremities: No edema Microbiology Past 72 Hours 11/08/19 04:19 Blood Culture (Wb) #2 - Right Hand Blood Culture - Preliminary No growth in 48 hours. 11/08/19 03:45 Blood Culture (Wb) - Anticubital Right Blood Culture - Preliminary No growth in 48 hours. 11/08/19 08:55 Sputum, Expectorated/Coughed Gram Stain - Final 11/08/19 08:55 Sputum, Expectorated/Coughed Respiratory Culture - Final Serratia marcescens 11/09/19 09:30 Mucosa - Nasopharyngeal Respiratory Panel (PCR) - Final Rhinovirus Laboratory Results 11/10/19 12:50: Sodium 139, Potassium 4.0, Chloride 110 H, Carbon Dioxide 21.0, Anion Gap 8, BUN 71 H, Creatinine 3.18 H, Estim Creat Clear Calc 15.88, Est GFR (MDRD) Af Amer 24 L, Est GFR (MDRD) Non-Af 20 L, BUN/Creatinine Ratio 22.3 H, Glucose 141 H, Calcium 8.4 L Current Medications Acetaminophen (Tylenol) 650 mg PO Q6H PRN PRN PRN Reason: Pain Score 1-3/Temp > 100.7 F Albuterol Sulfate (Ventolin Aerosols) 2.5 mg INHALATION Q4H PRN PRN PRN Reason: SHORTNESS OF BREATH Albuterol/Ipratropium (Duoneb) 3 ml INHALATION Q4H.RT [facility] Last Admin: 11/11/19 07:43 Dose: 3 ml Documented by: Alprazolam (Xanax) 0.5 mg PO BID PRN PRN PRN Reason: ANXIETY Last Admin: 11/08/19 22:28 Dose: 0.5 mg Documented by: Amlodipine Besylate (Norvasc) 10 mg PO DAILY [facility] Last Admin: 11/11/19 09:03 Dose: 10 mg Documented by: Aspirin (Aspirin, Baby) 162 mg PO DAILY@0800 [facility] Last Admin: 11/11/19 08:38 Dose: 162 mg Documented by: Clopidogrel Bisulfate (Plavix) 75 mg PO DAILY [facility] Last Admin: 11/11/19 09:03 Dose: 75 mg Documented by: Enoxaparin Sodium (Lovenox) 30 mg SC DAILY [facility] Last Admin: 11/11/19 09:11 Dose: 30 mg Documented by: Glucagon () 1 mg IM .X1 PRN PRN Reason: Hypoglycemia Sodium Chloride () 250 mls @ 15 mls/hr IV .[id number] PRN PRN Reason: Saline Flush Last Infusion: 11/11/19 01:14 Dose: 15 mls/hr Documented by: Sodium Chloride () 250 mls @ 15 mls/hr IV .[id number] PRN PRN Reason: Additional IVPB Infusion Dextrose (Dextrose 10%-Water) 250 mls @ 999 mls/hr IV .Q16M PRN; Protocol PRN Reason: HYPOGLYCEMIA Piperacillin Sod/Tazobactam (Sod 3.375 gm/ Sodium Chloride) 50 mls @ 12.5 mls/hr IV Q12 [facility] Last Admin: 11/11/19 09:44 Dose: 12.5 mls/hr Documented by: Isosorbide Mononitrate (Imdur) 60 mg PO DAILY [facility] Last Admin: 11/11/19 09:02 Dose: 60 mg Documented by: Levothyroxine Sodium (Synthroid) 25 mcg PO MoTuWeThFrSa@0600 [facility] Last Admin: 11/11/19 05:38 Dose: 25 mcg Documented by: Levothyroxine Sodium (Synthroid) 50 mcg PO Banerjee@0600 [facility] Methylprednisolone (Solu-Medrol) 40 mg IV Q6 [facility] Last Admin: 11/11/19 05:38 Dose: 40 mg Documented by: Metoprolol Tartrate (Lopressor (Beta Akila)) 50 mg PO BID [facility] Last Admin: 11/11/19 09:02 Dose: 50 mg Documented by: Nitroglycerin (Nitrostat) 0.4 mg SUBLINGUAL Q5M PRN PRN Reason: CHEST Nortriptyline HCl (Pamelor) 25 mg PO QHS [facility] Last Admin: 11/10/19 21:10 Dose: 25 mg Documented by: Ondansetron HCl (Zofran) 4 mg IV Q8H PRN PRN PRN Reason: NAUSEA/VOMITING Pantoprazole Sodium (Protonix) 20 mg PO DAILY [facility] Last Admin: 11/11/19 09:04 Dose: 20 mg Documented by: Pravastatin Sodium (Pravachol) 40 mg PO QHS [facility] Last Admin: 11/10/19 21:10 Dose: 40 mg Documented by: Ranolazine (Ranexa) 500 mg PO BID [facility] Last Admin: 11/11/19 09:03 Dose: 500 mg Documented by: Sodium Chloride () 10 - 40 ml IV UD PRN PRN Reason: SALINE FLUSH Last Admin: 11/10/19 21:11 Dose: 10 ml Documented by: Medical Necessity - Tobacco Use Smoking Status: Former smoker Tobacco Use: Non-smoker Assessment/Plan All Active Problems (Last Reviewed 10/02/19 @ 10:02 by Prabha Alejandra) Respiratory failure (Acute) OSEAS (acute kidney injury) (Acute) Vertigo (Acute) History of left heart catheterization (Resolved 08/09/19) MCGINNIS (dyspnea on exertion) (Resolved) 1. 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 Prior baseline SCr had been around 2.3-2.4 mg/dL. 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 Kidneys are small on renal US and there is no significant proteinuria which would be consistent with arterionephrosclerosis as well. OSEAS is likely multifactorial with decreased EBV contributing to OSEAS. However, I also suspect that the pt's CKD is progressing which can worsens the situation. Doubt OSEAS is from obstruction, but will watch post-void residual periodically. At this point, his renal function is stable. He is not overtly volume overloaded, and he is not uremic. Agree with holding Lasix for now and reassessing volume status closely. There is no urgent need for kidney replacement therapy. Continue current care. Recheck renal function in am. Medications are reviewed. 2. Anemia. Hgb is still>10 (Hgb 10.3 on 11/09/19). No need for FLORIAN yet. Recheck Hgb on 11/13/19. 3. HTN. BP is controlled on amlodipine and metoprolol. Monitor BP. 3. Acute on chronic hypoxic respiratory failure. Being treated for LRTI with antibiotic. Pulmonary following. No evidence of severe volume overload today. Continue to hold diuretic for now. Reassess volume status closely.
--- NOTE | 2019-11-11 10:35 | PN_ITS ---
Patient Problems: Active and Suspected Problems (Last Reviewed 10/02/19 @ 10:02 by Prabha Alejandra) Respiratory failure (Acute) Reason for Visit: Follow-up acute hypoxic respiratory failure Subjective: Patient seen appears to be improving clinically. No improvement in kidney function. Case was discussed with Dr. Gonzalez with nephrology. He was of the opinion that patient is currently at baseline with regards to his kidney function. Objective: GENERAL: cooperative HEENT: Atraumatic; EYES; Anicteric, Normal Conjunctiva NECK; supple, normal thyroid, RESPIRATORY: Diminished to auscultation CARDIOVASCULAR: Regular S1 S2, GI: soft, normoactive bowel sounds, : No Renal angle tenderness; EXTREMITIES: Bipedal edema MUSCULOSKELETAL: no muscle waisting NEURO: Awake; no lateralizing signs. SKIN: No Rash PSYCH; Flat affect Vitals/I&O's: Vital Signs Temp Pulse Resp BP Pulse Ox 97.6 F L 70 22 H 118/64 98 11/11/19 08:23 11/11/19 09:02 11/11/19 08:47 11/11/19 09:02 11/11/19 08:23 Oxygen Flow Rate (L/min) 7 Oxygen Delivery Method Nasal Cannula Weight: 70 kg Body Mass Index (BMI) 24.5 Finger Stick Blood Glucose 153 Intake and Output for Last 24 Hours 11/09/19 11/10/19 11/11/19 23:59 23:59 23:59 Intake Total 1135.25 / 1135.25 888.25 / 1288.25 770 / 770 Output Total 750 / 750 800 / 1125 625 / 625 Balance 385.25 / 385.25 88.25 / 163.25 145 / 145 Microbiology Past 72 Hours 11/08/19 04:19 Blood Culture (Wb) #2 - Right Hand Blood Culture - Preliminary No growth in 48 hours. 11/08/19 03:45 Blood Culture (Wb) - Anticubital Right Blood Culture - Preliminary No growth in 48 hours. 11/08/19 08:55 Sputum, Expectorated/Coughed Gram Stain - Final 11/08/19 08:55 Sputum, Expectorated/Coughed Respiratory Culture - Final Serratia marcescens 11/09/19 09:30 Mucosa - Nasopharyngeal Respiratory Panel (PCR) - Final Rhinovirus Laboratory Results 11/10/19 12:50: Sodium 139, Potassium 4.0, Chloride 110 H, Carbon Dioxide 21.0, Anion Gap 8, BUN 71 H, Creatinine 3.18 H, Estim Creat Clear Calc 15.88, Est GFR (MDRD) Af Amer 24 L, Est GFR (MDRD) Non-Af 20 L, BUN/Creatinine Ratio 22.3 H, Glucose 141 H, Calcium 8.4 L Current Medications Acetaminophen (Tylenol) 650 mg PO Q6H PRN PRN PRN Reason: Pain Score 1-3/Temp > 100.7 F Albuterol Sulfate (Ventolin Aerosols) 2.5 mg INHALATION Q4H PRN PRN PRN Reason: SHORTNESS OF BREATH Albuterol/Ipratropium (Duoneb) 3 ml INHALATION Q4H.RT [facility] Last Admin: 11/11/19 07:43 Dose: 3 ml Documented by: Alprazolam (Xanax) 0.5 mg PO BID PRN PRN PRN Reason: ANXIETY Last Admin: 11/08/19 22:28 Dose: 0.5 mg Documented by: Amlodipine Besylate (Norvasc) 10 mg PO DAILY [facility] Last Admin: 11/11/19 09:03 Dose: 10 mg Documented by: Aspirin (Aspirin, Baby) 162 mg PO DAILY@0800 [facility] Last Admin: 11/11/19 08:38 Dose: 162 mg Documented by: Clopidogrel Bisulfate (Plavix) 75 mg PO DAILY [facility] Last Admin: 11/11/19 09:03 Dose: 75 mg Documented by: Enoxaparin Sodium (Lovenox) 30 mg SC DAILY [facility] Last Admin: 11/11/19 09:11 Dose: 30 mg Documented by: Glucagon () 1 mg IM .X1 PRN PRN Reason: Hypoglycemia Sodium Chloride () 250 mls @ 15 mls/hr IV .[id number] PRN PRN Reason: Saline Flush Last Infusion: 11/11/19 01:14 Dose: 15 mls/hr Documented by: Sodium Chloride () 250 mls @ 15 mls/hr IV .[id number] PRN PRN Reason: Additional IVPB Infusion Dextrose (Dextrose 10%-Water) 250 mls @ 999 mls/hr IV .Q16M PRN; Protocol PRN Reason: HYPOGLYCEMIA Piperacillin Sod/Tazobactam (Sod 3.375 gm/ Sodium Chloride) 50 mls @ 12.5 mls/hr IV Q12 [facility] Last Admin: 11/11/19 09:44 Dose: 12.5 mls/hr Documented by: Isosorbide Mononitrate (Imdur) 60 mg PO DAILY [facility] Last Admin: 11/11/19 09:02 Dose: 60 mg Documented by: Levothyroxine Sodium (Synthroid) 25 mcg PO MoTuWeThFrSa@0600 [facility] Last Admin: 11/11/19 05:38 Dose: 25 mcg Documented by: Levothyroxine Sodium (Synthroid) 50 mcg PO Banerjee@0600 [facility] Methylprednisolone (Solu-Medrol) 40 mg IV Q6 [facility] Last Admin: 11/11/19 05:38 Dose: 40 mg Documented by: Metoprolol Tartrate (Lopressor (Beta Akila)) 50 mg PO BID [facility] Last Admin: 11/11/19 09:02 Dose: 50 mg Documented by: Nitroglycerin (Nitrostat) 0.4 mg SUBLINGUAL Q5M PRN PRN Reason: CHEST Nortriptyline HCl (Pamelor) 25 mg PO QHS [facility] Last Admin: 11/10/19 21:10 Dose: 25 mg Documented by: Ondansetron HCl (Zofran) 4 mg IV Q8H PRN PRN PRN Reason: NAUSEA/VOMITING Pantoprazole Sodium (Protonix) 20 mg PO DAILY [facility] Last Admin: 11/11/19 09:04 Dose: 20 mg Documented by: Pravastatin Sodium (Pravachol) 40 mg PO QHS [facility] Last Admin: 11/10/19 21:10 Dose: 40 mg Documented by: Ranolazine (Ranexa) 500 mg PO BID [facility] Last Admin: 11/11/19 09:03 Dose: 500 mg Documented by: Sodium Chloride () 10 - 40 ml IV UD PRN PRN Reason: SALINE FLUSH Last Admin: 11/10/19 21:11 Dose: 10 ml Documented by: STROKE Vital Signs/Narrative: Vital Signs Temp Pulse Resp BP Pulse Ox 11/11/19 09:02 70 118/64 11/11/19 08:47 22 H 11/11/19 08:23 97.6 F L 70 22 H 118/64 98 11/11/19 08:00 78 20 H 11/11/19 07:33 81 11/11/19 07:00 77 20 H 92 Medical Necessity - Tobacco Use Smoking Status: Former smoker Tobacco Use: Non-smoker Assessment/Plan All Active Problems (Last Reviewed 10/02/19 @ 10:02 by Prabha Alejandra) Respiratory failure (Acute) OSEAS (acute kidney injury) (Acute) Vertigo (Acute) History of left heart catheterization (Resolved 08/09/19) MCGINNIS (dyspnea on exertion) (Resolved) Patient is an 84-year-old gentleman admitted with progressive shortness of breath and assessment of acute on chronic hypoxic respiratory failure made. Patient placed on noninvasive ventilation BiPAP admitted to the intensive care unit 1. Acute on chronic hypoxic respiratory failure due to CHF exacerbation ?Admitted to the intensive care unit managed on noninvasive ventilation BiPAP -11/09/2019; patient breathing still remains significantly labored remains on noninvasive ventilation. Bronchodilator treatment and steroid added to patient's therapy by Dr. Flores with intensive care unit. Case discussed with him. - 11/10/2019: Patient still remains significantly dyspneic at rest on noninvasive ventilation. Acute viral respiratory panel came back positive for rhinovirus. Sputum cultures positive for Serratia. -11/11/2019: Patient seen appears to be improving clinically. His noninvasive ventilation weaned off currently on high flow oxygen. 2. Acute on chronic congestive heart failure with preserved ejection fraction Patient being managed with noninvasive ventilation as stated above in addition to Lasix fluid restriction strict input and output. -11/09/2019; 2D echo obtained on 08/07/2019 demonstrated EF of 60%.No significant urine output despite patient being on Lasix. With kidney function worsening consult was placed to nephrology. 11/11/2019; patient currently compensated 3. Acute rhinovirus infection with superimposed gram-negative pneumonia (Serratia) ?11/10/2019. Patient treated symptomatically as described above in addition to broad-spectrum antibiotic therapy. 4. Coronary artery disease ?With previous CABG and subsequent stent placement patient is on recommended medications including dual antiplatelet therapy with aspirin and Plavix 5. Hypertension ~ blood pressure controlled, home medications continued with dose adjustment as needed 6. Acute on chronic kidney disease ?Suspected to be secondary to hypoperfusion from congestive heart failure do expect improvement with diuresis ?11/09/2019 patient kidney function did worsen with diuresis consult subsequently placed to nephrology 7. Chronic kidney disease stage III with baseline creatinine of 2.1 8. Dyslipidemia ~patient is on statin therapy, continued at home dose 9. Hypothyroidism ~patient is on levothyroxine home dose continued 10. Chronic hypoxic respiratory failure secondary to COPD ?Currently not in exacerbation 11. DVT prophylaxis ?Lovenox dose adjusted for kidney function Code Visit Inpatient E&M: 24649 Subs Hosp L2
[2019-11-11] MEDS: Pravastatin 40 MG Tablet PO (22:19)
[2019-11-11] MEDS: Nortriptyline 25 MG Capsule PO (22:19)
[2019-11-12] VITALS (17 sets, daily range): BP systolic 117–130; BP diastolic 59–68; PULSE 59–80; RESP 16–20; TEMP 36.6–36.8; O2SAT 90–99
--- NOTE | 2019-11-12 02:41 | CPS ---
pt refuses bipap
[2019-11-12] MEDS: Levothyroxine 50 MCG Tablet PO (05:38)
[2019-11-12] MEDS: Ipratropium/Albuterol Sulfate 3 ML AMPUL.NEB INHALATION ×3 (07:29→19:19)
--- NOTE | 2019-11-12 08:07 | PCM.PN.PUL ---
Patient Problems: Active and Suspected Problems (Last Reviewed 10/02/19 @ 10:02 by Prabha Alejandra) Respiratory failure (Acute) Subjective: The patient was seen and examined at the bedside this morning. Events from the last 24 hours have been reviewed. The patient is currently afebrile, hemodynamically stable and maintaining appropriate oxygen saturations on 5 L/min via nasal cannula. The patient continues to refuse nocturnal BiPAP therapy. Objective: The patient's most recent lab work, culture data and imaging studies have all been personally reviewed. Respiratory viral panel was positive for rhinovirus. Sputum culture was positive for Serratia marcescens. - Physical Exam Vitals/I&O's: Vital Signs Temp Pulse Resp BP Pulse Ox 97.8 F 59 L 20 H 121/68 H 95 11/12/19 04:05 11/12/19 07:11 11/12/19 04:05 11/12/19 04:05 11/12/19 04:05 Oxygen Flow Rate (L/min) 5 Oxygen Delivery Method Nasal Cannula Weight: 159 lb 2.78 oz Body Mass Index (BMI) 24.5 Finger Stick Blood Glucose 153 Intake and Output for Last 24 Hours 11/10/19 11/11/19 11/12/19 23:59 23:59 23:59 Intake Total 888.25 / 1288.25 1801.5 / 1801.5 154.5 / 154.5 Output Total 800 / 1125 1525 / 1525 500 / 500 Balance 88.25 / 163.25 276.5 / 276.5 -345.5 / -345.5 General: Alert, Cooperative, No apparent distress, - - Hard of hearing HEENT: Atraumatic, PERRLA, Normocephalic Oral: No Gingival or Mucosal Lesions/ Ulcerations Neck: Supple, No Nodes, Trachea Midline Lungs: No rhonchi, No wheeze, No rales, Diminished Cardiovascular: Regular rate, Regular Rhythm, Normal S1, Normal S2, No murmurs Abdomen: Bowel Sounds Present, Soft, Non Tender Extremities: No clubbing, No cyanosis, No edema Skin: No breakdown Musculoskeletal: No Tenderness to Palpation of Joints or Extremities, No Muscle Wasting Lymphatic: No Cervical, Supraclavicular, or Inguinal Adenopathy Neurological: Cranial nerves II-XII grossly intact, Neuro grossly intact Psych/Mental Status: Normal Affect, Appropriate Labs (Last 48 Hours) 11/10/19 12:50 Sodium 139 Potassium 4.0 Chloride 110 H Carbon Dioxide 21.0 Anion Gap 8 BUN 71 H Creatinine 3.18 H Estim Creat Clear Calc 15.88 Est GFR (MDRD) Af Amer 24 L Est GFR (MDRD) Non-Af 20 L BUN/Creatinine Ratio 22.3 H Glucose 141 H Calcium 8.4 L Microbiology 11/08/19 04:19 Blood Culture (Wb) #2 - Right Hand Blood Culture - Preliminary No growth in 48 hours. 11/08/19 03:45 Blood Culture (Wb) - Anticubital Right Blood Culture - Preliminary No growth in 48 hours. 11/08/19 08:55 Sputum, Expectorated/Coughed Gram Stain - Final 11/08/19 08:55 Sputum, Expectorated/Coughed Respiratory Culture - Final Serratia marcescens Clinical Impression(s) from Imaging Studies Chest X-Ray 11/08/19 03:48 IMPRESSION: Cardiomegaly with CHF, pulmonary edema, and small bilateral pleural effusions. Overlying pneumonia cannot be excluded. Old granulomatous disease. Electronically Signed: Rodolfo Akins MD at 5:10 EST , Service support , Renal Ultrasound 11/09/19 06:50 IMPRESSION: No gross acute abnormality. Bilateral renal atrophy which was also present previously. No hydronephrosis. Stable prostate enlargement. Electronically Signed: Krzysztof Daniels MD at 21:07 EST , Service support , Chest X-Ray 11/09/19 06:51 IMPRESSION: Status post CABG with a small right lung base pleural effusion which has improved.. Electronically Signed: Fede Weaver at 11:31 EST Tel , Service support , Lung Scan-VQ NM 11/09/19 13:46 IMPRESSION: 1. NORMAL 99m Tc MAA pulmonary perfusion imaging examination, according to PIOPED II interpretive criteria. (Sotsman et al, Radiology 246: 941, 2008 Lambert et al, J Nucl Med 49: 1741, 2008). 2. Central clumping of the aerosol may be secondary to obstructive airway mechanics and or clinical tachypnea. Electronically Signed: Leno Adrian, at 16:48 EST Tel , Service support , Current Medications Acetaminophen (Tylenol) 650 mg PO Q6H PRN PRN PRN Reason: Pain Score 1-3/Temp > 100.7 F Albuterol Sulfate (Ventolin Aerosols) 2.5 mg INHALATION Q4H PRN PRN PRN Reason: SHORTNESS OF BREATH Albuterol/Ipratropium (Duoneb) 3 ml INHALATION Q4H.RT [facility] Last Admin: 11/12/19 07:29 Dose: 3 ml Documented by: Alprazolam (Xanax) 0.5 mg PO BID PRN PRN PRN Reason: ANXIETY Last Admin: 11/08/19 22:28 Dose: 0.5 mg Documented by: Amlodipine Besylate (Norvasc) 10 mg PO DAILY [facility] Last Admin: 11/11/19 09:03 Dose: 10 mg Documented by: Aspirin (Aspirin, Baby) 162 mg PO DAILY@0800 [facility] Last Admin: 11/11/19 08:38 Dose: 162 mg Documented by: Clopidogrel Bisulfate (Plavix) 75 mg PO DAILY [facility] Last Admin: 11/11/19 09:03 Dose: 75 mg Documented by: Enoxaparin Sodium (Lovenox) 30 mg SC DAILY [facility] Last Admin: 11/11/19 09:11 Dose: 30 mg Documented by: Glucagon () 1 mg IM .X1 PRN PRN Reason: Hypoglycemia Sodium Chloride () 250 mls @ 15 mls/hr IV .[id number] PRN PRN Reason: Saline Flush Last Infusion: 11/12/19 06:00 Dose: 0 mls/hr Documented by: Sodium Chloride () 250 mls @ 15 mls/hr IV .[id number] PRN PRN Reason: Additional IVPB Infusion Dextrose (Dextrose 10%-Water) 250 mls @ 999 mls/hr IV .Q16M PRN; Protocol PRN Reason: HYPOGLYCEMIA Piperacillin Sod/Tazobactam (Sod 3.375 gm/ Sodium Chloride) 50 mls @ 12.5 mls/hr IV Q12 [facility] Last Infusion: 11/12/19 02:22 Dose: Infused Documented by: Isosorbide Mononitrate (Imdur) 60 mg PO DAILY [facility] Last Admin: 11/11/19 09:02 Dose: 60 mg Documented by: Levothyroxine Sodium (Synthroid) 25 mcg PO MoTuWeThFrSa@0600 [facility] Last Admin: 11/11/19 05:38 Dose: 25 mcg Documented by: Levothyroxine Sodium (Synthroid) 50 mcg PO Banerjee@0600 [facility] Last Admin: 11/12/19 05:38 Dose: 50 mcg Documented by: Methylprednisolone (Solu-Medrol) 40 mg IV Q6 [facility] Last Admin: 11/12/19 05:11 Dose: 40 mg Documented by: Metoprolol Tartrate (Lopressor (Beta Akila)) 50 mg PO BID [facility] Last Admin: 11/11/19 22:19 Dose: 50 mg Documented by: Nitroglycerin (Nitrostat) 0.4 mg SUBLINGUAL Q5M PRN PRN Reason: CHEST Nortriptyline HCl (Pamelor) 25 mg PO QHS [facility] Last Admin: 11/11/19 22:19 Dose: 25 mg Documented by: Ondansetron HCl (Zofran) 4 mg IV Q8H PRN PRN PRN Reason: NAUSEA/VOMITING Pantoprazole Sodium (Protonix) 20 mg PO DAILY [facility] Last Admin: 11/11/19 09:04 Dose: 20 mg Documented by: Pravastatin Sodium (Pravachol) 40 mg PO QHS [facility] Last Admin: 11/11/19 22:19 Dose: 40 mg Documented by: Ranolazine (Ranexa) 500 mg PO BID [facility] Last Admin: 11/11/19 22:19 Dose: 500 mg Documented by: Sodium Chloride () 10 - 40 ml IV UD PRN PRN Reason: SALINE FLUSH Last Admin: 11/10/19 21:11 Dose: 10 ml Documented by: Medical Necessity - Tobacco Use Smoking Status: Former smoker Tobacco Use: Non-smoker Assessment/Plan All Active Problems (Last Reviewed 10/02/19 @ 10:02 by Prabha Alejandra) Respiratory failure (Acute) OSEAS (acute kidney injury) (Acute) Vertigo (Acute) History of left heart catheterization (Resolved 08/09/19) MCGINNIS (dyspnea on exertion) (Resolved) RECOMMENDATIONS: 1. Continue antibiotics, bronchodilators and steroids. Will transition from IV to prednisone beginning today. 2. Continue to wean supplemental oxygen to maintain saturations at or above 90%. 3. Continue appropriate DVT prophylaxis. 4. Encourage incentive spirometer use and mobilize patient as tolerated. 5. Perform walking oximetry study prior to consideration for discharge home. 6. Pulmonary follow-up within 2 weeks of discharge is recommended. IMPRESSIONS: 1. Acute on chronic hypoxemic respiratory failure Likely multifactorial with decompensated CHF, pneumonia and viral upper respiratory infection contributing. The patient is positive for rhinovirus and grew Serratia marcescens from sputum culture. Therefore, I would recommend that he be continued on antibiotics, with plans to complete a 7-day treatment course. Continue scheduled bronchodilators and steroids as ordered. Wean FiO2 to maintain oxygen saturations at or above 90%. Encourage incentive spirometer use and mobilize patient as tolerated. 2. Acute on chronic kidney disease Improving. Suspect secondary to decompensated heart failure state. However, renal function worsened with diuresis. Therefore, diuretics were discontinued. Nephrology is following. 3. Coronary artery disease/hypertension/hyperlipidemia/hypothyroidism Complicates care, management, recovery and prognosis. Continue home medications as indicated. This note was generated with [employer] dictation software. It may contain incorrect words, spelling, and punctuation that were not noted in checking the note before signing. Code Visit Inpatient E&M: 55971 Subs Hosp L2
[2019-11-12] MEDS: Aspirin 81 MG TAB.CHEW 162 MG PO (08:47)
--- NOTE | 2019-11-12 09:43 | PN_ITS ---
Patient Problems: Active and Suspected Problems (Last Reviewed 10/02/19 @ 10:02 by Prabha Alejandra) Respiratory failure (Acute) Reason for Visit: Follow-up acute respiratory failure Subjective: Patient seen, has transitioned to nasal cannula requiring high flow at 5 L with desaturation to the mid 80s on ambulation. Had a discussion with patient's family it is the family's wish for patient to be transferred to correction facility or rehab following discharge prior to patient going home with [facility] care Objective: GENERAL: cooperative HEENT: Atraumatic; EYES; Anicteric, Normal Conjunctiva NECK; supple, normal thyroid, RESPIRATORY: Diminished to auscultation CARDIOVASCULAR: Regular S1 S2, GI: soft, normoactive bowel sounds, : No Renal angle tenderness; EXTREMITIES: Bipedal edema MUSCULOSKELETAL: no muscle waisting NEURO: Awake; no lateralizing signs. SKIN: No Rash PSYCH; Flat affect Vitals/I&O's: Vital Signs Temp Pulse Resp BP Pulse Ox 97.8 F 59 L 20 H 121/68 H 95 11/12/19 04:05 11/12/19 07:11 11/12/19 04:05 11/12/19 04:05 11/12/19 04:05 Oxygen Flow Rate (L/min) 5 Oxygen Delivery Method Nasal Cannula Weight: 72.2 kg Body Mass Index (BMI) 24.5 Finger Stick Blood Glucose 153 Intake and Output for Last 24 Hours 11/10/19 11/11/19 11/12/19 23:59 23:59 23:59 Intake Total 888.25 / 1288.25 1801.5 / 1801.5 154.5 / 154.5 Output Total 800 / 1125 1525 / 1525 500 / 500 Balance 88.25 / 163.25 276.5 / 276.5 -345.5 / -345.5 Microbiology Past 72 Hours 11/08/19 04:19 Blood Culture (Wb) #2 - Right Hand Blood Culture - Preliminary No growth in 48 hours. 11/08/19 03:45 Blood Culture (Wb) - Anticubital Right Blood Culture - Preliminary No growth in 48 hours. 11/08/19 08:55 Sputum, Expectorated/Coughed Gram Stain - Final 11/08/19 08:55 Sputum, Expectorated/Coughed Respiratory Culture - Final Serratia marcescens 11/09/19 09:30 Mucosa - Nasopharyngeal Respiratory Panel (PCR) - Final Rhinovirus Current Medications Acetaminophen (Tylenol) 650 mg PO Q6H PRN PRN PRN Reason: Pain Score 1-3/Temp > 100.7 F Albuterol Sulfate (Ventolin Aerosols) 2.5 mg INHALATION Q4H PRN PRN PRN Reason: SHORTNESS OF BREATH Albuterol/Ipratropium (Duoneb) 3 ml INHALATION Q4H.RT [facility] Last Admin: 11/12/19 07:29 Dose: 3 ml Documented by: Alprazolam (Xanax) 0.5 mg PO BID PRN PRN PRN Reason: ANXIETY Last Admin: 11/08/19 22:28 Dose: 0.5 mg Documented by: Amlodipine Besylate (Norvasc) 10 mg PO DAILY [facility] Last Admin: 11/11/19 09:03 Dose: 10 mg Documented by: Aspirin (Aspirin, Baby) 162 mg PO DAILY@0800 [facility] Last Admin: 11/12/19 08:47 Dose: 162 mg Documented by: Clopidogrel Bisulfate (Plavix) 75 mg PO DAILY [facility] Last Admin: 11/11/19 09:03 Dose: 75 mg Documented by: Enoxaparin Sodium (Lovenox) 30 mg SC DAILY [facility] Last Admin: 11/11/19 09:11 Dose: 30 mg Documented by: Glucagon () 1 mg IM .X1 PRN PRN Reason: Hypoglycemia Sodium Chloride () 250 mls @ 15 mls/hr IV .[id number] PRN PRN Reason: Saline Flush Last Infusion: 11/12/19 06:00 Dose: 0 mls/hr Documented by: Sodium Chloride () 250 mls @ 15 mls/hr IV .[id number] PRN PRN Reason: Additional IVPB Infusion Dextrose (Dextrose 10%-Water) 250 mls @ 999 mls/hr IV .Q16M PRN; Protocol PRN Reason: HYPOGLYCEMIA Piperacillin Sod/Tazobactam (Sod 3.375 gm/ Sodium Chloride) 50 mls @ 12.5 mls/hr IV Q12 [facility] Last Infusion: 11/12/19 02:22 Dose: Infused Documented by: Isosorbide Mononitrate (Imdur) 60 mg PO DAILY [facility] Last Admin: 11/11/19 09:02 Dose: 60 mg Documented by: Levothyroxine Sodium (Synthroid) 25 mcg PO MoTuWeThFrSa@0600 [facility] Last Admin: 11/11/19 05:38 Dose: 25 mcg Documented by: Levothyroxine Sodium (Synthroid) 50 mcg PO Banerjee@0600 [facility] Last Admin: 11/12/19 05:38 Dose: 50 mcg Documented by: Metoprolol Tartrate (Lopressor (Beta Akila)) 50 mg PO BID [facility] Last Admin: 11/11/19 22:19 Dose: 50 mg Documented by: Nitroglycerin (Nitrostat) 0.4 mg SUBLINGUAL Q5M PRN PRN Reason: CHEST Nortriptyline HCl (Pamelor) 25 mg PO QHS [facility] Last Admin: 11/11/19 22:19 Dose: 25 mg Documented by: Ondansetron HCl (Zofran) 4 mg IV Q8H PRN PRN PRN Reason: NAUSEA/VOMITING Pantoprazole Sodium (Protonix) 20 mg PO DAILY [facility] Last Admin: 11/11/19 09:04 Dose: 20 mg Documented by: Pravastatin Sodium (Pravachol) 40 mg PO QHS [facility] Last Admin: 11/11/19 22:19 Dose: 40 mg Documented by: Prednisone () 40 mg PO DAILY@0800 [facility] Ranolazine (Ranexa) 500 mg PO BID [facility] Last Admin: 11/11/19 22:19 Dose: 500 mg Documented by: Sodium Chloride () 10 - 40 ml IV UD PRN PRN Reason: SALINE FLUSH Last Admin: 11/10/19 21:11 Dose: 10 ml Documented by: STROKE Vital Signs/Narrative: Vital Signs Pulse 11/12/19 07:11 59 L Medical Necessity - Tobacco Use Smoking Status: Former smoker Tobacco Use: Non-smoker Assessment/Plan All Active Problems (Last Reviewed 10/02/19 @ 10:02 by Prabha Alejandra) Respiratory failure (Acute) OSEAS (acute kidney injury) (Acute) Vertigo (Acute) History of left heart catheterization (Resolved 08/09/19) MCGINNIS (dyspnea on exertion) (Resolved) Patient is an 84-year-old gentleman admitted with progressive shortness of breath and assessment of acute on chronic hypoxic respiratory failure made. Patient placed on noninvasive ventilation BiPAP admitted to the intensive care unit 1. Acute on chronic hypoxic respiratory failure due to CHF exacerbation ?Admitted to the intensive care unit managed on noninvasive ventilation BiPAP -11/09/2019; patient breathing still remains significantly labored remains on noninvasive ventilation. Bronchodilator treatment and steroid added to patient's therapy by Dr. Flores with intensive care unit. Case discussed with mikey burleson. - 11/10/2019: Patient still remains significantly dyspneic at rest on noninvasive ventilation. Acute viral respiratory panel came back positive for rhinovirus. Sputum cultures positive for Serratia. -11/11/2019: Patient seen appears to be improving clinically. His noninvasive ventilation weaned off currently on high flow oxygen. - 11/12/2019: Patient has been transitioned to high flow oxygen. Clinical condition remains tenuous 2. Acute on chronic congestive heart failure with preserved ejection fraction Patient being managed with noninvasive ventilation as stated above in addition to Lasix fluid restriction strict input and output. -11/09/2019; 2D echo obtained on 08/07/2019 demonstrated EF of 60%.No significant urine output despite patient being on Lasix. With kidney function worsening consult was placed to nephrology. 11/11/2019; patient currently compensated 3. Acute rhinovirus infection with superimposed gram-negative pneumonia (Serratia) ?11/10/2019. Patient treated symptomatically as described above in addition to broad-spectrum antibiotic therapy. 4. Coronary artery disease ?With previous CABG and subsequent stent placement patient is on recommended medications including dual antiplatelet therapy with aspirin and Plavix 5. Hypertension ~ blood pressure controlled, home medications continued with dose adjustment as needed 6. Acute on chronic kidney disease ?Suspected to be secondary to hypoperfusion from congestive heart failure do expect improvement with diuresis ?11/09/2019 patient kidney function did worsen with diuresis consult subsequently placed to nephrology 7. Chronic kidney disease stage III with baseline creatinine of 2.1 8. Dyslipidemia ~patient is on statin therapy, continued at home dose 9. Hypothyroidism ~patient is on levothyroxine home dose continued 10. Chronic hypoxic respiratory failure secondary to COPD ?Currently not in exacerbation 11. DVT prophylaxis ?Lovenox dose adjusted for kidney function 4. Physical deconditioning ?Requested for PT OT eval and treatment and social security assessor to assist with discharge planning Code Visit Inpatient E&M: 18716 Subs Hosp L2
[2019-11-12] MEDS: 0.9% Saline Lock 10 ML Syringe IV (10:06)
[2019-11-12] MEDS: amLODIPine 10 MG Tablet PO (10:07)
[2019-11-12] MEDS: Clopidogrel Bisulfate 75 MG Tablet PO (10:07)
[2019-11-12] MEDS: Ranolazine 500 MG Tablet PO ×2 (10:07→21:50)
[2019-11-12] MEDS: Pantoprazole Sodium 20 MG Tablet PO (10:07)
[2019-11-12] MEDS: Isosorbide Mononitrate 60 MG Tablet PO (10:07)
[2019-11-12] MEDS: Enoxaparin 30 MG/0.3 ML Syringe SC (10:08)
[2019-11-12] MEDS: Metoprolol Tartrate 50 MG Tablet PO ×2 (10:08→21:50)
[2019-11-12] MEDS: Nortriptyline 25 MG Capsule PO (21:50)
[2019-11-12] MEDS: Pravastatin 40 MG Tablet PO (21:50)
[2019-11-13] VITALS (15 sets, daily range): BP systolic 116–125; BP diastolic 61–64; PULSE 60–78; RESP 12–18; TEMP 36.2–36.7; O2SAT 92–97
[2019-11-13] MEDS: Levothyroxine 25 MCG TABLET PO (05:28)
[2019-11-13] MEDS: Ipratropium/Albuterol Sulfate 3 ML AMPUL.NEB INHALATION ×4 (06:40→18:55)
[2019-11-13] MEDS: Aspirin 81 MG TAB.CHEW 162 MG PO (07:54)
[2019-11-13] MEDS: predniSONE 20 MG Tablet 40 MG PO (07:54)
[2019-11-13] MEDS: Ranolazine 500 MG Tablet PO ×2 (09:27→22:04)
[2019-11-13] MEDS: Enoxaparin 30 MG/0.3 ML Syringe SC (09:27)
[2019-11-13] MEDS: Isosorbide Mononitrate 60 MG Tablet PO (09:28)
[2019-11-13] MEDS: Pantoprazole Sodium 20 MG Tablet PO (09:28)
[2019-11-13] MEDS: 0.9% Saline Lock 10 ML Syringe IV ×2 (09:28→22:17)
[2019-11-13] MEDS: Clopidogrel Bisulfate 75 MG Tablet PO (09:28)
[2019-11-13] MEDS: Metoprolol Tartrate 50 MG Tablet PO ×2 (09:28→22:04)
[2019-11-13] MEDS: amLODIPine 10 MG Tablet PO (09:28)
--- NOTE | 2019-11-13 11:40 | CASEMGMT ---
SW was reviewing patient's chart to see if there were any notes on Palliative Care visit. SVETLANA noted that patient's plan is TCU. SVETLANA was not aware of this as no one shared this information with SW. SVETLANA spoke with patient and his daughter and they would like TCU. SVETLANA told them SW will check to see if there is any availability and if not SW will bring them a list of other SNF's. SVETLANA called [facility] in TCU and left her a voice mail asking about bed availability in TCU. Jenn ROBLES MSW
--- NOTE | 2019-11-13 11:51 | PCM.PN.REN ---
Patient Problems: Active and Suspected Problems (Last Reviewed 10/02/19 @ 10:02 by Prabha Alejandra) Respiratory failure (Acute) Subjective: No new complaints - Physical Exam Vitals/I&O's: Vital Signs Temp Pulse Resp BP Pulse Ox 97.2 F L 78 16 125/61 H 97 11/13/19 09:30 11/13/19 10:54 11/13/19 10:54 11/13/19 09:30 11/13/19 09:30 Oxygen Flow Rate (L/min) 1 Oxygen Delivery Method Nasal Cannula Weight: 71.8 kg Body Mass Index (BMI) 24.5 Finger Stick Blood Glucose 153 Intake and Output for Last 24 Hours 11/11/19 11/12/19 11/13/19 23:59 23:59 23:59 Intake Total 1801.5 / 1801.5 1364.5 / 1364.5 197.5 / 197.5 Output Total 1525 / 1525 1250 / 1250 600 / 600 Balance 276.5 / 276.5 114.5 / 114.5 -402.5 / -402.5 General: Alert, Oriented x3, Cooperative HEENT: Atraumatic, PERRLA, EOMI, Normocephalic Neck: Supple, No JVD, Negative Carotid Bruits Lungs: Clear to auscultation, Normal air movement Cardiovascular: Regular rate, No murmurs Abdomen: Bowel Sounds Present, Soft, Non Tender Extremities: No edema, Capillary Refill Less than 3 Seconds Skin: No rashes, No breakdown Musculoskeletal: No Tenderness to Palpation of Joints or Extremities Neurological: Cranial nerves II-XII grossly intact Psych/Mental Status: Normal Affect, Appropriate Microbiology Past 72 Hours 11/08/19 04:19 Blood Culture (Wb) #2 - Right Hand Blood Culture - Final No growth in 5 days. 11/08/19 03:45 Blood Culture (Wb) - Anticubital Right Blood Culture - Final No growth in 5 days. 11/08/19 08:55 Sputum, Expectorated/Coughed Gram Stain - Final 11/08/19 08:55 Sputum, Expectorated/Coughed Respiratory Culture - Final Serratia marcescens Current Medications Acetaminophen (Tylenol) 650 mg PO Q6H PRN PRN PRN Reason: Pain Score 1-3/Temp > 100.7 F Albuterol Sulfate (Ventolin Aerosols) 2.5 mg INHALATION Q4H PRN PRN PRN Reason: SHORTNESS OF BREATH Albuterol/Ipratropium (Duoneb) 3 ml INHALATION Q4H.RT [facility] Last Admin: 11/13/19 10:54 Dose: 3 ml Documented by: Alprazolam (Xanax) 0.5 mg PO BID PRN PRN PRN Reason: ANXIETY Last Admin: 11/08/19 22:28 Dose: 0.5 mg Documented by: Amlodipine Besylate (Norvasc) 10 mg PO DAILY [facility] Last Admin: 11/13/19 09:28 Dose: 10 mg Documented by: Aspirin (Aspirin, Baby) 162 mg PO DAILY@0800 [facility] Last Admin: 11/13/19 07:54 Dose: 162 mg Documented by: Clopidogrel Bisulfate (Plavix) 75 mg PO DAILY [facility] Last Admin: 11/13/19 09:28 Dose: 75 mg Documented by: Enoxaparin Sodium (Lovenox) 30 mg SC DAILY [facility] Last Admin: 11/13/19 09:27 Dose: 30 mg Documented by: Glucagon () 1 mg IM .X1 PRN PRN Reason: Hypoglycemia Sodium Chloride () 250 mls @ 15 mls/hr IV .[id number] PRN PRN Reason: Saline Flush Last Infusion: 11/13/19 05:00 Dose: 0 mls/hr Documented by: Sodium Chloride () 250 mls @ 15 mls/hr IV .[id number] PRN PRN Reason: Additional IVPB Infusion Dextrose (Dextrose 10%-Water) 250 mls @ 999 mls/hr IV .Q16M PRN; Protocol PRN Reason: HYPOGLYCEMIA Piperacillin Sod/Tazobactam (Sod 3.375 gm/ Sodium Chloride) 50 mls @ 12.5 mls/hr IV Q12 [facility] Last Admin: 11/13/19 10:04 Dose: 12.5 mls/hr Documented by: Isosorbide Mononitrate (Imdur) 60 mg PO DAILY [facility] Last Admin: 11/13/19 09:28 Dose: 60 mg Documented by: Levothyroxine Sodium (Synthroid) 25 mcg PO MoTuWeThFrSa@0600 [facility] Last Admin: 11/13/19 05:28 Dose: 25 mcg Documented by: Levothyroxine Sodium (Synthroid) 50 mcg PO Banerjee@0600 [facility] Last Admin: 11/12/19 05:38 Dose: 50 mcg Documented by: Metoprolol Tartrate (Lopressor (Beta Akila)) 50 mg PO BID [facility] Last Admin: 11/13/19 09:28 Dose: 50 mg Documented by: Nitroglycerin (Nitrostat) 0.4 mg SUBLINGUAL Q5M PRN PRN Reason: CHEST Nortriptyline HCl (Pamelor) 25 mg PO QHS [facility] Last Admin: 11/12/19 21:50 Dose: 25 mg Documented by: Ondansetron HCl (Zofran) 4 mg IV Q8H PRN PRN PRN Reason: NAUSEA/VOMITING Pantoprazole Sodium (Protonix) 20 mg PO DAILY [facility] Last Admin: 11/13/19 09:28 Dose: 20 mg Documented by: Pravastatin Sodium (Pravachol) 40 mg PO QHS [facility] Last Admin: 11/12/19 21:50 Dose: 40 mg Documented by: Prednisone () 40 mg PO DAILY@0800 [facility] Last Admin: 11/13/19 07:54 Dose: 40 mg Documented by: Ranolazine (Ranexa) 500 mg PO BID [facility] Last Admin: 11/13/19 09:27 Dose: 500 mg Documented by: Sodium Chloride () 10 - 40 ml IV UD PRN PRN Reason: SALINE FLUSH Last Admin: 11/13/19 09:28 Dose: 10 ml Documented by: Medical Necessity - Tobacco Use Smoking Status: Former smoker Tobacco Use: Non-smoker Assessment/Plan All Active Problems (Last Reviewed 10/02/19 @ 10:02 by Prabha Alejandra) Respiratory failure (Acute) OSEAS (acute kidney injury) (Acute) Vertigo (Acute) History of left heart catheterization (Resolved 08/09/19) MCGINNIS (dyspnea on exertion) (Resolved) Acute renal failure Chronic kidney disease Congestive heart failure Reviewed old records. Renal ultrasound at the time of last admission 2 months ago did not show any hydronephrosis. Had significant postvoid residuals and a Haynes catheter post placed Wednesday. Urine output has been good since then. Check a BMP today. Baseline creatinine is between 2.2-2.5. If creatinine is less than 3, no further work-up needed. UA is fairly benign Discussed with daughter at bedside
--- NOTE | 2019-11-13 12:06 | CASEMGMT ---
SVETLANA spoke with [facility] and they are full in TCU. SVETLANA spoke with patient's daughter letting her know. SVETLANA gave her a list of local SNF's. Their next choice would be [facility]. SVETLANA called [facility] and made a referral as well as faxed information. Await response. Jenn ROBLES MSW
[2019-11-13 13:09] LABS: Anion Gap 8 (5-15); BUN 77 mg/dL (7-18); BUN/Creat Ratio 28.2 RATIO (10-20); Calcium,Total 8.4 mg/dL (8.5-10.1); Chloride 110 mmol/L (98-107); Creatinine, Serum 2.73 mg/dL (0.70-1.30); EST Glomerular Filtration Rate 24 mL/min (>60); Est Glom Filt Rate - Afr Amer 29 mL/min (>60); Glucose 161 mg/dL (74-106); Potassium 3.6 mmol/L (3.5-5.1); Sodium Level 141 mmol/L (136-145)
--- NOTE | 2019-11-13 13:15 | PN_ITS ---
Patient Problems: Active and Suspected Problems (Last Reviewed 10/02/19 @ 10:02 by Prabha Alejandra) Respiratory failure (Acute) Subjective: Patient appears to be doing well from a respiratory standpoint. Per patient's daughter, cough is improving. Patient is extremely hard of hearing and typically uses lipreading, but this is impaired secondary to need for respiratory masks. Patient overall feels subjectively improved compared to previous. - Physical Exam Vitals/I&O's: Vital Signs Temp Pulse Resp BP Pulse Ox 36.2 C L 78 16 125/61 H 97 11/13/19 09:30 11/13/19 10:54 11/13/19 10:54 11/13/19 09:30 11/13/19 09:30 Oxygen Flow Rate (L/min) 1 Oxygen Delivery Method Nasal Cannula Weight: 71.8 kg Body Mass Index (BMI) 24.5 Finger Stick Blood Glucose 153 Intake and Output for Last 24 Hours 11/11/19 11/12/19 11/13/19 23:59 23:59 23:59 Intake Total 1801.5 / 1801.5 1364.5 / 1364.5 817.5 / 817.5 Output Total 1525 / 1525 1250 / 1250 1000 / 1000 Balance 276.5 / 276.5 114.5 / 114.5 -182.5 / -182.5 General: Alert, Cooperative, No apparent distress, - - Very hard of hearing. HEENT: Atraumatic, PERRLA, EOMI, Normocephalic, - - No scleral icterus or injection noted. Oral: Moist Mucosa, No Gingival or Mucosal Lesions/ Ulcerations Neck: Supple, No Nodes, Trachea Midline Lungs: No rhonchi, No rales, Diminished, Wheezes - At end exhalation Cardiovascular: Regular rate, Regular Rhythm, Normal S1, Normal S2, No murmurs, No rub noted, No Gallop Abdomen: Bowel Sounds Present, Soft, Non Tender, Non-Distended Extremities: No clubbing, No cyanosis, Capillary Refill Less than 3 Seconds, Edema - 1+ lower extremity Skin: No rashes, No breakdown Musculoskeletal: No Tenderness to Palpation of Joints or Extremities Lymphatic: No Cervical, Supraclavicular, or Inguinal Adenopathy Neurological: Cranial nerves II-XII grossly intact, Neuro grossly intact, Motor Exam 5/5 strength throughout Psych/Mental Status: Normal Affect, Appropriate Microbiology Past 72 Hours 11/08/19 04:19 Blood Culture (Wb) #2 - Right Hand Blood Culture - Final No growth in 5 days. 11/08/19 03:45 Blood Culture (Wb) - Anticubital Right Blood Culture - Final No growth in 5 days. Laboratory Results 11/13/19 12:30: Sodium 141, Potassium 3.6, Chloride 110 H, Carbon Dioxide 23.0, Anion Gap 8, BUN 77 H, Creatinine 2.73 H, Estim Creat Clear Calc 18.50, Est GFR (MDRD) Af Amer 29 L, Est GFR (MDRD) Non-Af 24 L, BUN/Creatinine Ratio 28.2 H, Glucose 161 H, Calcium 8.4 L Current Medications Acetaminophen (Tylenol) 650 mg PO Q6H PRN PRN PRN Reason: Pain Score 1-3/Temp > 100.7 F Albuterol Sulfate (Ventolin Aerosols) 2.5 mg INHALATION Q4H PRN PRN PRN Reason: SHORTNESS OF BREATH Albuterol/Ipratropium (Duoneb) 3 ml INHALATION Q4H.RT [facility] Last Admin: 11/13/19 10:54 Dose: 3 ml Documented by: Alprazolam (Xanax) 0.5 mg PO BID PRN PRN PRN Reason: ANXIETY Last Admin: 11/08/19 22:28 Dose: 0.5 mg Documented by: Amlodipine Besylate (Norvasc) 10 mg PO DAILY [facility] Last Admin: 11/13/19 09:28 Dose: 10 mg Documented by: Aspirin (Aspirin, Baby) 162 mg PO DAILY@0800 [facility] Last Admin: 11/13/19 07:54 Dose: 162 mg Documented by: Clopidogrel Bisulfate (Plavix) 75 mg PO DAILY [facility] Last Admin: 11/13/19 09:28 Dose: 75 mg Documented by: Enoxaparin Sodium (Lovenox) 30 mg SC DAILY [facility] Last Admin: 11/13/19 09:27 Dose: 30 mg Documented by: Glucagon () 1 mg IM .X1 PRN PRN Reason: Hypoglycemia Sodium Chloride () 250 mls @ 15 mls/hr IV .[id number] PRN PRN Reason: Saline Flush Last Infusion: 11/13/19 05:00 Dose: 0 mls/hr Documented by: Sodium Chloride () 250 mls @ 15 mls/hr IV .[id number] PRN PRN Reason: Additional IVPB Infusion Dextrose (Dextrose 10%-Water) 250 mls @ 999 mls/hr IV .Q16M PRN; Protocol PRN Reason: HYPOGLYCEMIA Piperacillin Sod/Tazobactam (Sod 3.375 gm/ Sodium Chloride) 50 mls @ 12.5 mls/hr IV Q12 [facility] Last Admin: 11/13/19 10:04 Dose: 12.5 mls/hr Documented by: Isosorbide Mononitrate (Imdur) 60 mg PO DAILY [facility] Last Admin: 11/13/19 09:28 Dose: 60 mg Documented by: Levothyroxine Sodium (Synthroid) 25 mcg PO MoTuWeThFrSa@0600 [facility] Last Admin: 11/13/19 05:28 Dose: 25 mcg Documented by: Levothyroxine Sodium (Synthroid) 50 mcg PO Banerjee@0600 [facility] Last Admin: 11/12/19 05:38 Dose: 50 mcg Documented by: Metoprolol Tartrate (Lopressor (Beta Akila)) 50 mg PO BID [facility] Last Admin: 11/13/19 09:28 Dose: 50 mg Documented by: Nitroglycerin (Nitrostat) 0.4 mg SUBLINGUAL Q5M PRN PRN Reason: CHEST Nortriptyline HCl (Pamelor) 25 mg PO QHS [facility] Last Admin: 11/12/19 21:50 Dose: 25 mg Documented by: Ondansetron HCl (Zofran) 4 mg IV Q8H PRN PRN PRN Reason: NAUSEA/VOMITING Pantoprazole Sodium (Protonix) 20 mg PO DAILY [facility] Last Admin: 11/13/19 09:28 Dose: 20 mg Documented by: Pravastatin Sodium (Pravachol) 40 mg PO QHS [facility] Last Admin: 11/12/19 21:50 Dose: 40 mg Documented by: Prednisone () 40 mg PO DAILY@0800 [facility] Last Admin: 11/13/19 07:54 Dose: 40 mg Documented by: Ranolazine (Ranexa) 500 mg PO BID [facility] Last Admin: 11/13/19 09:27 Dose: 500 mg Documented by: Sodium Chloride () 10 - 40 ml IV UD PRN PRN Reason: SALINE FLUSH Last Admin: 11/13/19 09:28 Dose: 10 ml Documented by: Medical Necessity - Tobacco Use Smoking Status: Former smoker Tobacco Use: Non-smoker Assessment/Plan All Active Problems (Last Reviewed 10/02/19 @ 10:02 by Prabha Alejandra) Respiratory failure (Acute) OSEAS (acute kidney injury) (Acute) Vertigo (Acute) History of left heart catheterization (Resolved 08/09/19) MCGINNIS (dyspnea on exertion) (Resolved) RECOMMENDATIONS: 1. Continue antibiotics to complete 7-day course and bronchodilators. Pr ednisone can be weaned over the next 12 to 14 days 2. Continue to wean supplemental oxygen to maintain saturations at or above 90%. 3. Continue appropriate DVT prophylaxis. 4. Encourage incentive spirometer use and mobilize patient as tolerated. 5. Perform walking oximetry study prior to consideration for discharge home. 6. Pulmonary follow-up within 2 weeks of discharge is recommended. IMPRESSIONS: 1. Acute on chronic hypoxemic respiratory failure Likely multifactorial with decompensated CHF, pneumonia and viral upper respiratory infection contributing. The patient is positive for rhinovirus and grew Serratia marcescens from sputum culture. Patient should complete a 7-day course of antibiotics. Bronchodilators should be continued. Steroids can be weaned over the next 12 to 14 days. Clinical suspicion for increased desaturation with ambulation, so a walking oximetry would be indicated prior to discharge. Patient does have supplemental oxygen at home. 2. Acute on chronic kidney disease Improving. Suspect secondary to decompensated heart failure state. Renal function appears to be improving on today's labs. 3. Coronary artery disease/hypertension/hyperlipidemia/hypothyroidism Complicates care, management, recovery and prognosis. Continue home m edications as indicated. Code Visit Inpatient E&M: 32148 Subs Hosp L2
--- NOTE | 2019-11-13 14:30 | CASEMGMT ---
SVETLANA called [facility] to see if they have decided on patient. Marisabel was not available so SVETLANA left her a voice mail. Jenn ROBLES MSW
--- NOTE | 2019-11-13 14:52 | CASEMGMT ---
Marisabel from [facility] called SVETLANA. She said her customer engineering specialist is looking over the referral. SW answered her questions. She said she will get back to as soon as she has an answer. SVETLANA let patient's daughter know above. Jenn FORTE
--- NOTE | 2019-11-13 15:09 | CASEMGMT ---
Patient has a Healthcare POA and Healthcare LW. They are on file at [facility]. Jenn ROBLES MSW
--- NOTE | 2019-11-13 15:20 | CASEMGMT ---
Laura from Hospice came and spoke to patient's daughter again. Palliative Care papers were signed as patient would like rehab. The first Palliative Care appt is 11-16 at 1230p. Jenn FORTE
--- NOTE | 2019-11-13 15:29 | CASEMGMT ---
SVETLANA called Kareen with [facility] and left her a voice mail letting her know patient is going to be going [facility] a pen[facility]entiary at d/c. Jenn ROBLES MSW
--- NOTE | 2019-11-13 15:54 | PCM.PN.HOSP ---
Patient Problems: Active and Suspected Problems (Last Reviewed 10/02/19 @ 10:02 by Prabha Alejandra) Respiratory failure (Acute) Reason for Visit: resp failure Subjective: breathing well. Vitals/I&O's: Vital Signs Temp Pulse Resp BP Pulse Ox 36.4 C L 67 18 116/64 95 11/13/19 15:30 11/13/19 15:30 11/13/19 15:30 11/13/19 15:30 11/13/19 15:30 Oxygen Flow Rate (L/min) 2 Oxygen Delivery Method Nasal Cannula Weight: 71.8 kg Body Mass Index (BMI) 24.5 Finger Stick Blood Glucose 153 Intake and Output for Last 24 Hours 11/11/19 11/12/19 11/13/19 23:59 23:59 23:59 Intake Total 1801.5 / 1801.5 1364.5 / 1364.5 867.5 / 867.5 Output Total 1525 / 1525 1250 / 1250 1000 / 1000 Balance 276.5 / 276.5 114.5 / 114.5 -132.5 / -132.5 General: Alert, No apparent distress HEENT: Atraumatic, Normocephalic Oral: Moist Mucosa, No Gingival or Mucosal Lesions/ Ulcerations Neck: No Nodes, Trachea Midline Lungs: Clear to auscultation, Normal air movement, No rhonchi, No wheeze Cardiovascular: Regular rate, Regular Rhythm, Normal S1, Normal S2 Abdomen: Bowel Sounds Present, Soft, Non Tender, Non-Distended Psych/Mental Status: Normal Affect, Appropriate Microbiology Past 72 Hours 11/08/19 04:19 Blood Culture (Wb) #2 - Right Hand Blood Culture - Final No growth in 5 days. 11/08/19 03:45 Blood Culture (Wb) - Anticubital Right Blood Culture - Final No growth in 5 days. Laboratory Results 11/13/19 12:30: Sodium 141, Potassium 3.6, Chloride 110 H, Carbon Dioxide 23.0, Anion Gap 8, BUN 77 H, Creatinine 2.73 H, Estim Creat Clear Calc 18.50, Est GFR (MDRD) Af Amer 29 L, Est GFR (MDRD) Non-Af 24 L, BUN/Creatinine Ratio 28.2 H, Glucose 161 H, Calcium 8.4 L Current Medications Acetaminophen (Tylenol) 650 mg PO Q6H PRN PRN PRN Reason: Pain Score 1-3/Temp > 100.7 F Albuterol Sulfate (Ventolin Aerosols) 2.5 mg INHALATION Q4H PRN PRN PRN Reason: SHORTNESS OF BREATH Albuterol/Ipratropium (Duoneb) 3 ml INHALATION Q4H.RT [facility] Last Admin: 11/13/19 15:17 Dose: 3 ml Documented by: Alprazolam (Xanax) 0.5 mg PO BID PRN PRN PRN Reason: ANXIETY Last Admin: 11/08/19 22:28 Dose: 0.5 mg Documented by: Amlodipine Besylate (Norvasc) 10 mg PO DAILY [facility] Last Admin: 11/13/19 09:28 Dose: 10 mg Documented by: Aspirin (Aspirin, Baby) 162 mg PO DAILY@0800 [facility] Last Admin: 11/13/19 07:54 Dose: 162 mg Documented by: Clopidogrel Bisulfate (Plavix) 75 mg PO DAILY [facility] Last Admin: 11/13/19 09:28 Dose: 75 mg Documented by: Enoxaparin Sodium (Lovenox) 30 mg SC DAILY [facility] Last Admin: 11/13/19 09:27 Dose: 30 mg Documented by: Glucagon () 1 mg IM .X1 PRN PRN Reason: Hypoglycemia Sodium Chloride () 250 mls @ 15 mls/hr IV .[id number] PRN PRN Reason: Saline Flush Last Infusion: 11/13/19 05:00 Dose: 0 mls/hr Documented by: Sodium Chloride () 250 mls @ 15 mls/hr IV .[id number] PRN PRN Reason: Additional IVPB Infusion Dextrose (Dextrose 10%-Water) 250 mls @ 999 mls/hr IV .Q16M PRN; Protocol PRN Reason: HYPOGLYCEMIA Ceftriaxone Sodium (Rocephin) 1 gm in 50 mls @ 100 mls/hr IV Q24 [facility] Stop: 11/15/19 10:01 Isosorbide Mononitrate (Imdur) 60 mg PO DAILY [facility] Last Admin: 11/13/19 09:28 Dose: 60 mg Documented by: Levothyroxine Sodium (Synthroid) 25 mcg PO MoTuWeThFrSa@0600 [facility] Last Admin: 11/13/19 05:28 Dose: 25 mcg Documented by: Levothyroxine Sodium (Synthroid) 50 mcg PO Banerjee@0600 [facility] Last Admin: 11/12/19 05:38 Dose: 50 mcg Documented by: Metoprolol Tartrate (Lopressor (Beta Akila)) 50 mg PO BID [facility] Last Admin: 11/13/19 09:28 Dose: 50 mg Documented by: Nitroglycerin (Nitrostat) 0.4 mg SUBLINGUAL Q5M PRN PRN Reason: CHEST Nortriptyline HCl (Pamelor) 25 mg PO QHS [facility] Last Admin: 11/12/19 21:50 Dose: 25 mg Documented by: Ondansetron HCl (Zofran) 4 mg IV Q8H PRN PRN PRN Reason: NAUSEA/VOMITING Pantoprazole Sodium (Protonix) 20 mg PO DAILY [facility] Last Admin: 11/13/19 09:28 Dose: 20 mg Documented by: Pravastatin Sodium (Pravachol) 40 mg PO QHS [facility] Last Admin: 11/12/19 21:50 Dose: 40 mg Documented by: Prednisone () 40 mg PO DAILY@0800 [facility] Last Admin: 11/13/19 07:54 Dose: 40 mg Documented by: Ranolazine (Ranexa) 500 mg PO BID [facility] Last Admin: 11/13/19 09:27 Dose: 500 mg Documented by: Sodium Chloride () 10 - 40 ml IV UD PRN PRN Reason: SALINE FLUSH Last Admin: 11/13/19 09:28 Dose: 10 ml Documented by: STROKE Vital Signs/Narrative: Vital Signs Temp Pulse Resp BP Pulse Ox 11/13/19 15:30 36.4 C L 67 18 116/64 95 11/13/19 14:56 64 Medical Necessity - Tobacco Use Smoking Status: Former smoker Tobacco Use: Non-smoker Assessment/Plan All Active Problems (Last Reviewed 10/02/19 @ 10:02 by Prabha Alejandra) Respiratory failure (Acute) OSEAS (acute kidney injury) (Acute) Vertigo (Acute) History of left heart catheterization (Resolved 08/09/19) MCGINNIS (dyspnea on exertion) (Resolved) 1. acute on chronic hypoxic respiratory failure 2/2 CHF and pneumonia and rhinovirus oxygen improved to 2 l/NC today wean oxygen as tolerated on prednisone 2. serratia pneumonia complicated by rhino virus currently on CTX upon discharge, change to oral and treat through 11/15/2019 3. Acute rhinovirus supportive mgmt 4. acute HFpEF EF 60% from echo on 11/09 5. OSEAS imrproving monitor armstrong removed today, check post-void residual. 6. Debility: to SNF upon DC 7. VTE prophylaxis: enoxaparin. DW patient's Hopefully discharge in 1-2 days. Code Visit Inpatient E&M: 75350 Subs Hosp L2
[2019-11-13] MEDS: Ceftriaxone 1 GM/50 ML BAG IV (16:43)
[2019-11-13] MEDS: Pravastatin 40 MG Tablet PO (22:04)
[2019-11-13] MEDS: Nortriptyline 25 MG Capsule PO (22:04)
[2019-11-14] VITALS (10 sets, daily range): BP systolic 121–148; BP diastolic 56–68; PULSE 64–84; RESP 18–20; TEMP 36.2–36.8; O2SAT 88–97
--- NOTE | 2019-11-14 01:13 | NURSING ---
0 Vital Signs late d/t giving another patient IV medication that was in A-Fib RVR
[2019-11-14] MEDS: Levothyroxine 25 MCG TABLET PO (05:25)
[2019-11-14 06:12] LABS: Absolute Lymphocyte Count 1.19 X10^3/uL (0.83-4.51); Absolute Neutrophil Count 8.3 X10^3/uL (2.0-7.7); Basophil# 0.01 X10^3/uL; Basophil% 0.1 % (0-1); Hematocrit 32.3 % (40-54); Hemoglobin 10.6 g/dL (13.0-16.5); Lymphocyte # 1.19 X10^3/ul (4.0); Lymphocyte % 11.5 % (19-41); Mean Corp Hgb Conc 32.8 g/dL (32-36); Mean Corpuscular Hgb 31.9 pg (27.0-32.0); Mean Corpuscular Volume 97.3 fL (80-94); Mean Platelet Vol. 10.8 fl (6.2-12.0); Monocyte# 0.72 X10^3/uL; Monocyte% 6.9 % (0-10); NRBC Flagged by Analyzer 0 % (0-5); Neutrophil # 8.34 X10^3/uL (2.7-7.7); Neutrophil % 80.2 % (47-70); Platelet Count 162 K/mm3 (150-450); RBC Distribution Width CV 13.9 % (11.6-14.6); RBC Distribution Width SD 49.6 fl (35.1-43.9); Red Blood Count 3.32 M/mm3 (4.6-6.2); White Blood Count 10.4 K/mm3 (4.4-11.0)
[2019-11-14 06:36] LABS: Anion Gap 9 (5-15); BUN 72 mg/dL (7-18); BUN/Creat Ratio 28.7 RATIO (10-20); Calcium,Total 7.9 mg/dL (8.5-10.1); Chloride 114 mmol/L (98-107); Creatinine, Serum 2.51 mg/dL (0.70-1.30); EST Glomerular Filtration Rate 26 mL/min (>60); Est Glom Filt Rate - Afr Amer 32 mL/min (>60); Estimated Creatinine Clearance 20.12 ml/min; Glucose 110 mg/dL (74-106); Potassium 3.5 mmol/L (3.5-5.1); Sodium Level 146 mmol/L (136-145)
[2019-11-14] MEDS: Ipratropium/Albuterol Sulfate 3 ML AMPUL.NEB INHALATION ×2 (06:41→10:52)
[2019-11-14] MEDS: predniSONE 20 MG Tablet 40 MG PO (08:36)
[2019-11-14] MEDS: Aspirin 81 MG TAB.CHEW 162 MG PO (08:36)
--- NOTE | 2019-11-14 09:46 | CCN.REFER ---
[facility]. NAUN will be on hold at this time.
[2019-11-14] MEDS: Ceftriaxone 1 GM/50 ML BAG IV (10:08)
[2019-11-14] MEDS: amLODIPine 10 MG Tablet PO (10:10)
[2019-11-14] MEDS: Clopidogrel Bisulfate 75 MG Tablet PO (10:10)
[2019-11-14] MEDS: Enoxaparin 30 MG/0.3 ML Syringe SC (10:10)
[2019-11-14] MEDS: Metoprolol Tartrate 50 MG Tablet PO (10:10)
[2019-11-14] MEDS: Ranolazine 500 MG Tablet PO (10:10)
[2019-11-14] MEDS: Pantoprazole Sodium 20 MG Tablet PO (10:10)
[2019-11-14] MEDS: Isosorbide Mononitrate 60 MG Tablet PO (10:10)
--- NOTE | 2019-11-14 10:20 | PN_ITS ---
Patient Problems: Active and Suspected Problems (Last Reviewed 10/02/19 @ 10:02 by Prabha Alejandra) Respiratory failure (Acute) Subjective: Patient did well overnight. No acute issues were reported. Patient reports subjective improvement in dyspnea today. Patient states his cough is becoming more productive and this is helping. Patient denies any chest pain. - Physical Exam Vitals/I&O's: Vital Signs Temp Pulse Resp BP Pulse Ox 36.2 C L 74 20 H 148/68 H 94 11/14/19 10:07 11/14/19 10:10 11/14/19 10:07 11/14/19 10:10 11/14/19 10:07 Oxygen Flow Rate (L/min) 2 Oxygen Delivery Method Nasal Cannula Weight: 71.8 kg Body Mass Index (BMI) 24.5 Finger Stick Blood Glucose 153 Intake and Output for Last 24 Hours 11/12/19 11/13/19 11/14/19 23:59 23:59 23:59 Intake Total 1364.5 / 1364.5 1557.5 / 1557.5 60 / 60 Output Total 1250 / 1250 1957 / 195 600 / 600 Balance 114.5 / 114.5 -399.5 / -399.5 -540 / -540 General: Alert, Oriented x3, Cooperative, No apparent distress, - - Hard of hearing. HEENT: Atraumatic, PERRLA, EOMI, Normocephalic, - - No scleral icterus or injection noted Oral: Moist Mucosa, No Gingival or Mucosal Lesions/ Ulcerations Neck: Supple, No JVD, No Nodes, Trachea Midline Lungs: No rhonchi, No wheeze, No rales, Diminished, - - Symmetric expansion. No dullness to percussion. Cardiovascular: Regular rate, Regular Rhythm, Normal S1, Normal S2, No murmurs, No rub noted, No Gallop Abdomen: Bowel Sounds Present, Soft, Non Tender, Non-Distended Extremities: No clubbing, No cyanosis, Edema - Slightly improved compared to yesterday Skin: No rashes, No breakdown Musculoskeletal: No Tenderness to Palpation of Joints or Extremities Lymphatic: No Cervical, Supraclavicular, or Inguinal Adenopathy Neurological: Cranial nerves II-XII grossly intact, Neuro grossly intact, Motor Exam 5/5 strength throughout Psych/Mental Status: Alert and oriented to time, place, person, mood and affect Microbiology Past 72 Hours 11/08/19 04:19 Blood Culture (Wb) #2 - Right Hand Blood Culture - Final No growth in 5 days. 11/08/19 03:45 Blood Culture (Wb) - Anticubital Right Blood Culture - Final No growth in 5 days. Laboratory Results 11/13/19 12:30: Sodium 141, Potassium 3.6, Chloride 110 H, Carbon Dioxide 23.0, Anion Gap 8, BUN 77 H, Creatinine 2.73 H, Estim Creat Clear Calc 18.50, Est GFR (MDRD) Af Amer 29 L, Est GFR (MDRD) Non-Af 24 L, BUN/Creatinine Ratio 28.2 H, Glucose 161 H, Calcium 8.4 L 11/14/19 05:25: WBC 10.4, RBC 3.32 L, Hgb 10.6 L, Hct 32.3 L, MCV 97.3 H, MCH 31.9, MCHC 32.8, RDW Std Deviation 49.6 H, RDW Coeff of Gustavo 13.9, Plt Count 162, MPV 10.8, Immature Gran % (Auto) 1.300 H, Neut % (Auto) 80.2 H, Lymph % (Auto) 11.5 L, [place] % (Auto) 6.9, Eos % (Auto) 0.0, Baso % (Auto) 0.1, Absolute Neuts (auto) 8.3 H, Absolute Lymphs (auto) 1.19, Nucleated RBC % 0 11/14/19 05:25: Sodium 146 H, Potassium 3.5, Chloride 114 H, Carbon Dioxide 23.0, Anion Gap 9, BUN 72 H, Creatinine 2.51 H, Estim Creat Clear Calc 20.12, Est GFR (MDRD) Af Amer 32 L, Est GFR (MDRD) Non-Af 26 L, BUN/Creatinine Ratio 28.7 H, Glucose 110 H, Calcium 7.9 L Current Medications Acetaminophen (Tylenol) 650 mg PO Q6H PRN PRN PRN Reason: Pain Score 1-3/Temp > 100.7 F Albuterol Sulfate (Ventolin Aerosols) 2.5 mg INHALATION Q4H PRN PRN PRN Reason: SHORTNESS OF BREATH Albuterol/Ipratropium (Duoneb) 3 ml INHALATION Q4H.RT [facility] Last Admin: 11/14/19 06:41 Dose: 3 ml Documented by: Alprazolam (Xanax) 0.5 mg PO BID PRN PRN PRN Reason: ANXIETY Last Admin: 11/08/19 22:28 Dose: 0.5 mg Documented by: Amlodipine Besylate (Norvasc) 10 mg PO DAILY [facility] Last Admin: 11/14/19 10:10 Dose: 10 mg Documented by: Aspirin (Aspirin, Baby) 162 mg PO DAILY@0800 [facility] Last Admin: 11/14/19 08:36 Dose: 162 mg Documented by: Clopidogrel Bisulfate (Plavix) 75 mg PO DAILY [facility] Last Admin: 11/14/19 10:10 Dose: 75 mg Documented by: Enoxaparin Sodium (Lovenox) 30 mg SC DAILY [facility] Last Admin: 11/14/19 10:10 Dose: 30 mg Documented by: Glucagon () 1 mg IM .X1 PRN PRN Reason: Hypoglycemia Sodium Chloride () 250 mls @ 15 mls/hr IV .[id number] PRN PRN Reason: Saline Flush Last Infusion: 11/13/19 05:00 Dose: 0 mls/hr Documented by: Sodium Chloride () 250 mls @ 15 mls/hr IV .[id number] PRN PRN Reason: Additional IVPB Infusion Dextrose (Dextrose 10%-Water) 250 mls @ 999 mls/hr IV .Q16M PRN; Protocol PRN Reason: HYPOGLYCEMIA Ceftriaxone Sodium (Rocephin) 1 gm in 50 mls @ 100 mls/hr IV Q24 [facility] Stop: 11/15/19 10:01 Last Admin: 11/14/19 10:08 Dose: 100 mls/hr Documented by: Isosorbide Mononitrate (Imdur) 60 mg PO DAILY [facility] Last Admin: 11/14/19 10:10 Dose: 60 mg Documented by: Levothyroxine Sodium (Synthroid) 25 mcg PO MoTuWeThFrSa@0600 [facility] Last Admin: 11/14/19 05:25 Dose: 25 mcg Documented by: Levothyroxine Sodium (Synthroid) 50 mcg PO Banerjee@0600 [facility] Last Admin: 11/12/19 05:38 Dose: 50 mcg Documented by: Metoprolol Tartrate (Lopressor (Beta Akila)) 50 mg PO BID [facility] Last Admin: 11/14/19 10:10 Dose: 50 mg Documented by: Nitroglycerin (Nitrostat) 0.4 mg SUBLINGUAL Q5M PRN PRN Reason: CHEST Nortriptyline HCl (Pamelor) 25 mg PO QHS [facility] Last Admin: 11/13/19 22:04 Dose: 25 mg Documented by: Ondansetron HCl (Zofran) 4 mg IV Q8H PRN PRN PRN Reason: NAUSEA/VOMITING Pantoprazole Sodium (Protonix) 20 mg PO DAILY [facility] Last Admin: 11/14/19 10:10 Dose: 20 mg Documented by: Pravastatin Sodium (Pravachol) 40 mg PO QHS [facility] Last Admin: 11/13/19 22:04 Dose: 40 mg Documented by: Prednisone () 40 mg PO DAILY@0800 [facility] Last Admin: 11/14/19 08:36 Dose: 40 mg Documented by: Ranolazine (Ranexa) 500 mg PO BID [facility] Last Admin: 11/14/19 10:10 Dose: 500 mg Documented by: Sodium Chloride () 10 - 40 ml IV UD PRN PRN Reason: SALINE FLUSH Last Admin: 11/13/19 22:17 Dose: 10 ml Documented by: Tamsulosin HCl (Flomax) 0.4 mg PO DAILY@1730 [facility] Medical Necessity - Tobacco Use Smoking Status: Former smoker Tobacco Use: Non-smoker Assessment/Plan All Active Problems (Last Reviewed 10/02/19 @ 10:02 by Prabha Alejandra) Respiratory failure (Acute) OSEAS (acute kidney injury) (Acute) Vertigo (Acute) History of left heart catheterization (Resolved 08/09/19) MCGINNIS (dyspnea on exertion) (Resolved) RECOMMENDATIONS: 1. Continue antibiotics to complete 7-day course and bronchodilators. Prednisone can be weaned over the next 12 to 14 days 2. Continue to wean supplemental oxygen to maintain saturations at or above 90%. 3. Discharge planning 4. Encourage incentive spirometer use and mobilize patient as tolerated. 5. Obtain walking oximetry 6. Pulmonary follow-up within 2 weeks of discharge is recommended. IMPRESSIONS: 1. Acute on chronic hypoxemic respiratory failure Likely multifactorial with decompensated CHF, pneumonia and viral upper respiratory infection contributing. The patient is positive for rhinovirus and grew Serratia marcescens from sputum culture. Patient should complete a 7-day course of antibiotics. Bronchodilators should be continued. Steroids can be weaned over the next 12 to 14 days. Clinical suspicion for increased desaturation with ambulation, so a walking oximetry prior to discharge has been ordered. Patient does have supplemental oxygen at home. 2. Acute on chronic kidney disease Improving. Suspect secondary to decompensated heart failure state. Renal function appears to be improving on today's labs. Patient does have some hypernatremia and hyperchloremia and may benefit from free water. 3. Coronary artery disease/hypertension/hyperlipidemia/hypothyroidism Complicates care, management, recovery and prognosis. Continue home medications as indicated. Code Visit Inpatient E&M: 33167 Subs Hosp L2
--- NOTE | 2019-11-14 11:35 | CASEMGMT ---
SVETLANA spoke with Marisabel at [facility] and they can accept patient. SVETLANA let patient and his daughter know this information. Patient's daughter said she would transport him since the wheelchair van is not covered by insurance. Await orders. Plan: d/c to [facility] under skilled level of care on a convalescent stay. Patient's daughter said she would transport. Jenn FORTE
--- NOTE | 2019-11-14 11:58 | PN.RENAL_ITS ---
Patient Problems: Active and Suspected Problems (Last Reviewed 10/02/19 @ 10:02 by Prabha Alejandra) Respiratory failure (Acute) Subjective: no new complaints - Physical Exam Vitals/I&O's: Vital Signs Temp Pulse Resp BP Pulse Ox 97.1 F L 80 20 H 148/68 H 88 11/14/19 10:07 11/14/19 10:52 11/14/19 10:52 11/14/19 10:10 11/14/19 10:31 Oxygen Flow Rate (L/min) [ 2 AMBULATION with Oxygen] Oxygen Flow Rate (L/min) 2 Oxygen Delivery Method Nasal Cannula Weight: 71.8 kg Body Mass Index (BMI) 24.5 Finger Stick Blood Glucose 153 Intake and Output for Last 24 Hours 11/12/19 11/13/19 11/14/19 23:59 23:59 23:59 Intake Total 1364.5 / 1364.5 1557.5 / 1557.5 550 / 550 Output Total 1250 / 1250 1956 / 1956 1000 / 1000 Balance 114.5 / 114.5 -399.5 / -399.5 -450 / -450 General: Alert, Oriented x3, Cooperative HEENT: Atraumatic, PERRLA, EOMI, Normocephalic Neck: Supple, No JVD, Negative Carotid Bruits Lungs: Clear to auscultation, Normal air movement Cardiovascular: Regular rate, No murmurs Abdomen: Bowel Sounds Present, Soft, Non Tender Extremities: No edema, Capillary Refill Less than 3 Seconds Skin: No rashes, No breakdown Musculoskeletal: No Tenderness to Palpation of Joints or Extremities Neurological: Cranial nerves II-XII grossly intact Psych/Mental Status: Normal Affect, Appropriate Microbiology Past 72 Hours 11/08/19 04:19 Blood Culture (Wb) #2 - Right Hand Blood Culture - Final No growth in 5 days. 11/08/19 03:45 Blood Culture (Wb) - Anticubital Right Blood Culture - Final No growth in 5 days. Laboratory Results 11/13/19 12:30: Sodium 141, Potassium 3.6, Chloride 110 H, Carbon Dioxide 23.0, Anion Gap 8, BUN 77 H, Creatinine 2.73 H, Estim Creat Clear Calc 18.50, Est GFR (MDRD) Af Amer 29 L, Est GFR (MDRD) Non-Af 24 L, BUN/Creatinine Ratio 28.2 H, Glucose 161 H, Calcium 8.4 L 11/14/19 05:25: WBC 10.4, RBC 3.32 L, Hgb 10.6 L, Hct 32.3 L, MCV 97.3 H, MCH 31.9, MCHC 32.8, RDW Std Deviation 49.6 H, RDW Coeff of Gustavo 13.9, Plt Count 162, MPV 10.8, Immature Gran % (Auto) 1.300 H, Neut % (Auto) 80.2 H, Lymph % (Auto) 11.5 L, [place] % (Auto) 6.9, Eos % (Auto) 0.0, Baso % (Auto) 0.1, Absolute Neuts (auto) 8.3 H, Absolute Lymphs (auto) 1.19, Nucleated RBC % 0 11/14/19 05:25: Sodium 146 H, Potassium 3.5, Chloride 114 H, Carbon Dioxide 23.0, Anion Gap 9, BUN 72 H, Creatinine 2.51 H, Estim Creat Clear Calc 20.12, Est GFR (MDRD) Af Amer 32 L, Est GFR (MDRD) Non-Af 26 L, BUN/Creatinine Ratio 28.7 H, Glucose 110 H, Calcium 7.9 L Current Medications Acetaminophen (Tylenol) 650 mg PO Q6H PRN PRN PRN Reason: Pain Score 1-3/Temp > 100.7 F Albuterol Sulfate (Ventolin Aerosols) 2.5 mg INHALATION Q4H PRN PRN PRN Reason: SHORTNESS OF BREATH Albuterol/Ipratropium (Duoneb) 3 ml INHALATION Q4H.RT [facility] Last Admin: 11/14/19 10:52 Dose: 3 ml Documented by: Alprazolam (Xanax) 0.5 mg PO BID PRN PRN PRN Reason: ANXIETY Last Admin: 11/08/19 22:28 Dose: 0.5 mg Documented by: Amlodipine Besylate (Norvasc) 10 mg PO DAILY [facility] Last Admin: 11/14/19 10:10 Dose: 10 mg Documented by: Aspirin (Aspirin, Baby) 162 mg PO DAILY@0800 [facility] Last Admin: 11/14/19 08:36 Dose: 162 mg Documented by: Clopidogrel Bisulfate (Plavix) 75 mg PO DAILY [facility] Last Admin: 11/14/19 10:10 Dose: 75 mg Documented by: Enoxaparin Sodium (Lovenox) 30 mg SC DAILY [facility] Last Admin: 11/14/19 10:10 Dose: 30 mg Documented by: Glucagon () 1 mg IM .X1 PRN PRN Reason: Hypoglycemia Sodium Chloride () 250 mls @ 15 mls/hr IV .[id number] PRN PRN Reason: Saline Flush Last Infusion: 11/13/19 05:00 Dose: 0 mls/hr Documented by: Sodium Chloride () 250 mls @ 15 mls/hr IV .[id number] PRN PRN Reason: Additional IVPB Infusion Dextrose (Dextrose 10%-Water) 250 mls @ 999 mls/hr IV .Q16M PRN; Protocol PRN Reason: HYPOGLYCEMIA Ceftriaxone Sodium (Rocephin) 1 gm in 50 mls @ 100 mls/hr IV Q24 [facility] Stop: 11/15/19 10:01 Last Infusion: 11/14/19 10:42 Dose: Infused Documented by: Isosorbide Mononitrate (Imdur) 60 mg PO DAILY [facility] Last Admin: 11/14/19 10:10 Dose: 60 mg Documented by: Levothyroxine Sodium (Synthroid) 25 mcg PO MoTuWeThFrSa@0600 [facility] Last Admin: 11/14/19 05:25 Dose: 25 mcg Documented by: Levothyroxine Sodium (Synthroid) 50 mcg PO Banerjee@0600 [facility] Last Admin: 11/12/19 05:38 Dose: 50 mcg Documented by: Metoprolol Tartrate (Lopressor (Beta Akila)) 50 mg PO BID [facility] Last Admin: 11/14/19 10:10 Dose: 50 mg Documented by: Nitroglycerin (Nitrostat) 0.4 mg SUBLINGUAL Q5M PRN PRN Reason: CHEST Nortriptyline HCl (Pamelor) 25 mg PO QHS [facility] Last Admin: 11/13/19 22:04 Dose: 25 mg Documented by: Ondansetron HCl (Zofran) 4 mg IV Q8H PRN PRN PRN Reason: NAUSEA/VOMITING Pantoprazole Sodium (Protonix) 20 mg PO DAILY [facility] Last Admin: 11/14/19 10:10 Dose: 20 mg Documented by: Pravastatin Sodium (Pravachol) 40 mg PO QHS [facility] Last Admin: 11/13/19 22:04 Dose: 40 mg Documented by: Prednisone () 40 mg PO DAILY@0800 [facility] Last Admin: 11/14/19 08:36 Dose: 40 mg Documented by: Ranolazine (Ranexa) 500 mg PO BID [facility] Last Admin: 11/14/19 10:10 Dose: 500 mg Documented by: Sodium Chloride () 10 - 40 ml IV UD PRN PRN Reason: SALINE FLUSH Last Admin: 11/13/19 22:17 Dose: 10 ml Documented by: Tamsulosin HCl (Flomax) 0.4 mg PO DAILY@1730 [facility] Medical Necessity - Tobacco Use Smoking Status: Former smoker Tobacco Use: Non-smoker Assessment/Plan All Active Problems (Last Reviewed 10/02/19 @ 10:02 by Prabha Alejandra) Respiratory failure (Acute) OSEAS (acute kidney injury) (Acute) Vertigo (Acute) History of left heart catheterization (Resolved 08/09/19) MCGINNIS (dyspnea on exertion) (Resolved) Acute renal failure Chronic kidney disease Congestive heart failure Reviewed old records. Renal ultrasound at the time of last admission 2 months ago did not show any hydronephrosis. Had significant postvoid residuals and a Armstrong catheter post placed Wednesday. Urine output has been good since then. armstrong removed yesterday. has some post void residuals. flomax added cr is down to baseline ok to dc
--- NOTE | 2019-11-14 12:23 | PCM.TXEXTCAR ---
- Diet 11/12/19 22:30 Diet: Cardiac/Low Cholesterol Food consistency:: Mechanical Soft/Ground Liquid Consistency:: Regular/Thin Is pt able to select menu?: Yes Diet Comments: 1:1 close supervision; reflux precautions - Routine Orders/Code Status Routine Lab Work: BMP - every Wednesday - Therapies Physical Therapy: Eval and Treat Occupational Therapy: Eval and Treat - Allergies/Procedures Done in Hospital Allergies/Adverse Reactions: Allergies atorvastatin calcium [From Lipitor] Allergy (Verified 11/08/19 03:48) Other celecoxib [From Celebrex] Allergy (Verified 11/08/19 03:48) Unknown lincomycin HCl [From Lincocin] Allergy (Verified 11/08/19 03:48) Unknown rosuvastatin calcium [From Crestor] Allergy (Verified 11/08/19 03:48) Other budesonide [From Symbicort] Adverse Reaction (Verified 11/08/19 03:48) headache, nausea formoterol [From Symbicort] Adverse Reaction (Verified 11/08/19 03:48) headache, nausea - Type of Care/Length of Stay Estimated LOS: Convalescent Care Less Than 30 days Type of Care Needed: Skilled Rehab Potential: Fair Prognosis: Fair - Additional Orders/Day of Discharge Day of Discharge: 11/14/19 - Dietary and Speech Recommendations Dietitian Recommendations/Changes: Continue cardiac/low chol diet w/consistency per pt tolerance. Continue 1500 ml fluid restriction as indicated. Continue ensure pudding or magic cup at meals. - Follow Up Care Primary Care Physician: Nathan Suresh MD [Primary Care Provider] - Within 2 Weeks Please Follow Up With: Abdirahman Flor MD - Urology When: 1-2 months
--- NOTE | 2019-11-14 12:27 | DS.PCM_ITS ---
Discharge Date and Diagnosis - Problem List Patient Problems: Active and Suspected Problems (Last Reviewed 10/02/19 @ 10:02 by Prabha Alejandra) Respiratory failure (Acute) Date of Admission: 11/08/19 Date of Discharge: 11/14/19 - Primary Discharge Diagnosis Active and Suspected Problems (Last Reviewed 10/02/19 @ 10:02 by Prabha Alejandra) 1. acute on chronic hypoxic respiratory failure * 2/2 CHF and pneumonia and rhinovirus * oxygen improved to 2 l/NC today * wean oxygen as tolerated * on prednisone 2. serratia pneumonia * complicated by rhino virus * currently on CTX * upon discharge, change to oral and treat through 11/15/2019 3. Acute rhinovirus * supportive mgmt 4. acute HFpEF * EF 60% from echo on 11/09 5. OSEAS * post obstructive imrproving * monitor * improving with tamsulosin * follow up with urology. 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 Overlying pneumonia cannot be excluded. Old granulomatous disease. Electronically Signed: Rodolfo Akins MD at 5:10 EST , Service support , Renal Ultrasound 11/09/19 06:50 IMPRESSION: No gross acute abnormality. Bilateral renal atrophy which was also present previously. No hydronephrosis. Stable prostate enlargement. Electronically Signed: Krzysztof Daniels MD at 21:07 EST , Service support , Chest X-Ray 11/09/19 06:51 IMPRESSION: Status post CABG with a small right lung base pleural effusion which has improved.. Electronically Signed: Fede Weaver at 11:31 EST Tel , Service support , Lung Scan-VQ NM 11/09/19 13:46 IMPRESSION: 1. NORMAL 99m Tc MAA pulmonary perfusion imaging examination, according to PIOPED II interpretive criteria. (Sotsman et al, Radiology 246: 941, 2008 Sopatricia et al, J Nucl Med 49: 1741, 2008). 2. Central clumping of the aerosol may be secondary to obstructive airway mechanics and or clinical tachypnea. Electronically Signed: Leno Campbell DO at 16:48 EST Tel , Service support , yoselin Bruner, nephrology Operations: None Procedures: None Summary of Care Provided: The patient is a 84 year old M Steffanie with shortness of breath. Patient was found to be positive for rhinovirus as well as Serratia pneumonia. Has steadily improved. Patient will continue with Keflex for the aspiration pneumonia. Additionally, patient had acute kidney injury with a creatinine of 3.25. Baseline was around 2.3. [place] to be postobstructive. Catheter was placed and subsequently removed. Patient did improve overall and has been started on tamsulosin. Patient follow-up with urology as outpatient. Patient debilitated be going to nursing home facility in stable condition. [] Patient Problems: Active and Suspected Problems (Last Reviewed 10/02/19 @ 10:02 by Prabha Alejandra) Respiratory failure (Acute) - Physical Exam Vitals/I&O's: Vital Signs Temp Pulse Resp BP Pulse Ox 36.2 C L 80 20 H 148/68 H 88 11/14/19 10:07 11/14/19 10:52 11/14/19 10:52 11/14/19 10:10 11/14/19 10:31 Oxygen Flow Rate (L/min) [ 2 AMBULATION with Oxygen] Oxygen Flow Rate (L/min) 2 Oxygen Delivery Method Nasal Cannula Weight: 71.8 kg Body Mass Index (BMI) 24.5 Finger Stick Blood Glucose 153 Intake and Output for Last 24 Hours 11/12/19 11/13/19 11/14/19 23:59 23:59 23:59 Intake Total 1364.5 / 1364.5 1557.5 / 1557.5 550 / 550 Output Total 1250 / 1250 1956 / 1956 1000 / 1000 Balance 114.5 / 114.5 -399.5 / -399.5 -450 / -450 General: Alert, No apparent distress HEENT: Atraumatic, Normocephalic Oral: Moist Mucosa, No Gingival or Mucosal Lesions/ Ulcerations Neck: No Nodes, Trachea Midline Lungs: Clear to auscultation, Normal air movement, No rhonchi, No wheeze Cardiovascular: Regular rate, Regular Rhythm, Normal S1, Normal S2, - - 2/6 LOREN at RUSB Abdomen: Bowel Sounds Present, Soft, Non Tender, Non-Distended Psych/Mental Status: Normal Affect, Appropriate Microbiology Past 72 Hours 11/08/19 04:19 Blood Culture (Wb) #2 - Right Hand Blood Culture - Final No growth in 5 days. 11/08/19 03:45 Blood Culture (Wb) - Anticubital Right Blood Culture - Final No growth in 5 days. Laboratory Results 11/13/19 12:30: Sodium 141, Potassium 3.6, Chloride 110 H, Carbon Dioxide 23.0, Anion Gap 8, BUN 77 H, Creatinine 2.73 H, Estim Creat Clear Calc 18.50, Est GFR (MDRD) Af Amer 29 L, Est GFR (MDRD) Non-Af 24 L, BUN/Creatinine Ratio 28.2 H, Glucose 161 H, Calcium 8.4 L 11/14/19 05:25: WBC 10.4, RBC 3.32 L, Hgb 10.6 L, Hct 32.3 L, MCV 97.3 H, MCH 31.9, MCHC 32.8, RDW Std Deviation 49.6 H, RDW Coeff of Gustavo 13.9, Plt Count 162, MPV 10.8, Immature Gran % (Auto) 1.300 H, Neut % (Auto) 80.2 H, Lymph % (Auto) 11.5 L, Petroleum % (Auto) 6.9, Eos % (Auto) 0.0, Baso % (Auto) 0.1, Absolute Neuts (auto) 8.3 H, Absolute Lymphs (auto) 1.19, Nucleated RBC % 0 11/14/19 05:25: Sodium 146 H, Potassium 3.5, Chloride 114 H, Carbon Dioxide 23.0, Anion Gap 9, BUN 72 H, Creatinine 2.51 H, Estim Creat Clear Calc 20.12, Est GFR (MDRD) Af Amer 32 L, Est GFR (MDRD) Non-Af 26 L, BUN/Creatinine Ratio 28.7 H, Glucose 110 H, Calcium 7.9 L Current Medications Acetaminophen (Tylenol) 650 mg PO Q6H PRN PRN PRN Reason: Pain Score 1-3/Temp > 100.7 F Albuterol Sulfate (Ventolin Aerosols) 2.5 mg INHALATION Q4H PRN PRN PRN Reason: SHORTNESS OF BREATH Albuterol/Ipratropium (Duoneb) 3 ml INHALATION Q4H.RT [facility] Last Admin: 11/14/19 10:52 Dose: 3 ml Documented by: Alprazolam (Xanax) 0.5 mg PO BID PRN PRN PRN Reason: ANXIETY Last Admin: 11/08/19 22:28 Dose: 0.5 mg Documented by: Amlodipine Besylate (Norvasc) 10 mg PO DAILY [facility] Last Admin: 11/14/19 10:10 Dose: 10 mg Documented by: Aspirin (Aspirin, Baby) 162 mg PO DAILY@0800 [facility] Last Admin: 11/14/19 08:36 Dose: 162 mg Documented by: Clopidogrel Bisulfate (Plavix) 75 mg PO DAILY [facility] Last Admin: 11/14/19 10:10 Dose: 75 mg Documented by: Enoxaparin Sodium (Lovenox) 30 mg SC DAILY [facility] Last Admin: 11/14/19 10:10 Dose: 30 mg Documented by: Glucagon () 1 mg IM .X1 PRN PRN Reason: Hypoglycemia Sodium Chloride () 250 mls @ 15 mls/hr IV .[id number] PRN PRN Reason: Saline Flush Last Infusion: 11/13/19 05:00 Dose: 0 mls/hr Documented by: Sodium Chloride () 250 mls @ 15 mls/hr IV .[id number] PRN PRN Reason: Additional IVPB Infusion Dextrose (Dextrose 10%-Water) 250 mls @ 999 mls/hr IV .Q16M PRN; Protocol PRN Reason: HYPOGLYCEMIA Ceftriaxone Sodium (Rocephin) 1 gm in 50 mls @ 100 mls/hr IV Q24 [facility] Stop: 11/15/19 10:01 Last Infusion: 11/14/19 10:42 Dose: Infused Documented by: Isosorbide Mononitrate (Imdur) 60 mg PO DAILY [facility] Last Admin: 11/14/19 10:10 Dose: 60 mg Documented by: Levothyroxine Sodium (Synthroid) 25 mcg PO MoTuWeThFrSa@0600 [facility] Last Admin: 11/14/19 05:25 Dose: 25 mcg Documented by: Levothyroxine Sodium (Synthroid) 50 mcg PO Banerjee@0600 [facility] Last Admin: 11/12/19 05:38 Dose: 50 mcg Documented by: Metoprolol Tartrate (Lopressor (Beta Akila)) 50 mg PO BID [facility] Last Admin: 11/14/19 10:10 Dose: 50 mg Documented by: Nitroglycerin (Nitrostat) 0.4 mg SUBLINGUAL Q5M PRN PRN Reason: CHEST Nortriptyline HCl (Pamelor) 25 mg PO QHS [facility] Last Admin: 11/13/19 22:04 Dose: 25 mg Documented by: Ondansetron HCl (Zofran) 4 mg IV Q8H PRN PRN PRN Reason: NAUSEA/VOMITING Pantoprazole Sodium (Protonix) 20 mg PO DAILY [facility] Last Admin: 11/14/19 10:10 Dose: 20 mg Documented by: Pravastatin Sodium (Pravachol) 40 mg PO QHS [facility] Last Admin: 11/13/19 22:04 Dose: 40 mg Documented by: Prednisone () 40 mg PO DAILY@0800 [facility] Last Admin: 11/14/19 08:36 Dose: 40 mg Documented by: Ranolazine (Ranexa) 500 mg PO BID [facility] Last Admin: 11/14/19 10:10 Dose: 500 mg Documented by: Sodium Chloride () 10 - 40 ml IV UD PRN PRN Reason: SALINE FLUSH Last Admin: 11/13/19 22:17 Dose: 10 ml Documented by: Tamsulosin HCl (Flomax) 0.4 mg PO DAILY@1730 [facility] Discharge Diet: Low fat/ Low Cholesterol Home Medications: Medications to take at Discharge Albuterol Inhaler [Ventolin Hfa] 2 puff INHALATION Q4H PRN PRN 04/20/14 Aspirin [Aspirin, Baby] 162 mg PO DAILY@0800 04/20/14 Nortriptyline HCl [Pamelor] 25 mg PO QHS 04/20/14 Omeprazole [Prilosec] 20 mg PO DAILY 04/20/14 levothyroxine 25 mcg tablet 25 mcg PO .COMPLEX tab 12/24/17 pravastatin 80 mg tablet 40 mg PO QHS tab 07/20/19 Co Q-10 1 tab PO DAILY 08/07/19 Acetaminophen [Tylenol Tablet] 650 mg PO Q6H PRN PRN tab 08/09/19 nitroglycerin 0.4 mg sublingual tablet 0.4 mg SUBLINGUAL Q5M PRN #30 tab 09/05/19 Amlodipine Besylate [Norvasc] 10 mg PO DAILY 09/16/19 Clopidogrel Bisulfate [Clopidogrel] 75 mg PO DAILY 09/16/19 Isosorbide Mononitrate [Isosorbide Mononitrate ER] 60 mg PO DAILY 09/16/19 Metoprolol Tartrate [Lopressor (beta akila)] 50 mg PO BID 09/16/19 Ranolazine [Ranolazine ER] 500 mg PO BID 09/16/19 ALPRAZolam [Xanax] 0.5 mg PO BID PRN PRN #6 tab 11/14/19 Cephalexin [Keflex] 500 mg PO TID #3 capsule 11/14/19 Prednisone 10 mg PO DAILY #22 tab.ds.pk 11/14/19 Tamsulosin HCl [Flomax] 0.4 mg PO DAILY@1730 capsule 11/14/19 Following Prescrptions Were Given to Patient: Cephalexin [Keflex] 500 mg PO TID #3 capsule Prednisone 10 mg PO DAILY #22 tab.ds.pk ALPRAZolam [Xanax] 0.5 mg PO BID PRN PRN #6 tab PRN Reason: Anxiety Prescription Printed Primary Care Physician: Nathan Suresh MD [Primary Care Provider] - Within 2 Weeks Please Follow Up With: Abdirahman Flor MD - Urology When: 1-2 months Disposition: Detention facility Minutes spent on discharge:: 32 Patient Condition:: Fair Medical Necessity - Tobacco Use Smoking Status: Former smoker Tobacco Use: Non-smoker Meaningful Use Info Meaningful Use Diagnoses (Choose all that apply): None applicable Code Visit Inpatient E&M: 24452 Disch Hosp
--- NOTE | 2019-11-14 13:05 | NURSING ---
This Rn called to give report to RHONDA Davalos at [facility].
--- NOTE | 2019-11-14 13:44 | PHA.DC.MR ---
Pharmacy Service has performed discharge medication reconciliation for this patient upon transfer to [facility]. The patient's discharge medication list was reviewed for discrepancies and discrepancies were resolved. Home Medications Albuterol Inhaler [Ventolin Hfa] 2 puff INHALATION Q4H PRN PRN 04/20/14 Aspirin [Aspirin, Baby] 162 mg PO DAILY@0800 04/20/14 Nortriptyline HCl [Pamelor] 25 mg PO QHS 04/20/14 Omeprazole [Prilosec] 20 mg PO DAILY 04/20/14 levothyroxine 25 mcg tablet 25 mcg PO .COMPLEX tab 12/24/17 pravastatin 80 mg tablet 40 mg PO QHS tab 07/20/19 Co Q-10 1 tab PO DAILY 08/07/19 Acetaminophen [Tylenol Tablet] 650 mg PO Q6H PRN PRN tab 08/09/19 nitroglycerin 0.4 mg sublingual tablet 0.4 mg SUBLINGUAL Q5M PRN #30 tab 09/05/19 Amlodipine Besylate [Norvasc] 10 mg PO DAILY 09/16/19 Clopidogrel Bisulfate [Clopidogrel] 75 mg PO DAILY 09/16/19 Isosorbide Mononitrate [Isosorbide Mononitrate ER] 60 mg PO DAILY 09/16/19 Metoprolol Tartrate [Lopressor (beta mirna)] 50 mg PO BID 09/16/19 Ranolazine [Ranolazine ER] 500 mg PO BID 09/16/19 ALPRAZolam [Xanax] 0.5 mg PO BID PRN PRN #6 tab 11/14/19 Cephalexin [Keflex] 500 mg PO TID #3 cap 11/14/19 Prednisone 10 mg PO DAILY #22 tab.ds.pk 11/14/19 Tamsulosin HCl [Flomax] 0.4 mg PO DAILY@1730 cap 11/14/19
== END 2019-11-14 13:36 | disposition skilled nursing facility (03) | DRG 291 ==
LOC: ED 05:27 → ICU 05:44 → PCU 11-09 19:50
PROVIDERS: Internal Medicine; Internal Medicine Critical Care Medicine; Internal Medicine Nephrology; Admitting Provider Student in an Organized Health Care Education/Training Program; Emergency Provider Emergency Medicine; PCP Family Medicine
DX: I13.0 Hypertensive heart and chronic kidney disease with heart failure and stage 1 through stage 4 chronic kidney disease, or unspecified chronic kidney disease (principal); I50.33 Acute on chronic diastolic (congestive) heart failure; J96.21 Acute and chronic respiratory failure with hypoxia; J15.6 Pneumonia due to other Gram-negative bacteria; J69.0 Pneumonitis due to inhalation of food and vomit; J44.0 Chronic obstructive pulmonary disease with (acute) lower respiratory infection; N17.9 Acute kidney failure, unspecified; N18.4 Chronic kidney disease, stage 4 (severe); E87.0 Hyperosmolality and hypernatremia; Z99.81 Dependence on supplemental oxygen; I25.119 Atherosclerotic heart disease of native coronary artery with unspecified angina pectoris; E78.5 Hyperlipidemia, unspecified; F17.200 Nicotine dependence, unspecified, uncomplicated; Z79.51 Long term (current) use of inhaled steroids; Z79.82 Long term (current) use of aspirin; E03.9 Hypothyroidism, unspecified; Z79.899 Other long term (current) drug therapy; N28.1 Cyst of kidney, acquired; Z95.1 Presence of aortocoronary bypass graft; N40.1 Benign prostatic hyperplasia with lower urinary tract symptoms; Z95.5 Presence of coronary angioplasty implant and graft; Z66 Do not resuscitate; Z79.02 Long term (current) use of antithrombotics/antiplatelets; B97.89 Other viral agents as the cause of diseases classified elsewhere; D63.1 Anemia in chronic kidney disease; R53.81 Other malaise; E87.8 Other disorders of electrolyte and fluid balance, not elsewhere classified
CPT/HCPCS: 36415; 71045; 76770; 78582; 80048; 81001; 82570; 83605; 83880; 84300; 84484; 85025; 85379; 87040; 87070; 87077; 87186; 87205; 87633; 87641; 87804; 92526; 92610; 93005; 93306; 93970; 94002; 94003; 94640; 94660; 97110; 97162; 97166; 97530; 97535; 97802; 97803; 99285; 99406; A9540; A9567; J7040; J7050; Q9957; A4216; C8929; J1940

== ENCOUNTER → 2019-12-25 09:00 | Outpatient (REF) | payer MEDICARE, OTHER, SELFPAY ==
[2019-11-08 06:08] VITALS: BMI 24.5
[2019-12-25 10:11] LABS: Absolute Lymphocyte Count 2.73 X10^3/uL (0.83-4.51); Absolute Neutrophil Count 12.8 X10^3/uL (2.0-7.7); Basophil# 0.03 X10^3/uL; Basophil% 0.2 % (0-1); Eosinophil# 0.02 X10^3/uL; Eosinophils% 0.1 % (0-5); Hematocrit 32.1 % (40-54); Hemoglobin 10.6 g/dL (13.0-16.5); Lymphocyte # 2.73 X10^3/ul (4.0); Lymphocyte % 15.7 % (19-41); Mean Corpuscular Hgb 31.5 pg (27.0-32.0); Mean Corpuscular Volume 95.5 fL (80-94); Mean Platelet Vol. 10.4 fl (6.2-12.0); Monocyte% 9.8 % (0-10); NRBC Flagged by Analyzer 0.2 % (0-5); Neutrophil # 12.79 X10^3/uL (2.7-7.7); Neutrophil % 73.5 % (47-70); POSITIVE DIFFERENTIAL YES; POSITIVE MORPHOLOGY YES; Platelet Count 230 K/mm3 (150-450); RBC Distribution Width CV 14.7 % (11.6-14.6); RBC Distribution Width SD 51.4 fl (35.1-43.9); Red Blood Count 3.36 M/mm3 (4.6-6.2); White Blood Count 17.4 K/mm3 (4.4-11.0)
[2019-12-25 10:17] LABS: Differential Indicated SCAN CRITERIA MET
[2019-12-25 10:25] LABS: ALB/GLOB Ratio 0.7 RATIO (0.9-2.4); AST(SGOT) 21 U/L (15-37); Alanine Aminotransfer ALT/SGPT 13 U/L (16-61); Albumin, Serum 2.5 g/dL (3.2-5.0); Alkaline Phosphatase 102 U/L (45-117); Anion Gap 9 (5-15); BUN 34 mg/dL (7-18); BUN/Creat Ratio 15.2 RATIO (10-20); Calcium,Total 8.3 mg/dL (8.5-10.1); Chloride 111 mmol/L (98-107); Creatinine, Serum 2.24 mg/dL (0.70-1.30); EST Glomerular Filtration Rate 30 mL/min (>60); Est Glom Filt Rate - Afr Amer 36 mL/min (>60); Globulin 3.5 g/dL (2.2-4.2); Glucose 83 mg/dL (74-106); Potassium 2.8 mmol/L (3.5-5.1); Sodium Level 142 mmol/L (136-145)
[2019-12-25 11:08] LABS: Anisocytosis 1+; Platelet Estimate ADEQUATE (ADEQ); Red Cell Morphology N CHROM NORMAL (NORM C&C)
[2019-12-26 11:41] LABS: Pathologist Review Reviewed
== END ==
LOC: OLS.WCC 09:00
PROVIDERS: PCP Family Medicine; Referring Provider Family Medicine; Visit Provider Family Medicine
DX: R50.9 Fever, unspecified (principal); R09.02 Hypoxemia
CPT/HCPCS: 36415; 80053; 85025; 87633